=== PATIENT | female | born 1950 | race Caucasian/White ===

== ENCOUNTER → 2021-06-23 10:12 | Outpatient (CLI) | payer MEDICARE, SELFPAY ==
[2020-05-20 15:56] VITALS: BMI 24.4
--- NOTE | 2021-06-23 10:13 | BI_ITS ---
MAMMOGRAPHY - BILATERAL SCREENING 3-D TOMOSYNTHESIS REASON FOR EXAM: Female, 70 years old. screening PERTINENT HISTORY: No significant family history. TECHNIQUE: 2-D mammograms and 3-D Tomosynthesis of the breast (s) were performed. CAD was performed. COMPARISON: 04/25/2020 FINDINGS: The breast composition is composed of scattered fibroglandular density. Scattered benign calcifications are seen. No dense spiculated masses or suspicious microcalcifications are identified. No architectural distortion is identified. There is no skin thickening or retraction. There has been no significant change since the prior study. BI/SCRN MAMM (CAD)W/SYLVIE BILAT IMPRESSION: No mammographic signs of malignancy. Routine yearly mammograms recommended. ASSESSMENT CATEGORY: BIRADS Category 1: Negative. A letter regarding these results will be sent to the patient by the facility within 30 days. FOLLOW UP RECOMMENDATION: Yearly follow up mammogram recommended. (A) Approximately 10% of breast cancers are not detected by mammography. A normal mammogram should not delay biopsy of a clinically suspicious abnormality. Electronically Signed: Joni Moon MD at 11:52 EDT Tel , Service support ,
== END ==
PROVIDERS: PCP Internal Medicine; Referring Provider Obstetrics & Gynecology; Visit Provider Obstetrics & Gynecology
DX: Z12.31 Encounter for screening mammogram for malignant neoplasm of breast (principal)
CPT/HCPCS: 77063; 77067

== ENCOUNTER → 2021-07-23 11:40 | Outpatient (CLI) | payer MEDICARE, SELFPAY ==
[2021-07-25 13:41] LABS: HPV Reflexed? NOT INDICATED
== END ==
PROVIDERS: Visit Provider Obstetrics & Gynecology
DX: Z12.4 Encounter for screening for malignant neoplasm of cervix (principal)
CPT/HCPCS: 88175; G0145

== ENCOUNTER → 2022-07-07 | Outpatient (CLI) | payer MEDICARE, SELFPAY ==
--- NOTE | 2022-07-07 13:50 | BI_ITS ---
MAMMOGRAPHY - BILATERAL SCREENING REASON FOR EXAM: Female, 71 years old. Routine annual screening examination. PERTINENT HISTORY: Grandmother with breast cancer. TECHNIQUE: Digital bilateral breast sylvie (3D mammographic acquisition) in the CC and MLO projections. 2-D mediolateral oblique (MLO) and craniocaudad (CC) views of both breasts were obtained. CAD: Full Field Digital Mammography with Computer Added Detection was performed. COMPARISON: Comparison is made with prior study 06/23/2021. FINDINGS: Breast Composition: There are scattered areas of fibroglandular density. There are no dominant masses or suspicious calcifications. No other significant abnormalities are identified. There has been no significant change since the prior study. BI/SCRN MAMM (CAD)W/SYLVIE BILAT IMPRESSION: Stable bilateral screening mammogram. Yearly follow-up mammogram recommended. (A) ASSESSMENT CATEGORY: BIRADS Category 1: Negative. A letter regarding these results will be sent to the patient by the facility within 30 days. Approximately 10% of breast cancers are not detected by mammography. A normal mammogram should not delay biopsy of a clinically suspicious abnormality. [id number] Electronically Signed: Anthony José MD at 15:17 EDT ,
== END | disposition home or self-care (01) ==
PROVIDERS: PCP Internal Medicine; Referring Provider Obstetrics & Gynecology; Visit Provider Obstetrics & Gynecology
DX: Z12.31 Encounter for screening mammogram for malignant neoplasm of breast (principal)
CPT/HCPCS: 77063; 77067

== ENCOUNTER 2022-08-29 17:48 | Emergency (ER) | payer MEDICARE, SELFPAY ==
[2022-08-29 17:50] VITALS: BP 144/84; PULSE 107; RESP 15; TEMP 36.8; O2SAT 97; BMI 24.9
--- NOTE | 2022-08-29 19:10 | EX.ED.GENINJ ---
HPI History of Present Illness Chief Complaint: Bite Informant: patient Narrative Narrative: Patient is a 71-year-old female presenting with dog bite. She states her neighbors dog ran over to her and bit her right calf. The dog is otherwise been acting normally and is up-to-date with its shots. Patient is not sure when her last tetanus shot was. She is especially worried about infection because she is had prior knee surgery. Denies any significant pain at this point. No active bleeding. No associated numbness or tingling. No other injuries or complaints at this time. Tetanus Immunization: Unknown [facility] Medical History (Updated 08/29/22 @ 19:[address] Samantha Wilkinson DO) Hypertension Home Medications multivitamin,[id number] (Complete Multivitamin tablet) 1 tab PO DAILY 10/31/18 [History Last Taken Unknown] atenolol 25 mg tablet 25 mg PO DAILY 05/20/20 [History Last Taken Unknown] amoxicillin 875 mg-potassium clavulanate 125 mg tablet 1 tab PO BID #14 tabs 08/29/22 [Rx Last Taken Unknown] Allergy/AdvReac Type Severity Reaction Status Date / Time morphine AdvReac Nausea Verified 08/29/22 17:50 Sulfa (Sulfonamide AdvReac Rash Verified 08/29/22 17:50 Antibiotics) Family History Grandmother Breast cancer Father Hypertension Kidney disease kidney failure Surgical History History of tonsillectomy S/P ACL surgery S/P nasal surgery Total knee replacement status Social History Smoking Status: Never smoker alcohol intake: current details: social substance use type: does not use caffeine: Yes what type of physical activity do you participate in: walking and weight training seatbelt use: always do you feel safe at home: Yes additional social history: - Retired ROS ROS ED Constitutional Constitutional ED: Denies chills or fever(s) ENT ENT ED: Denies sore throat Cardiovascular Cardiovascular: Denies chest pain or palpitations Respiratory/Chest Respiratory/Chest: Denies cough Gastrointestinal Gastrointestinal: Denies nausea or vomiting Musculoskeletal Musculoskeletal: Reports other Details: right calf pain ; Denies arthralgias or myalgias Integumentary Reports other Details: right calf wound Neurologic Neurologic: Denies paresthesias or weakness Hematologic/Lymphatic Hematologic/Lymphatic: Denies easy bleeding or easy bruising EXAM Physical Exam Const Vital Signs: 08/29/22 17:50 Temperature 98.2 F Temperature Source Temporal Pulse Rate 107 H Respiratory Rate 15 Blood Pressure 144/84 H Blood Pressure Mean 104 Pulse Ox 97 Oxygen Delivery Method Room Air Positive well nourished and well developed General Appearance ED: well developed and NAD HEENT atraumatic Eyes PERRL and EOMs intact bilaterally Neck full ROM Chest Wall inspection of chest normal Resp normal respiratory effort and clear to auscultation bilaterally Cardio regular rhythm and no murmurs Rate: regular rate GI normal to inspection, nondistended, normoactive bowel sounds and non-tender Back/Spine normal to inspection Extremity full ROM Extremity Narrative: Mild tenderness palpation to the right calf, compartments are soft General Extremety ED: Negative for deformity General Extremity: Negative for deformity Neuro oriented x3, moves all extremities, no focal motor deficits and no sensory deficits noted Psych mental status grossly normal and thought process normal Skin Skin Narrative: Scattered abrasions and puncture wound to the right calf. No active bleeding. No foreign body appreciated. This is consistent with an animal bite. MDM MDM MDM Narrative Medical decision making narrative: Patient evaluated for dog bite to her right calf. She does have puncture wounds and abrasions but no not amenable to laceration repair. Tetanus is updated patient started on empiric Augmentin. Will obtain an x-ray to rule out any foreign body. Patient agreeable with plan of care. X-ray interpreted by myself as well as radiology. No acute fracture or foreign body appreciated. Radiography Diagnostic Testing: Clinical Impression(s) from Imaging Studies Tibia/Fibula X-Ray 08/29/22 19:20 IMPRESSION: Right total knee arthroplasty without acute abnormality. There is no evidence of fracture or dislocation. There is no visualized soft tissue foreign body or marked disruption. Electronically Signed: Prakash Girrad DO at 20:16 EDT Reading Location ID and State: [address] [place] [address] Tel [phone], Service support , Discharge Plan Triage Chief Complaint: Bite ED Provider: Samantha Wilkinson Dx/Rx/DC Orders Clinical Impression: Dog bite of calf, Right calf pain Instructions: ED Dog Bite Prescriptions: New amoxicillin-pot clavulanate 875-125 mg tablet 1 tab PO BID Qty: 14 0RF No Action Complete Multivitamin tablet 1 tab PO DAILY atenolol 25 mg tablet 25 mg PO DAILY Primary Care Provider: Sasha Up Referrals: Sasha Up MD [Primary Care Provider] - Disposition Disposition: Home, Self Care Discharge Date/Time: 08/29/22 20:28
[2022-08-29] MEDS: Diphth,Pertuss(Acell),Tet Vac 0.5 ML Vial IM (19:15)
[2022-08-29] MEDS: Amox/Clavulanate 875 MG Tablet PO (19:15)
--- NOTE | 2022-08-29 19:20 | RAD_ITS ---
STUDY: X-RAY - RIGHT TIBIA AND FIBULA REASON FOR EXAM: Female, 71 years old. Dog bite. TECHNIQUE: AP and lateral view(s) of the tibia and fibula were obtained. COMPARISON: None. FINDINGS: There is a right total knee arthroplasty without acute abnormality. There is no fracture or loosening from the underlying bone. The tibia is otherwise unremarkable. Normal visualized fibula. There is no acute fracture, dislocation or destructive osseous pathology. The ankle is preserved. The soft tissue structures are unremarkable. No foreign body. RAD/Tibia & Fibula 2 Views IMPRESSION: Right total knee arthroplasty without acute abnormality. There is no evidence of fracture or dislocation. There is no visualized soft tissue foreign body or marked disruption. Electronically Signed: Prakash Girard DO at 20:16 EDT ,
== END 2022-08-29 20:28 | disposition home or self-care (01) ==
PROVIDERS: Emergency Provider Emergency Medicine; PCP Internal Medicine; Visit Provider Emergency Medicine
DX: S81.851A Open bite, right lower leg, initial encounter (principal); Z23 Encounter for immunization; W54.0XXA Bitten by dog, initial encounter
CPT/HCPCS: 73590; 90471; 90715; 99282

== ENCOUNTER → 2022-11-26 | Outpatient (CLI) | payer MEDICARE, SELFPAY ==
--- NOTE | 2022-11-26 10:05 | BD_ITS ---
STUDY: DUAL ENERGY X-RAY ABSORPTIOMETRY / DXA REASON FOR EXAM: Female, 72 years old. Estrogen deficiency TECHNIQUE: Bone Mineral Density (BMD) measurements of lumbar spine and bilateral hips were obtained. COMPARISON: None. FINDINGS: Lumbar Spine (L1-L4): g/cm2 (1.058) / T-score (0.1) / Z-score (2.4) Findings are suggestive of normal bone density with a low fracture risk. Left Femur Total: g/cm2 (0.842) / T-score (-0.8) / Z-score (0.9) Left Femoral Neck: g/cm2 (0.616) / T-score (-2.1) / Z-score (-0.1) Right Femur Total: g/cm2 (0.807) / T-score (-1.1) / Z-score (0.6) Right Femoral Neck: g/cm2 (0.573) / T-score (-2.5) / Z-score (-0.5) BD/Dexa Bone Density Study IMPRESSION: The patient is considered osteopenic as outlined below according to World Nik Organization (WHO) criteria with a high fracture risk. Reference Information: The T-score is the number of standard deviations above or below the standard which is normal for young adults at their peak bone mineral density. The World Health Organization (WHO) interprets the T-scores as follows: Above -1 Normal bone density Between -1 and -2.5 Osteopenia Equal to / or below -2.5 Osteoporosis As a practical clinical guideline, osteopenia may be graded as follows: Mild -1 through -1.5 Moderate -1.6 through -2.0 Severe -2.1 through -2.4 The Z-score is the number of standard deviations above or below age-matched controls. A Z-score of less than -1.5 would be considered abnormal. References: 1. NIH Osteoporosis and Related Bone Diseases www osteo.org 2. International Society for Clinical Densitometry www iscd.org 3. National Osteoporosis Foundation www nof.org Electronically Signed: Anthony José MD at 13:46 EST ,
== END | disposition home or self-care (01) ==
PROVIDERS: PCP Internal Medicine; Visit Provider Obstetrics & Gynecology
DX: E28.39 Other primary ovarian failure (principal)
CPT/HCPCS: 77080

== ENCOUNTER 2023-04-11 19:49 | Emergency (ER) | payer MEDICARE, SELFPAY ==
[2023-04-11 19:50] VITALS: BP 201/108; PULSE 70; RESP 18; TEMP 36.6; O2SAT 98; BMI 23.3
--- NOTE | 2023-04-11 20:21 | EDS_ITS ---
HPI HPI - GI History of Present Illness Chief Complaint: Abd Pain Narrative Narrative: 72-year-old female presenting with abdominal pain which is described as diffuse and crampy. She has had this on and off since October 2022. She saw her primary care provider back then and had lab work and imaging which was normal. She states she had a CT scan which showed nonobstructing kidney stone so she followed up with her urologist and her urologist told her the pain is not related to her kidney stones. She describing diffuse crampy abdominal pain. She states that he told her to follow-up with her PCP and get a referral to GI. She has a's appointment tomorrow morning, but felt she was in too much pain to wait. She denies fever or chills. She denies urinary symptoms. She denies diarrhea. She states that she is not constipated, however she states that last time she had this pain she took stool softeners and she had bowel movements that she felt better. This was 2 weeks ago. PFSH [facility] Medical History Hypertension Home Medications multivitamin,[id number] (Complete Multivitamin tablet) 1 tab PO DAILY 10/31/18 [History Last Taken Unknown] atenolol 25 mg tablet 25 mg PO DAILY 05/20/20 [History Last Taken Unknown] dicyclomine 10 mg capsule 10 mg PO BID PRN abdominal pain #20 caps 04/11/23 [Rx Last Taken Unknown] ondansetron 4 mg disintegrating tablet 4 mg PO Q8H PRN PRN Nausea #14 tabs 04/11/23 [Rx Last Taken Unknown] Allergy/AdvReac Type Severity Reaction Status Date / Time morphine AdvReac Nausea Verified 04/11/23 19:52 Sulfa (Sulfonamide AdvReac Rash Verified 04/11/23 19:52 Antibiotics) Family History Grandmother Breast cancer Father Hypertension Kidney disease kidney failure Surgical History History of tonsillectomy S/P ACL surgery S/P nasal surgery Total knee replacement status Social History Smoking Status: Never smoker alcohol intake: current details: social substance use type: does not use caffeine: Yes what type of physical activity do you participate in: walking and weight training seatbelt use: always do you feel safe at home: Yes additional social history: - Retired ROS ROS ED Constitutional Constitutional ED: Denies chills, fever(s) or sweats Eyes Eyes: Denies blurry vision or change in vision ENT ENT ED: Denies ear pain or sore throat Cardiovascular Cardiovascular: Denies chest pain, palpitations or racing heartbeat Respiratory/Chest Respiratory/Chest: Denies cough, dyspnea or sputum Gastrointestinal Gastrointestinal: Reports abdominal pain, constipation, nausea and vomiting; Denies diarrhea Genitourinary Genitourinary ED: Denies dysuria, hematuria or urinary frequency Musculoskeletal Musculoskeletal: Denies arthralgias, myalgias or neck pain Integumentary Denies abscess, Abrasions or rash Neurologic Neurologic: Denies headache(s), paresthesias or weakness Psychiatric Psychiatric: Denies anxiety, depression, suicidal ideation or suicidal thoughts Endocrine Endocrinology: Denies polydipsia or polyuria EXAM Physical Exam Const Vital Signs: 04/11/23 19:50 04/11/23 21:48 04/11/23 22:45 Temperature 97.9 F Temperature Source Temporal Pulse Rate 70 72 70 Respiratory Rate 18 16 16 Blood Pressure 201/108 H 189/103 H 185/77 H Blood Pressure Mean 139 131 113 Pulse Ox 98 99 98 Oxygen Delivery Method Room Air Room Air Room Air Positive well nourished General Appearance ED: NAD HEENT Reports moist mucous membranes and dry mucous membranes Negative for normocephalic Mouth ED: Yes dry mucous membranes Mouth: dry mucous membranes Eyes PERRL and EOMs intact bilaterally Cardio regular rate and regular rhythm GI Palpation: Negative for guarding, rigid, hepatomegaly, mass, pulsatile mass or rebound tenderness present Back/Spine no CVA tenderness Extremity full ROM Neuro CN's II-XII intact bilaterally and moves all extremities Sensorium / Orientation: alert Psych mental status grossly normal and thought process normal MDM MDM MDM Narrative Medical decision making narrative: Patient presenting with diffuse crampy abdominal pain. She has had this on and off since October. She had a CT scan which did not show anything but nonobstructing kidney stones. She has seen urology and was told to go to her primary care doctor to get a referral to GI. She has an appointment with her primary care doctor tomorrow. She had a return of her pain today. She states she vomited this morning but currently feels okay. Patient states that she had this 2 weeks ago and she took stool softeners and had bowel movements and felt better. Differential includes constipation, small bowel obstruction, electrolyte abnormalities, dehydration, anemia, diverticulitis, colitis, pancreatitis, UTI, pyelonephritis, kidney stone. CBC to assess white blood cell count, hemoglobin, platelets, differential. CMP to assess liver function, renal function, glucose, electrolytes, anion gap. Lipase to assess for pancreatitis. Urinalysis to test for UTI. Patient medicated with Bentyl and Zofran. I did not want to give her narcotics because I think she is clinically probably constipated. I will give her IV fluids. If her renal function is okay I will consider giving her Toradol. I will repeat CT of the abdomen pelvis with IV contrast. CT of the abdomen pelvis is negative except for couple of gallstones. Patient's bilirubin is 1.10 and that is unchanged. The rest of her LFTs are normal. Lipase is normal. Her symptoms are relatable to food. Do not think it is acute cholecystitis. I will place her on Bentyl and Zofran for home. She will follow-up with her primary care doctor tomorrow. Referral to GI I think is appropriate. Impression: 1. Abdominal pain 2. Nausea Lab Data Labs: Laboratory Results - last 24 hr 04/11/23 04/11/23 20:51 20:51 WBC 5.1 RBC 4.61 Hgb 13.8 Hct 41.7 MCV 90.5 MCH 29.9 MCHC 33.1 RDW Std Deviation 45.5 H RDW Coeff of Rhoda 13.5 Plt Count 187 MPV 10.6 Immature Gran % (Auto) 0.400 Neut % (Auto) 50.1 Lymph % (Auto) 40.6 [place] % (Auto) 7.5 Eos % (Auto) 1.0 Baso % (Auto) 0.4 Absolute Neuts (auto) 2.5 Absolute Lymphs (auto) 2.06 Nucleated RBC % 0 Sodium 140 Potassium 3.8 Chloride 105 Carbon Dioxide 29.0 Anion Gap 6 BUN 13 Creatinine 1.06 H Estim Creat Clear Calc 38.52 Est GFR (MDRD) Af Amer 65 Est GFR (MDRD) Non-Af 54 L BUN/Creatinine Ratio 12.3 Glucose 97 Calcium 9.3 Total Bilirubin 1.10 H AST 17 ALT 20 Alkaline Phosphatase 55 Total Protein 7.2 Albumin 3.9 Globulin 3.3 Albumin/Globulin Ratio 1.2 Lipase 52 Radiography Diagnostic Testing: Clinical Impression(s) from Imaging Studies Abdomen/Pelvis CT 04/11/23 20:22 IMPRESSION: Cholelithiasis. Bilateral nonobstructing renal stones. Electronically Signed: Joni Moon MD at 22:56 EDT , Discharge Plan Triage Chief Complaint: Abd Pain ED Provider: Tai Forrester Dx/Rx/DC Orders Instructions: ED Abdominal Pain Unkn Cause Fem Prescriptions: New ondansetron 4 mg tablet,disintegrating 4 mg PO Q8H PRN PRN (Reason: Nausea) Qty: 14 0RF dicyclomine 10 mg capsule 10 mg PO BID PRN (Reason: abdominal pain) Qty: 20 0RF No Action Complete Multivitamin tablet 1 tab PO DAILY atenolol 25 mg tablet 25 mg PO DAILY Primary Care Provider: Sasha Up Referrals: Sasha Up MD [Primary Care Provider] - Disposition Disposition: Home, Self Care
--- NOTE | 2023-04-11 20:22 | CT_ITS ---
STUDY: CT ABDOMEN AND PELVIS WITH CONTRAST REASON FOR EXAM: Female, 72 years old. Abdominal pain RADIATION DOSAGE (If Supplied By Facility): CTDIvol = ( 14.81 ) mGy, DLP = ( 595.74 ) mGycm TECHNIQUE: Transaxial images were obtained from the dome of the diaphragm to the symphysis pubis without oral contrast. IV 75mL Isovue-370 was administered. Sagittal and coronal images were reconstructed. Individualized dose optimization techniques were used for this CT. COMPARISON: 04/30/2016 FINDINGS: The visualized lung bases are unremarkable. The visualized portions of the heart are within normal limits. Normal liver. There are multiple gallstones. Normal spleen. Normal pancreas. Normal bilateral adrenal glands. Multiple bilateral nonobstructing renal stones. No hydronephrosis, ureteral stone, ureteral dilatation. Normal visualized stomach. Normal small intestine. Normal colon. The appendix is visualized and appears normal. Normal abdominal aorta. Normal inferior vena cava. Normal retroperitoneum. Normal urinary bladder. Status post bilateral tubal ligation. Normal abdominal wall. There are diffuse degenerative changes of the visualized lumbar spine. CT/Abdomen/Pelvis W IV Cont ONLY IMPRESSION: Cholelithiasis. Bilateral nonobstructing renal stones. Electronically Signed: Joni Moon MD at 22:56 EDT ,
[2023-04-11] MEDS: 0.9% Normal Saline 1,000 ML 999 ML IV (20:42)
[2023-04-11] MEDS: Ondansetron 4 MG/2 ML Vial IV (20:43)
[2023-04-11] MEDS: Dicyclomine 20 MG/2 ML Vial IM (20:43)
[2023-04-11 21:19] LABS: ALB/GLOB Ratio 1.2 RATIO (0.9-2.4); AST(SGOT) 17 U/L (15-37); Alanine Aminotransfer ALT/SGPT 20 U/L (13-56); Albumin, Serum 3.9 g/dL (3.2-5.0); Alkaline Phosphatase 55 U/L (45-117); Anion Gap 6 (5-15); BUN 13 mg/dL (7-18); BUN/Creat Ratio 12.3 RATIO (10-20); Calcium,Total 9.3 mg/dL (8.5-10.1); Chloride 105 mmol/L (98-107); Creatinine, Serum 1.06 mg/dL (0.55-1.02); EST Glomerular Filtration Rate 54 mL/min (>60); Est Glom Filt Rate - Afr Amer 65 mL/min (>60); Estimated Creatinine Clearance 38.52 ml/min; Globulin 3.3 g/dL (2.2-4.2); Glucose 97 mg/dL (74-106); Lipase 52 U/L (13-75); Potassium 3.8 mmol/L (3.5-5.1); Protein, Total 7.2 g/dL (6.4-8.2); Sodium Level 140 mmol/L (136-145)
[2023-04-11 21:41] LABS: Absolute Lymphocyte Count 2.06 X10^3/uL (0.83-4.51); Absolute Neutrophil Count 2.5 X10^3/uL (2.0-7.7); Basophil# 0.02 X10^3/uL; Basophil% 0.4 % (0-1); Eosinophil# 0.05 X10^3/uL; Hematocrit 41.7 % (37-47); Hemoglobin 13.8 g/dL (12.0-15.0); Lymphocyte # 2.06 X10^3/ul (0.83-4.51); Lymphocyte % 40.6 % (19-41); Mean Corp Hgb Conc 33.1 g/dL (32-36); Mean Corpuscular Hgb 29.9 pg (27.0-32.0); Mean Corpuscular Volume 90.5 fL (81-99); Mean Platelet Vol. 10.6 fl (6.2-12.0); Monocyte# 0.38 X10^3/uL; Monocyte% 7.5 % (0-10); NRBC Flagged by Analyzer 0 % (0-5); Neutrophil # 2.54 X10^3/uL (2.7-7.7); Neutrophil % 50.1 % (47-70); Platelet Count 187 K/mm3 (150-450); RBC Distribution Width CV 13.5 % (11.6-14.6); RBC Distribution Width SD 45.5 fl (35.1-43.9); Red Blood Count 4.61 M/mm3 (4.2-5.4); White Blood Count 5.1 K/mm3 (4.4-11.0)
[2023-04-11 21:48] VITALS: BP 189/103; PULSE 72; RESP 16; O2SAT 99
[2023-04-11 22:45] VITALS: BP 185/77; PULSE 70; RESP 16; O2SAT 98
== END 2023-04-11 23:13 | disposition home or self-care (01) ==
PROVIDERS: Emergency Provider Student in an Organized Health Care Education/Training Program; PCP Internal Medicine; Visit Provider Student in an Organized Health Care Education/Training Program
DX: N20.0 Calculus of kidney (principal); R11.0 Nausea; I10 Essential (primary) hypertension; R10.9 Unspecified abdominal pain; Z79.899 Other long term (current) drug therapy
CPT/HCPCS: 74177; 80053; 83690; 85025; 96372; 96374; 99283; Q9967; J2405

== ENCOUNTER → 2023-06-08 | Outpatient (CLI) | payer MEDICARE, SELFPAY ==
--- NOTE | 2023-06-08 09:24 | RAD_ITS ---
PROCEDURE: SMALL BOWEL SERIES DATE OF EXAMINATION: June 08, 2023. INDICATION: Female, 72 years old. 20 pound unintentional weight loss. 2 month history of epigastric bloating. PHYSICIAN: Anthony José M.D. FLUOROSCOPY TIME (if supplied): (0:44) minutes/seconds. 36.6 mGy. 8 images were obtained. 2. TECHNIQUE: Radiographic and fluoroscopic images were taken of the small intestine following the ingestion of barium. COMPARISON: None. FINDINGS: A preliminary supine KUB was obtained. There is an unremarkable bowel gas pattern. Fecal material is present throughout the colon. Phleboliths are present within the pelvis. Prior tubal ligation clips. Degenerative changes of the visualized lumbar spine as well as the sacroiliac joints. The patient orally ingested approximately 12 ounces of thin barium Normal visualized fundus, body, and antrum of the stomach. Normal duodenal bulb, C-loop, and proximal jejunum. Normal visualized mucosal folds of the jejunum and ileum. There are no demonstrated dilatations, strictures, or masses of the small intestine. There is no mass displacement of the loops of small intestine. There is a normal motor pattern with barium reaching the colon within approximately 90 minutes. Spot films under fluoroscopic observation demonstrated a normal terminal ileum and ileocecal valve. RAD/Small Bowel Series Only IMPRESSION: Normal small bowel series. Electronically Signed: Anthony José MD at 9:38 EDT ,
== END | disposition home or self-care (01) ==
LOC: RAD 09:22
PROVIDERS: PCP Internal Medicine; Referring Provider Internal Medicine Gastroenterology; Visit Provider Internal Medicine Gastroenterology
DX: R63.4 Abnormal weight loss (principal); R10.9 Unspecified abdominal pain
CPT/HCPCS: 74250

== ENCOUNTER → 2023-07-28 | Outpatient (CLI) | payer MEDICARE, SELFPAY ==
--- NOTE | 2023-07-28 10:53 | BI_ITS ---
MAMMOGRAPHY - BILATERAL SCREENING REASON FOR EXAM: Female, 72 years old. Routine annual screening examination. PERTINENT HISTORY: Grandmother with breast cancer. TECHNIQUE: Digital bilateral breast sylvie (3D mammographic acquisition) in the CC and MLO projections. 2-D mediolateral oblique (MLO) and craniocaudad (CC) views of both breasts were obtained. CAD: Full Field Digital Mammography with Computer Added Detection was performed. COMPARISON: Comparison is made with prior study dated July 07, 2022 and June 23, 2021. FINDINGS: Breast Composition: There are scattered areas of fibroglandular density. There are no dominant masses or suspicious calcifications. No other significant abnormalities are identified. There has been no significant change since the prior study. BI/SCRN MAMM (CAD)W/SYLVIE BILAT IMPRESSION: Stable bilateral screening mammogram. Yearly follow-up mammogram recommended. (A) ASSESSMENT CATEGORY: BIRADS Category 1: Negative. A letter regarding these results will be sent to the patient by the facility within 30 days. Approximately 10% of breast cancers are not detected by mammography. A normal mammogram should not delay biopsy of a clinically suspicious abnormality. [id number] Electronically Signed: Anthony José MD at 11:34 EDT ,
== END | disposition home or self-care (01) ==
LOC: OPBI 10:52
PROVIDERS: PCP Internal Medicine; Referring Provider Obstetrics & Gynecology; Visit Provider Obstetrics & Gynecology
DX: Z12.31 Encounter for screening mammogram for malignant neoplasm of breast (principal)
CPT/HCPCS: 77063; 77067

== ENCOUNTER → 2023-08-04 | Outpatient (CLI) | payer MEDICARE, SELFPAY ==
--- NOTE | 2023-08-04 08:52 | STE_ITS ---
Reason For Study: DYSPNEA/SOB Stress Results Protocol: Jame Protocol Maximum Predicted HR: 146 bpm Target HR: 124 bpm % Maximum Predicted HR: 91 % DurationHeart Rate Stage (mm:ss) (bpm) BP Comment BASELINE 69 162/82 STAGE 1 3:00 109 162/70 STAGE 2 3:00 120 144/70BIGEMINY STAGE 3 3:00 133 158/68COUPLETS, PVC RECOVERY 82 162/80 Stress Duration: 9:00 mm:ss Maximum Stress HR: 133 bpm Baseline Echocardiogram Findings Stress Echo Wall motion Data Resting WM Intermediate WM Stress WM Resting Wall Motion Wall Motion Stress No resting wall motion Post stress, posterior basal and abnormality. Resting EF normal. basal lateral hypokinesis noted. Rest of the wall motions augment normally. EKG Data Resting EKG normal sinus rhythm with PVCs and PACs. No ischemic changes noted on stress ECG. Frequent PVCs/PACs. First-degree AV block noted. ECHO/Stress Test Echo w/o Contrast Interpretation Summary Post stress, posterior basal and basal lateral hypokinesis noted. Suggestive of ischemia. Rest of the wall motions augment normally. Severely dilated left atrium with marked deviation of the interatrial septum to the right. No ischemic changes noted on stress ECG. Frequent PVCs/PACs. First-degree AV bl ock noted Good exercise tolerance for age. Ordering Physician: Nathalia Ventura Referring Physician: Nathalia Ventura Performed By: Alexandrea Colin, RDCS, RVT
== END | disposition home or self-care (01) ==
LOC: CVS 08:52
PROVIDERS: PCP Internal Medicine; Referring Provider Internal Medicine Cardiovascular Disease; Visit Provider Internal Medicine Cardiovascular Disease
DX: I45.10 Unspecified right bundle-branch block (principal); R06.00 Dyspnea, unspecified
CPT/HCPCS: 93017; 93350

== ENCOUNTER 2023-09-07 07:24 | Day surgery (SDC) | payer MEDICARE, SELFPAY ==
--- NOTE | 2023-08-13 09:38 | PCM.HP.BLA ---
History and Physical Date of Admission: 08/31/23 This is a 72-year-old female who presents today for a cardiac catheterization following an abnormal stress test. She has a history significant for hypertension. For the past some time, she has been having abdominal discomfort. She describes it as a band across her abdomen. It is constant with occasional sharp shooting pains. Per her, it is worse with eating. Patient also describes epigastric discomfort. Once again, she describes it as getting worse with eating. At the same time, she also thinks it is worse with exertion. Some associated shortness of breath with it. Denies orthopnea. No PND. No ankle edema. No palpitations. Intake Vital Signs See EMR Allergies See EMR Medications See EMR Ejection fraction %: 55 to 59 PFSH Medical History Abdominal pain Anemia Calculus of gallbladder without cholecystitis without obstruction Hypertension Osteopenia after menopause Renal calculi Retinal vasculitis, bilateral Right bundle branch block (RBBB) Uveitis of both eyes Surgical History History of tonsillectomy Hx of lithotripsy (~2015) S/P ACL surgery S/P nasal surgery Total knee replacement status (~2009) Family History Grandmother Breast cancerFather Hypertension Kidney disease kidney failure Social History Smoking Status: Never smoker alcohol intake: current alcohol intake frequency: a few times a month details: social substance use type: does not use caffeine: Yes what type of physical activity do you participate in: walking and weight training seatbelt use: always do you feel safe at home: Yes additional social history: - Retired ROS Const Const: Negative for fatigue, weakness, headache(s), daytime sleepiness or difficulty sleeping Eyes Eyes: Negative for change in vision ENT ENT: Positive for dizziness; Negative for headache(s) or Nosebleed/epistaxis Cardio Chest Pain: Yes Frequency: daily Character: dull Onset: with meals Location: epigastric Duration: continuous Exacerbation: eating Palpitations: No Edema: None Resp Respiratory: Positive for SOB with activity; Negative for SOB at rest, SOB orthopnea\SOB lying down or Cough GI GI: Negative nausea, vomiting or heartburn Neuro Neuro: Positive for dizziness; Negative for lightheadedness, near syncope, headache(s) or weakness Endo Endo: Negative for fatigue Cardiology Exam Const Appearance: comfortable and no acute distress Nutritional Appearance: well nourished Neck Neck: no JVD Carotids: Negative bruit Chest Auscultation: Bilateral: Clear to Auscultation Cardio Rate: regular rate Rhythm: regular rhythm Heart sounds: S1 normal and S2 normal Neuro General: patient alert, patient awake and patient oriented x3 Extremities Lower Extremity Edema: None: Bilateral Supplemental Info Supplemental Information ECHOCARDIOGRAM 07/08/23: CONCLUSIONS: - Exam indication: Abnormal ECG - The left ventricle is normal in size. Left ventricular systolic function is normal. EF = 58 ? 5% (2D biplane) Normal left ventricular diastolic function. - The right ventricle is normal in size. Right ventricular systolic function is normal. - The left atrial cavity is severely dilated. - There are no significant valvular abnormalities. - The patient has not had a prior CC echocardiographic exam for comparison. Stress echocardiogram 08/04/2023: Interpretation Summary Post stress, posterior basal and basal lateral hypokinesis noted. Suggestive of ischemia. Rest of the wall motions augment normally. Severely dilated left atrium with marked deviation of the interatrial septum to the right. No ischemic changes noted on stress ECG. Frequent PVCs/PACs. First-degree AV block noted Good exercise tolerance for age. Assessment and Plan Assessment and Plan (1) Epigastric discomfort: Status: Chronic Comment: ECG from April of this year shows normal sinus rhythm. Sinus arrhythmia. Essentially normal ECG. Echocardiogram showed normal LV systolic function. Normal right ventricular size and function. Left atrial cavity was noted to be dilated. Plan: Patient acknowledges epigastric discomfort, and this is exacerbated with exertion. Her most recent stress echocardiogram was abnormal. Would like to proceed with a cardiac catheterization to further assess this. Depending on results, further recommendations will be made. (2) Abnormal Stress Test: Patient's stress echocardiogram from 08/04/2022 demonstrated post stress, posterior basal and basal lateral hypokinesis noted. Suggestive of ischemia. Would like to proceed with a cardiac catheterization to further assess this. Depending on results, further recommendations will be made.
--- NOTE | 2023-08-17 09:10 | RAD_ITS ---
STUDY: X-RAY CHEST REASON FOR EXAM: Female, 72 years old. Cardiac catheterization. Pre-procedural evaluation. TECHNIQUE: Frontal and lateral views of the chest. COMPARISON: None. FINDINGS: Mild hyperinflation. There is no demonstrated pleural abnormality. Normal size heart. Normal mediastinum and sveta. Normal visualized pulmonary arteries. Aortic tortuosity. Normal visualized thoracic spine. Normal visualized ribs, clavicles, and shoulders. No abnormality of the visualized soft tissue structures of the upper abdomen. RAD/Chest PA and Lateral IMPRESSION: Hyperinflation with no acute or active cardiopulmonary disease. Electronically Signed: Angus Law MD at 11:47 EDT ,
[2023-08-17 09:48] LABS: Absolute Lymphocyte Count 1.62 X10^3/uL (0.83-4.51); Absolute Neutrophil Count 1.8 X10^3/uL (2.0-7.7); Basophil# 0.02 X10^3/uL; Basophil% 0.5 % (0-1); Eosinophil# 0.11 X10^3/uL; Eosinophils% 2.9 % (0-5); Hematocrit 42.9 % (37-47); Hemoglobin 13.4 g/dL (12.0-15.0); Lymphocyte # 1.62 X10^3/ul (0.83-4.51); Lymphocyte % 42.4 % (19-41); Mean Corp Hgb Conc 31.2 g/dL (32-36); Mean Corpuscular Hgb 29.5 pg (27.0-32.0); Mean Corpuscular Volume 94.3 fL (81-99); Mean Platelet Vol. 10.1 fl (6.2-12.0); Monocyte% 7.9 % (0-10); NRBC Flagged by Analyzer 0 % (0-5); Neutrophil # 1.76 X10^3/uL (2.7-7.7); Platelet Count 172 K/mm3 (150-450); RBC Distribution Width SD 48.7 fl (35.1-43.9); Red Blood Count 4.55 M/mm3 (4.2-5.4); White Blood Count 3.8 K/mm3 (4.4-11.0)
[2023-08-17 10:22] LABS: Anion Gap 5 (5-15); BUN 22 mg/dL (7-18); BUN/Creat Ratio 25.3 RATIO (10-20); Calcium,Total 9.1 mg/dL (8.5-10.1); Chloride 111 mmol/L (98-107); Creatinine, Serum 0.87 mg/dL (0.55-1.02); EST Glomerular Filtration Rate 68 mL/min (>60); Est Glom Filt Rate - Afr Amer 82 mL/min (>60); Glucose 102 mg/dL (74-106); Sodium Level 144 mmol/L (136-145)
[2023-09-06 07:05] VITALS: BMI 21.6
--- NOTE | 2023-09-07 09:32 | CL.D_ITS ---
Patient Name: BRUCE RIVERO Study Date: 09/07/2023 Performing: Nathalia Ventura MD Ht: 63 inches 160.02 cm : 1950 Wt: 122 lbs 55.34 kg Age: 72 Gender: female BSA: 1.57 PROCEDURE(S) PERFORMED [id number]-([id number])[facility] CLINICAL PROFILE AND INDICATIONS Indications: Suspected CAD Heart Failure: None Stress/Imaging Stress Echocardiogram: Yes Result: Positive Intermediate RiskStress Echocardiogram: Positive Intermediate Risk CONCLUSIONS 20% Prox Ramus RECOMMENDATIONS Risk factor modification DESCRIPTION OF PROCEDURE The patient arrived to the procedure lab. The risks and benefits of the procedure as well as a full description of our services here and current unavailability of surgical backup were fully explained to the patient and/or their significant other prior to the catheterization. The Timeout was completed, verifying the correct patient and procedure. The patient's procedural site was prepped and draped in the usual fashion. Local anesthetic was given subcutaneously to right radial region with Lidocaine 2%. Using a modified Seldinger technique, arterial access was obtained via the right radial artery, a 6Fr sheath was inserted. Left Coronary Artery selective angiography was performed in multiple views using a 5 Fr. 4.0 [place] catheter. Right Coronary Artery selective angiography was then performed in multiple views using a 5 Fr. 4.0 [place] catheter.The arterial sheath was pulled and a TR Band was applied for hemostasis CORONARY ANGIOGRAPHY DOMINANCE: Right Dominant LEFT HEART ASSESSMENT Left Ventricular Ejection Fraction: Not assessed LEFT MAIN: Angiographically normal LEFT ANTERIOR DESCENDING ARTERY: Angiographically normal CIRCUMFLEX ARTERY: Angiographically normal RAMUS: Tubular 20% Proximal lesion in Ramus COMPLICATIONS No Complications PROCEDURE MEDICATIONS Fentanyl 50 mcg IV Versed 2 mg IV Oxygen: 2 L/min via nasal cannula Heparin given IA 09/07/2023 09:07:20 Verapamil 2.5mg, Ntg 200mcgs, 2000 units of Heparin given IA 09/07/2023 09:07:20 SUMMARY OF HEMODYNAMIC DATA Time AIR REST ECG 07:47:55 ECG 07:48:42 AO 149/84 (108) SA 09:09:02 AIR REST 09:31:27 Signed By Nathalia Ventura MD On 09/07/2023 9:31:55 AM Nathalia Ventura MD
[2023-09-07 10:18] LABS: Cholesterol 168 mg/dL (200); High Density Lipoprotein 46 mg/dL; Triglycerides 37 mg/dL; Very Low Density Lipoprotein 7 mg/dL (5-40)
== END 2023-09-07 11:00 | disposition home or self-care (01) ==
PROVIDERS: Nurse Practitioner Gerontology; PCP Internal Medicine; Referring Provider Internal Medicine Cardiovascular Disease; Visit Provider Internal Medicine Cardiovascular Disease
DX: I25.10 Atherosclerotic heart disease of native coronary artery without angina pectoris (principal); R10.13 Epigastric pain; I10 Essential (primary) hypertension; R06.02 Shortness of breath; Z79.82 Long term (current) use of aspirin; Z79.899 Other long term (current) drug therapy
CPT/HCPCS: 36415; 71046; 80048; 80061; 85025; 93454; 99152; 99153; J7040; Q9967; C1769; C1894

== ENCOUNTER → 2024-08-17 | Outpatient (CLI) | payer MEDICARE, SELFPAY ==
--- NOTE | 2024-08-17 08:23 | BI_ITS ---
MAMMOGRAPHY - BILATERAL SCREENING REASON FOR EXAM: Female, 73 years old. Routine annual screening examination. PERTINENT HISTORY: Grandmother with breast cancer. TECHNIQUE: Digital bilateral breast sylvie (3D mammographic acquisition) in the CC and MLO projections. 2-D mediolateral oblique (MLO) and craniocaudad (CC) views of both breasts were obtained. CAD: Full Field Digital Mammography with Computer Added Detection was performed. COMPARISON: Comparison is made with prior study July 28, 2023 and July 07, 2022. FINDINGS: Breast Composition: There are scattered areas of fibroglandular density. There are no dominant masses or suspicious calcifications. No other significant abnormalities are identified. There has been no significant change since the prior study. BI/SCRN MAMM (CAD)W/SYLVIE BILAT IMPRESSION: Stable bilateral screening mammogram. Yearly follow-up mammogram recommended. (A) ASSESSMENT CATEGORY: BIRADS Category 1: Negative. A letter regarding these results will be sent to the patient by the facility within 30 days. Approximately 10% of breast cancers are not detected by mammography. A normal mammogram should not delay biopsy of a clinically suspicious abnormality. [id number] Electronically Signed: Anthony José MD at 9:35 EDT ,
--- OUTSIDE RECORDS SUMMARY | 2024-08-17 08:49 | XMS RPT_ITS | CCD ---
Author Organization [facility] Care Team Providers Care Computer Forensic Specialist Name Role Phone Faye Lacey MD Unavailable [phone] Talmj, Sai D Primary Care Provider Sai Benjamin MD Primary Care Provider Sai Benjamin MD Primary Care Provider Sai Benjamin MD Primary Care Provider ZAINA AVILES Admitting Unavailable ZAINA AVILES Referring Unavailable TALAMPAS, SAI D Primary Care Unavailable ZAINA AVILES Attending Unavailable TALAMPAS, SAI D Primary Care Unavailable ZAINA AVILES Admitting Unavailable ZAINA AVILES Referring Unavailable TALAMPAS, SAI D Primary Care Unavailable TALAMPAS, SAI D Primary Care Unavailable ZAINA AVILES Attending Unavailable TALAMPAS, SAI D Primary Care Unavailable ROMAN TERRY Attending Unavailable Sai Benjamin MD Primary Care Provider TALAMPAS, SAI D Primary Care Unavailable VY MENENDEZ Referring Unavailable Lisa Benjamin MDa Mario Primary Care Provider TALAMPAS, SAI D Primary Care Unavailable RONALD QUIJANO Attending Unavailable TALAMPAS, SAI D Primary Care Unavailable RONALD QUIJANO Referring Unavailable TALAMPAS, SAI D Primary Care Unavailable ENRIQUE LYNCH Attending Unavailable TALAMPAS, SAI D Primary Care Unavailable ENRIQUE LYNCH Referring Unavailable JUDE STODDARD Attending Unavailable RONALD QUIJANO Attending Unavailable TALAMPAS, SAI D Primary Care Unavailable RONALD QUIJANO Attending Unavailable SELF Referring Unavailable TALAMPAS, SAI D Primary Care Unavailable TALAMPAS, SAI D Primary Care Unavailable MAXIMILIANO HOFFMANN Attending Unavailable TALAMPAS, SAI D Primary Care Unavailable SLEIK, KHALED MELOUD Attending Unavailable SLEIK, KHALED MELOUD Referring Unavailable TALAMPAS, SAI D Primary Care Unavailable RICHI, CAREEN Y Referring Unavailable TALAMPAS, SAI D Primary Care Unavailable TALAMPAS, SAI D Primary Care Unavailable SYED, ENRIQUE Referring Unavailable TALAMPAS, SAI D Primary Care Unavailable SYEDENRIQUE Attending Unavailable SELF Referring Unavailable SAMM, RONALD Attending Unavailable TALAMPAS, SAI D Primary Care Unavailable RICHI, CAREEN Y Attending Unavailable TALAMPAS, SAI D Primary Care Unavailable SAMM, RONALD Attending Unavailable TALAMPAS, SAI D Primary Care Unavailable KEYSHAWN FRANCE Attending Unavailable TALAMPAS, SAI D Primary Care Unavailable SAMM, RONALD Attending Unavailable TALAMPAS, SAI D Primary Care Unavailable SLEIK, KHALED MELOUD Attending Unavailable TALAMPAS, SAI D Primary Care Unavailable SAMM, RONALD Attending Unavailable TALAMPAS, SAI D Primary Care Unavailable SAMM, RONALD Referring Unavailable TALAMPAS, SAI D Primary Care Unavailable Allergies Allergy Classification Reported Allergen(s) Allergy Type Date of Onset Reaction(s) Facility (3 sources) Sulfamethoxazole / Trimethoprim; Translations: [SULFAMETHOXAZOLE-T RIMETHOPRIM] Drug Allergy 05-25-20 17 [facility] (20 sources) Sulfonamides (Antibiotic); Translations: [SULFA (SULFONAMIDE ANTIBIOTICS)] Propensity to adverse reactions to drug 07-15-20 05 Hives, Rash [facility] (20 sources) Morphine; Translations: [MORPHINE] Drug Allergy 10-31-19 19 Unknown, GI Intolerance [facility] Work Phone: (1 source) Sulfamethoxazole / Trimethoprim Drug Allergy 05-25-20 17 Unknown [facility] Medications Current Medications Medication Drug Class(es) Dates Sig (Normalized) Sig (Original) adalimumab (20 sources) Tumor Necrosis Factor Quin Start: 12-20-2023 inject 40 mg by subcutaneous injection every other week adalimumab 40 mg/0.4 mL subcutaneous pen kit (HUMIRA (CF)) Indications: Uveitis, posterior, bilateral Inject 40mg (1 pen) subcutaneously every 2 weeks. 1 Kit 11 12/20/2023 Active Start: 12-20-2023 adalimumab (HU PALMER,CF, PEN [id number] HS) 80 mg/0.8 mL-40 mg/0.4 mL pen kit Inject 80mg (1 pen) subcutaneously on day 1, then 40mg (1 pen) on day 8, followed by 40mg (1 pen) on day 22 and every 2 weeks thereafter 1 Kit 12/20/2023 Active Start: 12-20-2023 adalimumab (HU PALMER,CF, PEN [id number] HS) 80 mg/0.8 mL-40 mg/0.4 mL pen kit Inject 80mg (1 pen) subcutaneously on day 1, then 40mg (1 pen) on day 8, followed by 40mg (1 pen) on day 22 and every 2 weeks thereafter 1 Kit 0 12/20/2023 Active Start: 12-20-2023 adalimumab (HU PALMER,CF, PEN [id number] HS) 80 mg/0.8 mL-40 mg/0.4 mL pen kit Inject 80mg (1 pen) subcutaneously on day 1, then 40mg (1 pen) on day 8, followed by 40mg (1 pen) on day 22 1 Kit 0 12/20/2023 Active Comment on above: Inject 80mg (1 pen) subcutaneously on day 1, then 40mg (1 pen) on day 8, followed by 40mg (1 pen) on day 22 Inject 40mg (1 pen) subcutaneously every 2 weeks. Inject 80mg (1 pen) subcutaneously on day 1, then 40mg (1 pen) on day 8, followed by 40mg (1 pen) on day 22 and every 2 weeks thereafter atenolol 25 mg oral tablet (20 sources) beta-Adrenergic Quin Start: 3 End: 4 take 1 tablet by mouth twice daily atenolol (TENORMIN) 25 mg tablet Indications: Primary hypertension , Left atrial dilatation Take 1 tablet by mouth two times a day. 180 tablet 2 05/04/2024 Active Start: 02-14-2021 End: 07-26-2023 take 1 tablet by mouth once daily atenolol (TENORMIN) 25 mg tablet Indications: Primary hypertension Take 1 tablet by mouth once daily. 90 tablet 3 03/29/2023 07/26/2023 Discontinued Start: 05-25-2017 take 1 tablet by lesa th once daily ATENOLOL 50 MG TABS One tablet by mouth daily ATENOLOL [id number] Faye Lacey MD atenolol (TENORM IN) 50 MG tablet Take 25 mg by mouth daily. 0 Active Comment on above: Take 1 tablet by lesa th once daily. Take 1 tablet by lesa th two times a day. cephalexin 500 mg oral capsule (1 source) Cephalosporin Antibacterial Start: End: take 1 capsule by mouth three times daily cephALEXin (KEFLEX) 500 mg capsule Take 1 capsule by mouth three times daily for 7 days. 30 capsule 0 02/22/2023 03/01/2023 Active Comment on above: Take 1 capsule by mo [facility] three times daily for 7 days. cetirizine hydrochloride 10 mg oral tablet (1 source) Histamine-1 Receptor Antagonist Start: End: take 1 tablet by mouth once daily cetirizine (ZYRTEC) 10 mg tablet Take 1 tablet by mouth once daily for 14 days. 14 tablet 0 02/22/2023 03/08/2023 Active Comment on above: Take 1 tablet by lesa th once daily for 14 days. cyclobenzaprine hydrochloride 10 mg oral tablet (6 sources) Muscle Relaxant Start: End: take 1 tablet by mouth every twenty-four hours as needed cyclobenzaprine (FLEXERIL) 10 mg tablet Take 1 tablet by mouth at bedtime as needed for muscle spasm or pain (may make drowsy). 30 tablet 0 04/01/2023 04/12/2023 Discontinued Start: 02-09-2023 End: 04-01-2023 take 1 tablet by mouth at bedtime as needed for pain cyclobenzaprine (FLEXERIL) 10 mg tablet Indications: Acute midline low back pain without sciatica Take 1 tablet by mouth at bedtime as needed for muscle spasm or pain (may make drowsy). 30 tablet 0 02/09/2023 04/01/2023 Discontinued Comment on above: Take 1 tablet by lesa at bedtime as needed for muscle spasm or pain (may make drowsy). hydroCHLOROthiazide 12.5 mg oral capsule (3 sources) Thiazide Diuretic Start: 2023 take 1 capsule by mouth once daily hydroCHLOROthiazide 12.5 mg capsule Indications: Primary hypertension Take 1 capsule by mouth once daily. 30 capsule 2 07/31/2024 Active iv contrast (will be provided with radiology test) (2 sources) Start: 2023 End: 2023 iv contrast (will be provided with radiology test) Indications: Retinal vasculitis, bilateral , Age-related nuclear cataract of both eyes MRI Orbits Inject, intravenously, once for 1 dose. No IV access, insert saline lock prior to the beginning of sedation, infusion, injection of imaging exam. Discontinue saline lock post exam. If Pt. has a central line or IVAD, may access for administration according to line specific nursing protocol. Once exam is complete flush line and de-access according to line specific nursing protocol in the MR contrast administration guidelines link. 1 Each 07/28/2024 07/29/2024 Active Start: 07-28-2024 End: 07-29-2024 inject 1 dose intravenously once iv contrast (will be provided with radiology test) Indications: Retinal vasculitis, bilateral , Age-related nuclear cataract of both eyes MRI Brain Inject, intravenously, once for 1 dose.No IV access, insert saline lock prior to beginning of sedation, infusion, injection of imaging exam.Discontinue saline lock post exam. If Pt. has a central line or IVAD, may access for administration according to line specific nursing protocol.Once exam is complete flush line and de-access according to line specific nursing protocol in the MR contrast administration guidelines link 1 Each 07/28/2024 07/29/2024 Active meloxicam 15 mg oral tablet (7 sources) Nonsteroidal Anti-inflammatory Drug Start: 04-01-2023 End: 05-01-2023 take 1 tablet by mouth once daily for pain meloxicam (MOBIC) 15 mg tablet Take 1 tablet by mouth once daily. for pain. Take with food. 30 tablet 0 04/01/2023 05/01/2023 Active Start: 02-09-2023 End: 03-11-2023 take 1 tablet by mouth once daily for pain meloxicam (MOBIC) 15 mg tablet Indications: Acute midline low back pain without sciatica Take 1 tablet by mouth once daily. for pain. Take with food. 30 tablet 0 02/09/2023 03/11/2023 Active Comment on above: Take 1 tablet by lesa th once daily. for pain. Take with food. Zdbpaafqzoihf-Trngvamh-Ycpfk n (MULTIVITAMIN 50 PLUS) tab (20 sources) Multivitamins-Mi nerals-Lut ein (MULTIVITAMIN 50 PLUS) tab Take 1 tablet by mouth once daily. Active Multivitamins-Mi nerals-Lutein (MULTIVITAMIN 50 PLUS) tab Take 1 tablet by mouth once daily. 0 Active Comment on above: Take 1 tablet by lesa th once daily. perflutren lipid microspheres 1.3 mL in NaCl (PF) 0.9% 10 mL injection (DEFINITY) (9 sources) Start: 09-20-2023 End: 09-27-2023 perflutren lipid microspheres 1.3 mL in NaCl (PF) 0.9% 10 mL injection (DEFINITY) Start: 06-22-2023 End: 08-23-2023 perflutren lipid microsphere s 1.3 mL in NaCl (PF) 0.9% 10 mL injection (DEFINITY) Start: 06-22-2023 End: 09-20-2024 perflutren lipid microsphere s 1.3 mL in NaCl (PF) 0.9% 10 mL injection (DEFINITY) predniSONE 10 mg oral tablet (20 sources) Start: 07-28-2024 take 6 tablets by mouth once daily predniSONE (DELTASONE) 10 mg tablet Take 6 tablets by mouth once daily. 160 tablet 3 07/28/2024 Active Start: 12-17-2023 End: 01-21-2024 take 3.5 tablets by mouth once daily, then take 3 tablets by mouth once daily, then take 2.5 tablets by mouth once daily, then take 2 tablets by mouth once daily predniSONE (DELTASONE) 5 mg tablet Take 3.5 tablets by mouth once daily for 7 days, THEN 3 tablets once daily for 7 days, THEN 2.5 tablets once daily for 7 days, THEN 2 tablets once daily for 14 days. 91 tablet 0 12/17/2023 01/21/2024 Active Start: 11-08-2023 End: 03-24-2024 predniSONE (DELTASONE) 10 mg tablet Take 15 mg by mouth once daily. 0 11/08/2023 03/24/2024 Discontinued Start: 11-08-2023 take 3 tablets by mo ut once daily predniSONE (DELTASONE) 10 mg tablet Take 30 mg by mouth once daily. 0 11/08/2023 Active Start: 11-08-2023 take 6 tablets by mo ut once daily predniSONE (DELTASONE) 10 mg tablet TAKE 6 TABLETS BY MOUTH ONCE DAILY 0 11/08/2023 Active Start: 02-22-2023 End: 02-27-2023 take 2 tablets by mouth once daily predniSONE (DELTASONE) 20 mg tablet Take 2 tablets by mouth once daily for 5 days. 10 tablet 0 02/22/2023 02/27/2023 Active Comment on above: Take 2 tablets by mo ut once daily for 5 days. TAKE 6 TABLETS BY MO UT ONCE DAILY Take 3.5 tablets by mouth once daily for 7 days, THEN 3 tablets once daily for 7 days, THEN 2.5 tablets once daily for 7 days, THEN 2 tablets once daily for 14 days. Take 30 mg by mouth once daily. Take 15 mg by mouth once daily. 125 ml sodium chloride 9 mg/ml prefilled syringe (9 sources) Start: 3 End: 4 sodium chloride 0.9 % (flush) 10 mL (BD POSIFLUSH) tamsulosin hydrochloride 0.4 mg oral capsule (1 source) alpha-Adrenergic Quin Start: 3 End: 3 take 1 capsule by mouth once daily at bedtime tamsulosin (FLOMAX) 0.4 mg Indications: Renal calculus Take 1 capsule by mouth daily at bedtime. To help with kidney stones 28 capsule 0 04/01/2023 04/12/2023 Discontinued Comment on above: Take 1 capsule by mo [facility] daily at bedtime. To help with kidney stones vit A/vit C/vit E/zinc/copper (PRESERVISION AREDS ORAL) (20 sources) take 1 capsule by mouth twice daily vit A/vit C/vit E/zinc/copper (PRESERVISION AREDS ORAL) Take 1 capsule by mouth twice daily at 6AM and 9PM. Active take 1 capsule by mouth twice da jose manuel vit A/vit C/vit E/zinc/copper (PRESERVISION AREDS ORAL) Take 1 capsule by mouth twice daily at 6AM and 9PM. 0 Active Comment on above: Take 1 capsule by mo uth twice daily at 6AM and 9PM. Completed/Discontinued Medications Medication Drug Class(es) Dates Sig (Normalized) Sig (Original) aspirin 81 mg delayed release oral tablet (3 sources) Platelet Aggregation Inhibitor, Nonsteroidal Anti-inflammatory Drug take 1 tablet by mouth once daily aspirin, enteric coated (ASPIRIN, ENTERIC COATED) 81 mg EC tablet Take 81 mg by mouth once daily. 0 Active Comment on above: Take 81 mg by mouth once daily. benoxinate hydrochloride 4 mg/ml / fluorescein sodium 3 mg/ml ophthalmic solution (3 sources) Diagnostic Dye Start: 07-28-2024 End: 07-28-2024 fluorescein-sarthak xinate 0.3-0.4 % 1 Drop (FLURESS) Start: 07-28-2024 End: 07-28-2024 1 Drop, BOTH EYES, DIRECT ED, Starting on Wed07/28/24 at 0930, Until Wed07/28/24 at 2129, Administer for applanation tonometry. In the event of a Fluress shortage, administer Sade-Fluor 1 drop into both eyes as directed for applanation tonometry, [facility] MED ORDERS Start: 01-28-2024 End: 01-28-2024 fluorescein-benoxinate 0.3-0 .4 % 1 Drop (FLURESS) dicyclomine hydrochloride 10 mg oral capsule (16 sources) Anticholinergic Start: 04-12-2023 End: 07-29-2023 take 1 capsule by mouth at bedtime dicyclomine (BENTYL) 10 mg capsule Indications: Lower abdominal pain Take 1 capsule by mouth before meals and at bedtime. 0 04/12/2023 07/29/2023 Discontinued Comment on above: Take 1 capsule by [facility] before meals and at bedtime. diphenhydrAMINE hydrochloride 2.5 mg/ml oral solution (2 sources) Histamine-1 Receptor Antagonist Start: 07-28-2024 End: 07-28-2024 diphenhydrAMINE 12.5-50 mg oral liquid (BENADRYL) Start: 01-28-2024 End: 01-28-2024 diphenhydrAMINE 12.5-50 mg C UP (BENADRYL) docusate sodium 100 mg oral capsule (10 sources) Start: 04-12-2023 End: 06-22-2023 take 1 capsule by mouth twice daily as needed for constipation docusate sodium (COLACE) 100 mg capsule Indications: Lower abdominal pain Take 1 capsule by mouth twice daily as needed for constipation. 0 04/12/2023 06/22/2023 Discontinued Comment on above: Take 1 capsule by [facility] twice daily as needed for constipation. fluorescein 250 mg injection (3 sources) Start: 07-28-2024 End: 07-28-2024 fluorescein 250 mg injection Start: 07-28-2024 End: 07-28-2024 250 mg, INTRAVENOUS, ONCE, 1 dose, On Wed07/28/24 at 0930, [facility] Start: 01-28-2024 End: 01-28-2024 fluorescein 250 mg injection omeprazole 40 mg delayed release oral capsule (3 sources) Proton Pump Inhibitor Start: 08-05-2023 End: 09-04-2023 take 1 capsule by mouth once daily omeprazole (PRILOSEC) 40 mg capsule Take 1 capsule by mouth once daily. 30 capsule 0 08/05/2023 Active Comment on above: Take 1 capsule by [facility] once daily. ondansetron 4 mg disintegrating oral tablet (10 sources) Serotonin-3 Receptor Antagonist Start: 04-12-2023 End: 06-22-2023 take 1 tablet by mouth every six hours as needed for nausea and nausea ondansetron orally disintegrating (ZOFRAN ODT) 4 mg disintegrating tablet Indications: Nausea Take 1 tablet by mouth every 6 hours as needed for nausea/vomiting. 0 04/12/2023 06/22/2023 Discontinued Comment on above: Take 1 tablet by [facility] every 6 hours as needed for nausea/vomiting. phenylephrine hydrochloride 25 mg/ml ophthalmic solution (3 sources) alpha-1 Adrenergic Agonist Start: 07-28-2024 End: 07-28-2024 PHENYLephrine 2.5 % 1 Drop (AK-DILATE, MEHNAZ-SYNEPHRINE) Start: 07-28-2024 End: 07-28-2024 1 Drop, BOTH EYES, DIRECT ED, Starting on Wed07/28/24 at 0930, Until Wed07/28/24 at 2129, Administer for dilation PROTECT FROM LIGHT, [facility] MED ORDERS Start: 01-28-2024 End: 01-28-2024 PHENYLephrine 2.5 % 1 Drop ( AK-DILATE, MEHNAZ-SYNEPHRINE) polyethylene glycol 3350 048757 mg / potassium chloride 2970 mg / sodium bicarbonate 6740 mg / sodium chloride 5860 mg / sodium sulfate 74541 mg powder for oral solution (1 source) Osmotic Laxative Start: 04-16-2023 End: 04-16-2023 peg 3350-Electrolytes (GOLYTELY) 236-22.74-6.74 -5.86 gram suspension Take 4,000 mL by mouth one time only for 1 dose. 1 Each 0 04/16/2023 04/16/2023 Comment on above: Take 4,000 mL by lesa th one time only for 1 dose. proparacaine hydrochloride 5 mg/ml ophthalmic solution (2 sources) Local Anesthetic Start: 07-28-2024 End: 07-28-2024 proparacaine 0.5 % 1 Drop (ALCAINE) Start: 01-28-2024 End: 01-28-2024 proparacaine 0.5 % 1 Drop (A LCAINE) tropicamide 10 mg/ml ophthalmic solution (3 sources) Anticholinergic Start: 07-28-2024 End: 07-28-2024 tropicamide 1 % 1 Drop (MYDRIACYL) Start: 07-28-2024 End: 07-28-2024 1 Drop, BOTH EYES, DIRECT ED, Starting on Wed07/28/24 at 0930, Until Wed07/28/24 at 2129, Administer for dilation, [facility] MED ORD[facility] Start: 01-28-2024 End: 01-28-2024 tropicamide 1 % 1 Drop (MYDR IACYL) Problems Active Problems Problem Classification Problem Date Documented Da te Episodic/Chronic Biliary tract disease (7 sources) Gallstone; Translations: [Calculus of gallbladder without cholecystitis without obstruction] Episodic Cardiac dysrhythmias (16 sources) Supraventricular tachycardia; Translations: [SVT (supraventricular tachycardia)] Onset: 4 11-15-2023 Chronic Cardiac dysrhythmias (1 source) Palpitations; Translations: [Palpitations] 09-20-2023 Episodic Cataract (5 sources) Bilateral age-related nuclear cataracts; Translations: [Age-related nuclear cataract, bilateral] Onset: 4 07-28-2024 Chronic Conduction disorders (3 sources) Right bundle branch block; Translations: [Unspecified right bundle-branch block] Onset: 3 06-22-2023 Chronic Coronary atherosclerosis and other heart disease (15 sources) Coronary arteriosclerosis; Translations: [Atherosclerotic heart disease of [place] coronary artery without angina pectoris] Onset: 4 11-15-2023 Chronic Deficiency and other anemia (20 sources) Anemia; Translations: [Anemia, unspecified] 08-23-2006 Episodic Deficiency and other anemia (1 source) Deficiency anemias; Translations: [Other specified nutritional anemias] 05-04-2023 Episodic Diabetes mellitus without complication (2 sources) Impaired fasting glucose; Translations: [Impaired fasting glycemia] Onset: 4 07-31-2024 Episodic Disorders of lipid metabolism (1 source) Hyperlipidemia; Translations: [Hyperlipidemia, unspecified] Chronic Essential hypertension (20 sources) Hypertensive disorder; Translations: [Essential (primary) hypertension] Onset: 7 05-25-2017 Chronic Fracture of upper limb (1 source) Fracture of distal phalanx of finger ; Translations: [Displaced fracture of distal phalanx of unspecified finger, initial encounter for closed fracture] Episodic Genitourinary symptoms and ill-defined conditions (1 source) Dysuria; Translations: [Dysuria] 03-24-2024 Episodic Immunizations and screening for infectious disease (1 source) Suspected disease caused by 2019-nCoV; Translations: [Suspected COVID-19 virus infection] Episodic Inflammation; infection of eye (except that caused by tuberculosis or sexually transmitteddisease) (4 sources) Posterior uveitis; 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, bilateral] Onset: 4 12-21-2023 Chronic Inflammation; infection of eye (except that caused by tuberculosis or sexually transmitteddisease) (8 sources) Bilateral uveitis of eyes; Translations: [Unspecified iridocyclitis] Onset: 4 06-22-2023 Episodic Nausea and vomiting (1 source) Nausea; Translations: [Nausea] Episodic Osteoarthritis (20 sources) Degenerative joint disease of shoulder region; Translations: [Osteoarthritis of joint of right shoulder region] Onset: 0 Chronic Other aftercare (9 sources) Patient encounter status; Translations: [Other jail (current) drug therapy] Episodic Other aftercare (1 source) Encounter for therapeutic drug level monitoring; Translations: [Encounter for therapeutic drug monitoring] Onset: 4 Episodic Other aftercare (1 source) Immunosuppression; Translations: [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)] 08-16-2024 Episodic Other and ill-defined heart disease (1 source) Left atrial dilatation; Translations: [Cardiomegaly] 05-04-2024 Chronic Other connective tissue disease (1 source) Rupture of tendon of biceps; Translations: [Biceps tendon rupture, proximal, right, initial encounter] Episodic Other eye disorders (4 sources) Vitritis; Translations: [Other disorders of vitreous body] 06-22-2023 Chronic Other eye disorders (1 source) Other disorders of vitreous body; Translations: [Vitritis] Onset: 4 Chronic Other eye disorders (1 source) Chalazion of left upper eyelid; Translations: [Chalazion left upper eyelid] Episodic Other gastrointestinal disorders (2 sources) Constipation; Translations: [Constipation, unspecified] 08-05-2023 Episodic Other screening for suspected conditions (not mental disorders or infectious disease) (2 sources) Blood urea abnormal; Translations: [Abnormal finding of blood chemistry, unspecified] Onset: 4 Episodic Other skin disorders (1 source) Eruption; Translations: [Rash and other nonspecific skin eruption] Episodic Other upper respiratory infections (1 source) Pharyngitis; Translations: [Acute pharyngitis, unspecified] Episodic Residual codes; unclassified (2 sources) Pain Onset: 2 Episodic Residual codes; unclassified (1 source) Past history of procedure; Translations: [Other specified postprocedural states] Episodic Residual codes; unclassified (1 source) Left before being seen; Translations: [Procedure and treatment not carried out due to patient leaving prior to being seen by health care provider] 06-21-2023 Episodic Residual codes; unclassified (1 source) Edema of lower extremity; Translations: [Localized edema] 03-24-2024 Episodic Retinal detachments; defects; vascular occlusion; and retinopathy (13 sources) Bilateral retinal vasculitis; Translations: [Retinal vasculitis, bilateral] Onset: 4 06-22-2023 Chronic Past or Other Problems Problem Classification Problem Date Documented Da te Episodic/Chronic Abdominal pain (20 sources) Flank pain; Translations: [Unspecified abdominal pain] Onset: 04-01-2023 Episodic Calculus of urinary tract (20 sources) Kidney stone; Translations: [Calculus of kidney] Onset: 05-31-2017 05-31-2017 Episodic Other circulatory disease (13 sources) Labile hypertension due to being in a clinical environment; Translations: [Elevated blood-pressure reading, without diagnosis of hypertension] Onset: 02-01-2006 Resolved: 04-01-2023 05-26-2019 Episodic Other gastrointestinal disorders (20 sources) Altered bowel function; Translations: [Change in bowel habit] Onset: 05-04-2023 Episodic Residual codes; unclassified (2 sources) Pain, unspecified; Translations: [Pain, unspecified] Onset: 12-23-2021 Episodic Residual codes; unclassified (1 source) Other specified postprocedural states; Translations: [History of lithotripsy] Onset: 04-01-2023 Episodic Spondylosis; intervertebral disc disorders; other back problems (10 sources) Neck pain; Translations: [Cervicalgia] Onset: 07-10-2014 Resolved: 04-16-2022 07-17-2014 Episodic Results Test Name Value Interpretation Reference Range Facility CBC W Auto Differential pane l (Bld)on 07-31-2024 Basophils (Bld) [#/Vol] 0.04 10*3/uL Normal <0.11 [facility] Comment on above: Order Comment: Speci men Type: BLOOD SPECIMENOrdering Facility: [facility] Address: [address] [place] [address] Performed By: #### [id number] ####[facility] [facility]CL[facility] [id number] [place] [address] [place] Basophils/100 WBC (Bld) 0.6 % Normal [facility] Comment on above: Order Comment: Speci men Type: BLOOD SPECIMENOrdering Facility: [facility] Address: [address] [place] [address] Performed By: #### 5 7021-8 ####[facility] LABIA [id number] [place] [address] [place] Differential cell count method Nom (Bld) Auto Normal [facility] Comment on above: Order Comment: Speci men Type: BLOOD SPECIMENOrdering Facility: [facility] Address: [address] [place] [address] Performed By: #### 5 7021-8 ####[facility] LABCLIA [id number] [place] [address] [place] Eosinophils (Bld) [#/Vol] 0.10 10*3/uL Normal <0.46 [facility] Comment on above: Order Comment: Speci men Type: BLOOD SPECIMENOrdering Facility: [facility] Address: [address] [place] [address] Performed By: #### 5 7021-8 ####[facility] LABIA [id number] [place] [address] [place] Eosinophils/100 WBC (Bld) 1.4 % Normal [facility] Comment on above: Order Comment: Speci men Type: BLOOD SPECIMENOrdering Facility: [facility] Address: [address] [place] [address] Performed By: #### 5 7021-8 ####[facility] LABCLIA [id number] [place] [address] [place] Erythrocyte distribution width (RBC) [Ratio] 15.6 % High 11.5-15.0 [facility] Comment on above: Order Comment: Speci men Type: BLOOD SPECIMENOrdering Facility: [facility] Address: [address] [place] [address] Performed By: #### 5 7021-8 ####[facility] LABCLIA [id number] [place] [address] [place] Hematocrit (Bld) [Volume fraction] 43.1 % Normal 36.0-46.0 [facility] Comment on above: Order Comment: Speci men Type: BLOOD SPECIMENOrdering Facility: [facility] Address: [address] [place] [address] Performed By: #### 5 7021-8 ####[facility] LABCLIA [id number] [place] [address] [place] Hemoglobin (Bld) [Mass/Vol] 13.2 g/dL Normal 11.5-15.5 [facility] Comment on above: Order Comment: Speci men Type: BLOOD SPECIMENOrdering Facility: [facility] Address: [address] [place] [address] Performed By: #### 5 7021-8 ####[facility] LABCLIA [id number] [place] [address] [place] Immature granulocytes (Bld) [#/Vol] 10*3/uL Normal <0.10 [facility] Comment on above: Order Comment: Speci men Type: BLOOD SPECIMENOrdering Facility: [facility] Address: [address] [place] [address] Performed By: #### 5 7021-8 ####[facility] LABIA [id number] [place] [address] [place] Immature granulocytes/100 WBC (Bld) 0.3 % Normal [facility] Comment on above: Order Comment: Speci men Type: BLOOD SPECIMENOrdering Facility: [facility] Address: [address] [place] [address] Performed By: #### 5 7021-8 ####[facility] LABCLIA [id number] [place] [address] [place] Lymphocytes (Bld) [#/Vol] 3.26 10*3/uL Normal 1.00-4.00 [facility] Comment on above: Order Comment: Speci men Type: BLOOD SPECIMENOrdering Facility: [facility] Address: [address] [place] [address] Performed By: #### 5 7021-8 ####[facility] LABCLIA [id number] [place] [address] [place] Lymphocytes/100 WBC (Bld) 45.7 % Normal [facility] Comment on above: Order Comment: Speci men Type: BLOOD SPECIMENOrdering Facility: [facility] Address: [address] [place] [address] Performed By: #### 5 7021-8 ####[facility] LABCLIA [id number] [place] [address] [place] MCH (RBC) [Entitic mass] 28.7 pg Normal 26.0-34.0 [facility] Comment on above: Order Comment: Speci men Type: BLOOD SPECIMENOrdering Facility: [facility] Address: [address] [place] [address] Performed By: #### 5 7021-8 ####[facility] LABCLIA [id number] [place] [address] [place] MCHC (RBC) [Mass/Vol] 30.6 g/dL Normal 30.5-36.0 [facility] Comment on above: Order Comment: Speci men Type: BLOOD SPECIMENOrdering Facility: [facility] Address: [address] [place] [address] Performed By: #### 5 7021-8 ####[facility] LABIA [id number] [place] [address] [place] MCV (RBC) [Entitic vol] 93.7 fL Normal 80.0-100.0 [facility] Comment on above: Order Comment: Speci men Type: BLOOD SPECIMENOrdering Facility: [facility] Address: [address] [place] [address] Performed By: #### 5 7021-8 ####[facility] LABCLIA [id number] [place] [address] [place] Monocytes (Bld) [#/Vol] 0.56 10*3/uL Normal <0.87 [facility] Comment on above: Order Comment: Speci men Type: BLOOD SPECIMENOrdering Facility: [facility] Address: [address] [place] [address] Performed By: #### 5 7021-8 ####[facility] LABCLIA [id number] [place] [address] [place] Monocytes/100 WBC (Bld) 7.8 % Normal [facility] Comment on above: Order Comment: Speci men Type: BLOOD SPECIMENOrdering Facility: [facility] Address: [address] [place] [address] Performed By: #### 5 7021-8 ####[facility] LABCLIA [id number] [place] [address] [place] Neutrophils (Bld) [#/Vol] 3.16 10*3/uL Normal 1.45-7.50 [facility] Comment on above: Order Comment: Speci men Type: BLOOD SPECIMENOrdering Facility: [facility] Address: [address] [place] [address] Performed By: #### 5 7021-8 ####[facility] LABCLIA [id number] [place] [address] [place] Neutrophils/100 WBC (Bld) 44.2 % Normal [facility] Comment on above: Order Comment: Speci men Type: BLOOD SPECIMENOrdering Facility: [facility] Address: [address] [place] [address] Performed By: #### 5 7021-8 ####[facility] LABCLIA [id number] [place] [address] [place] Nucleated RBC (Bld) [#/Vol] 10*3/uL Normal <0.01 [facility] Comment on above: Order Comment: Speci men Type: BLOOD SPECIMENOrdering Facility: [facility] Address: [address] [place] [address] Performed By: #### 5 7021-8 ####[facility] LABCLIA [id number] [place] [address] [place] Nucleated RBC/100 WBC (Bld) [Ratio] 0.0 /100 WBC Normal [facility] Comment on above: Order Comment: Speci men Type: BLOOD SPECIMENOrdering Facility: [facility] Address: [address] [place] [address] Performed By: #### 5 7021-8 ####[facility] LABCLIA [id number] [place] [address] [place] Platelet mean volume (Bld) [Entitic vol] 10.4 fL Normal 9.0-12.7 [facility] Comment on above: Order Comment: Speci men Type: BLOOD SPECIMENOrdering Facility: [facility] Address: [address] [place] [address] Performed By: #### 5 7021-8 ####[facility] LABCLIA [id number] [place] [address] [place] Platelets (Bld) [#/Vol] 201 10*3/uL Normal 150-400 [facility] Comment on above: Order Comment: Speci men Type: BLOOD SPECIMENOrdering Facility: [facility] Address: [address] [place] [address] Performed By: #### 5 7021-8 ####[facility] LABIA [id number] [place] [address] [place] RBC (Bld) [#/Vol] 4.60 10*6/uL Normal 3.90-5.20 [facility] Comment on above: Order Comment: Speci men Type: BLOOD SPECIMENOrdering Facility: [facility] Address: [address] [place] [address] Performed By: #### 5 7021-8 ####[facility] LABCLIA [id number] [place] [address] [place] WBC (Bld) [#/Vol] 7.14 10*3/uL Normal 3.70-11.00 [facility] Comment on above: Order Comment: Saida stafford Type: BLOOD SPECIMENOrdering Facility: [facility] Address: [address] [place] [address] Performed By: #### 5 7021-8 ####[facility] LABCLIA [id number] [id number] [facility] CNOVon 07-31-2024 CNOV Office Visit (INTMWS ) KAILYN RIVERO ([id number]) 1950 F Date Time Provider Department 07/31/24 7:00 AM RONALD QUIJANO INTMWS During your visit today, we recorded the following information about you: Pulse Blood pressure Weight 69/minute 178/74 62.2 kg Ronald Quijano APRN.PRIVACY SPECIALIST 07/31/2024 7:44 AM Signed SUBJECTIVE Kailyn Rivero is a 73 year old female here today for a check up on her medical problems. Chief Complaint Patient presents with: Recheck HPI Kailyn Rivero is a 73 year old female. She is an established patient of Sai Benjamin MD. 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 On Humira for this. Eyes are progressively improving. Dr. France was concerned and so restarted prednisone with the Humira for now. Notices some increased ankle swelling since being on this. She also sees cardiology. Has history of HTN, bp elevated today. Her medications were reviewed today and her list is now up to date. Medications Current Outpatient Medications Medication Sig predniSONE (DELTASONE) 10 mg tablet Take 6 tablets by mouth once daily. atenolol (TENORMIN) 25 mg tablet Take 1 tablet by mouth two times a day. adalimumab (HUMIRA,CF, PEN SEWS-PS-GNEX HS) 80 mg/0.8 mL-40 mg/0.4 mL pen kit Inject 80mg (1 pen) subcutaneously on day 1, then 40mg (1 pen) on day 8, followed by 40mg (1 pen) on day 22 and every 2 weeks thereafter vit A/vit C/vit E/zinc/copper (PRESERVISION AREDS ORAL) Take 1 capsule by mouth twice daily at 6AM and 9PM. Multivitamins-Minerals- Lutein (MULTIVITAMIN 50 PLUS) tab Take 1 tablet by mouth once daily. hydroCHLOROthiazide 12.5 mg capsule Take 1 capsule by mouth once daily. adalimumab 40 mg/0.4 mL subcutaneous pen kit (HUMIRA (CF)) Inject 40mg (1 pen) subcutaneously every 2 weeks. No current facility-administered medications for this visit. 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 SVT (supraventricular tachycardia) [I47.10] - 11/15/2023 Coronary Artery Disease Involving [place] Coronary Artery of [place] Heart Without Angina Pectoris - 11/15/2023 Abdominal Pain - 05/04/2023 Change in Bowel Habits - 05/04/2023 Renal Calculi - 05/31/2017 Comment: S/P lithotripsy [facility] 2016 Hypertensive Disorder - 05/25/2017 Primary Localized Osteoarthrosis, Lower Leg - 12/18/2009 S/P Knee Replacement - 12/18/2009 Anemia, Unspecified Social History Tobacco Use Smoking status: Never Smokeless tobacco: Never Vaping Use Vaping status: Never Used Substance Use Topics Alcohol use: Yes Alcohol/week: 7.0 standard drinks of alcohol Types: 7 Glasses of wine per week Drug use: No Review of Systems Constitutional: Negative. Respiratory: Negative. Cardiovascular: Positive for leg swelling. Negative for chest pain and palpitations. OBJECTIVE BP 178/74[BP conrado[ Pulse 69 Wt 137 lb 2 oz (62.2kg) Physical Exam Vitals and nursing note reviewed. Constitutional: General: She is awake. She is not in acute distress. Appearance: Normal appearance. She is well-developed and well-groomed. She is not ill-appearing, toxic-appearing or diaphoretic. HENT: Head: Normocephalic. Right Ear: External ear normal. Left Ear: External ear normal. Nose: Nose normal. Eyes: General: Vision grossly intact. Conjunctiva/sclera: Conjunctivae normal. Pupils: Pupils are equal, round, and reactive to light. Neck: Vascular: No JVD. Trachea: Trachea normal. Cardiovascular: Rate and Rhythm: Normal rate and regular rhythm. Pulses: Normal pulses. Heart sounds: Normal heart sounds. No murmur heard. Pulmonary: Effort: Pulmonary effort is normal. No accessory muscle usage, prolonged expiration or respiratory distress. Breath sounds: Normal breath sounds. Musculoskeletal: Cervical back: Neck supple. Skin: General: Skin is warm and dry. Capillary Refill: Capillary refill takes less than 2 seconds. Neurological: General: No focal deficit present. Mental Status: She is alert and oriented to person, place, and time. Mental status is at baseline. Psychiatric: Attention and Perception: Attention and perception normal. Mood and Affect: Mood and affect normal. Speech: Speech normal. Behavior: Behavior normal. Behavior is cooperative. Thought Content: Thought content normal. Cognition and Memory: Cognition and memory normal. Judgment: Judgment normal. ASSESSMENT/PLAN: 1. Primary hypertension - ICD9: 401.9, ICD10: I10 (primary diagnosis) - Worsening control, prednisone is a factor, stress too - Start hydrochlorothiazide - Recommend home blood pressure monitoring, to bring results to next visit - Encouraged sodium restriction, DASH or Mediterranean diet - Recomm (more content not included)... Normal [facility] Comprehensive metabolic 2000 panelon 07-31-2024 Albumin [Mass/Vol] 4.0 g/dL Normal 3.9-4.9 [facility] Comment on above: Order Comment: Speci men Type: BLOOD SPECIMENOrdering Facility: [facility] Address: [address] [place] [address] Performed By: #### 2 4323-8, LIPNF ####[facility] LABCLIA [id number] [place] [address] [place] ALP [Catalytic activity/Vol] 98 U/L Normal 34-123 [facility] Comment on above: Order Comment: Speci men Type: BLOOD SPECIMENOrdering Facility: [facility] Address: [address] [place] [address] Performed By: #### 2 4323-8, LIPNF ####[facility] LABCLIA [id number] [place] [id number] [place] ALT [Catalytic activity/Vol] 41 U/L High 7-38 [facility] Comment on above: Order Comment: Speci men Type: BLOOD SPECIMENOrdering Facility: [facility] Address: [address] [place] [address] Performed By: #### 2 4323-8, LIPNF ####[facility] LABCLIA [id number] [place] [address] [place] Anion gap [Moles/Vol] 12 mmol/L Normal 8-15 [facility] Comment on above: Order Comment: Speci men Type: BLOOD SPECIMENOrdering Facility: [facility] Address: [address] [place] [address] Performed By: #### 2 4323-8, LIPNF ####[facility] LABCLIA [id number] [place] [address] [place] AST [Catalytic activity/Vol] 27 U/L Normal 13-35 [facility] Comment on above: Order Comment: Speci men Type: BLOOD SPECIMENOrdering Facility: [facility] Address: [address] [place] [address] Performed By: #### 2 4323-8, LIPNF ####[facility] LABCLIA [id number] [place] [address] [place] Bilirubin [Mass/Vol] 0.6 mg/dL Normal 0.2-1.3 [facility] Comment on above: Order Comment: Speci men Type: BLOOD SPECIMENOrdering Facility: [facility] Address: [address] [place] [address] Performed By: #### 2 4323-8, LIPNF ####[facility] LABCLIA [id number] [place] [address] [place] Calcium [Mass/Vol] 9.4 mg/dL Normal 8.5-10.2 [facility] Comment on above: Order Comment: Speci men Type: BLOOD SPECIMENOrdering Facility: [facility] Address: [address] [place] [address] Performed By: #### 2 4323-8, LIPNF ####[facility] LABCLIA [id number] [place] [address] [place] Chloride [Moles/Vol] 106 mmol/L Normal 98-107 [facility] Comment on above: Order Comment: Speci men Type: BLOOD SPECIMENOrdering Facility: [facility] Address: [address] [place] [address] Performed By: #### 2 4323-8, LIPNF ####[facility] LABCLIA [id number] [place] [address] [place] CO2 [Moles/Vol] 25 mmol/L Normal 22-30 [facility] Comment on above: Order Comment: Speci men Type: BLOOD SPECIMENOrdering Facility: [facility] Address: [address] [place] [address] Performed By: #### 2 4323-8, LIPNF ####[facility] LABCLIA [id number] [place] [address] [place] Creatinine [Mass/Vol] 0.89 mg/dL Normal 0.58-0.96 [facility] Comment on above: Order Comment: Speci men Type: BLOOD SPECIMENOrdering Facility: [facility] Address: [address] [place] [address] Performed By: #### 2 4323-8, LIPNF ####[facility] LABCLIA [id number] [place] [address] [place] Creatinine and Glomerular filtration rate.predicted panel (S/P/Bld) 68 mL/min/1.73m??? Normal >=60 [facility] Comment on above: Order Comment: Speci men Type: BLOOD SPECIMENOrdering Facility: [facility] Address: [address] [place] [address] Result Comment: Ebony mated Glomerular Filtration Rate (eGFR) is calculated using the 2020 CKD-EPI creatinine equation. This equation utilizes serum creatinine, sex, and age as parameters. The creatinine assay has traceable calibration to isotope dilution-mass spectrometry. Refer to KDIGO guidelines for clinical interpretation. In patients with unstable renal function, e.g. those with acute kidney injury, the eGFR may not accurately reflect actual GFR. Performed By: #### 2 4323-8, LIPNF ####[facility] LABCLIA [id number] [place] [address] [place] Glucose [Mass/Vol] 91 mg/dL Normal 74-99 [facility] Comment on above: Order Comment: Saida stafford Type: BLOOD SPECIMENOrdering Facility: [facility] Address: [address] [place] [address] Result Comment: The [place] Diabetes Association (ADA) provides guidance for cutoff values for fasting glucose and random glucose. The ADA defines fasting as no caloric intake for at least 8 hours. Fasting plasma glucose results between 100 to 125 mg/dL indicate increased risk for diabetes (prediabetes). Fasting plasma glucose results greater than or equal to 126 mg/dL meet the criteria for diagnosis of diabetes. In the absence of unequivocal hyperglycemia, results should be confirmed by repeat testing. In a patient with classic symptoms of hyperglycemia or hyperglycemic crisis, random plasma glucose results greater than or equal to 200 mg/dL meet the criteria for diagnosis of diabetes. Reference: Standards of Medical Care in Diabetes 2016, [place] Diabetes Association. Diabetes Care. 2016.39(Suppl 1). Performed By: #### 2 4323-8, LIPNF ####[facility] LABIA [id number] [place] [address] [place] Potassium [Moles/Vol] 3.8 mmol/L Normal 3.7-5.1 [facility] Comment on above: Order Comment: Saida stafford Type: BLOOD SPECIMENOrdering Facility: [facility] Address: [address] [place] [address] Performed By: #### 2 4323-8, LIPNF ####[facility] LABCLIA [id number] [place] [address] [place] Protein [Mass/Vol] 7.3 g/dL Normal 6.3-8.0 [facility] Comment on above: Order Comment: Speci men Type: BLOOD SPECIMENOrdering Facility: [facility] Address: [address] [place] [address] Performed By: #### 2 4323-8, LIPNF ####[facility] LABCLIA [id number] [place] [address] [place] Sodium [Moles/Vol] 143 mmol/L Normal 136-144 [facility] Comment on above: Order Comment: Speci men Type: BLOOD SPECIMENOrdering Facility: [facility] Address: [address] [place] [address] Performed By: #### 2 4323-8, LIPNF ####[facility] LABCLIA [id number] [place] [address] [place] Urea nitrogen [Mass/Vol] 24 mg/dL High 7-21 [facility] Comment on above: Order Comment: Speci men Type: BLOOD SPECIMENOrdering Facility: [facility] Address: [address] [place] [address] Performed By: #### 2 4323-8, LIPNF ####[facility] LABCLIA [id number] [place] [address] [place] HbA1c (Bld)on 07-31-2024 Average glucose Estimated from glycated hemoglobin (Bld) [Mass/Vol] 111 mg/dL Normal [facility] Comment on above: Order Comment: Speci men Type: BLOOD SPECIMENOrdering Facility: [facility] Address: [address] [place] [address] Result Comment: eAG: (Estimated average glucose) is a calculated value from HgbA1c and is artists' booking representative of the average blood glucose level in the last 2-3 month period. Performed By: #### 5 5454-3 ####[facility] LABCLIA [id number] [place] [address] [place] HbA1c (Bld) [Mass fraction] 5.5 % Normal 4.3-5.6 [facility] Comment on above: Order Comment: Saida stafford Type: BLOOD SPECIMENOrdering Facility: [facility] Address: [address] [place] [address] Result Comment: [place] Diabetes Association guidelines indicate that patients with HgbA1c in the range 5.7-6.4% are at increased risk for development of diabetes, and intervention by lifestyle modification may be beneficial. HgbA1c greater or equal to 6.5% is considered diagnostic of diabetes. Performed By: #### 5 5454-3 ####[facility] LABCLIA [id number] [address] [facility] LIPID PANEL, NONFASTINGon Cholesterol [Mass/Vol] 178 mg/dL Normal <200 [facility] Comment on above: Order Comment: Saida stafford Type: BLOOD SPECIMENOrdering Facility: [facility] Address: [address] [place] [address] Result Comment: <200 mg/dL, Desirable 200-239 mg/dL, Borderline high >239 mg/dL, High Performed By: #### 2 4323-8, LIPNF ####[facility] LABCLIA [id number] [address] [place] HDL CHOLESTEROL, NF 52 mg/dL Normal >39 [facility] Comment on above: Order Comment: Saida stafford Type: BLOOD SPECIMENOrdering Facility: [facility] Address: [address] [place] [address] Result Comment: 40-5 9 mg/dL, Acceptable >59 mg/dL, High: Negative risk factor for coronary heart disease <40 mg/dL, Low: Positive risk factor for coronary heart disease Performed By: #### 2 4323-8, LIPNF ####[facility] LABCLIA [id number] [place] [address] [place] LDL CHOLESTEROL, NF 111 mg/dL High <100 [facility] Comment on above: Order Comment: Chancebob stafford Type: BLOOD SPECIMENOrdering Facility: [facility] Address: [address] [place] [address] Result Comment: <100 mg/dL, Optimal 100-129 mg/dL, Near optimal/above optimal 130-159 mg/dL, Borderline high 160-189 mg/dL, High >189 mg/dL, Very high Secondary prevention optimal LDL Cholesterol levels are recommended to be < 70 mg/dL Performed By: #### 2 4323-8, LIPNF ####[facility] LABCLIA [id number] [place] [address] [place] LDL/HDL RATIO, NF 2.13 mg/dL Normal <2.54 [facility] Comment on above: Order Comment: Saida stafford Type: BLOOD SPECIMENOrdering Facility: [facility] Address: [address] [place] [address] Result Comment: Refe rence: 1. National Cholesterol Education Program ATP III Guideline At-A-Glance Quick Desk Reference: National Heart, Lung, and Blood [place]. National Institutes of Health. 2001: NIH Publication No. 01-3305. 2. An International Atherosclerosis Society position paper: global recommendations for the management of dyslipidemia: executive summary, Atherosclerosis. 2014: 232(2):410-413. Performed By: #### 2 4323-8, LIPNF ####[facility] LABCLIA [id number] [place] [address] [place] NON HDL CHOL, NF 126 mg/dL Normal <130 [facility] Comment on above: Order Comment: Saida nydia Type: BLOOD SPECIMENOrdering Facility: [facility] Address: [address] [place] [address] Result Comment: <130 mg/dL, Optimal 130-159 mg/dL, Near optimal/above optimal 160-189 mg/dL, Borderline high 190-219 mg/dL, High >219 mg/dL, Very high Secondary prevention optimal non HDL Cholesterol levels are recommended to be <100 mg/dL Performed By: #### 2 4323-8, LIPNF ####[facility] LABCLIA [id number] [place] [address] [place] T CHOL/HDL RATIO NF 3.42 mg/dL Normal <5.10 [facility] Comment on above: Order Comment: Speci men Type: BLOOD SPECIMENOrdering Facility: [facility] Address: [address] [place] [address] Performed By: #### 2 4323-8, LIPNF ####[facility] LABIA [id number] [place] [address] [place] TRIGLYCERIDES, NF 75 mg/dL Normal <150 [facility] Comment on above: Order Comment: Chancei men Type: BLOOD SPECIMENOrdering Facility: [facility] Address: [address] [place] [address] Result Comment: <150 mg/dL, Normal 150-199 mg/dL, Borderline high 200-499 mg/dL, High >499 mg/dL, Very high Performed By: #### 2 4323-8, LIPNF ####[facility] LABIA [id number] [place] [address] [place] VLDL CHOLESTEROL, NF 15 mg/dL Normal <30 [facility] Comment on above: Order Comment: Chancei nydia Type: BLOOD SPECIMENOrdering Facility: [facility] Address: [address] [place] [address] Performed By: #### 2 4323-8, LIPNF ####[facility] LABIA [id number] [place] [address] [place] FLUORESCEIN ANGIOGRAPHY OU ( BOTH EYES), TRANSIT OD (RIGHT EYE)on 07-28-2024 [facility] Radiology Study observation (narrative) [facility] OCT MACULA CIRRUS OU (BOTH E YES)on 07-28-2024 [facility] Radiology Study observation (narrative) [facility] CNOVon 03-24-2024 CNOV Office Visit (INTMWS ) KAILYN RIVERO ([id number]) 1950 F Date Time Provider Department 03/24/24 7:20 AM RONALD QUIJANO During your visit today, we recorded the following information about you: Pulse Respiration Blood pressure Weight 56/minute 12/minute 162/86 59.4 kg Ronald Quijano APRN.PRIVACY SPECIALIST 03/24/2024 7:45 AM Signed SUBJECTIVE Kailyn Rivero is a 73 year old female here today for a check up on her medical problems. Chief Complaint Patient presents with: F/U 3 Month HPI Kailyn Rivero is a 73 year old female. She is an established patient of Sai Benjamin MD. Here today for a follow up. Has been taking Humira for concerns of inflammation in the eyes that is suspected as autoimmune. Tolerating the medication okay. Following with ophthalmology and rheumatology. Eye exam shows some improvement. She also follows with cardiology. Blood pressure is typically better for her in the afternoon. No mention of chest pain, chest tightness or shortness of breath. Notes with starting Humira some increased edema in the left lower leg. Both legs get some edema but the left is more noticeable. No pain, redness,increased warmth. The swelling is typically not there in the am and then gets worse as the day goes. Some right lower discomfort over the bladder. Some dysuria. Prior kidney stones. Concerned about either infection or a stone. Would like a urine dip done today. Her medications were reviewed today and her list is now up to date. Medications Current Outpatient Medications Medication Sig adalimumab (HUMIRA,CF, PEN [id number]-CW-[id number] HS) 80 mg/0.8 mL-40 mg/0.4 mL pen kit Inject 80mg (1 pen) subcutaneously on day 1, then 40mg (1 pen) on day 8, followed by 40mg (1 pen) on day 22 and every 2 weeks thereafter atenolol (TENORMIN) 25 mg tablet Take 1 tablet by mouth two times a day. vit A/vit C/vit E/zinc/copper (PRESERVISION AREDS ORAL) Take 1 capsule by mouth twice daily at 6AM and 9PM. Multivitamins-Minerals- Lutein (MULTIVITAMIN 50 PLUS) tab Take 1 tablet by mouth once daily. adalimumab 40 mg/0.4 mL subcutaneous pen kit (HUMIRA (CF)) Inject 40mg (1 pen) subcutaneously every 2 weeks. No current facility-administered medications for this visit. ALLERGIES Allergen Reactions Morphine Unknown Sulfa (Sulfonamide * Rash ACTIVE PROBLEM LIST SVT (supraventricular tachycardia) [I47.10] - 11/15/2023 Coronary Artery Disease Involving Ak Chin Coronary Artery of Ak [place] Heart Without Angina Pectoris - 11/15/2023 Abdominal Pain - 05/04/2023 Change in Bowel Habits - 05/04/2023 Renal Calculi - 05/31/2017 Comment: S/P lithotripsy [facility] 2016 Hypertensive Disorder - 05/25/2017 Primary Localized Osteoarthrosis, Lower Leg - 12/18/2009 S/P Knee Replacement - 12/18/2009 Anemia, Unspecified Social History Tobacco Use Smoking status: Never Smokeless tobacco: Never Vaping Use Vaping Use: Never used Substance Use Topics Alcohol use: Yes Alcohol/week: 7.0 standard drinks of alcohol Types: 7 Glasses of wine per week Drug use: No Review of Systems Respiratory: Negative. Cardiovascular: Positive for leg swelling. Negative for chest pain and palpitations. OBJECTIVE BP 162/86 Pulse 56 Resp 12 Wt 131 lb (59.4kg) Physical Exam Vitals and nursing note reviewed. Constitutional: General: She is awake. She is not in acute distress. Appearance: Normal appearance. She is well-developed and well-groomed. She is not ill-appearing, toxic-appearing or diaphoretic. HENT: Head: Normocephalic. Right Ear: External ear normal. Left Ear: External ear normal. Nose: Nose normal. Eyes: General: Vision grossly intact. Conjunctiva/sclera: Conjunctivae normal. Pupils: Pupils are equal, round, and reactive to light. Neck: Vascular: No JVD. Trachea: Trachea normal. Cardiovascular: Rate and Rhythm: Normal rate and regular rhythm. Pulses: Normal pulses. Heart sounds: Normal heart sounds. No murmur heard. Pulmonary: Effort: Pulmonary effort is normal. No accessory muscle usage, prolonged expiration or respiratory distress. Breath sounds: Normal breath sounds. Musculoskeletal: Cervical back: Neck supple. Left lower leg: Edema (non-pitting) present. Skin: General: Skin is warm and dry. Capillary Refill: Capillary refill takes less than 2 seconds. Neurological: General: No focal deficit present. Mental Status: She is alert and oriented to person, place, and time. Mental status is at baseline. Psychiatric: Attention and Perception: Attention and perception normal. Mood and Affect: Mood and affect normal. Speech: Speech normal. Behavior: Behavior normal. Behavior is cooperative. Thought Content: Thought content normal. Cognition and Memory: Cognition and memory normal. Judgment: Judgment normal. ASSESSMENT/PLAN: 1. 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 Normal [facility] UA DIP, URINE (POC)on 2023 BILIRUBIN UA (POCT) Negative Negative [facility] CLARITY UA (POCT) Clear [facility] COLOR UA (POCT) Yellow [facility] GLUCOSE UA (POCT) Negative Negative mg/dL [facility] Hemoglobin Ql (U) Negative Negative [facility] KETONE UA (POCT) Negative Negative mg/dL [facility] LEUKOCYTES UA (POCT) Negative Negative [facility] NITRITE UA (POCT) Negative Negative [facility] PH UA (POCT) 5.5 4.5 - 8.0 [facility] Protein Ql (U) Negative Negative mg/dL [facility] SPECIFIC GRAVITY UA (POCT) >=1.030 1.005 - 1.030 [facility] UROBILINOGEN UA (POCT) 0.2 Normal E.U./dL [facility] Location:[address], [place], [address] [facility] POINT OF CARE [facility] CNOVon 01-03-2024 CNOV Office Visit (INTMWS ) KAILYN RIVERO ([id number]) 1950 F Date Time Provider Department 01/03/24 8:00 AM RONALD QUIJANO During your visit today, we recorded the following information about you: Ronald Quijano APRN.PRIVACY SPECIALIST 01/03/2024 8:42 AM Signed Shy was in today for assistance with initial Humira injection. She brought the injection in that she had [facility]. We discussed the process of the injection, possible side effects, signs and symptoms to monitor for and when to seek medical attention. We reviewed the information included with the medication and verified valid dose with expiration of 10/2024, she prepped the site on the left side of her abdomen with an alcohol wipe and this provider coached her through self-administration of the first injection. She tolerated it well, verbalized confidence in giving her next dose independently and had no questions or concerns. 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 - predniSONE (DELTASONE) 5 mg tablet Take 3.5 tablets by mouth once daily for 7 days, THEN 3 tablets once daily for 7 days, THEN 2.5 tablets once daily for 7 days, THEN 2 tablets once daily for 14 days. - predniSONE (DELTASONE) 10 mg tablet Take 15 mg by mouth once daily. - atenolol (TENORMIN) 25 mg tablet Take 1 tablet by mouth two times a day. - vit A/vit C/vit E/zinc/copper (PRESERVISION AREDS ORAL) Take 1 capsule by mouth twice daily at 6AM and 9PM. - Multivitamins-Minerals- Lutein (MULTIVITAMIN 50 PLUS) tab Take 1 tablet by mouth once daily. Problem List As Of Date 01/03/2024 Noted Resolved White coat syndrome without diagnosis of hypert*02/01/2006 04/01/2023 ANEMIA NOS [D64.9] Primary Localized Osteoarthrosis, Lower Leg [M1*12/18/2009 S/P knee replacement [Z96.659] 12/18/2009 Neck ache [M54.2] 07/10/2014 04/16/2022 Renal calculi [N20.0] 05/31/2017 Hypertensive disorder [I10] 05/25/2017 Abdominal pain [R10.9] 05/04/2023 Change in bowel habits [R19.4] 05/04/2023 SVT (supraventricular tachycardia) [I47.10] [I4*11/15/2023 Coronary artery disease involving nuiqs[place] vera*11/15/2023 Encounter Status:Closed by RONALD QUIJANO on 01/03/24 [facility] 12-29-2023 CNPN Telephone (RHEUMN) KAILYN RIVERO ([id number]) 1950 F Date Time Provider Department 12/29/23 ENRIQUE LYNCH During your visit today, we recorded the following information about you: Clarice Goldberg 12/29/2023 11:00 AM Signed Faxed Xsp[employer] assistance form to [phone]. Received fax confirmation Allergies As of Date: 12/29/2023 Noted Allergy Reaction MORPHINE 10/31/2018 16 - Unknown SULFA (SULFONAMIDE ANTIBIOTICS) 07/15/2005 2 - Rash Date Reviewed: 12/27/2023 Reviewed by: Ronald Quijano APRN.PRIVACY SPECIALIST - Fully Assessed Reason for Visit: Forms [913] Prescriptions as of 01/26/2024 - adalimumab (HUMIRA,CF, PEN [id number] HS) 80 mg/0.8 mL-40 mg/0.4 mL pen kit Inject 80mg (1 pen) subcutaneously on day 1, then 40mg (1 pen) on day 8, followed by 40mg (1 pen) on day 22 and every 2 weeks thereafter - adalimumab 40 mg/0.4 mL subcutaneous pen kit (HUMIRA (CF)) Inject 40mg (1 pen) subcutaneously every 2 weeks. - predniSONE (DELTASONE) 10 mg tablet Take 15 mg by mouth once daily. - atenolol (TENORMIN) 25 mg tablet Take 1 tablet by mouth two times a day. - vit A/vit C/vit E/zinc/copper (PRESERVISION AREDS ORAL) Take 1 capsule by mouth twice daily at 6AM and 9PM. - Multivitamins-Minerals- Lutein (MULTIVITAMIN 50 PLUS) tab Take 1 tablet by mouth once daily. Problem List As Of Date 12/29/2023 Noted Resolved White coat syndrome without diagnosis of hypert*02/01/2006 04/01/2023 ANEMIA NOS [D64.9] Primary Localized Osteoarthrosis, Lower Leg [M1*12/18/2009 S/P knee replacement [Z96.659] 12/18/2009 Neck ache [M54.2] 07/10/2014 04/16/2022 Renal calculi [N20.0] 05/31/2017 Hypertensive disorder [I10] 05/25/2017 Abdominal pain [R10.9] 05/04/2023 Change in bowel habits [R19.4] 05/04/2023 SVT (supraventricular tachycardia) [I47.10] [I4*11/15/2023 Coronary artery disease involving nuiqs[place] vera*11/15/2023 Encounter Status:Closed by CLARICE GOLDBERG on 12/29/23 [facility] CNOVon 12-27-2023 CNOV Office Visit (INTMWS ) KAILYN RIVERO ([id number]) 1950 F Date Time Provider Department 12/27/23 7:20 AM RONALD QUIJANOMALESIA During your visit today, we recorded the following information about you: Pulse Respiration Blood pressure Weight 74/minute 16/minute 132/80 58.2 kg Height 1.6 m Ronald Quijano APRN.PRIVACY SPECIALIST 12/27/2023 8:36 AM Signed SUBJECTIVE Kailyn Rivero is a 73 year old female here today for a check up on her medical problems. Chief Complaint Patient presents with: 6 week follow up HPI Kailyn Rivero is a 73 year old female. She is an established patient of Sai Benjamin MD. Here for follow up. Last seen 11/15. She has been dealing with vitreitis and retinal vasculitis of both eyes. We referred her to rheumatology due to no clear etiology. Seen with [facility] ophthalmology which confirmed the retinal vasculitis. Rheumatology recommended Humira. Has not started this yet. Working on decreasing prednisone dosing. Since last visit she has also seen cardiology with [facility] with Dr. Lambert. Recent ZIO monitoring showed SVT. She was also hypertensive last visit. Monitoring SVT. Routine follow up in May. Depression Screening PHQ-2 Score PHQ-9 Score 12/27/2023 0 - Depression screening tool completed and reviewed. Based on score and interview, patient is not at risk for depression. Screening tool discussed with patient, and I recommended no further intervention at this time. Her medications were reviewed today and her list is now up to date. Medications Current Outpatient Medications Medication Sig adalimumab (HUMIRA,CF, PEN [id number] HS) 80 mg/0.8 mL-40 mg/0.4 mL pen kit Inject 80mg (1 pen) subcutaneously on day 1, then 40mg (1 pen) on day 8, followed by 40mg (1 pen) on day 22 adalimumab 40 mg/0.4 mL subcutaneous pen kit (HUMIRA (CF)) Inject 40mg (1 pen) subcutaneously every 2 weeks. predniSONE (DELTASONE) 10 mg tablet Take 15 mg by mouth once daily. atenolol (TENORMIN) 25 mg tablet Take 1 tablet by mouth two times a day. Multivitamins-Minerals- Lutein (MULTIVITAMIN 50 PLUS) tab Take 1 tablet by mouth once daily. predniSONE (DELTASONE) 5 mg tablet Take 3.5 tablets by mouth once daily for 7 days, THEN 3 tablets once daily for 7 days, THEN 2.5 tablets once daily for 7 days, THEN 2 tablets once daily for 14 days. vit A/vit C/vit E/zinc/copper (PRESERVISION AREDS ORAL) Take 1 capsule by mouth twice daily at 6AM and 9PM. No current facility-administered medications for this visit. ALLERGIES Allergen Reactions Morphine Unknown Sulfa (Sulfonamide * Rash ACTIVE PROBLEM LIST SVT (supraventricular tachycardia) [I47.10] - 11/15/2023 Coronary Artery Disease Involving Ak Chin Coronary Artery of [place] Heart Without Angina Pectoris - 11/15/2023 Abdominal Pain - 05/04/2023 Change in Bowel Habits - 05/04/2023 Renal Calculi - 05/31/2017 Comment: S/P lithotripsy [facility] 2016 Hypertensive Disorder - 05/25/2017 Primary Localized Osteoarthrosis, Lower Leg - 12/18/2009 S/P Knee Replacement - 12/18/2009 Anemia, Unspecified Social History Tobacco Use Smoking status: Never Smokeless tobacco: Never Vaping Use Vaping Use: Never used Substance Use Topics Alcohol use: Yes Alcohol/week: 7.0 standard drinks of alcohol Types: 7 Glasses of wine per week Drug use: No Review of Systems Respiratory: Negative. Cardiovascular: Negative. OBJECTIVE BP 132/80 Pulse 74 Resp 16 Ht 5' 3 (1.60m) Wt 128 lb 6.4 oz (58.2kg) BMI 22.75 kg/(m2). Physical Exam Vitals and nursing note reviewed. Constitutional: General: She is awake. She is not in acute distress. Appearance: Normal appearance. She is well-developed and well-groomed. She is not ill-appearing, toxic-appearing or diaphoretic. HENT: Head: Normocephalic. Right Ear: External ear normal. Left Ear: External ear normal. Nose: Nose normal. Eyes: General: Vision grossly intact. Conjunctiva/sclera: Conjunctivae normal. Pupils: Pupils are equal, round, and reactive to light. Neck: Vascular: No JVD. Trachea: Trachea normal. Cardiovascular: Rate and Rhythm: Normal rate and regular rhythm. Pulses: Normal pulses. Heart sounds: Normal heart sounds. No murmur heard. Pulmonary: Effort: Pulmonary effort is normal. No accessory muscle usage, prolonged expiration or respiratory distress. Breath sounds: Normal breath sounds. Musculoskeletal: Cervical back: Neck supple. Skin: General: Skin is warm and dry. Capillary Refill: Capillary refill takes less than 2 seconds. Neurological: General: No focal deficit present. Mental Status: She is alert and oriented to person, place, and time. Mental status is at baseline. Psychiatric: Attention and Perception: Attention and perception normal. Mood and Affect: Mood and affect normal. Speech: Speech normal. Behavior: Behavior normal. Behavior is coope (more content not included)... Normal [facility] 12-27-2023 [facility] Telephone (4CQ) KAILYN RIVERO ([id number]) 1950 F Date Time Provider Department 12/27/23 RONALD QUIJANO 4CQ During your visit today, we recorded the following information about you: Genia Hicks 12/27/2023 1:49 PM Signed Patient is calling in regards to Humira. She is asking if she gets this Wednesday afternoon could she just come to the office. Please advise patient in regards to if she needs appointment for this. Alexandrea Philip MA 12/27/2023 3:36 PM Signed Spoke with patient regarding below. States that she would like to receive her first injection in the office with a nurse for teaching. She will be receiving sometime this Wednesday [facility] Pt would like to schedule towards end of day. Informed patient that I will inquire if [place] nurse in that day and return call. Spoke with Ronald since [place] nurse out until next week and pt anxious to start. Per Ronald, patient can be put on her schedule this Wednesday for injection. Pt scheduled 12/31/23 at 1500. Pt instructed to call office and r/s if she does not receive injection by 1300. Pt agreeable and verbalized understanding. Alexandrea Philip MA Allergies As of Date: 12/27/2023 Noted Allergy Reaction MORPHINE 10/31/2018 16 - Unknown SULFA (SULFONAMIDE ANTIBIOTICS) 07/15/2005 2 - Rash Date Reviewed: 12/27/2023 Reviewed by: Ronald Quijano APRN.PRIVACY SPECIALIST - Fully Assessed Reason for Visit: Medication Injection Teaching [468] Prescriptions as of 12/27/2023 - adalimumab (HUMIRA,CF, PEN [id number]-[id number] HS) 80 mg/0.8 mL-40 mg/0.4 mL pen kit Inject 80mg (1 pen) subcutaneously on day 1, then 40mg (1 pen) on day 8, followed by 40mg (1 pen) on day 22 and every 2 weeks thereafter - adalimumab 40 mg/0.4 mL subcutaneous pen kit (HUMIRA (CF)) Inject 40mg (1 pen) subcutaneously every 2 weeks. - predniSONE (DELTASONE) 5 mg tablet Take 3.5 tablets by mouth once daily for 7 days, THEN 3 tablets once daily for 7 days, THEN 2.5 tablets once daily for 7 days, THEN 2 tablets once daily for 14 days. - predniSONE (DELTASONE) 10 mg tablet Take 15 mg by mouth once daily. - atenolol (TENORMIN) 25 mg tablet Take 1 tablet by mouth two times a day. - vit A/vit C/vit E/zinc/copper (PRESERVISION AREDS ORAL) Take 1 capsule by mouth twice daily at 6AM and 9PM. - Multivitamins-Minerals- Lutein (MULTIVITAMIN 50 PLUS) tab Take 1 tablet by mouth once daily. Problem List As Of Date 12/27/2023 Noted Resolved White coat syndrome without diagnosis of hypert*02/01/2006 04/01/2023 ANEMIA NOS [D64.9] Primary Localized Osteoarthrosis, Lower Leg [M1*12/18/2009 S/P knee replacement [Z96.659] 12/18/2009 Neck ache [M54.2] 07/10/2014 04/16/2022 Renal calculi [N20.0] 05/31/2017 Hypertensive disorder [I10] 05/25/2017 Abdominal pain [R10.9] 05/04/2023 Change in bowel habits [R19.4] 05/04/2023 SVT (supraventricular tachycardia) [I47.10] [I4*11/15/2023 Coronary artery disease involving nuiqs[place] vera*11/15/2023 Encounter Status:Closed by RONALD QUIJANO on 12/27/23 Normal [facility] BLOOD TB SCREENon 12-21-2023 M. tuberculosis tuberculin stim IFN-g Ql (Bld) Negative Normal [facility] Comment on above: Order Comment: Speci men Type: BLOOD SPECIMENOrdering Facility: [facility] Address: [address] [place] [address] Performed By: #### I NFTBP ####[facility] LABCLIA [id number] [place] [address] [place] MITOGEN MINUS NIL 5.98 IU/mL Normal >=0.50 [facility] Comment on above: Order Comment: Speci men Type: BLOOD SPECIMENOrdering Facility: [facility] Address: [address] [place] [address] Performed By: #### I NFTBP ####[facility] LABCLIA [id number] [place] [address] [place] TB GAMMA INTERPRETATION Infection with M. tuberculosis complex is unlikely. If latent tuberculosis infection is highly suspected, a negative result does not rule out the infection. Specimens from immunocompromised patients and those <5 years of age may show false negative results. In case of a contact investigation, please repeat 8-12 weeks after a known exposure. Normal [facility] Comment on above: Order Comment: Speci men Type: BLOOD SPECIMENOrdering Facility: [facility] Address: [address] [place] [address] Performed By: #### I NFTBP ####[facility] LABCLIA [id number] [place] [address] [place] TB NIL 0.29 IU/mL Normal <=8.00 [facility] Comment on above: Order Comment: Speci men Type: BLOOD SPECIMENOrdering Facility: [facility] Address: [address] [place] [address] Performed By: #### I NFTBP ####[facility] LABIA [id number] [place] [address] [place] TB1 AG MINUS NIL 0.01 IU/mL Normal <0.35 [facility] Comment on above: Order Comment: Speci men Type: BLOOD SPECIMENOrdering Facility: [facility] Address: [address] [place] [address] Performed By: #### I NFTBP ####[facility] [id number] [place] [address] [place] TB2 AG MINUS NIL <0.00 Normal <0.35 [facility] Comment on above: Order Comment: Speci men Type: BLOOD SPECIMENOrdering Facility: [facility] Address: [address] [place] [address] Performed By: #### I NFTBP ####[facility] [id number] [place] [address] [place] CBC W Auto Differential pane l (Bld)on 12-21-2023 Anisocytosis Ql (Bld) Present Normal [facility] Comment on above: Order Comment: Speci men Type: BLOOD SPECIMENOrdering Facility: [facility] Address: [address] [place] [address] Performed By: #### 5 7021-8 ####[facility] [id number] [place] [address] [place] Basophils (Bld) [#/Vol] 0.00 10*3/uL Normal <0.11 [facility] Comment on above: Order Comment: Speci men Type: BLOOD SPECIMENOrdering Facility: [facility] Address: [address] [place] [address] Performed By: #### 5 7021-8 ####[facility] LABCLIA [id number] [place] [address] [place] Basophils/100 WBC (Bld) 0.0 % Normal [facility] Comment on above: Order Comment: Speci men Type: BLOOD SPECIMENOrdering Facility: [facility] Address: [address] [place] [address] Performed By: #### 5 7021-8 ####[facility] LABCLIA [id number] [place] [address] [place] Differential cell count method Nom (Bld) Manual Normal [facility] Comment on above: Order Comment: Speci men Type: BLOOD SPECIMENOrdering Facility: [facility] Address: [address] [place] [address] Performed By: #### 5 7021-8 ####[facility] LABCLIA [id number] [place] [address] [place] Eosinophils (Bld) [#/Vol] 0.00 10*3/uL Normal <0.46 [facility] Comment on above: Order Comment: Speci men Type: BLOOD SPECIMENOrdering Facility: [facility] Address: [address] [place] [address] Performed By: #### 5 7021-8 ####[facility] LABCLIA [id number] [place] [address] [place] Eosinophils/100 WBC (Bld) 0.0 % Normal [facility] Comment on above: Order Comment: Speci men Type: BLOOD SPECIMENOrdering Facility: [facility] Address: [address] [place] [address] Performed By: #### 5 7021-8 ####[facility] LABCLIA [id number] [place] [address] [place] Erythrocyte distribution width (RBC) [Ratio] 16.3 % High 11.5-15.0 [facility] Comment on above: Order Comment: Speci men Type: BLOOD SPECIMENOrdering Facility: [facility] Address: [address] [place] [address] Performed By: #### 5 7021-8 ####[facility] LABCLIA [id number] [place] [address] [place] Hematocrit (Bld) [Volume fraction] 41.2 % Normal 36.0-46.0 [facility] Comment on above: Order Comment: Speci men Type: BLOOD SPECIMENOrdering Facility: [facility] Address: [address] [place] [address] Performed By: #### 5 7021-8 ####[facility] LABCLIA [id number] [place] [address] [place] Hemoglobin (Bld) [Mass/Vol] 12.8 g/dL Normal 11.5-15.5 [facility] Comment on above: Order Comment: Speci men Type: BLOOD SPECIMENOrdering Facility: [facility] Address: [address] [place] [address] Performed By: #### 5 7021-8 ####[facility] LABCLIA [id number] [place] [address] [place] Lymphocytes (Bld) [#/Vol] 2.40 10*3/uL Normal 1.00-4.00 [facility] Comment on above: Order Comment: Speci men Type: BLOOD SPECIMENOrdering Facility: [facility] Address: [address] [place] [address] Performed By: #### 5 7021-8 ####[facility] LABCLIA [id number] [place] [address] [place] Lymphocytes/100 WBC (Bld) 37.9 % Normal [facility] Comment on above: Order Comment: Speci men Type: BLOOD SPECIMENOrdering Facility: [facility] Address: [address] [place] [address] Performed By: #### 5 7021-8 ####[facility] LABCLIA [id number] [place] [address] [place] MCH (RBC) [Entitic mass] 29.2 pg Normal 26.0-34.0 [facility] Comment on above: Order Comment: Speci men Type: BLOOD SPECIMENOrdering Facility: [facility] Address: [address] [place] [address] Performed By: #### 5 7021-8 ####[facility] LABIA [id number] [place] [address] [place] MCHC (RBC) [Mass/Vol] 31.1 g/dL Normal 30.5-36.0 [facility] Comment on above: Order Comment: Speci men Type: BLOOD SPECIMENOrdering Facility: [facility] Address: [address] [place] [address] Performed By: #### 5 7021-8 ####[facility] [id number] [place] [address] [place] MCV (RBC) [Entitic vol] 93.8 fL Normal 80.0-100.0 [facility] Comment on above: Order Comment: Speci men Type: BLOOD SPECIMENOrdering Facility: [facility] Address: [address] [place] [address] Performed By: #### 5 7021-8 ####[facility] [id number] [place] [address] [place] Monocytes (Bld) [#/Vol] 0.22 10*3/uL Normal <0.87 [facility] Comment on above: Order Comment: Speci men Type: BLOOD SPECIMENOrdering Facility: [facility] Address: [address] [place] [address] Performed By: #### 5 7021-8 ####[facility] LABIA [id number] [place] [address] [place] Monocytes/100 WBC (Bld) 3.4 % Normal [facility] Comment on above: Order Comment: Speci men Type: BLOOD SPECIMENOrdering Facility: [facility] Address: [address] [place] [address] Performed By: #### 5 7021-8 ####[facility] LABCLIA [id number] [place] [address] [place] Neutrophils (Bld) [#/Vol] 3.72 10*3/uL Normal 1.45-7.50 [facility] Comment on above: Order Comment: Speci men Type: BLOOD SPECIMENOrdering Facility: [facility] Address: [address] [place] [address] Performed By: #### 5 7021-8 ####[facility] LABCLIA [id number] [place] [address] [place] Neutrophils/100 WBC (Bld) 58.7 % Normal [facility] Comment on above: Order Comment: Speci men Type: BLOOD SPECIMENOrdering Facility: [facility] Address: [address] [place] [address] Performed By: #### 5 7021-8 ####[facility] LABCLIA [id number] [place] [address] [place] Nucleated RBC (Bld) [#/Vol] 10*3/uL Normal <0.01 [facility] Comment on above: Order Comment: Speci men Type: BLOOD SPECIMENOrdering Facility: [facility] Address: [address] [place] [address] Performed By: #### 5 7021-8 ####[facility] LABCLIA [id number] [place] [address] [place] Nucleated RBC/100 WBC (Bld) [Ratio] 0.0 /100 WBC Normal [facility] Comment on above: Order Comment: Speci men Type: BLOOD SPECIMENOrdering Facility: [facility] Address: [address] [place] [address] Performed By: #### 5 7021-8 ####[facility] LABCLIA [id number] [place] [address] [place] Ovalocytes LM Ql (Bld) Few Normal [facility] Comment on above: Order Comment: Speci men Type: BLOOD SPECIMENOrdering Facility: [facility] Address: [address] [place] [address] Performed By: #### 5 7021-8 ####[facility] LABCLIA [id number] [place] [address] [place] Platelet mean volume (Bld) [Entitic vol] 10.0 fL Normal 9.0-12.7 [facility] Comment on above: Order Comment: Speci men Type: BLOOD SPECIMENOrdering Facility: [facility] Address: [address] [place] [address] Performed By: #### 5 7021-8 ####[facility] LABCLIA [id number] [place] [address] [place] Platelets (Bld) [#/Vol] 226 10*3/uL Normal 150-400 [facility] Comment on above: Order Comment: Speci men Type: BLOOD SPECIMENOrdering Facility: [facility] Address: [address] [place] [address] Performed By: #### 5 7021-8 ####[facility] LABCLIA [id number] [place] [address] [place] Platelets Estimate (Bld) [#/Vol] Adequate Normal [facility] Comment on above: Order Comment: Speci men Type: BLOOD SPECIMENOrdering Facility: [facility] Address: [address] [place] [address] Performed By: #### 5 7021-8 ####[facility] LABCLIA [id number] [place] [address] [place] RBC (Bld) [#/Vol] 4.39 10*6/uL Normal 3.90-5.20 [facility] Comment on above: Order Comment: Speci men Type: BLOOD SPECIMENOrdering Facility: [facility] Address: [address] [place] [address] Performed By: #### 5 7021-8 ####[facility] LABCLIA [id number] [place] [address] [place] RED CELL MORPH Reviewed: see result s of individual morphologies Normal [facility] Comment on above: Order Comment: Speci men Type: BLOOD SPECIMENOrdering Facility: [facility] Address: [address] [place] [address] Performed By: #### 5 7021-8 ####[facility] LABCLIA [id number] [place] [address] [place] Target cells LM Ql (Bld) Few Normal [facility] Comment on above: Order Comment: Speci men Type: BLOOD SPECIMENOrdering Facility: [facility] Address: [address] [place] [address] Performed By: #### 5 7021-8 ####[facility] LABCLIA [id number] [place] [address] [place] WBC (Bld) [#/Vol] 6.34 10*3/uL Normal 3.70-11.00 [facility] Comment on above: Order Comment: Speci men Type: BLOOD SPECIMENOrdering Facility: [facility] Address: [address] [place] [address] Performed By: #### 5 7021-8 ####[facility] LABCLIA [id number] [place] [address] [place] CRP SerPl-mCncon 12-21-2023 CRP [Mass/Vol] 0.7 mg/dL Normal <0.9 [facility] Comment on above: Order Comment: Speci men Type: BLOOD SPECIMENOrdering Facility: [facility] Address: [address] [place] [address] Performed By: #### 1 988-5 ####[facility] LABCLIA [id number] [place] [id number] [place] Comprehensive metabolic 2000 panelon 12-17-2023 Albumin [Mass/Vol] 3.6 g/dL Low 3.9-4.9 [facility] Comment on above: Order Comment: Speci men Type: BLOOD SPECIMENOrdering Facility: [facility] Address: [address] [place] [address] Performed By: #### 2 4323-8 ####[facility] LABCLIA [id number] [place] [address] [place] ALP [Catalytic activity/Vol] 40 U/L Normal 34-123 [facility] Comment on above: Order Comment: Speci men Type: BLOOD SPECIMENOrdering Facility: [facility] Address: [address] [place] [address] Performed By: #### 2 4323-8 ####[facility] LABCLIA [id number] [place] [address] [place] ALT [Catalytic activity/Vol] 14 U/L Normal 7-38 [facility] Comment on above: Order Comment: Speci men Type: BLOOD SPECIMENOrdering Facility: [facility] Address: [address] [place] [address] Performed By: #### 2 4323-8 ####[facility] LABCLIA [id number] [place] [address] [place] Anion gap [Moles/Vol] 10 mmol/L Normal 9-18 [facility] Comment on above: Order Comment: Speci men Type: BLOOD SPECIMENOrdering Facility: [facility] Address: [address] [place] [address] Performed By: #### 2 4323-8 ####[facility] LABCLIA [id number] [place] [id number] [place] AST [Catalytic activity/Vol] 17 U/L Normal 13-35 [facility] Comment on above: Order Comment: Speci men Type: BLOOD SPECIMENOrdering Facility: [facility] Address: [address] [place] [address] Performed By: #### 2 4323-8 ####[facility] LABCLIA [id number] [place] [id number] [place] Bilirubin [Mass/Vol] 0.7 mg/dL Normal 0.2-1.3 [facility] Comment on above: Order Comment: Speci men Type: BLOOD SPECIMENOrdering Facility: [facility] Address: [address] [place] [address] Performed By: #### 2 4323-8 ####[facility] LABCLIA [id number] [place] [address] [place] Calcium [Mass/Vol] 9.0 mg/dL Normal 8.5-10.2 [facility] Comment on above: Order Comment: Speci men Type: BLOOD SPECIMENOrdering Facility: [facility] Address: [address] [place] [address] Performed By: #### 2 4323-8 ####[facility] LABCLIA [id number] [place] [address] [place] Chloride [Moles/Vol] 105 mmol/L Normal 97-105 [facility] Comment on above: Order Comment: Speci men Type: BLOOD SPECIMENOrdering Facility: [facility] Address: [address] [place] [address] Performed By: #### 2 4323-8 ####[facility] LABCLIA [id number] [place] [address] [place] CO2 [Moles/Vol] 26 mmol/L Normal 22-30 [facility] Comment on above: Order Comment: Speci men Type: BLOOD SPECIMENOrdering Facility: [facility] Address: [address] [place], [place] [address] Performed By: #### 2 4323-8 ####[facility] LABIA [id number] [place] [id number] [place] Creatinine [Mass/Vol] 0.90 mg/dL Normal 0.58-0.96 [facility] Comment on above: Order Comment: Saida stafford Type: BLOOD SPECIMENOrdering Facility: [facility] Address: [address] [place] [address] Performed By: #### 2 4323-8 ####[facility] LABIA [id number] [place] [address] [place] [facility] [place] Creatinine and Glomerular filtration rate.predicted panel (S/P/Bld) 67 mL/min/1.73m??? Normal >=60 [facility] Comment on above: Order Comment: Saida stafford Type: BLOOD SPECIMENOrdering Facility: [facility] Address: [address] [place] [address] Result Comment: Ebony mated Glomerular Filtration Rate (eGFR) is calculated using the 2020 CKD-EPI creatinine equation. This equation utilizes serum creatinine, sex, and age as parameters. The creatinine assay has traceable calibration to isotope dilution-mass spectrometry. Refer to KDIGO guidelines for clinical interpretation. In patients with unstable renal function, e.g. those with acute kidney injury, the eGFR may not accurately reflect actual GFR. Performed By: #### 2 4323-8 ####[facility] LABIA [id number] [place] [address] [place] Glucose [Mass/Vol] 122 mg/dL High 74-99 [facility] Comment on above: Order Comment: Saida stafford Type: BLOOD SPECIMENOrdering Facility: [facility] Address: [address] [place] [address] Result Comment: The [place] Diabetes Association (ADA) provides guidance for cutoff values for fasting glucose and random glucose. The ADA defines fasting as no caloric intake for at least 8 hours. Fasting plasma glucose results between 100 to 125 mg/dL indicate increased risk for diabetes (prediabetes). Fasting plasma glucose results greater than or equal to 126 mg/dL meet the criteria for diagnosis of diabetes. In the absence of unequivocal hyperglycemia, results should be confirmed by repeat testing. In a patient with classic symptoms of hyperglycemia or hyperglycemic crisis, random plasma glucose results greater than or equal to 200 mg/dL meet the criteria for diagnosis of diabetes. Reference: Standards of Medical Care in Diabetes 2016, [place] Diabetes Association. Diabetes Care. 2016.39(Suppl 1). Performed By: #### 2 4323-8 ####[facility] LABCLIA [id number] [place] [address] [place] Potassium [Moles/Vol] 4.2 mmol/L Normal 3.7-5.1 [facility] Comment on above: Order Comment: Speci men Type: BLOOD SPECIMENOrdering Facility: [facility] Address: [address] [place] [address] Performed By: #### 2 4323-8 ####[facility] LABCLIA [id number] [place] [address] [place] Protein [Mass/Vol] 6.2 g/dL Low 6.3-8.0 [facility] Comment on above: Order Comment: Speci men Type: BLOOD SPECIMENOrdering Facility: [facility] Address: [address] [place] [address] Performed By: #### 2 4323-8 ####[facility] LABCLIA [id number] [place] [address] [place] Sodium [Moles/Vol] 141 mmol/L Normal 136-144 [facility] Comment on above: Order Comment: Speci men Type: BLOOD SPECIMENOrdering Facility: [facility] Address: [address] [place] [address] Performed By: #### 2 4323-8 ####[facility] LABCLIA [id number] [place] [id number] [place] Urea nitrogen [Mass/Vol] 19 mg/dL Normal 7-21 [facility] Comment on above: Order Comment: Speci men Type: BLOOD SPECIMENOrdering Facility: [facility] Address: [address] [place], [place] [address] Performed By: #### 2 4323-8 ####[facility] LABIA [id number] [address] HbA1c (Bld)on 12-17-2023 Average glucose Estimated from glycated hemoglobin (Bld) [Mass/Vol] 123 mg/dL Normal [facility] Comment on above: Order Comment: Saida stafford Type: BLOOD SPECIMENOrdering Facility: [facility] Address: [address] [place] [address] Result Comment: eAG: (Estimated average glucose) is a calculated value from HgbA1c and is artists' booking representative of the average blood glucose level in the last 2-3 month period. Performed By: #### 5 5454-3 ####[facility] [id number] [address] HbA1c (Bld) [Mass fraction] 5.9 % High 4.3-5.6 [facility] Comment on above: Order Comment: Saida stafford Type: BLOOD SPECIMENOrdering Facility: [facility] Address: [address] [place] [address] Result Comment: [place] Diabetes Association guidelines indicate that patients with HgbA1c in the range 5.7-6.4% are at increased risk for development of diabetes, and intervention by lifestyle modification may be beneficial. HgbA1c greater or equal to 6.5% is considered diagnostic of diabetes. Performed By: #### 5 5454-3 ####[facility] [id number] [address] CNOVon 12-09-2023 CNOV Office Visit (RHEUMN ) KAILYN RIVERO ([id number]) 1950 F Date Time Provider Department 12/09/23 2:00 PM ENRIQUE LYNHC During your visit today, we recorded the following information about you: Temperature Pulse Blood pressure Weight 97.7 degrees 89/minute 154/89 59.4 kg Height 1.6 m Enrique Lynch MD, PhD 12/09/2023 3:33 PM Signed here w hx of eye inflammation - 01/2023 started w constipation and severe abd pain - colonoscopy / ct unremarkable (kidney and gallstones); had arrhythmia and cath normal coronaries, echo enlarged left atria. apparently extra beats no tx given. in right eye known early mac degeneration; may 2023 noted dark shady spot and she was sent to retinovitreal doctor in [place] - has seen several and they were concerned re inflammation and suggested followup in a month; the dark shade may have resolved but decr vision (cloudy vision); no remarkable increase in her baseline low level of floaters - in jun steroids suggested by dr heri baker - and in september started 60 pred daily (was very hyper/energy) after a month on that dose vision and exam improved - and dose began to be tapered from october until now - and on 30 mg now (for few days) since tapering she feels that vision is somewhat worse again ( foggy ). unfortunately i can't find any direct information from the eye assessments. had low back pain spring 2022 - now resolved this AM had severe right sided ant chest pressure, stopped doing laundry, no sob, no sweats, resolved after an hr. PSH: TKR 20 yrs ago, ACL repair, PMH: HTN on atenolol Answers submitted by the patient for this visit: Review of Systems Rheumatology (Submitted on 12/06/2023) Fever : No Recent unintentional weight change: No Eye pain: No Eye redness: No Vision Disturbance: Yes Eye Dryness: No Nosebleeds: No Sores in your mouth: No Trouble Swallowing: No Dry Mouth: No Chest pain: No Leg Swelling: No A cough: No Shortness of breath: No Pain with breathing: No Heartburn: No Abdominal pain: No Diarrhea: No Black tarry stools: No Blood in urine: No Pain or burning with urination: No Joint pain or stiffness: No Muscle weakness: No Muscle aches: No Joint swelling: No Morning Stiffness in Joints: No A rash: No Skin Color Changes: No Hair Loss: No Nail Changes: No Headaches: No Numbness: No Memory Loss: No Swollen Glands: No PE Blood pressure 154/89, pulse 89, temperature 36.5 ?C (97.7 ?F), temperature source Temporal, height 160 cm (5' 2.99 ), weight 59.4 kg (130 lb 15.3 oz). 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 i need to get more information as to the exact ocular dx - records were supposedly sent but i can't find them now. by ros, exam and labs (DUSTY,RPR,CMP, CBC,CRP normal other than lowish wbc) i dont recognize an inflammatory systemic disorder she will get eye records faxed directly to me - sounds to me that we will need a second non corticosteroid medication Enrique Lynch MD, PhD Enrique Lynch MD, PhD 12/10/2023 12:17 PM Signed Addended by: ENRIQUE LYNCH on: 12/10/2023 12:17 PM Modules accepted: Orders Referring Provider: RONALD QUIJANO [[id number]] Allergies As of Date: 12/09/2023 Noted Allergy Reaction MORPHINE 10/31/2018 16 - Unknown SULFA (SULFONAMIDE ANTIBIOTICS) 07/15/2005 2 - Rash Date Reviewed: 12/09/2023 Reviewed by: Shannon Ramirez Ma - Fully Assessed Visit Diagnoses:Vitritis [H43.89] 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 - vit A/vit C/vit E/zinc/copper (PRESERVISION AREDS ORAL) Take 1 capsule by mouth twice daily at 6AM and 9PM. - Multivitamins-Minerals- Lutein (MULTIVITAMIN 50 PLUS) tab Take 1 tablet by mouth once daily. Problem List As Of Date 12/09/2023 Noted Resolved White coat syndrome without diagnosis of hypert*02/01/2006 04/01/2023 ANEMIA NOS [D64.9] Primary Localized Osteoarthrosis, Lower Leg [M1*12/18/2009 S/P knee replacement [Z96.659] 12/18/2009 Neck ache [M54.2] 07/10/2014 04/16/2022 Renal calculi [N20.0] 05/31/2017 Hypertensive disorder [I10] 05/25/2017 Abdominal (more content not included)... Normal [facility] CNOVon 11-15-2023 CNOV Office Visit (CAWSTR ) KAILYN RIVERO ([id number]) 1950 F Date Time Provider Department 11/15/23 4:20 PM MIC LAMBERT CAWSTR During your visit today, we recorded the following information about you: Blood pressure Weight 192/97 59.4 kg Mic Lambert MD 11/15/2023 4:38 PM Signed Mic Lambert MD Interventional Cardiology [address] [place] [address] Chief Complaint Patient presents with: Follow Up HISTORY OF PRESENT ILLNESS: Ms. 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 she is on a large dose of prednisone I discussed the nature of the arrhythmia and the benign nature of the SVT and the options for treatment including observation versus medical therapy versus ablation procedure Cardiac Risk Factors age (male over 45, female over 55), hypertension PAST MEDICAL HISTORY Diagnosis Date Atrial fibrillation (HCC) Carpal tunnel syndrome s/p right surgery 02/2011; Left done as well Essential hypertension, benign White coat syndrome now--BP stays <130/90 at home Irregular heart beat Kidney stone Tear of right biceps muscle--partial 2018 Orthopedist evaluated--[facility] (Dr. Toro) 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 05/26/2019 BP <130/90 on recheck; BP fine at home PAST SURGICAL HISTORY Procedure Laterality Date ARTHROSCOPY KNEE DIAGNOSTIC W/WO SYNOVIAL BX SPX 2000 Arthroscopy, knee COLONOSCOPY 05/04/2023 repeat in 5 years COLONOSCOPY FLX DX W/COLLJ SPEC WHEN PFRMD 03/03/2006 Colonoscopy COLONOSCOPY FLX DX W/COLLJ SPEC WHEN PFRMD 05/24/2017 Colonoscopy EGD 05/04/2023 PAST SURGICAL HISTORY OF right knee replacement PAST SURGICAL HISTORY OF Carpal Tunnel release right ([place] with Dr. Tellez) FAMILY HISTORY Problem Relation Age of Onset Hypertension Father other (Renal Failure) Father Aneurysm Sister Brain; had surgery for this Social History Tobacco Use Smoking status: Never Smokeless tobacco: Never Vaping Use Vaping Use: Never used Substance Use Topics Alcohol use: Yes Alcohol/week: 7.0 standard drinks of alcohol Types: 7 Glasses of wine per week Drug use: No ALLERGIES Allergen Reactions Morphine Unknown Sulfa (Sulfonamide * Rash Medications: Current Outpatient Medications Medication Sig Dispense Refill predniSONE (DELTASONE) 10 mg tablet TAKE 6 TABLETS BY MOUTH ONCE DAILY atenolol (TENORMIN) 25 mg tablet Take 1 tablet by mouth two times a day. 180 tablet 2 vit A/vit C/vit E/zinc/copper (PRESERVISION AREDS ORAL) Take 1 capsule by mouth twice daily at 6AM and 9PM. Multivitamins-Minerals- Lutein (MULTIVITAMIN 50 PLUS) tab Take 1 tablet by mouth once daily. No current facility-administered medications for this visit. Review of Systems Constitutional: Negative for chills, diaphoresis, fever, malaise/fatigue and weight loss. HENT: Negative for congestion, ear discharge, ear pain, hearing loss, nosebleeds, sinus pain, sore throat and tinnitus. Eyes: Negative for blurred vision, double vision, photophobia, pain, discharge and redness. Respiratory: Negative for cough, hemoptysis, sputum production, shortness of breath, wheezing and stridor. Cardiovascular: Negative for chest pain, palpitations, orthopnea, claudication, leg swelling and PND. Gastrointestinal: Negative for abdominal pain, blood in stool, constipation, diarrhea, heartburn, melena, nausea and vomiting. Genitourinary: Negative for dysuria, flank pain, frequency, hematuria and urgency. Musculoskeletal: Negative for back pain, falls, joint pain, myalgias and neck pain. Skin: Negative for itching and rash. Neurological: Negative for dizziness, tingling, tremors, sensory change, speech change, focal weakness, seizures, loss of consciousness, weakness and headaches. Endo/Heme/Allergies: Negative for environmental allergies and polydipsia. Does not bruise/bleed easily. Psychiatric/Behavioral: Negative for depression, hallucinations, memory loss, substance abuse and suicidal ideas. The patient is not nervous/anxious and does not have insomnia. Physical Examination: Vitals:BP 192/97 Wt 131 lb (59.4kg) SpO2 100% BP w/Orthostatic Vitals Date and Time Orthostatic BP Orthostatic Pulse BP Pulse BP Position BP Site BP Cuff Size 11/15/23 1603 -- -- 192/97 -- Sitting Right A (more content not included)... [facility] CNOV Office Visit (INTMWS ) KAILYN RIVERO ([id number]) 1950 F Date Time Provider Department 11/15/23 7:40 AM SAMM, RONALD INTMWS During your visit today, we recorded the following information about you: Temperature Pulse Respiration Blood pressure 97.8 degrees 67/minute 16/minute 182/88 Weight 58.7 kg Ronald Quijano APRN.PRIVACY SPECIALIST 11/15/2023 9:28 AM Signed SUBJECTIVE Kailyn Rivero is a 72 year old female here today for a check up on her medical problems. Chief Complaint Patient presents with: 6 week follow up HPI Kailyn Rivero is a 72 year old female. She is an established patient of Sai Benjamin MD. She presents today for a 6 week follow up. She was last seen routinely on 10/04/2023. 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 Concerns of an inflammatory process impacting her eyes. Her eye provider recommend steroids.They suggested oral over topical because topical would likely not treat the condition she has on going. She is scheduled to see rheumatology. Eye provider follow up Wednesday. Not noticing much difference with steroids. 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 Min HR 45, max 150. Sinus rhythm with first degree AV block and numerous episodes SVT. Following with cardiology. Blood pressure high today. Currently taking 60 mg of prednisone daily. Some increased sleep issues with this. Currently positive for COVID-19. Overall feeling okay. Her medications were reviewed today and her list is now up to date. Medications Current Outpatient Medications Medication Sig atenolol (TENORMIN) 25 mg tablet Take 1 tablet by mouth two times a day. vit A/vit C/vit E/zinc/copper (PRESERVISION AREDS ORAL) Take 1 capsule by mouth twice daily at 6AM and 9PM. Multivitamins-Minerals- Lutein (MULTIVITAMIN 50 PLUS) tab Take 1 tablet by mouth once daily. predniSONE (DELTASONE) 10 mg tablet TAKE 6 TABLETS BY MOUTH ONCE DAILY No current facility-administered medications for this visit. ALLERGIES Allergen Reactions Morphine Unknown Sulfa (Sulfonamide * Rash ACTIVE PROBLEM LIST Abdominal Pain - 05/04/2023 Change in Bowel Habits - 05/04/2023 Renal Calculi - 05/31/2017 Comment: S/P lithotripsy [facility] 2016 Hypertensive Disorder - 05/25/2017 Primary Localized Osteoarthrosis, Lower Leg - 12/18/2009 S/P Knee Replacement - 12/18/2009 Anemia, Unspecified Social History Tobacco Use Smoking status: Never Smokeless tobacco: Never Vaping Use Vaping Use: Never used Substance Use Topics Alcohol use: Yes Alcohol/week: 7.0 standard drinks of alcohol Types: 7 Glasses of wine per week Drug use: No Review of Systems Respiratory: Negative. Cardiovascular: Positive for palpitations. Negative for chest pain and leg swelling. OBJECTIVE BP 182/88 Pulse 67 Temp (Src) 97.8 (Left Tympanic) Resp 16 Wt 129 lb 8 oz (58.7kg) SpO2 100% Physical Exam Vitals and nursing note reviewed. Constitutional: General: She is awake. She is not in acute distress. Appearance: Normal appearance. She is well-developed and well-groomed. She is not ill-appearing, toxic-appearing or diaphoretic. HENT: Head: Normocephalic. Right Ear: External ear normal. Left Ear: External ear normal. Nose: Nose normal. Eyes: General: Vision grossly intact. Conjunctiva/sclera: Conjunctivae normal. Pupils: Pupils are equal, round, and reactive to light. Neck: Vascular: No JVD. Trachea: Trachea normal. Cardiovascular: Rate and Rhythm: Normal rate and regular rhythm. Pulses: Normal pulses. Heart sounds: Normal heart sounds. No murmur heard. Pulmonary: Effort: Pulmonary effort is normal. No accessory muscle usage, prolonged expiration or respiratory distress. Breath sounds: Normal breath sounds. Musculoskeletal: Cervical back: Neck supple. Skin: General: Skin is warm and dry. Capillary Refill: Capillary refill takes less than 2 seconds. Neurological: General: No focal deficit present. Mental Status: She is alert and oriented to person, place, and time. Mental status is at baseline. Psychiatric: Attention and Perception: Attention and perception normal. Mood and Affect: Mood and affect normal. Speech: Speech normal. Behavior: Behavior normal. Behavior is cooperative. Thought Content: Thought content normal. Cognition and Memory: Cognition and memory normal. Judgment: Judgment normal. ASSESSMENT/PLAN: 1. Primary hypertension - ICD9: 401.9, ICD10: I10 (primary diagnosis) - Worsening control, suspect this is secondary to daily prednisone. - Recommend home blood pressure monitoring, to bring results to next visit - Encouraged sodium restriction, DASH or Mediterranean diet - Recommend regular aerobic exercise - We discussed possible options to treat HTN, she sees cardiology today. We can use that as a recheck on bp since she just took atenolol prior to her appo (more content not included)... [facility] CNPNon 11-10-2023 CNPN Telephone ([facility]) AVTARBETTYKAILYN A ([id number]) 1950 F Date Time Provider Department 11/10/23 MANSOOR DELCID [facility] During your visit today, we recorded the following information about you: Mansoor Delcid PA 11/10/2023 7:35 AM Signed Called patient and discussed COVID-positive result. Discussed that patient is a candidate for the antiviral. She is on day 5 of symptoms today. Advise she would need to start the antiviral today. Patient declines. Recommend mask for 5 more days. She understands. Allergies As of Date: 11/10/2023 Noted Allergy Reaction MORPHINE 10/31/2018 16 - Unknown SULFA (SULFONAMIDE ANTIBIOTICS) 07/15/2005 2 - Rash Date Reviewed: 11/09/2023 Reviewed by: Wilfrido Jarrett APRN.PRIVACY SPECIALIST - Fully Assessed Reason for Visit: Results [95] Prescriptions as of 11/10/2023 - benzonatate (TESSALON PERLE) 100 mg capsule Take 1 capsule by mouth three times a day as needed for cough for up to 7 days. - aspirin, enteric coated (ASPIRIN, ENTERIC COATED) 81 mg EC tablet Take 81 mg by mouth once daily. - atenolol (TENORMIN) 25 mg tablet Take 1 tablet by mouth two times a day. - vit A/vit C/vit E/zinc/copper (PRESERVISION AREDS ORAL) Take 1 capsule by mouth twice daily at 6AM and 9PM. - Multivitamins-Minerals- Lutein (MULTIVITAMIN 50 PLUS) tab Take 1 tablet by mouth once daily. Problem List As Of Date 11/10/2023 Noted Resolved White coat syndrome without diagnosis of hypert*02/01/2006 04/01/2023 ANEMIA NOS [D64.9] Primary Localized Osteoarthrosis, Lower Leg [M1*12/18/2009 S/P knee replacement [Z96.659] 12/18/2009 Neck ache [M54.2] 07/10/2014 04/16/2022 Renal calculi [N20.0] 05/31/2017 Hypertensive disorder [I10] 05/25/2017 Abdominal pain [R10.9] 05/04/2023 Change in bowel habits [R19.4] 05/04/2023 Encounter Status:Closed by MANSOOR DELCID on 11/10/23 [facility] CNOVon 11-09-2023 CNOV Office Visit (UCWSTR ) KAILYN RIVERO ([id number]) 1950 F Date Time Provider Department 11/09/23 9:15 AM WILFRIDO JARRETT [facility] During your visit today, we recorded the following information about you: Temperature Pulse Respiration Blood pressure 98.3 degrees 78/minute 18/minute 159/99 Weight 59.4 kg Wilfrido Jarrett APRN.PRIVACY SPECIALIST 11/09/2023 9:41 AM Signed Subjective HPI Nontoxic-appearing female presents to urgent care with chief complaint of upper respiratory tract like infection. Duration of symptoms 2 days. Associated symptoms sore throat, nasal congestion, nasal discharge and nonproductive cough. Patient denies the use of any [id number] medications or home remedies for symptom management. Patient states recent sick contacts with similar signs and symptoms. No COVID exposure. Is vaccinated in flu and COVID-19. Patient denies any productive cough, fever, chest pain, shortness of breath, pleuritic pain, rash, abdominal pain, nausea, vomiting or change in bowel or bladder habit. Past medical history prescription medications allergies reviewed. .Patient presents with: Cough: Chest congestion, nasal drainage, productive cough x 2 days PAST MEDICAL HISTORY Diagnosis Date Atrial fibrillation (HCC) Carpal tunnel syndrome s/p right surgery 02/2011; Left done as well Essential hypertension, benign White coat syndrome now--BP stays <130/90 at home Irregular heart beat Kidney stone Tear of right biceps muscle--partial 2017 Orthopedist evaluated--[facility] (Dr. Toro) 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 05/26/2019 BP <130/90 on recheck; BP fine at home PAST SURGICAL HISTORY Procedure Laterality Date ARTHROSCOPY KNEE DIAGNOSTIC W/WO SYNOVIAL BX SPX 2000 Arthroscopy, knee COLONOSCOPY 05/04/2023 repeat in 5 years COLONOSCOPY FLX DX W/COLLJ SPEC WHEN PFRMD 03/03/2006 Colonoscopy COLONOSCOPY FLX DX W/COLLJ SPEC WHEN PFRMD 05/24/2017 Colonoscopy EGD 05/04/2023 PAST SURGICAL HISTORY OF right knee replacement PAST SURGICAL HISTORY OF Carpal Tunnel release right ([place] with Dr. Tellez) ALLERGIES Morphine and Sulfa (Sulfonamide Antibiotics) MEDICATIONS aspirin, enteric coated (ASPIRIN, ENTERIC COATED) 81 mg EC tablet Take 81 mg by mouth once daily. atenolol (TENORMIN) 25 mg tablet Take 1 tablet by mouth two times a day. vit A/vit C/vit E/zinc/copper (PRESERVISION AREDS ORAL) Take 1 capsule by mouth twice daily at 6AM and 9PM. Multivitamins-Minerals- Lutein (MULTIVITAMIN 50 PLUS) tab Take 1 tablet by mouth once daily. FAMILY HISTORY Problem Relation Age of Onset Hypertension Father other (Renal Failure) Father Aneurysm Sister Brain; had surgery for this Social History Tobacco Use Smoking status: Never Smokeless tobacco: Never Vaping Use Vaping Use: Never used Substance Use Topics Alcohol use: Yes Alcohol/week: 7.0 standard drinks of alcohol Types: 7 Glasses of wine per week Drug use: No BP 159/99 Pulse 78 Temp 36.8 ?C (98.3 ?F) Resp 18 Wt 59.4 kg (131 lb) BMI 23.21 kg/m? Review of Systems Constitutional: Negative for chills, fever and malaise/fatigue. HENT: Positive for congestion, sinus pain and sore throat. Negative for ear discharge and ear pain. Eyes: Negative for blurred vision, pain, discharge and redness. Respiratory: Positive for cough. Negative for hemoptysis, sputum production, shortness of breath, wheezing and stridor. Cardiovascular: Negative for chest pain. Gastrointestinal: Negative for abdominal pain, diarrhea, nausea and vomiting. Musculoskeletal: Negative for myalgias. Skin: Negative for itching and rash. Neurological: Positive for headaches. Negative for dizziness. Objective Physical Exam Constitutional: General: She is not in acute distress. Appearance: She is not diaphoretic. HENT: Head: Normocephalic. Jaw: No trismus, tenderness, swelling or pain on movement. Nose: Congestion present. Mouth/Throat: Mouth: Mucous membranes are moist. Pharynx: Oropharynx is clear. Uvula midline. No pharyngeal swelling, oropharyngeal exudate, posterior oropharyngeal erythema or uvula swelling. Eyes: Conjunctiva/sclera: Conjunctivae normal. Pupils: Pupils are equal, round, and reactive to light. Cardiovascular: Rate and Rhythm: Normal rate and regular rhythm. Heart sounds: Normal heart sounds. Pulmonary: Effort: Pulmonary effort is normal. No tachypnea, accessory muscle usage or respiratory distress. Breath sounds: Normal breath sounds. No stridor. No wheezing, rhonchi or rales. Abdominal: General: There is no distension. Palpations: Abdomen is soft. Tenderness: There is no abdominal tenderness. There is no guarding or rebound. Musculoskeletal: Cervical back: Normal range of motion and neck supple. No edema, erythema, rigidity or tenderness. No p (more content not included)... [facility] COVID AND INFLUENZA A/B AND RSV NAAT, ROUTINEon 11-09-2023 SARS-CoV-2 (COVID-19) RNA MANDA+probe Ql (Unsp spec) COVID 19 RESULT: Detected The method used is RT-PCR or an equivalent NAAT method. Reference Range (the expected result in uninfected individuals): Not detected INFLUENZA A PCR: Not detected INFLUENZA B PCR: Not detected RSV PCR: Not detected [facility]normal [facility] Comment on above: Performed By: #### C VFLRS ####[facility] LABCLIA [id number] [place] [address] [place] [facility] ([facility]PO[facility] ) KAILYN RIVERO ([id number]) 1950 F Date Time Provider Department 10/07/23 MIC LAMBERT During your visit today, we recorded the following information about you: Halley Mejias LPN 10/07/2023 9:01 AM Signed Patient called [facility] to clarify when she needs to have Echo completed that was ordered at last office visit 09/20/2023? Also eye doctor wants to start patient on steroid for her eyes- is this ok to do from a cardiac standpoint? Please advise Thank you DANNI Jackson Jennifer, LPN 10/12/2023 3:37 PM Signed Mic Lambert MD You 2 minutes ago (3:28 PM) OK FOR EYE TREATMENT Halley Peterson LPN 10/12/2023 3:37 PM Signed Spoke with patient about recommendation to use eye treatment. Patient verbalizes understanding. Halley Mejias LPN Allergies As of Date: 10/07/2023 Noted Allergy Reaction MORPHINE 10/31/2018 16 - Unknown SULFA (SULFONAMIDE ANTIBIOTICS) 07/15/2005 2 - Rash Date Reviewed: 10/04/2023 Reviewed by: Ronald Quijano APRN.PRIVACY SPECIALIST - Fully Assessed Reason for Visit: Patient Question [2230] Prescriptions as of 10/14/2023 - aspirin, enteric coated (ASPIRIN, ENTERIC COATED) 81 mg EC tablet Take 81 mg by mouth once daily. - atenolol (TENORMIN) 25 mg tablet Take 1 tablet by mouth two times a day. - vit A/vit C/vit E/zinc/copper (PRESERVISION AREDS ORAL) Take 1 capsule by mouth twice daily at 6AM and 9PM. - Multivitamins-Minerals- Lutein (MULTIVITAMIN 50 PLUS) tab Take 1 tablet by mouth once daily. Problem List As Of Date 10/07/2023 Noted Resolved White coat syndrome without diagnosis of hypert*02/01/2006 04/01/2023 ANEMIA NOS [D64.9] Primary Localized Osteoarthrosis, Lower Leg [M1*12/18/2009 S/P knee replacement [Z96.659] 12/18/2009 Neck ache [M54.2] 07/10/2014 04/16/2022 Renal calculi [N20.0] 05/31/2017 Hypertensive disorder [I10] 05/25/2017 Abdominal pain [R10.9] 05/04/2023 Change in bowel habits [R19.4] 05/04/2023 Encounter Status:Closed by HALLEY MEJIAS on 10/14/23 [facility] CNOVon 10-04-2023 CNOV Office Visit (INTMWS ) KAILYN RIVERO ([id number]) 1950 F Date Time Provider Department 10/04/23 7:00 AM RONALD QUIJANO INTKIARA During your visit today, we recorded the following information about you: Pulse Respiration Blood pressure Weight 68/minute 12/minute 152/80 56.7 kg Ronald Quijano APRN.PRIVACY SPECIALIST 10/04/2023 8:59 AM Signed SUBJECTIVE Kailyn Rivero is a 72 year old female here today for a check up on her medical problems. Chief Complaint Patient presents with: Recheck HPI Kailyn Rivero is a 72 year old female. She is an established patient of Sai Benjamin MD. She presents today for follow up. She was last seen 08/23/2023. She hada prior HIDA scan with decreased gallbladder EF and possible chronic gall bladder dyskinesia. On PPI for this. She saw cardiology with [facility] and had a heart cath 08/31 and has since seen [facility] cardiology. Her heart cath had shown nonobstructive and mild CAD. EKG with PVCs. Suspect SVT, compete 2 week monitor with ZIO patch. Today is the last day for this. Eye doctor wants to trial her on steroids. Still seeing inflammation on her eye exams. She has concerns about taking the steroids, not sure she wants to. Still no clear etiology for the eye inflammation. Her medications were reviewed today and her list is now up to date. Medications Current Outpatient Medications Medication Sig aspirin, enteric coated (ASPIRIN, ENTERIC COATED) 81 mg EC tablet Take 81 mg by mouth once daily. atenolol (TENORMIN) 25 mg tablet Take 1 tablet by mouth two times a day. vit A/vit C/vit E/zinc/copper (PRESERVISION AREDS ORAL) Take 1 capsule by mouth twice daily at 6AM and 9PM. Multivitamins-Minerals- Lutein (MULTIVITAMIN 50 PLUS) tab Take 1 tablet by mouth once daily. No current facility-administered medications for this visit. ALLERGIES Allergen Reactions Morphine Unknown Sulfa (Sulfonamide * Rash ACTIVE PROBLEM LIST Abdominal Pain - 05/04/2023 Change in Bowel Habits - 05/04/2023 Renal Calculi - 05/31/2017 Comment: S/P lithotripsy [facility] 2016 Hypertensive Disorder - 05/25/2017 Primary Localized Osteoarthrosis, Lower Leg - 12/18/2009 S/P Knee Replacement - 12/18/2009 Anemia, Unspecified Social History Tobacco Use Smoking status: Never Smokeless tobacco: Never Vaping Use Vaping Use: Never used Substance Use Topics Alcohol use: Yes Alcohol/week: 7.0 standard drinks of alcohol Types: 7 Glasses of wine per week Drug use: No Review of Systems Respiratory: Negative. Cardiovascular: Negative. OBJECTIVE BP 152/80 Pulse 68 Resp 12 Wt 125 lb (56.7kg) Physical Exam Vitals and nursing note reviewed. Constitutional: General: She is awake. She is not in acute distress. Appearance: Normal appearance. She is well-developed and well-groomed. She is not ill-appearing, toxic-appearing or diaphoretic. HENT: Head: Normocephalic. Right Ear: External ear normal. Left Ear: External ear normal. Nose: Nose normal. Eyes: General: Vision grossly intact. Conjunctiva/sclera: Conjunctivae normal. Pupils: Pupils are equal, round, and reactive to light. Neck: Vascular: No JVD. Trachea: Trachea normal. Pulmonary: Effort: Pulmonary effort is normal. No accessory muscle usage, prolonged expiration or respiratory distress. Musculoskeletal: Cervical back: Neck supple. Skin: General: Skin is warm and dry. Capillary Refill: Capillary refill takes less than 2 seconds. Neurological: General: No focal deficit present. Mental Status: She is alert and oriented to person, place, and time. Mental status is at baseline. Psychiatric: Attention and Perception: Attention and perception normal. Mood and Affect: Mood and affect normal. Speech: Speech normal. Behavior: Behavior normal. Behavior is cooperative. Thought Content: Thought content normal. Cognition and Memory: Cognition and memory normal. Judgment: Judgment normal. ASSESSMENT/PLAN: 1. Vitritis - ICD9: 379.29, ICD10: H43.89 (primary diagnosis) We will check with rheumatology to see if they can find a cause for her eye inflammation, would recommend trying the topical steroid and depending on results/tolerance the oral if needed. 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 Calculus of gallbladder without cholecystitis without obstruction - ICD9: 574.20, ICD10: K80.20 PPI improved her pain. 5. PVC (premature ventricular contraction) - ICD9: 427.69, ICD10: I49.3 Following with cardiology, finishing up ZIO monitor today. 6. Left atrial dilatation - ICD9: 429.3, ICD10: I51.7 Portions of this note have been entered by ancillary staff. I have reviewed and when neces (more content not included)... [facility] 10-01-2023 CNPN Telephone (FAMPWS) KAILYN RIVERO ([id number]) 1950 F Date Time Provider Department 10/01/23 SAI BENJAMIN During your visit today, we recorded the following information about you: Niels Pollock LPN 10/01/2023 2:50 PM Signed Vannessa from Dr Heri Schmitt's office at [facility] calling stating they would like to start pt on steroids but need clearance from Dr Benjamin. They do not know if pt's systemic etiology is inflammatory or infections. Vannessa states pt has an upcoming appointment with pcp and they wanted to get ahead of pt's appointment to let provider know. Advised her pt sees Ronald Quijano 10/04/23. Ronald Lira LPN, APRN.PRIVACY SPECIALIST 10/01/2023 3:06 PM Signed We can let them know and patient know it is okay to try the steroids, if planning to use oral steroid pills then Shy should know that it may worsen prior GI symptoms so she may want to take the omeprazole during that time. Melvi Rojas Ma 10/01/2023 3:59 PM Signed Vannessa notified. They are going to try using a topical steroid before oral. Bailey Haley Ma, LPN 10/06/2023 10:31 AM Signed Made several attempts to reach office today with no answer or being placed on hold for 15 minutes. Did get correct fax number as originally fax was not going through. Faxed note and office visit to their office with hopes of a rely. Can we reach out to Dr. Ragland with [facility] in [place] and see if they would start with topical eye steroids for treatment of patient's eye inflammation rather than the oral steroids? Also, do they think there could be an autoimmune issue causing the inflammation? Shy Rivero to Ronald Quijano APRN.PRIVACY SPECIALIST [facility] 10/05/23 11:20 AM Ronald, was your office able to get in contact with Doctor Ragland, [facility] in [place], regarding the prescription for the steriods. As I mentioned, I hesitate to take steroids, but if I have to to save my sight, what choice do I have (or are there other choices)? So, is this an internal or topical dose? Was the prescription sent to [facility]? Also, did I hear you correctly yesterday that there is a possibility of auto immune reaction? Allergies As of Date: 10/01/2023 Noted Allergy Reaction MORPHINE 10/31/2018 16 - Unknown SULFA (SULFONAMIDE ANTIBIOTICS) 07/15/2005 2 - Rash Date Reviewed: 09/20/2023 Reviewed by: Ynes Allen LPN - Fully Assessed Reason for Visit: Medication Request [138] Prescriptions as of 10/06/2023 - aspirin, enteric coated (ASPIRIN, ENTERIC COATED) 81 mg EC tablet Take 81 mg by mouth once daily. - atenolol (TENORMIN) 25 mg tablet Take 1 tablet by mouth two times a day. - vit A/vit C/vit E/zinc/copper (PRESERVISION AREDS ORAL) Take 1 capsule by mouth twice daily at 6AM and 9PM. - Multivitamins-Minerals- Lutein (MULTIVITAMIN 50 PLUS) tab Take 1 tablet by mouth once daily. Problem List As Of Date 10/01/2023 Noted Resolved White coat syndrome without diagnosis of hypert*02/01/2006 04/01/2023 ANEMIA NOS [D64.9] Primary Localized Osteoarthrosis, Lower Leg [M1*12/18/2009 S/P knee replacement [Z96.659] 12/18/2009 Neck ache [M54.2] 07/10/2014 04/16/2022 Renal calculi [N20.0] 05/31/2017 Hypertensive disorder [I10] 05/25/2017 Abdominal pain [R10.9] 05/04/2023 Change in bowel habits [R19.4] 05/04/2023 Encounter Status:Closed by MELVI ROJAS MA on 10/01/23 [facility] CNOVon 09-20-2023 CNOV Office Visit (CAWSTR ) KAILYN RIVERO ([id number]) 1950 F Date Time Provider Department 09/20/23 3:00 PM MIC LAMBERTWSTR During your visit today, we recorded the following information about you: Pulse Respiration Blood pressure Weight 60/minute 14/minute 140/80 57.5 kg Height 1.6 m Uzma Gutierrez RN 09/20/2023 5:17 PM Signed EVENT MONITOR DISPOSABLE PATCH INSTRUCTIONS Patient Name: Kailyn Rivero Clinic Number: [id number] Skin prepped and cleansed with alcohol Patch secured to prepped area Monitor Activated Serial #: [id number] Patient Instructed: Prescribed order timeframe Bathing guidelines Usage of event button and diary documentation Return of monitor at the end of prescribed order Call with problems [phone] or [phone]. [phone] Patient expresses a good understanding of instructions ALEXANDRE Montes Khaled Meloud, MD 09/20/2023 5:17 PM Signed Mic Lambert MD Interventional Cardiology [address] [place] [address] Chief Complaint Patient presents with: Consult HISTORY OF PRESENT ILLNESS: Ms. Rivero is a 72 year old female seen in my office today for assessment management of palpitation patient is having recurrent episode of fast heartbeat particularly when she exerts herself physically Patient patient had extensive evaluation with stress echocardiography was abnormal she underwent cardiac catheterization shows nonobstructive mild coronary artery disease She is not having any angina major complaint EKG was performed that shows evidence of premature ventricular ectopics and premature ventricular Cardiac Risk Factors age (male over 45, female over 55), family history of CAD PAST MEDICAL HISTORY Diagnosis Date Atrial fibrillation (HCC) Carpal tunnel syndrome s/p right surgery 02/2011; Left done as well Essential hypertension, benign White coat syndrome now--BP stays <130/90 at home Irregular heart beat Kidney stone Tear of right biceps muscle--partial 2018 Orthopedist evaluated--[facility] (Dr. Toro) 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 05/26/2019 BP <130/90 on recheck; BP fine at home PAST SURGICAL HISTORY Procedure Laterality Date ARTHROSCOPY KNEE DIAGNOSTIC W/WO SYNOVIAL BX SPX 2000 Arthroscopy, knee COLONOSCOPY 05/04/2023 repeat in 5 years COLONOSCOPY FLX DX W/COLLJ SPEC WHEN PFRMD 03/03/2006 Colonoscopy COLONOSCOPY FLX DX W/COLLJ SPEC WHEN PFRMD 05/24/2017 Colonoscopy EGD 05/04/2023 PAST SURGICAL HISTORY OF right knee replacement PAST SURGICAL HISTORY OF Carpal Tunnel release right ([place] with Dr. Tellez) FAMILY HISTORY Problem Relation Age of Onset Hypertension Father other (Renal Failure) Father Aneurysm Sister Brain; had surgery for this Social History Tobacco Use Smoking status: Never Smokeless tobacco: Never Vaping Use Vaping Use: Never used Substance Use Topics Alcohol use: Yes Alcohol/week: 7.0 standard drinks of alcohol Types: 7 Glasses of wine per week Drug use: No ALLERGIES Allergen Reactions Morphine Unknown Sulfa (Sulfonamide * Rash Medications: Current Outpatient Medications Medication Sig Dispense Refill aspirin, enteric coated (ASPIRIN, ENTERIC COATED) 81 mg EC tablet Take 81 mg by mouth once daily. atenolol (TENORMIN) 25 mg tablet Take 1 tablet by mouth two times a day. 180 tablet 2 vit A/vit C/vit E/zinc/copper (PRESERVISION AREDS ORAL) Take 1 capsule by mouth twice daily at 6AM and 9PM. Multivitamins-Minerals- Lutein (MULTIVITAMIN 50 PLUS) tab Take 1 tablet by mouth once daily. omeprazole (PRILOSEC) 40 mg capsule Take 1 capsule by mouth once daily. (Patient not taking: Reported on 09/20/2023) 30 capsule 0 Current Facility-Administered Medications Medication Dose Route Frequency Provider Last Rate Last Admin perflutren lipid microspheres 1.3 mL in NaCl (PF) 0.9% 10 mL injection (DEFINITY) INTRAVENOUS DIRECTED PRMic Babin MD sodium chloride 0.9 % (flush) 10 mL (BD POSIFLUSH) 10 mL INTRAVENOUS DIRECTED PRMic Babin MD Review of Systems Constitutional: Negative for chills, diaphoresis, fever, malaise/fatigue and weight loss. HENT: Negative for congestion, ear discharge, ear pain, hearing loss, nosebleeds, sinus pain, sore throat and tinnitus. Eyes: Negative for blurred vision, double vision, photophobia, pain, discharge and redness. Respiratory: Negative for cough, hemoptysis, sputum production, shortness of breath, wheezing and stridor. Cardiovascular: Negative for chest pain, palpitations, orthopnea, claudication, leg swelling and PND. Gastrointestinal: Negative for abdominal pain, blood in stool, constipation, diarrhea, heartburn, melena, nausea and vomiting. Genitourinary: Negative for dysuria, flank pain, frequency, hematuria a (more content not included)... Normal [facility] CNOVon 08-23-2023 CNOV Office Visit (INTMWS ) KAILYN RIVERO ([id number]) 1950 F Date Time Provider Department 08/23/23 8:00 AM RONALD QUIJANO INTMWS During your visit today, we recorded the following information about you: Pulse Respiration Blood pressure Weight 60/minute 16/minute 150/82 55.3 kg Ronald Quijano APRN.PRIVACY SPECIALIST 08/23/2023 8:43 AM Signed SUBJECTIVE Kailyn Rivero is a 72 year old female here today for a check up on her medical problems. Chief Complaint Patient presents with: Recheck HPI Kailyn Rivero is a 72 year old female established patient of Dr. Benjamin. She is here today for a 4 week follow up. She was seen last on 07/26 in our office. We discussed her HIDA scan showing decreased gallbladder EF, suggestion of chronic cholecystitis/gallbladd er dyskinesia. She did see general surgery. They recommend she try omeprazole 40 mg daily and if helpful then to not proceed with cholecystectomy. This is helping. Reviewed colonoscopy results, follow up in 5 years for that. She saw cardiology with [facility]. She had a stress test scheduled for 08/04 and it was suggestive of ischemia. Having a heart cath on 08/31. Eye doctor follow up she was told inflammation is down in the eyes. Symptoms at this point are more manageable. Her medications were reviewed today and her list is now up to date. Medications Current Outpatient Medications Medication Sig aspirin, enteric coated (ASPIRIN, ENTERIC COATED) 81 mg EC tablet Take 81 mg by mouth once daily. omeprazole (PRILOSEC) 40 mg capsule Take 1 capsule by mouth once daily. atenolol (TENORMIN) 25 mg tablet Take 1 tablet by mouth two times a day. vit A/vit C/vit E/zinc/copper (PRESERVISION AREDS ORAL) Take 1 capsule by mouth twice daily at 6AM and 9PM. Multivitamins-Minerals- Lutein (MULTIVITAMIN 50 PLUS) tab Take 1 tablet by mouth once daily. No current facility-administered medications for this visit. 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 Gastrointestinal: Positive for abdominal pain. Negative for constipation, diarrhea, nausea and vomiting. OBJECTIVE BP 150/82 Pulse 60 Resp 16 Wt 122 lb (55.3kg) Physical Exam Vitals and nursing note reviewed. Constitutional: General: She is awake. She is not in acute distress. Appearance: Normal appearance. She is well-developed and well-groomed. She is not ill-appearing, toxic-appearing or diaphoretic. HENT: Head: Normocephalic. Right Ear: External ear normal. Left Ear: External ear normal. Nose: Nose normal. Eyes: General: Vision grossly intact. Conjunctiva/sclera: Conjunctivae normal. Pupils: Pupils are equal, round, and reactive to light. Neck: Vascular: No JVD. Trachea: Trachea normal. Cardiovascular: Rate and Rhythm: Normal rate and regular rhythm. Pulses: Normal pulses. Heart sounds: Normal heart sounds. No murmur heard. Pulmonary: Effort: Pulmonary effort is normal. No accessory muscle usage, prolonged expiration or respiratory distress. Breath sounds: Normal breath sounds. Musculoskeletal: Cervical back: Neck supple. Skin: General: Skin is warm and dry. Capillary Refill: Capillary refill takes less than 2 seconds. Neurological: General: No focal deficit present. Mental Status: She is alert and oriented to person, place, and time. Mental status is at baseline. Psychiatric: Attention and Perception: Attention and perception normal. Mood and Affect: Mood and affect normal. Speech: Speech normal. Behavior: Behavior normal. Behavior is cooperative. Thought Content: Thought content normal. Cognition and Memory: Cognition and memory normal. Judgment: Judgment normal. ASSESSMENT/PLAN: 1. Left atrial dilatation - ICD9: 429.3, ICD10: I51.7 (primary diagnosis) Following with [facility] currently, plans for cardiac cath 08/31 due to positive findings for ischemia on recent exercise stress test. Discussed up coming procedure. Reviewed stress and echo results with her today. 2. Positive cardiac stress test - ICD9: 794.39, ICD10: R94.39 See #1 3. Vitritis - ICD9: 379.29, ICD10: H43.89 Improving and overall stable, following with ophthalmology. 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 Uveitis of both eyes - ICD9: 364.3, I (more content not included)... Normal [facility] CNOVon 08-05-2023 CNOV Office Visit (GENSWS ) KAILYN RIVERO ([id number]) 1950 F Date Time Provider Department 08/05/23 7:45 AM MAXIMILIANO HOFFMANN GENSWS During your visit today, we recorded the following information about you: Temperature Pulse Blood pressure Weight 97.6 degrees 65/minute 122/86 55.4 kg Height 1.6 m Diane Ledbetter LPN 08/05/2023 7:42 AM Signed REVIEW OF SYSTEMS: General: The patient denies fatigue, NOTES weight loss, denies weight gain, denies feeling hot, and NOTES feelings of cold. Eyes: The patient denies glaucoma, denies eye injury/surgery, wears glasses or contacts. Ear/Nose/Throat: The patient NOTES allergies, denies hayfever, denies ear infections, and denies bloody noses. Cardiovascular: The patient denies chest pain, NOTES heart disease, NOTES high blood pressure,denies cardiac stent, denies prior heart attack, NOTES irregular heart beat, denies high cholesterol, NOTES poor circulation, denies heart failure, other cardiac issues, denies claudication, NOTES cold feet, denies peripheral arterial stent. Respiratory: The patient denies tuberculosis, NOTES pneumonia, NOTES frequent cough, denies pulmonary embolism, NOTES shortness of breath, and denies coughing up blood. Gastrointestinal: The patient denies difficulty swallowing, denies acid reflux, denies ulcers, denies vomiting, denies jaundice/hepatitis, NOTES gallbladder problems, denies black or tarry stools, denies hemorrhoids, denies bleeding from rectum, denies diverticulitis, NOTES constipation, denies diarrhea, denies loss of stool control, and denies hernias. Kidney/Bladder: The patient NOTES kidney stones, NOTES urine infections, and denies bloody urine. Skin: The patient denies a history of skin cancer, denies bleeding/changing moles, and NOTES a history of skin rash. Neurologic: The patient denies a history of epilepsy/convulsions, denies headaches, NOTES head/spinal injuries, and denies stroke/TIA. Psychiatric: The patient denies psychiatric medications, denies depression, and denies voices, denies substance abuse. Endocrine: The patient denies thyroid disorders, denies diabetes, and denies hormonal problems. Hematologic: The patient denies a history of bruising, denies bleeding, and denies anemia, denies blood clots. Infections: The patient NOTES a history of measles and mumps, denies rheumatic fever, and denies sexually transmitted diseases. Musculoskeletal: The patient NOTES back pain/injury, NOTES back problems, denies sciatica, NOTES knee/foot trouble, NOTES arthritis, or denies gout. When was patient's last Mammogram screening? 07/2023 Last Colonoscopy: 04/2023 DANNI Wei Richard T, MD 08/05/2023 8:47 AM Signed FOLLOW UP VISIT - ENDOSCOPY NAME: [place] Tyrell [facility] [place] NO.: [id number] DATE OF SERVICE: August 05, 2023 : 1950 REFERRING PHYSICIAN: Sai Benjamin MD Kailyn is a patient in our office by Clarice Gutierrez with complaints of gastric and lower abdominal pain and constipation. The patient is a 72 year old female referred for evaluation of abdominal pain. Patient stated she was under impression that our office was Gastroenterology. Clarified that our office is general surgery. Offered to assist patient in scheduling with Gastroenterology or proceeding with appointment today as scheduled. Patient wished to proceed with appointment. Kailyn notes symptoms started with back pain in January 2023, followed by severe lower abdominal cramping. She had initially attributed the symptoms to constipation. Does note that symptoms would improve somewhat after taking stool softeners and passing BM. Symptoms also somewhat improved by warm baths. More recently has noted very loose, watery BMs with occasional formed stool. Denies blood in stools or dark stools. Symptoms wax and wane in severity and worsen after eating, regardless of food type. Notes weight fluctuation and overall decreased energy. +Hx of NSAID use for back pain. Denies nausea or vomiting Kailyn has undergone prior endoscopy. Last colonoscopy 05/24/[address] Morelos under conscious sedation with no concerning findings. Patient had a CT scan of the abdomen done through [facility], report reviewed. Was noted to have multiple gallstones on CT. Denies having further evaluation of gallbladder. Dr. Valadez performed upper and lower endoscopy on May 04, 2023. The patient was found to have: Upper endoscopy Impression: - Z-line regular, 39 cm from the incisors. Biopsied. - Gastritis. Biopsied. - Normal examined duodenum. Biopsied. Lower endoscopy Impression: - One small polyp in the rectum, removed with a hot snare. Resected and retrieved. - The entire examined colon is normal. Biopsied. - The examination was otherwise normal on direct and retroflexion views. Pathology demonstrated FINAL DIAGNOS (more content not included)... Normal [facility] HEPATOBILIARY W EF AND/OR RXon 07-16-2023 [facility] NM GASTRIC EMPTYING SOLIDon 07-09-2023 [facility] XR ABDOMEN 1V SUPINEon 05-11 [facility] ECG COMPLETEon 05-05-2023 Atrial Rate 61 BPM [facility] Calculated P [place] -17 degrees [facility] Calculated R [place] 16 degrees [facility] P-R Interval 196 ms [facility] QRS Duration 92 ms [facility] QT Interval 434 ms [facility] QTC Calculation (Bazett) 436 ms [facility] Ventricular Rate 61 BPM [facility] SURGICAL PATHOLOGYon 023 Case Report Surgical Pathology Report Case: [id number] Authorizing Provider: Donal Valadez MD Collected: 05/04/2023 10:28 AM Ordering Location: Ambulatory Surgery Received: 05/04/2023 12:00 PM Pathologist: Deandre Santana MD Specimens: A) - DUODENUM BIOPSY B) - ANTRUM (STOMACH) BIOPSY, for H/H C) - ESOPHAGUS BIOPSY, distal esophagus D) - ESOPHAGUS MID BIOPSY E) - COLON BIOPSY, random colon bxs F) - RECTAL POLYP [facility] Diagnosis Comment A. Increase intraepithelial lymphocytes, in the absence of villous abnormalities, may be seen in association with celiac disease and other conditions such as peptic disease, infection, and some medications. Clinical correlation with appropriate serologic studies may be considered. [facility] FINAL DIAGNOSIS A. Duodenum, biopsy: - Small intestinal mucosa with normal villous architecture and increased intraepithelial lymphocytes; see comment. B. Stomach, antrum, biopsy: - Gastric oxyntic mucosa with no diagnostic abnormality. C. Esophagus, distal, biopsy: - Squamous mucosa with no diagnostic abnormality. D. Esophagus, mid, biopsy: - Squamous mucosa with no diagnostic abnormality. E. Colon, biopsy: - Colonic mucosa with no diagnostic abnormality. F. Rectum, polyp, biopsy: - Tubular adenoma. [facility] Gross Description A. DUODENUM BIOPSY Received in formalin are two pieces of [place], soft tissue aggregating to 0.4 x 0.3 x 0.2 cm. Totally submitted in one cassette. B. ANTRUM (STOMACH) BIOPSY Received in formalin are two pieces of easley-white, soft tissue aggregating to 0.3 x 0.3 x 0.2 cm. Totally submitted in one cassette. C. ESOPHAGUS BIOPSY Received in formalin are two pieces of easley-white, soft tissue aggregating to 0.8 x 0.7 x 0.1 cm. Totally submitted in one cassette. D. ESOPHAGUS MID BIOPSY Received in formalin is one piece of [place], soft tissue measuring 0.3 x 0.2 x 0.1 cm. Totally submitted in one cassette. E. COLON BIOPSY Received in formalin are multiple pieces of eas[place], soft tissue aggregating to 1.9 x 0.5 x 0.2 cm. Totally submitted in two cassettes. AMS May 04, 2023 8:33 PM Gross examination performed at [facility], [address] [place] [address] F. RECTAL POLYP Received in formalin is a segment of easley-brown polypoid tissue measuring 0.6 x 0.4 x 0.3 cm. No stalk is noted. The line of resection is noted. The specimen is bisected and totally submitted in one cassette. May 04, 2023 9:44 PM Gross examination performed at [facility], [facility] Performing Lab Diagnostic interpretation performed at [facility], [address] [place] [address] CLIA# [id number] Blanket Winder Helper: Shane Macario M.D. [facility] COLONOSCOPY DIAGNOSTICon [facility] EGD DIAGNOSTICon 05-04-2023 [facility] No Panel Informationon 05-03 [facility] CT FLANK WO IVCONon 04-01-20 CT FLANK WO IVCON * * *Final Report* * * DATE OF EXAM: Apr 01 2023 10:18AM [facility] 0529 - CT FLANK WO IVCON / PROCEDURE REASON: multiple diagnoses * * * * Physician Interpretation * * * * EXAMINATION: CT ABDOMEN AND PELVIS WITHOUT IV CONTRAST (Renal stone protocol) CLINICAL HISTORY: Bilateral flank pain and iliac pain renal calculi; nausea; history of lithotripsy TECHNIQUE: Non-contrast imaging of the abdomen and pelvis was performed through the urinary tract. Study performed without intravenous or oral contrast to evaluate for urinary tract calculus. MQ: [id number] Contrast: IV contrast: None Oral contrast: None CT Radiation dose: Integrated dose-length product (DLP) for this visit = 303.21 mGy*cm. CT Dose Reduction Employed: Automated exposure control (AEC) COMPARISON: None. RESULT: Limitations: Unenhanced imaging is limited for the evaluation of some renal and other intra-abdominal and pelvic pathology. Urinary Tract: Right kidney and ureter: There are a few small calcifications of the inferior pole. The largest measures up to 0.8 cm. Punctate calcifications of the upper pole. No hydronephrosis. No finding to suggest cyst or mass in the unenhanced kidney. Left kidney and ureter: There is an 8 mm calculus at the inferior pole. There are a few punctate calcifications at the mid upper pole. No hydronephrosis. No finding to suggest cyst or mass in the unenhanced kidney. Bladder: No calculus. Abdomen and Pelvis: Liver: Unremarkable. Biliary: There are small stones within the gallbladder. Spleen: No splenomegaly. Pancreas: Unremarkable. Adrenals: Normal. GI Tract: Stomach and small bowel are unremarkable. No evidence of obstruction. Moderate stool within the right colon. Appendix appears normal. Lymph Nodes: No lymphadenopathy. Mesentery/peritoneum: No ascites. Vasculature: No aortic aneurysm. Pelvis: No mass or ascites. Tubal ligation clips are present. Bones and Soft Tissues: There are bilateral L3 pars defects. There is grade 2 anterolisthesis L3-L4. There is grade 1 anterolisthesis L4-L5. There is facet arthritis with ligamentum flavum thickening which may create at least a moderate central canal stenosis. Lower thorax: Unremarkable. Hand Paster (topogram) images: IMPRESSION: 1. Bilateral renal calculi. There is no evidence of ureteral calculus or hydronephrosis. 2. Suspected central canal stenosis at L4-L5. There is also bilateral L3 pars defects with grade 2 anterolisthesis. These findings could be better assessed by MRI nonemergently. 3. Cholelithiasis Associate Product Integrity Engineer: WES Transcribe Date/Time: Apr 01 2023 10:24A Dictated by : HONG SEXTON MD This examination was interpreted and the report reviewed and electronically signed by: HONG SEXTON MD on Apr 01 2023 10:36AM EST [id number] Normal [facility] UA DIP, URINE (POC)on 2022 BILIRUBIN UA (POCT) Negative Negative [facility] CLARITY UA (POCT) Clear [facility] COLOR UA (POCT) Yellow [facility] GLUCOSE UA (POCT) Negative Negative mg/dL [facility] HEMOGLOBIN/BLOOD UA (POCT) Negative Negative [facility] KETONE UA (POCT) 15 mg/dL Abnormal Negative mg/dL [facility] LEUKOCYTES UA (POCT) Trace Abnormal Negative [facility] NITRITE UA (POCT) Negative Negative [facility] PH UA (POCT) 6.5 4.5 - 8.0 [facility] Protein Ql (U) 30 mg/dL Abnormal Negative mg/dL [facility] SPECIFIC GRAVITY UA (POCT) 1.020 1.005 - 1.030 [facility] UROBILINOGEN UA (POCT) 0.2 E.U./dL Normal E.U./dL [facility] STREP A MOLECULAR (POC)on Procedural Control Valid [facility] Strep A (POCT) Negative Negative [facility] XR HAND LEFT 3+ VIEWS (STAND MILENA)on 09-09-2022 XR HAND LEFT 3+ VIEWS (STANDARD) EXAMINATION: XR HAND LEFT 3+ VIEWS (STANDARD) 09/09/2022 1:34 pm HISTORY: ORDERING SYSTEM PROVIDED HISTORY: Pain, TECHNOLOGIST PROVIDED HISTORY: Injury/Trauma Reason for exam: left 4th digit pain Cancer History: u Surgery, RadiationHistory: u Encounter Type: Initial Mechanism of injury: over a week ago her finger got caught in a chain and it pulled her finger ORDERING SYSTEM PROVIDED DIAGNOSIS CODES: R52 Pain COMPARISON: None FINDINGS: The carpometacarpal alignment is preserved. There is avulsion fracture of the 4th distal phalangeal base with dorsal distraction of the fracture fragment. There is associated soft tissue swelling at the fracture site. 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 Tiny ossific density along the dorsal aspect of the 3rd DIP joint is likely marginal osteophyte. The visualized portion of the distal radius and ulna appears intact. Suspect chondrocalcinosis at the distal carpal ulnar joint. IMPRESSION: Avulsion fracture of the 4th distal phalangeal base with dorsal distraction of the fracture fragment. / Workstation ID: [id number] Dictated by: GIOVANA VIEYRA on WedSep 09, 2022 2:49:18 PM EST Transcribed by: ÁNGEL ZHANG on WedSep 09, 2022 3:12:21 PM EST Finalized by: GIOVANA VIEYRA on WedSep 11, 2022 8:46:58 AM EST [facility] Comment on above: Order Comment: Attn 3rd digit Injury/Trauma or Illness?:Injury/Trauma How long have you had these symptoms (acute/chronic)?:Acute Reason for exam?:left 4th digit pain History of cancer?:u Surgeries, chemotherapy, or radiation?:u Type of Exam?:Initial Mechanism of injury?:over a week ago her finger got caught in a chain and it pulled her finger XR SHOULDER RIGHT 2+ VIEWS ( STANDARD)on 12-23-2021 XR SHOULDER RIGHT 2+ VIEWS (STANDARD) EXAMINATION: XR SHOULDER RIGHT 2+ VIEWS (STANDARD) 12/23/2021 8:18 am HISTORY: ORDERING SYSTEM PROVIDED HISTORY: Pain, TECHNOLOGIST PROVIDED HISTORY: Illness/Other Reason for exam: right shoulder pain no recent injury. Patient states that it catches when shes moving it. Cancer History: u Surgery, RadiationHistory: u Encounter Type: Initial Additional signs and symptoms: none ORDERING SYSTEM PROVIDED DIAGNOSIS CODES: R52 Pain COMPARISON: None. FINDINGS: Three views of the right shoulder were obtained. There are degenerative changes of the visualized lower cervical spine and upper thoracic spine with a dextroconvex scoliosis of the thoracic spine. No acute displaced fracture or dislocation is seen. There appear to be mild degenerative changes of the acromioclavicular joint and at least mild degenerative changes of the glenohumeral joint with marginal osteophyte formation. There is a mild type 2 acromion. IMPRESSION: 1. No acute bone or joint abnormality is seen. 2. Mild acromioclavicular joint osteoarthritis and at least mild osteoarthritis of the glenohumeral joint. Please note that a Grashey view of the shoulder may be of benefit to evaluate the extent of joint space narrowing of the glenohumeral joint. Workstation ID: [id number] Dictated by: COSTA HARPER on WedDec 24, 2021 7:55:03 AM EST Transcribed by: COSTA HARPER on WedDec 24, 2021 7:55:03 AM EST Finalized by: COSTA HARPER on WedDec 24, 2021 7:55:03 AM EST [facility] Comment on above: Order Comment: Injur y/Trauma or Illness?:Illness/Other How long have you had these symptoms (acute/chronic)?:Chronic Reason for exam?:right shoulder pain no recent injury. Patient states that it catches when shes moving it. History of cancer?:u Surgeries, chemotherapy, or radiation?:u Type of Exam?:Initial Additional signs and symptoms?:none Office Visit: est annualon 0 05-25-2017 Fall risk assessment No [facility] Hemoglobin.gastroin testinal Ql (St) not done [facility] Protein mass conc Done [facility] Tobacco smoking status NHIS Never [facility] Tobacco smoking status IDIS Never smoker [facility] Office Visit: est annualon 0 01-24-2016 General categories Cyto stain Interp (Cervical or vaginal smear or scraping) Normal [facility] Office Visit: est annualon 0 10-25-2015 MG Breast screening Normal Bilateral [facility] No Panel Information [facility] Vital Signs Date Time Vital Sign Value Performing Clinician Facility 08-16-2024 12:49-0400 Body height 160 cm Enrique Lynch MD, PhD Work Phone: [facility] 08-16-2024 12:49-0400 Body mass index (BMI) [Ratio] 24.1 kg/m2 Enrique Lynch MD, PhD Work Phone: [facility] 08-16-2024 12:49-0400 Body temperature 99 [degF] Enrique Lynch MD, PhD Work Phone: [facility] 08-16-2024 12:49-0400 Body weight 61.7 kg Enrique Lynch MD, PhD Work Phone: [facility] 08-16-2024 12:49-0400 Diastolic blood pressure 76 mm[Hg] Enrique Lynch MD, PhD Work Phone: [facility] 08-16-2024 12:49-0400 Heart rate 68 /min Enrique Lynch MD, PhD Work Phone: [facility] 08-16-2024 12:49-0400 Systolic blood pressure 142 mm[Hg] Enrique Lynch MD, PhD Work Phone: [facility] 07-31-2024 07:12-0400 Diastolic blood pressure 74 mm[Hg] Ronald Quijano APRN.PRIVACY SPECIALIST Work Phone: [facility] Comment on above: BP conrado 07-31-2024 07:12-0400 Systolic blood pressure 178 mm[Hg] Ronald Quijano PATTERN ASSEMBLER.PRIVACY SPECIALIST Work Phone: [facility] Comment on above: BP conrado 07-31-2024 07:11-0400 Heart rate 69 /min Ronald Quijano PATTERN ASSEMBLER.PRIVACY SPECIALIST Work Phone: [facility] 07-31-2024 06:59-0400 Body mass index (BMI) [Ratio] 24.29 kg/m2 Ronald Samm PATTERN ASSEMBLER.PRIVACY SPECIALIST Work Phone: [facility] 07-31-2024 06:59-0400 Body weight 62.2 kg Roanld Samm PATTERN ASSEMBLER.PRIVACY SPECIALIST Work Phone: [facility] 03-24-2024 07:18-0400 Diastolic blood pressure 86 mm[Hg] Ronald Samm PATTERN ASSEMBLER.PRIVACY SPECIALIST Work Phone: [facility] 03-24-2024 07:18-0400 Systolic blood pressure 162 mm[Hg] Ronald Samm PATTERN ASSEMBLER.PRIVACY SPECIALIST Work Phone: [facility] 03-24-2024 07:16-0400 Body mass index (BMI) [Ratio] 23.21 kg/m2 Ronald Samm PATTERN ASSEMBLER.PRIVACY SPECIALIST Work Phone: [facility] 03-24-2024 07:16-0400 Body weight 59.42 kg Ronald Samm PATTERN ASSEMBLER.PRIVACY SPECIALIST Work Phone: [facility] 03-24-2024 07:16-0400 Heart rate 56 /min Ronald Samm PATTERN ASSEMBLER.PRIVACY SPECIALIST Work Phone: [facility] 03-24-2024 07:16-0400 Respiratory rate 12 /min Ronald Samm PATTERN ASSEMBLER.PRIVACY SPECIALIST Work Phone: [facility] 12-27-2023 07:09-0500 Body height 160 cm Ronald Samm PATTERN ASSEMBLER.PRIVACY SPECIALIST Work Phone: [facility] 12-27-2023 07:09-0500 Body weight 58.24 kg Ronald Samm PATTERN ASSEMBLER.PRIVACY SPECIALIST Work Phone: [facility] 12-27-2023 07:09-0500 Diastolic blood pressure 80 mm[Hg] Ronald Samm PATTERN ASSEMBLER.PRIVACY SPECIALIST Work Phone: [facility] 12-27-2023 07:09-0500 Heart rate 74 /min Ronald Samm PATTERN ASSEMBLER.PRIVACY SPECIALIST Work Phone: [facility] 12-27-2023 07:09-0500 Respiratory rate 16 /min Ronald Samm PATTERN ASSEMBLER.PRIVACY SPECIALIST Work Phone: [facility] 12-27-2023 07:09-0500 Systolic blood pressure 132 mm[Hg] Ronald Dyerr PATTERN ASSEMBLER.PRIVACY SPECIALIST Work Phone: [facility] 12-09-2023 14:02-0500 Body height 160 cm Enrique Lynch MD, PhD Work Phone: [facility] 12-09-2023 14:02-0500 Body temperature 97.7 [degF] Enrique Lynch MD, PhD Work Phone: [facility] 12-09-2023 14:02-0500 Body weight 59.4 kg Enrique Lynch MD, PhD Work Phone: [facility] 12-09-2023 14:02-0500 Diastolic blood pressure 89 mm[Hg] Enrique Lynch MD, PhD Work Phone: [facility] 12-09-2023 14:02-0500 Heart rate 89 /min Enrique Lynch MD, PhD Work Phone: [facility] 12-09-2023 14:02-0500 Systolic blood pressure 154 mm[Hg] Enrique Lynch MD, PhD Work Phone: [facility] 09-20-2023 14:40-0500 Body height 160 cm Mic Lambert MD Work Phone: [facility] 09-20-2023 14:40-0500 Body weight 57.52 kg Mic Lambert MD Work Phone: [facility] 09-20-2023 14:40-0500 Diastolic blood pressure 80 mm[Hg] Mic Lambert MD Work Phone: [facility] 09-20-2023 14:40-0500 Heart rate 60 /min Mic Lambert MD Work Phone: [facility] 09-20-2023 14:40-0500 Respiratory rate 14 /min Mic Lambert MD Work Phone: [facility] 09-20-2023 14:40-0500 SaO2% (BldA) [Mass fraction] 100 % Mic Lambert MD Work Phone: [facility] 09-20-2023 14:40-0500 Systolic blood pressure 140 mm[Hg] Mic Lambert MD Work Phone: [facility] 08-05-2023 07:41-0400 Body height 160 cm Maximiliano Hoffmann MD Work Phone: [facility] 08-05-2023 07:41-0400 Body temperature 97.59 [degF] Maximiliano Hoffmann MD Work Phone: [facility] 08-05-2023 07:41-0400 Body weight 55.43 kg Maximiliano Hoffmann MD Work Phone: [facility] 08-05-2023 07:41-0400 Diastolic blood pressure 86 mm[Hg] Maximiliano Hoffmann MD Work Phone: [facility] 08-05-2023 07:41-0400 Heart rate 65 /min Maximiliano Hoffmann MD Work Phone: [facility] 08-05-2023 07:41-0400 SaO2% (BldA) [Mass fraction] 98 % Maximiliano Hoffmann MD Work Phone: [facility] 08-05-2023 07:41-0400 Systolic blood pressure 122 mm[Hg] Maximiliano Hoffmann MD Work Phone: [facility] 06-22-2023 07:22-0400 Diastolic blood pressure 78 mm[Hg] Ronald Samm PATTERN ASSEMBLER.PRIVACY SPECIALIST Work Phone: [facility] 06-22-2023 07:22-0400 Systolic blood pressure 140 mm[Hg] Ronald Samm PATTERN ASSEMBLER.PRIVACY SPECIALIST Work Phone: [facility] 06-22-2023 07:20-0400 Body weight 55.34 kg Ronald Samm PATTERN ASSEMBLER.PRIVACY SPECIALIST Work Phone: [facility] 06-22-2023 07:20-0400 Heart rate 64 /min Ronald Samm PATTERN ASSEMBLER.PRIVACY SPECIALIST Work Phone: [facility] 06-22-2023 07:20-0400 Respiratory rate 16 /min Ronald Dyerr PATTERN ASSEMBLER.PRIVACY SPECIALIST Work Phone: [facility] 06-16-2023 15:38-0400 Body temperature 99.19 [degF] Sai Benjamin MD Work Phone: [facility] 06-16-2023 15:38-0400 Body weight 54.88 kg Sai Benjamin MD Work Phone: [facility] 06-16-2023 15:38-0400 Diastolic blood pressure 78 mm[Hg] Sai Benjamin MD Work Phone: [facility] 06-16-2023 15:38-0400 Heart rate 59 /min Sai Benjamin MD Work Phone: [facility] 06-16-2023 15:38-0400 Respiratory rate 18 /min Sai Benjamin MD Work Phone: [facility] 06-16-2023 15:38-0400 SaO2% (BldA) [Mass fraction] 96 % Sai Benjamin MD Work Phone: [facility] 06-16-2023 15:38-0400 Systolic blood pressure 142 mm[Hg] Sai Benjamin MD Work Phone: [facility] 05-04-2023 11:38-0400 Diastolic blood pressure 58 mm[Hg] Donal Valadez MD Work Phone: [facility] 05-04-2023 11:38-0400 Heart rate 61 /min Donal Valadez MD Work Phone: [facility] 05-04-2023 11:38-0400 Respiratory rate 16 /min Donal Valadez MD Work Phone: [facility] 05-04-2023 11:38-0400 SaO2% (BldA) [Mass fraction] 94 % Donal Valadez MD Work Phone: [facility] 07-11-2023 11:38-0400 Systolic blood pressure 114 mm[Hg] Donal Valadez MD Work Phone: [facility] 05-04-2023 09:12-0400 Body temperature 97.11 [degF] Donal Valadez MD Work Phone: [facility] 04-16-2023 08:43-0400 Body height 160 cm Clarice Brenda PA-C Work Phone: [facility] 04-16-2023 08:43-0400 Body temperature 98.01 [degF] Clarice [place] PA-C Work Phone: [facility] 04-16-2023 08:43-0400 Body weight 56.7 kg Clarice Brenda PA-C Work Phone: [facility] 04-16-2023 08:43-0400 Diastolic blood pressure 62 mm[Hg] Clarice [place] PA-C Work Phone: [facility] 04-16-2023 08:43-0400 Heart rate 59 /min Clarice Brenda PA-C Work Phone: [facility] 04-16-2023 08:43-0400 SaO2% (BldA) [Mass fraction] 96 % Clraice Brenda PA-C Work Phone: [facility] 04-16-2023 08:43-0400 Systolic blood pressure 92 mm[Hg] Clarice [place] PA-C Work Phone: [facility] 04-12-2023 08:02-0400 Diastolic blood pressure 90 mm[Hg] Vy Menendez PATTERN ASSEMBLER.LEAK OPERATOR [employer] Work Phone: [facility] 04-12-2023 08:02-0400 Systolic blood pressure 168 mm[Hg] Vy Menendez PATTERN ASSEMBLER.LEAK OPERATOR [employer] Work Phone: [facility] 04-12-2023 07:58-0400 Body weight 58.51 kg Vy Menendez PATTERN ASSEMBLER.LEAK OPERATOR [employer] Work Phone: [facility] 04-12-2023 07:58-0400 Heart rate 76 /min Vy Menendez PATTERN ASSEMBLER.LEAK OPERATOR [employer] Work Phone: [facility] 04-12-2023 07:58-0400 Respiratory rate 16 /min Vy Menendez PATTERN ASSEMBLER.LEAK OPERATOR [employer] Work Phone: [facility] 04-01-2023 07:59-0400 Diastolic blood pressure 101 mm[Hg] Vy Menendez PATTERN ASSEMBLER.LEAK OPERATOR [employer] Work Phone: [facility] 04-01-2023 07:59-0400 Systolic blood pressure 181 mm[Hg] Vy Menendez PATTERN ASSEMBLER.LEAK OPERATOR [employer] Work Phone: [facility] 04-01-2023 07:49-0400 Body weight 60.78 kg Vy Menendez PATTERN ASSEMBLER.LEAK OPERATOR [employer] Work Phone: [facility] 04-01-2023 07:49-0400 Heart rate 66 /min Vy Menendez PATTERN ASSEMBLER.LEAK OPERATOR [employer] Work Phone: [facility] 04-01-2023 07:49-0400 Respiratory rate 16 /min Vy Menendez PATTERN ASSEMBLER.LEAK OPERATOR [employer] Work Phone: [facility] 02-22-2023 16:55-0400 Body temperature 97.39 [degF] Ellie Athy PA-C Work Phone: [facility] 02-22-2023 16:55-0400 Body weight 63.96 kg Ellie Athy PA-C Work Phone: [facility] 02-22-2023 16:55-0400 Diastolic blood pressure 80 mm[Hg] Ellie Athy PA-C Work Phone: [facility] 02-22-2023 16:55-0400 Heart rate 68 /min Ellie Athy PA-C Work Phone: [facility] 02-22-2023 16:55-0400 Respiratory rate 16 /min Ellie Athy PA-C Work Phone: [facility] 02-22-2023 16:55-0400 Systolic blood pressure 122 mm[Hg] Ellie Athy PA-C Work Phone: [facility] 02-16-2023 17:06-0400 Body temperature 97.5 [degF] Shy Praisler-Wood PATTERN ASSEMBLER.PRIVACY SPECIALIST Work Phone: [facility] 02-16-2023 17:06-0400 Body weight 63.96 kg Shy Praisler-Wood PATTERN ASSEMBLER.PRIVACY SPECIALIST Work Phone: [facility] 02-16-2023 17:06-0400 Diastolic blood pressure 94 mm[Hg] Shy Praisler-Wood PATTERN ASSEMBLER.PRIVACY SPECIALIST Work Phone: [facility] 02-16-2023 17:06-0400 Heart rate 90 /min Shy Praisler-Wood PATTERN ASSEMBLER.PRIVACY SPECIALIST Work Phone: [facility] 02-16-2023 17:06-0400 Respiratory rate 16 /min Shy Praisler-Wood PATTERN ASSEMBLER.PRIVACY SPECIALIST Work Phone: [facility] 02-16-2023 17:06-0400 SaO2% (BldA) [Mass fraction] 98 % Shy Praisler-Wood PATTERN ASSEMBLER.PRIVACY SPECIALIST Work Phone: [facility] 02-16-2023 17:06-0400 Systolic blood pressure 152 mm[Hg] Shy Praisler-Wood PATTERN ASSEMBLER.PRIVACY SPECIALIST Work Phone: [facility] 10-01-2022 17:48-0500 Body temperature 99.7 [degF] Wilfrido Pendlebury PATTERN ASSEMBLER.PRIVACY SPECIALIST Work Phone: [facility] 10-01-2022 17:48-0500 Body weight 62.69 kg Wilfrido Pendlebury PATTERN ASSEMBLER.PRIVACY SPECIALIST Work Phone: [facility] 10-01-2022 17:48-0500 Diastolic blood pressure 92 mm[Hg] Wilfrido Pendlebury PATTERN ASSEMBLER.PRIVACY SPECIALIST Work Phone: [facility] 10-01-2022 17:48-0500 Heart rate 91 /min Wilfrido Pendlebury PATTERN ASSEMBLER.PRIVACY SPECIALIST Work Phone: [facility] 10-01-2022 17:48-0500 Respiratory rate 20 /min Wilfrido Pendlebury PATTERN ASSEMBLER.PRIVACY SPECIALIST Work Phone: [facility] 10-01-2022 17:48-0500 SaO2% (BldA) [Mass fraction] 96 % Wilfrido Tavaresfantasma PATTERN ASSEMBLER.PRIVACY SPECIALIST Work Phone: [facility] 10-01-2022 17:48-0500 Systolic blood pressure 160 mm[Hg] Wilfrido Kolby PATTERN ASSEMBLER.PRIVACY SPECIALIST Work Phone: [facility] 09-09-2022 13:23-0500 Body height 160 cm Zaina Aviles PRIVACY SPECIALIST Work Phone: [facility] 09-09-2022 13:23-0500 Body mass index (BMI) [Ratio] 23.91 kg/m2 Zaina Aviles PRIVACY SPECIALIST Work Phone: [facility] 09-09-2022 13:23-0500 Body weight 61.24 kg Zaina Aviles PRIVACY SPECIALIST Work Phone: [facility] 04-16-2022 09:35-0400 Diastolic blood pressure 85 mm[Hg] Vy Menendez PATTERN ASSEMBLER.LEAK OPERATOR [employer] Work Phone: [facility] 04-16-2022 09:35-0400 Heart rate 69 /min Vy Menendez PATTERN ASSEMBLER.LEAK OPERATOR [employer] Work Phone: [facility] 04-16-2022 09:35-0400 Systolic blood pressure 143 mm[Hg] Vy Menendez PATTERN ASSEMBLER.LEAK OPERATOR [employer] Work Phone: [facility] 04-16-2022 09:31-0400 Body weight 59.88 kg Vy Menendez PATTERN ASSEMBLER.LEAK OPERATOR [employer] Work Phone: [facility] 04-16-2022 09:31-0400 Respiratory rate 16 /min Vy Menendez PATTERN ASSEMBLER.LEAK OPERATOR [employer] Work Phone: [facility] 04-16-2022 09:31-0400 SaO2% (BldA) [Mass fraction] 100 % Vy Menendez PATTERN ASSEMBLER.LEAK OPERATOR [employer] Work Phone: [facility] 03-20-2022 07:33-0400 Diastolic blood pressure 79 mm[Hg] Vy Menendez PATTERN ASSEMBLER.LEAK OPERATOR [employer] Work Phone: [facility] 03-20-2022 07:33-0400 Heart rate 62 /min Vy Campbells PATTERN ASSEMBLER.LEAK OPERATOR [employer] Work Phone: [facility] 03-20-2022 07:33-0400 Systolic blood pressure 168 mm[Hg] Vy Campbells PATTERN ASSEMBLER.LEAK OPERATOR [employer] Work Phone: [facility] 03-20-2022 07:20-0400 Body weight 61.24 kg Vy Campbells PATTERN ASSEMBLER.LEAK OPERATOR [employer] Work Phone: [facility] 03-20-2022 07:20-0400 Respiratory rate 16 /min Vy Campbells PATTERN ASSEMBLER.LEAK OPERATOR [employer] Work Phone: [facility] 03-20-2022 07:20-0400 SaO2% (BldA) [Mass fraction] 99 % Vy Menendez PATTERN ASSEMBLER.LEAK OPERATOR [employer] Work Phone: [facility] 12-23-2021 08:05-0500 Body height 160 cm Zaina Almendarezck PRIVACY SPECIALIST Work Phone: [facility] 12-23-2021 08:05-0500 Body mass index (BMI) [Ratio] 23.91 kg/m2 Zaina Aviles PRIVACY SPECIALIST Work Phone: [facility] 12-23-2021 08:05-0500 Body weight 61.24 kg Zaina Aviles PRIVACY SPECIALIST Work Phone: [facility] 05-25-2017 10:41-0400 BMI (Body Mass Index) 23.73 kg/m2 Faye Lacey MD [facility] 05-25-2017 10:41-0400 Body Temperature 989.1 [degF] Faye Lacey MD [facility] 05-25-2017 10:41-0400 BP Diastolic 79 mm[Hg] Faye Lacey MD [facility] 05-25-2017 10:41-0400 BP Systolic 171 mm[Hg] Faye Lacey MD [facility] 05-25-2017 10:41-0400 Height 160.02 cm Faye Lacey MD [facility] 05-25-2017 10:41-0400 Pulse (Heart Rate) 70 /min Faye Lacey MD [facility] 05-25-2017 10:41-0400 Respiratory Rate 17 /min Faye Lacey MD [facility] 05-25-2017 10:41-0400 Weight 60.78 kg Faye Lacey MD [facility] Encounters Encounter Date Encounter Type Care Provider Facility Start: 08-16-2024 End: 08-16-2024 Patient encounter procedure Enrique Lynch MD, PhD Work Phone: Rheumatology Comment on above: Uveitis (Primary Dx) ; 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) Start: 08-07-2024 End: 08-07-2024 ambulatory Ronald Samm PATTERN ASSEMBLER.PRIVACY SPECIALIST Work Phone: [facility] [place] Comment on above: Flu Shoot Start: 07-31-2024 End: 07-31-2024 ambulatory RONALD QUIJANO Facility:[facility] Start: 07-31-2024 End: 07-31-2024 Patient encounter procedure Ronald Samm PATTERN ASSEMBLER.PRIVACY SPECIALIST Work Phone: [facility] [place] Comment on above: Primary hypertension (Primary Dx); Uveitis of both eyes; Retinal vasculitis of both eyes; Encounter for screening examination for other mental health and behavioral disorders; Screening for depression; IFG (impaired fasting glucose); Screening, lipid; Encounter for therapeutic drug monitoring Start: 07-28-2024 End: 07-28-2024 ambulatory KEYSHAWN FRANCE Facility:[facility] Start: 07-28-2024 End: 07-28-2024 Patient encounter procedure Keyshawn France MD Work Phone: Ophthalmology Comment on above: Retinal vasculitis, bilateral (Primary Dx); Age-related nuclear cataract of both eyes Start: 05-04-2024 Refill Ronald Samm PATTERN ASSEMBLER.PRIVACY SPECIALIST Work Phone: [facility] [place] Comment on above: Refill Request Start: 03-24-2024 End: 03-24-2024 ambulatory RONALD SAMM Facility:[facility] Start: 03-24-2024 End: 03-24-2024 Patient encounter procedure Ronald Samm PATTERN ASSEMBLER.PRIVACY SPECIALIST Work Phone: [facility] [place] Comment on above: Uveitis of both eyes (Primary Dx); Retinal vasculitis of both eyes; Vitritis; Primary hypertension; Dysuria; Leg edema Start: 01-28-2024 End: 01-28-2024 ambulatory JUDE STODDARD Facility:[facility] Start: 01-28-2024 End: 01-28-2024 Patient encounter procedure Jude Stoddard MD, PhD Work Phone: Ophthalmology Comment on above: Bilateral posterior uveitis Start: 01-27-2024 End: 01-31-2024 ambulatory SAI D TALAMPAS Facility:[facility] Start: 01-03-2024 End: 01-03-2024 ambulatory RONALD SMAM Facility:[facility] Start: 01-03-2024 End: 01-03-2024 Patient encounter procedure Ronald Samm PATTERN ASSEMBLER.PRIVACY SPECIALIST Work Phone: [facility] [place] Comment on above: Uveitis of both eyes (Primary Dx); Retinal vasculitis of both eyes Start: 12-29-2023 Telephone encounter Enrique owens MD, PhD Work Phone: Rheumatology Comment on above: Forms Start: 12-27-2023 Telephone encounter Ronald Cleav er PATTERN ASSEMBLER.PRIVACY SPECIALIST Work Phone: [address] [place] [address] Comment on above: Medication Injection Teaching Start: 12-27-2023 End: 12-27-2023 ambulatory [facility] [facility] Facility:[facility] Start: 12-27-2023 End: 12-27-2023 Patient encounter procedure Ronald Samm PATTERN ASSEMBLER.PRIVACY SPECIALIST Work Phone: Internal Medicine [place] Comment on above: Retinal vasculitis o f both eyes (Primary Dx); Vitritis; Primary hypertension; SVT (supraventricular tachycardia) ([facility] Start: 12-22-2023 End: 12-22-2023 ambulatory Enrique Lynch MD, PhD Work Phone: Rheumatology Comment on above: Uveitis of both eyes (Primary Dx); Medication management Start: 12-22-2023 End: 12-22-2023 Telemedicine consultation with patient Enrique Lynch MD, PhD Work Phone: [facility] Start: 12-21-2023 End: 12-21-2023 ambulatory Esperanza Hernando [facility] Start: 12-21-2023 Patient encounter procedure Esperanza Trinh [facility] Comment on above: SPP Inflammatory Con ditions - Treatment Referral (Humira); Insurance Authorization ([place] Submission Pending) Start: 12-17-2023 End: 12-17-2023 ambulatory JUDE STODDARD Facility:[facility] Start: 12-13-2023 Telephone encounter Sai barker MD Work Phone: Internal Medicine [place] Comment on above: Opened In Error Start: 12-09-2023 End: 12-09-2023 ambulatory RONALD SAMM Facility:[facility] Start: 12-09-2023 End: 12-09-2023 Patient encounter procedure Enrique Lynch MD, PhD Work Phone: Rheumatology Comment on above: Vitritis; Retinal vasculitis of both eyes; Uveitis of both eyes Start: 11-15-2023 End: 11-15-2023 ambulatory MIC LAMBERT Facility:[facility] Start: 11-15-2023 End: 11-15-2023 ambulatory RONALD SAMM Facility:[facility] Start: 11-09-2023 End: 11-09-2023 ambulatory SAI BENJAMIN Facility:[facility] Start: 10-06-2023 ambulatory Ronald Samm PATTERN ASSEMBLER.PRIVACY SPECIALIST Work Phone: [facility] Start: 10-06-2023 Follow-up encounter Ronald Cleav er PATTERN ASSEMBLER.PRIVACY SPECIALIST Work Phone: Internal Medicine [place] Comment on above: Visit follow up Start: 10-04-2023 End: 10-04-2023 ambulatory RONALD SAMM Facility:[facility] Start: 10-01-2023 Telephone encounter Sai barker MD Work Phone: Family Medicine [place] Comment on above: Medication Request Start: 09-20-2023 End: 09-20-2023 ambulatory MIC LAMBERT Facility:[facility] Start: 09-20-2023 End: 09-20-2023 Patient encounter procedure Mic Lambert MD Work Phone: Cardiology Comment on above: Palpitations (Primar y Dx); Right bundle branch block Start: 08-23-2023 End: 08-23-2023 ambulatory RONALD QUIJANO Facility:[facility] Start: 08-05-2023 End: 08-05-2023 ambulatory MAXIMILIANO HOFFMANN Facility:[facility] Start: 08-05-2023 End: 08-05-2023 Patient encounter procedure Maximiliano Hoffmann MD Work Phone: General Surgery Comment on above: Change in bowel habi ts (Primary Dx); Constipation, unspecified constipation type; Abdominal pain, unspecified abdominal location; Gallstones Start: 08-04-2023 ambulatory Ronald Quijano PATTERN ASSEMBLER.PRIVACY SPECIALIST Work Phone: Internal Medicine [place] Comment on above: Test results Start: 07-27-2023 Telephone encounter Sai barker MD Work Phone: [address] [place] [address] Start: 07-16-2023 End: 07-16-2023 Subsequent hospital visit by physician [facility] Work Phone: Nuclear Medicine Comment on above: Dyspepsia [R10.13] Start: 07-09-2023 ambulatory Ronald Dyerr PATTERN ASSEMBLER.PRIVACY SPECIALIST Work Phone: Internal Medicine [place] Comment on above: Results Start: 07-09-2023 E-mail encounter dante m caregiver Ronald Dyerr PATTERN ASSEMBLER.PRIVACY SPECIALIST Work Phone: [facility] [place] Start: 07-09-2023 End: 07-09-2023 Subsequent hospital visit by physician [facility] Work Phone: Nuclear Medicine Comment on above: Dyspepsia [R10.13] Start: 06-30-2023 Telephone encounter Ronald Mcarthur er PATTERN ASSEMBLER.PRIVACY SPECIALIST Work Phone: Family Medicine [place] Comment on above: Patient Question Start: 06-22-2023 End: 06-22-2023 Patient encounter procedure Ronald Dyerr PATTERN ASSEMBLER.PRIVACY SPECIALIST Work Phone: Internal Medicine [place] Comment on above: Dyspepsia (Primary D x); Abdominal pain, unspecified abdominal location; Calculus of gallbladder without cholecystitis without obstruction; Gall stones; Right bundle branch block; Uveitis of both eyes; Retinal vasculitis of both eyes; Vitritis Start: 06-21-2023 Telephone encounter Sai barker MD Work Phone: [address] [place] [address] Comment on above: Patient Question Start: 06-16-2023 End: 06-16-2023 Patient encounter procedure Sai Benjamin MD Work Phone: Internal Medicine [place] Comment on above: Patient left without being seen (Primary Dx) Start: 05-17-2023 Telephone encounter Maximiliano Hoffmann MD Work Phone: General Surgery Comment on above: Patient Update Start: 05-11-2023 End: 05-11-2023 Subsequent hospital visit by physician [facility] [place] [facility] Work Phone: Radiology Comment on above: Change in bowel habi ts [R19.4] Start: 05-04-2023 End: 05-04-2023 Subsequent hospital visit by physician Donla Valadez MD Work Phone: Ambulatory Surgery Comment on above: Change in bowel habi ts [R19.4] Start: 05-03-2023 End: 05-03-2023 Subsequent hospital visit by physician [facility] Work Phone: Radiology Comment on above: Gallstones [K80.20] Start: 04-22-2023 Telephone encounter Sai barker MD Work Phone: Internal Medicine [place] Comment on above: Patient Request requesting return ca ll Start: 04-16-2023 End: 04-16-2023 Patient encounter procedure Clarice Gutierrez PA-C Work Phone: General Surgery Comment on above: Gallstones (Primary Dx); Lower abdominal pain; Change in bowel habits Start: 04-12-2023 End: 04-12-2023 Office outpatient visit 25 minutes Vy Menendez APRN.CNS Work Phone: Internal Medicine [place] Comment on above: Renal calculus (Prim jhonny Dx); Primary hypertension; Bilateral flank pain; Acute midline low back pain without sciatica; Encounter for screening mammogram for breast cancer; Lower abdominal pain; Nausea Start: 04-01-2023 ambulatory SAI BENJAMIN Facilit y:[facility] Start: 04-01-2023 End: 04-01-2023 Office outpatient visit 25 minutes Vy Menendez APRN.LEAK OPERATOR [employer] Work Phone: Internal Medicine [place] Comment on above: Renal calculi (Prima ry Dx); Bilateral flank pain; History of lithotripsy; Acute midline low back pain without sciatica; Primary hypertension Start: 03-29-2023 Refill Sai beach MD Work Phone: Family Medicine [place] Comment on above: Refill Request Start: 02-22-2023 End: 02-22-2023 Patient encounter procedure Ellie Valle PA-C Work Phone: [facility] [facility] Comment on above: Rash (Primary Dx) Start: 02-16-2023 End: 02-16-2023 Patient encounter procedure Shy Cruz PATTERN ASSEMBLER.PRIVACY SPECIALIST Work Phone: [facility] Comment on above: Chalazion left upper eyelid (Primary Dx) Start: 10-01-2022 End: 10-01-2022 Office outpatient visit 15 minutes Wilfrido Jarrett PATTERN ASSEMBLER.PRIVACY SPECIALIST Work Phone: [place] [facility] Comment on above: Pharyngitis, unspeci fied etiology (Primary Dx); Suspected COVID-19 virus infection Start: 09-09-2022 End: 09-13-2022 ambulatory ZAINA AVILES [facility] Start: 09-09-2022 End: 09-09-2022 Office outpatient visit 15 minutes Zaina Aviles PRIVACY SPECIALIST Work Phone: [facility] Comment on above: Closed avulsion frac ture of distal phalanx of finger, initial encounter (Primary Dx) Start: 04-16-2022 End: 04-16-2022 Patient encounter procedure Vy Menendez APRN.LEAK OPERATOR [employer] Work Phone: Internal Medicine [place] Comment on above: Primary hypertension (Primary Dx); Screening mammogram for breast cancer Start: 03-20-2022 End: 03-20-2022 Patient encounter procedure Vy Menendez LEAK OPERATOR [employer] Work Phone: Internal Medicine [place] Comment on above: Primary hypertension (Primary Dx); Status post knee replacement, unspecified laterality; Renal calculi; Primary localized osteoarthrosis of lower leg, unspecified laterality; Anemia, unspecified type; Encounter for immunization; White coat syndrome with diagnosis of hypertension; Hyperlipidemia, unspecified hyperlipidemia type; Elevated BUN Start: 02-10-2022 ambulatory Sai beach MD Work Phone: [facility] [place] Start: 12-23-2021 End: 12-27-2021 ambulatory ZAINA AVILES [facility] Start: 12-23-2021 End: 12-23-2021 Office outpatient new 30 minutes Zaina Aviles PRIVACY SPECIALIST Work Phone: [facility] Comment on above: Primary osteoarthrit is of right shoulder (Primary Dx) Start: 12-12-2020 End: 12-12-2020 Orders Only Kailyn Harris Work Phone: [facility] Start: 05-09-2019 End: 05-09-2019 Office outpatient visit 15 minutes Lu Thompson Work Phone: [facility] Comment on above: Biceps tendon ruptur e, proximal, right, initial encounter (Primary Dx); Primary osteoarthritis of right shoulder Procedures Date Procedure Procedure Detail Performing Clinician Start: 07-31-2024 Adult depression screening assessment Ronald Quijano APRN.PRIVACY SPECIALIST Work Phone: Start: 07-31-2024 Lipid 1996 panel - Serum or Plasma Ronald Quijano APRN.PRIVACY SPECIALIST Work Phone: Start: 07-28-2024 End: 07-28-2024 Computerized ophthalmic imaging retina Keyshawn France MD Work Phone: Start: 03-24-2024 Urnls dip stick/tablet rgnt auto w/o microscopy Ronald Quijano APRN.PRIVACY SPECIALIST Work Phone: Start: 01-28-2024 End: 01-28-2024 Computerized ophthalmic imaging retina Jude Stoddard MD, PhD Work Phone: Start: 07-16-2023 Hepatobil syst imag inc gb w/pharma intervenj Ronald Quijano PATTERN ASSEMBLER.PRIVACY SPECIALIST Work Phone: Start: 07-09-2023 Gastric emptying imaging study Ronald rosales PATTERN ASSEMBLER.PRIVACY SPECIALIST Work Phone: Start: 06-08-2023 Lipid 1996 panel - Serum or Plasma Ronald Quijano PATTERN ASSEMBLER.PRIVACY SPECIALIST Work Phone: Start: 05-11-2023 Radiologic exam abdomen 1 view Maximiliano Hoffmann MD Work Phone: Start: 05-04-2023 Level iv surg pathology gross&microscopic exam Donal Valadez MD Work Phone: Start: 05-04-2023 Colonoscopy flx dx w/collj spec when pfrmd Clarice Gutierrez PA-C Work Phone: Start: 05-04-2023 Esophagogastroduodenoscopy transoral diagnostic Clarice Gutierrez PA-C Work Phone: Start: 05-04-2023 Ecg routine ecg w/least 12 lds i&r only [facility] Start: 05-04-2023 Colonoscopy Maximiliano Hoffmann MD Work Phone: Start: 05-03-2023 Us abdominal real time w/image limited Clarice Gutierrez PA-C Work Phone: Start: 04-01-2023 Urnls dip stick/tablet rgnt auto w/o microscopy Vy Menendez PATTERN ASSEMBLER.LEAK OPERATOR [employer] Work Phone: Start: 10-01-2022 STREP A MOLECULAR (POC) Wilfrido lee PATTERN ASSEMBLER.PRIVACY SPECIALIST Work Phone: Start: 07-07-2022 Mammography Wilfrido Jarrett PATTERN ASSEMBLER.PRIVACY SPECIALIST Work Phone: Start: 03-20-2022 Adult depression screening assessment Vy Menendez APRN.LEAK OPERATOR [employer] Work Phone: Start: 08-30-2021 Mammography Sai Benjamin MD Work Phone: Start: 02-04-2021 Adult depression screening assessment Sai Benjamin MD Work Phone: Start: 04-25-2020 Mammography Zaina Aviles JACK Work Phone: Start: 05-25-2017 Gynecologic examination Encounter for gynecological examination (general) (routine) with abnormal findings Faye Lacey MD Start: 05-24-2017 Colonoscopy Kailyn Harris Start: 12-18-2009 H/O: artificial joint Knee joint replacement by other means Sai Benjamin MD Work Phone: Start: 12-18-2009 History of operative procedure on knee S/P knee replacement Vy Menendez APRN.LEAK OPERATOR [employer] Work Phone: History of operative procedure on knee Status post knee replacement, unspecified laterality Vy Menendez APRN.LEAK OPERATOR [employer] Work Phone: Plan of Treatment Date Care Activity Detail Author Start: 05-04-2033 Colonoscopy COLONOSCOPY [facility] Start: 05-04-2033 COLORECTAL CANCER SCREENING COLORECTAL CANCER SCREENING [facility] Start: 08-29-2032 Tetanus vaccination Tetanus: Every 10yrs [facility] Start: 08-29-2032 Urine microalbumin profile [facility] Start: 07-31-2029 Lipid panel Lipid Screening [facility] Start: 06-08-2028 Lipid 1996 panel - Serum or Plasma Lipid Screening [facility] Start: 06-08-2028 Lipid panel Lipid Screening [facility] Start: 06-08-2028 LIPID SCREEN LIPID SCREEN [facility] Start: 05-04-2028 Colonoscopy Colonoscopy [facility] Start: 05-04-2028 Colorectal Cancer Screening Colorectal Cancer Screening [facility] Start: 05-04-2028 Screening for malignant neoplasm of colon [facility] Start: 07-31-2027 Diabetes Screening Diabetes Screening [facility] Start: 05-24-2027 Colonoscopy COLONOSCOPY [facility] Start: 05-24-2027 COLORECTAL CANCER SCREENING COLORECTAL CANCER SCREENING [facility] Start: 05-24-2027 Screening for malignant neoplasm of colon [facility] Start: 12-17-2026 Diabetes Screening Diabetes Screening [facility] Start: 06-08-2026 DIABETES SCREEN DIABETES SCREEN [facility] Start: 06-08-2026 Diabetes Screening Diabetes Screening [facility] Start: 05-04-2026 Tetanus vaccination [facility] Start: 05-04-2026 Urine microalbumin profile DTAP,TDAP,TD (3 - Td or Tdap) [facility] Start: 04-01-2026 DIABETES SCREEN DIABETES SCREEN [facility] Start: 12-18-2025 LIPID SCREEN LIPID SCREEN [facility] Start: 08-13-2025 End: 01-20-2026 OCT MACULA CIRRUS OU (BOTH EYES) OCT MACULA CIRRUS OU (BOTH EYES) [facility] Imaging Routine Retinal vasculitis, bilateral Expected: 08/13/2025, Expires: 01/20/2026 [facility] Comment on above: Expected: 08/13/2025, Expires: Start: 07-31-2025 Annual PCP Team Chronic Disease Visit Annual PCP Team Chronic Disease Visit [facility] Start: 07-31-2025 Anxiety Screening Anxiety Screening [facility] Start: 07-31-2025 Depression Screening Depression Screening [facility] Start: 07-31-2025 Hepatitis B surface antibody level LDL Cholesterol [facility] Start: 03-24-2025 Annual PCP Team Chronic Disease Visit Annual PCP Team Chronic Disease Visit [facility] Start: 03-02-2025 DIABETES SCREEN DIABETES SCREEN [facility] Start: 01-02-2025 Annual PCP Team Chronic Disease Visit Annual PCP Team Chronic Disease Visit [facility] Start: 12-26-2024 Annual PCP Team Chronic Disease Visit Annual PCP Team Chronic Disease Visit [facility] Start: 2024 End: 2024 Patient encounter procedure 2024 11:00 AM EST Office Visit Cardiology [address] [address] Miguel Martines DO [address] [place] [address] transfer from [facility] Palpitations Cardiology Comment on above: transfer from [facility] Palpitations Start: 11-15-2024 Annual PCP Team Chronic Disease Visit Annual PCP Team Chronic Disease Visit [facility] Start: 10-04-2024 Annual PCP Team Chronic Disease Visit Annual PCP Team Chronic Disease Visit [facility] Start: 09-15-2024 End: 09-15-2024 Patient encounter procedure 09/15/2024 8:40 AM EST Office Visit Internal Medicine [place] [address] [place] [address] Ronald Quijano APRN.PRIVACY SPECIALIST [address] [place] [address] [phone] 6 week blood pressure check [facility] [place] Comment on above: 6 week blood pressure check Start: 09-11-2024 End: 09-11-2024 Patient encounter procedure 09/11/2024 9:00 AM EST Office Visit Internal Medicine [place] [address] [place] [address] Ronald Quijano APRN.PRIVACY SPECIALIST [address] [place] [address] [phone] 6 week blood pressure check [facility] [place] Comment on above: 6 week blood pressure check Start: 09-01-2024 End: 09-01-2024 Patient encounter procedure 09/01/2024 12:45 PM EST Office Visit [facility] Ophthalmology [address] [address] Keyshawn France MD [address] [place], [place] [id number] Return in about 1 month (around 08/28/2024) for Dialte OU, OCT Ou . Ophthalmology Comment on above: Return in about 1 month (around ) for Dialte OU, OCT Ou . Start: 08-23-2024 Annual PCP Team Chronic Disease Visit Annual PCP Team Chronic Disease Visit [facility] Start: 08-18-2024 End: 08-18-2024 Patient encounter procedure 08/18/2024 9:00 AM EDT Appointment [facility] [address] [place] [address] MRI ORBIT WO/W IVCON [facility] Comment on above: MRI ORBIT WO/W IVCON Start: 08-16-2024 End: 08-16-2024 Patient encounter procedure 08/16/2024 1:00 PM EDT Office Visit Rheumatology [address] [address] Enrique Lynch MD, PhD [address] [place] [address] add on fu per syed Rheumatology Comment on above: add on fu per seyd Start: 07-31-2024 End: 10-30-2024 CBC W Auto Differential panel - Blood [facility] Work Phone: Comment on above: Expected: 07/31/2024, Expires: Start: 07-31-2024 End: 10-30-2024 Comprehensive metabolic 2000 panel - Serum or Plasma [facility] Comment on above: Expected: 07/31/2024, Expires: Start: 07-31-2024 End: 10-30-2024 Hemoglobin A1c in Blood [facility] Comment on above: Expected: 07/31/2024, Expires: Start: 07-31-2024 End: 10-30-2024 LIPID PANEL, NONFASTING [facility] Comment on above: Expected: 07/31/2024, Expires: Start: 07-31-2024 End: 07-31-2024 Patient encounter procedure 07/31/2024 7:00 AM EDT Office Visit Internal Medicine [address] [address] Ronald Quijano APRN.PRIVACY SPECIALIST [address] [place] [address] 4 month follow up [facility] [place] Comment on above: 4 month follow up Start: 07-28-2024 Mammography Mammogram Screening [facility] Start: 07-28-2024 Screening for malignant neoplasm of breast Mammogram Screening [facility] Start: 07-28-2024 End: 10-27-2024 SYPHILIS TOTAL W/REFLEX SYPHILIS TOTAL W/REFLEX Lab Routine Retinal vasculitis, bilateral Age-related nuclear cataract of both eyes Expected: 07/28/2024, Expires: 10/27/2024 [facility] Work Phone: Comment on above: Expected: 07/28/2024, Expires: Start: 07-28-2024 End: 07-28-2024 Patient encounter procedure 07/28/2024 9:45 AM EDT Office Visit [facility] Ophthalmology [address] [address] Keyshawn France MD [address] [place] [address] Return in about 6 months (around 07/29/2024) for Dr. Keyshawn France. Ophthalmology Comment on above: Return in about 6 months (around 07/29/20) for Dr. Keyshawn France. Start: 07-26-2024 Annual PCP Team Chronic Disease Visit Annual PCP Team Chronic Disease Visit [facility] Start: 07-20-2024 End: 07-20-2024 Patient encounter procedure 07/20/2024 2:00 PM EDT Office Visit Cardiology [address] [place], [place] [phone] Miguel Martines DO [address] [place], [place] [phone] transfer from [facility] Palpitations Cardiology Comment on above: transfer from [facility] Palpitations Start: 06-25-2024 Covid-19 Vaccine ( season) Covid-19 Vaccine ( season) [facility] Start: 06-25-2024 Influenza vaccination Influenza Vaccine (#1) [facility] Start: 06-22-2024 ANNUAL PCP TEAM CHRONIC DISEASE VISIT ANNUAL PCP TEAM CHRONIC DISEASE VISIT [facility] Start: 06-16-2024 ANNUAL PCP TEAM CHRONIC DISEASE VISIT ANNUAL PCP TEAM CHRONIC DISEASE VISIT [facility] Start: 06-12-2024 End: 06-12-2024 Patient encounter procedure 06/12/2024 1:40 PM EDT Office Visit Cardiology [address] [place] [id number] Mic Lambert MD [address] [facility], [address] [place] [address] 6 month follow up Cardiology Comment on above: 6 month follow up Start: 06-08-2024 Hepatitis B surface antibody level LDL Cholesterol [facility] Start: 05-11-2024 BP CONTROLLED (<130/80) BP CONTROLLED (<130/80) [facility] Start: 04-16-2024 BP CONTROLLED (<130/80) BP CONTROLLED (<130/80) [facility] Start: 12-18-2023 DIABETES SCREEN DIABETES SCREEN [facility] Start: 2023 RSV Vaccine (1 - 1-dose 75+ series) RSV Vaccine (1 - 1-dose 75+ series) [facility] Start: 11-04-2023 ANNUAL PCP TEAM CHRONIC DISEASE VISIT ANNUAL PCP TEAM CHRONIC DISEASE VISIT [facility] Start: 10-25-2023 Advance Directive Discussion Advance Directive Discussion [facility] Start: 10-25-2023 Behavioral Health Screening Behavioral Health Screening [facility] Start: 10-25-2023 Depression Assessment Depression Assessment [facility] Start: 09-27-2023 End: 09-20-2024 Echocardiography ECHO Cardiology Routine Right bundle branch block Palpitations Expected: 09/27/2023, Expires: 09/20/2024 [facility] Work Phone: Comment on above: Expected: 09/27/2023, Expires: 4 Start: 07-07-2023 Mammography [facility] Start: 06-25-2023 Covid-19 Vaccine ( season) Covid-19 Vaccine () [facility] Start: 06-25-2023 Influenza vaccination [facility] Start: 06-22-2023 End: 08-22-2023 Angiotensin converting enzyme [Enzymatic activity/volume] in Serum or Plasma [facility] Work Phone: Comment on above: Expected: 06/22/2023, Expires: 3 Start: 06-22-2023 End: 08-22-2023 BLOOD TB SCREEN [facility] Work Phone: Comment on above: Expected: 06/22/2023, Expires: 3 Start: 06-22-2023 End: 08-22-2023 Lysozyme [Mass/volume] in Serum or Plasma [facility] Work Phone: Comment on above: Expected: 06/22/2023, Expires: 3 Start: 04-30-2023 End: 05-15-2024 US ABD RIGHT UPPER QUADRANT US ABD RIGHT UPPER QUADRANT Radiology Routine Gallstones Expected: 04/30/2023, Expires: 05/15/2024 [facility] Work Phone: Comment on above: Expected: 04/30/2023, Expires: 4 Start: 04-16-2023 BP CONTROLLED (<130/80) BP CONTROLLED (<130/80) [facility] Start: 04-01-2023 End: 06-01-2023 CBC W Auto Differential panel - Blood [facility] Work Phone: Comment on above: Expected: 04/01/2023, Expires: 3 Start: 04-01-2023 End: 06-01-2023 Comprehensive metabolic 2000 panel - Serum or Plasma [facility] Work Phone: Comment on above: Expected: 04/01/2023, Expires: 3 Start: 03-20-2023 Adult depression screening assessment DEPRESSION SCREENING [facility] Start: 03-20-2023 ANNUAL PCP TEAM CHRONIC DISEASE VISIT ANNUAL PCP TEAM CHRONIC DISEASE VISIT [facility] Start: 12-22-2022 COVID-19 VACCINE (5 - Moderna series) COVID-19 VACCINE (5 - Moderna series) [facility] Start: 10-25-2022 ADVANCE DIRECTIVE DISCUSSION ADVANCE DIRECTIVE DISCUSSION [facility] Start: 10-01-2022 End: 10-15-2022 Influenza virus A and B RNA and SARS-CoV-2 (COVID-19) N gene panel - Respiratory specimen by MANDA with probe detection COVID WITH FLUA+B, ROUTINE Microbiology Routine Pharyngitis, unspecified etiology Suspected COVID-19 virus infection Expected: 10/01/2022, Expires: 10/15/2022 [facility] Work Phone: Comment on above: Expected: 10/01/2022, Expires: 2 Start: 09-20-2022 End: 11-20-2022 Basic metabolic 2000 panel - Serum or Plasma BASIC METABOLIC PNL Lab Routine Primary hypertension Elevated BUN Expected: 09/20/2022 (Approximate), Expires: 11/20/2022 [facility] Work Phone: Comment on above: Expected: 09/20/2022 (Approximate), Expi res: 11/20/2022 Start: 09-20-2022 End: 11-20-2022 LIPID PANEL BASIC LIPID PANEL BASIC Lab Routine Hyperlipidemia, unspecified hyperlipidemia type Expected: 09/20/2022 (Approximate), Expires: 11/20/2022 [facility] Work Phone: Comment on above: Expected: 09/20/2022 (Approximate), Expi res: 11/20/2022 Start: 06-25-2022 Influenza vaccination INFLUENZA (Season Ended) [facility] Start: 06-23-2022 Mammography MAMMOGRAM [facility] Start: 02-10-2022 End: 04-12-2022 Basic metabolic 2000 panel - Serum or Plasma BASIC METABOLIC PNL Lab Routine Hypertensive disorder Expected: 02/10/2022, Expires: 04/12/2022 [facility] Work Phone: Comment on above: Expected: 02/10/2022, Expires: 2 Start: 02-10-2022 End: 04-12-2022 Hemoglobin A1c/Hemoglobin.total in Blood HGB A1C Lab Routine Medication management Expected: 02/10/2022, Expires: 04/12/2022 [facility] Work Phone: Comment on above: Expected: 02/10/2022, Expires: 2 Start: 02-10-2022 End: 04-12-2022 SCHEDULE LAB TESTING SCHEDULE LAB TESTING Lab Routine Expected: 02/10/2022, Expires: 04/12/2022 [facility] Work Phone: Comment on above: Expected: 02/10/2022, Expires: 2 Start: 02-04-2022 Adult depression screening assessment DEPRESSION SCREENING [facility] Start: 02-04-2022 ANNUAL PCP TEAM CHRONIC DISEASE VISIT ANNUAL PCP TEAM CHRONIC DISEASE VISIT [facility] Start: 12-27-2021 COVID-19 VACCINE (4 - Booster for Moderna series) COVID-19 VACCINE (4 - Booster for Moderna series) [facility] Start: 10-25-2021 ADVANCE DIRECTIVE DISCUSSION ADVANCE DIRECTIVE DISCUSSION [facility] Start: 10-25-2021 DEPRESSION ASSESSMENT DEPRESSION ASSESSMENT [facility] Start: 06-04-2021 COVID-19 VACCINE (3 - Booster for Moderna series) COVID-19 VACCINE (3 - Booster for Moderna series) [facility] Start: 04-25-2021 Screening for malignant neoplasm of breast Mammogram [facility] Start: 06-25-2020 Influenza vaccination given Sequential Influenza Vaccine (#1) [facility] Start: 06-25-2019 Influenza vaccination given SEQUENTIAL INFLUENZA VACCINE (#1) [facility] Start: 10-27-2018 Pneumococcal vaccination Pneumococcal Vaccine Age 65+ (2 of 2 - PPSV23) [facility] Start: 05-25-2017 End: 05-25-2017 [facility] Start: 2013 Fall risk assessment Falls Risk Assessment [facility] Start: 2013 Pneumococcal vaccination PNEUMOCOCCAL VACCINE AGE 65+ (1 of 2 - PCV13) [facility] Start: 05-22-2013 Administration of herpes zoster vaccine Zoster Vaccines (2 of 3) [facility] Start: 03-05-2009 Screening for malignant neoplasm of cervix Cervical Cancer Screening [facility] Start: 2008 RSV Vaccine (1 - 1-dose 60+ series) RSV Vaccine (1 - 1-dose 60+ series) [facility] Start: 1998 Administration of herpes zoster vaccine Zoster Vaccines (1 of 2) [facility] Start: 1998 Screening for malignant neoplasm of colon [facility] Start: 1993 COLOGUARD (FIT-DNA) COLOGUARD (FIT-DNA) [facility] Start: [address] COLONOGRAPHY [facility] Start: 1993 FECAL OCCULT BLOOD FECAL OCCULT BLOOD [facility] Start: 1993 Screening for malignant neoplasm of colon [facility] Start: 1993 SIGMOIDOSCOPY SIGMOIDOSCOPY [facility] Start: 1966 Anxiety Screening Anxiety Screening [facility] Start: 1966 BP CONTROLLED (<130/80) BP CONTROLLED (<130/80) [facility] Start: 1966 Depression Screening Depression Screening [facility] Start: 1966 Hepatitis C antibody, confirmatory test Hepatitis C Screening [facility] Start: 1966 Hepatitis C screening Hepatitis C Screening [facility] Start: 1964 COVID-19 Vaccine (1 of 2) COVID-19 Vaccine (1 of 2) [facility] Start: 1960 Adolescent depression screening assessment Depression Screening (PHQ9) [facility] Start: 1960 Depression screening using PHQ-9 (Patient Health Questionnaire 9) score Depression Screening (PHQ-2/9) [facility] Start: 1951 History and physical examination, annual for health maintenance Wellness Visit [facility] Start: 1948 Fall risk assessment Falls Risk Assessment [facility] Start: 1948 Hepatitis C antibody, confirmatory test HEPATITIS C SCREENING [facility] Start: 1948 Screening for malignant neoplasm of colon [facility] Start: 1948 Screening for osteoporosis Dexa Scan [facility] Start: 1948 Screening mammography Mammogram [facility] Bacteria identified in Urine by Culture URINE CULTURE Microbiology Routine Renal calculi Bilateral flank pain History of lithotripsy 04/01/2023 8:32 AM EDT [facility] Work Phone: End: 08-27-2025 CT Chest WO contrast CT CHEST WO IVCON Radiology Routine Retinal vasculitis, bilateral Age-related nuclear cataract of both eyes 1 Occurrences starting 07/28/2024 until 08/27/2025 [facility] Comment on above: 1 Occurrences starting 07/28/2024 until 08/27/2025 End: 06-22-2024 Echocardiography ECHO Cardiology Routine Right bundle branch block 1 Occurrences starting 06/22/2023 until 06/22/2024 [facility] Work Phone: Comment on above: 1 Occurrences starting 06/22/2023 until 06/22/2024 End: 01-20-2026 FLUORESCEIN ANGIOGRAPHY OU (BOTH EYES), TRANSIT OD (RIGHT EYE) FLUORESCEIN ANGIOGRAPHY OU (BOTH EYES), TRANSIT OD (RIGHT EYE) OPHT Imaging Routine Retinal vasculitis, bilateral 1 Occurrences starting 07/29/2024 until 01/20/2026 [facility] Comment on above: 1 Occurrences starting 07/29/2024 until 01/20/2026 End: 07-21-2024 Gastric emptying imaging study NM GASTRIC EMPTYING SOLID Radiology Routine Dyspepsia 1 Occurrences starting 06/22/2023 until 07/21/2024 [facility] Work Phone: Comment on above: 1 Occurrences starting 06/22/2023 until 07/21/2024 End: 07-21-2024 Hepatobil syst imag inc gb w/pharma intervenj NM HEPATOBILIARY W EF AND/OR RX Radiology Routine Dyspepsia Gall stones Calculus of gallbladder without cholecystitis without obstruction 1 Occurrences starting 06/22/2023 until 07/21/2024 [facility] Work Phone: Comment on above: 1 Occurrences starting 06/22/2023 until 07/21/2024 End: 05-16-2023 ROLF SCREENING W SYLVIE ROLF SCREENING W SYLVIE Radiology Routine Screening mammogram for breast cancer 1 Occurrences starting 04/16/2022 until 05/16/2023 [facility] Work Phone: Comment on above: 1 Occurrences starting 04/16/2022 until 05/16/2023 End: 08-27-2025 MR Brain WO and W contrast IV MRI BRAIN WO/W IVCON Radiology Routine Retinal vasculitis, bilateral Age-related nuclear cataract of both eyes 1 Occurrences starting 07/28/2024 until 08/27/2025 [facility] Comment on above: 1 Occurrences starting 07/28/2024 until 08/27/2025 End: 08-27-2025 MR Orbit WO and W contrast IV MRI ORBIT WO/W IVCON Radiology Routine Retinal vasculitis, bilateral Age-related nuclear cataract of both eyes 1 Occurrences starting 07/28/2024 until 08/27/2025 [facility] Comment on above: 1 Occurrences starting 07/28/2024 until 08/27/2025 OUTSIDE VENDOR CARDI AC OUTPATIENT EXTENDED RHYTHM RECORDING (WITHOUT TELEMETRY) OUTSIDE VENDOR CARDIAC OUTPATIENT EXTENDED RHYTHM RECORDING (WITHOUT TELEMETRY) Holter Routine Right bundle branch block Ordered: 09/20/2023 [facility] Work Phone: Comment on above: Ordered: 09/20/2023 PFIZER-BIONTOrderGroove COVI D-19 VACCINE, AGE 12+ YR (IRVING TOP) PFIZER-BIONTECH COVID-19 VACCINE, AGE 12+ YR (IRVING TOP) Immunization/Injection Routine Encounter for immunization 1 Occurrences starting 03/20/2022 [facility] Work Phone: Comment on above: 1 Occurrences starting 03/20/2022 End: 10-03-2022 Radiologic exam chest 2 views XR CHEST 2V FRONTAL/LAT Radiology STAT Suspected COVID-19 virus infection 1 Occurrences starting 10/01/2022 until 10/03/2022 [facility] Work Phone: Comment on above: 1 Occurrences starting 10/01/2022 until 10/03/2022 End: 05-16-2023 Screening mammography bi 2-view breast inc cad ROLF SCREENING Radiology Routine Screening mammogram for breast cancer 1 Occurrences starting 04/16/2022 until 05/16/2023 [facility] Work Phone: Comment on above: 1 Occurrences starting 04/16/2022 until 05/16/2023 [facility] Immunizations Immunization Date Immunization Notes Care Provider Lexi [facility] 08-23-2023 influenza (HD-IIV4) vaccine, age 65+ yr, high dose, quadrivalent, PF (FLUZONE HIGH-DOSE) Mic Lambert MD Work Phone: [facility] Work Phone: 08-23-2023 influenza virus vacc ine, unspecified formulation Ronald Quijano PATTERN ASSEMBLER.PRIVACY SPECIALIST Work Phone: [facility] 08-29-2022 tetanus toxoid, redu erik diphtheria toxoid, and acellular pertussis vaccine, adsorbed Shy Cruz PATTERN ASSEMBLER.JACK Work Phone: [facility] 08-03-2022 influenza, injectabl e, quadrivalent, preservative free Shy Praisler-Wood PATTERN ASSEMBLER.PRIVACY SPECIALIST Work Phone: [facility] 08-03-2022 influenza virus vacc ine, unspecified formulation Ronald Samm PATTERN ASSEMBLER.PRIVACY SPECIALIST Work Phone: [facility] 08-04-2021 influenza, high-dose , quadrivalent vaccine (FLUZONE HIGH DOSE QUADRIVALENT) Vy Menendez PATTERN ASSEMBLER.LEAK OPERATOR [employer] Work Phone: [facility] Work Phone: 04-21-2021 zoster vaccine recombinant Sai Benjamin MD Work Phone: [facility] Work Phone: 01-02-2021 COVID-19 vaccine, fu ll dose (MODERNA) Sai Benjamin MD Work Phone: [facility] 12-05-2020 COVID-19 vaccine, fu ll dose (MODERNA) Sai Benjamin MD Work Phone: [facility] 09-25-2020 zoster vaccine recombinant Sai Benjamin MD Work Phone: [facility] 07-10-2020 influenza, high-dose , quadrivalent vaccine (FLUZONE HIGH DOSE QUADRIVALENT) Sai Benjamin MD Work Phone: [facility] 05-26-2019 pneumococcal polysaccharide vaccine, 23 valent Sai Benjamin MD Work Phone: [facility] 09-26-2018 influenza, high dose seasonal, preservative-free Sai Benjamin MD Work Phone: [facility] 10-27-2017 pneumococcal conjuga te vaccine, 13 valent Sai Benjamin MD Work Phone: [facility] 05-04-2016 tetanus toxoid, redu erik diphtheria toxoid, and acellular pertussis vaccine, adsorbed Sai Benjamin MD Work Phone: [facility] 09-11-2015 influenza, high dose seasonal, preservative-free Sai Benjamin MD Work Phone: [facility] Work Phone: 08-02-2014 influenza, seasonal, injectable Sai Benjamin MD Work Phone: [facility] Work Phone: 11-07-2013 influenza virus vacc ine, unspecified formulation Sai Benjamin MD Work Phone: [facility] 03-27-2013 zoster vaccine, live Sai mojica MD Work Phone: [facility] 07-01-2011 tetanus toxoid, redu erik diphtheria toxoid, and acellular pertussis vaccine, adsorbed Sai Benjamin MD Work Phone: [facility] 08-02-2009 pneumococcal polysaccharide vaccine, 23 valent Sai Benjamin MD Work Phone: [facility] Payers Date Payer Category Payer Medicare [id number] 2021 Medicare AETNA MEDICARE A ETNA MEDICARE PPO [id number] 2021-Present [phone] [address] [place] [address] O [id number] 2021 Medicare [id number] 2015 Medicare AETNA MANAGED [place] DICARE AETNA MEDICARE PLAN (PPO) [id number] 2015-Present [id number] 2015 Medicare [place]NA[place] A[place] MEDIC[place] PLAN (PPO) [id number] 2015-Present [id number] 1948 Unknown [id number] 1948 Unknown [id number] 1948 Unknown [id number] 1948 Unknown [id number] 1948 Unknown [id number] Social History Date Type Detail Facility Start: 05-09-2019 End: 10-01-2022 Tobacco smoking status IDIS Never smoker [facility] Start: 1950 Sex Assigned At Not on file O [facility] Start: 05-09-2019 End: 08-16-2024 Alcohol intake Current drinker of alcohol (finding) [facility] Start: 12-23-2021 End: 10-01-2022 Tobacco use and exposure Smokeless tobacco non-user [facility] Start: 09-29-2020 End: 12-24-2021 Alcohol intake [facility] Start: 12-13-2021 End: 09-09-2022 Exposure to SARS-CoV-2 (event) Not sure [facility] Start: 03-17-2022 End: 11-01-2022 History SDOH Alcohol Frequency 4 [facility] Start: 03-17-2022 End: 11-01-2022 History SDOH Alcohol Std Drinks 1 [facility] Start: 03-17-2022 End: 11-01-2022 History SDOH Social Connections Phone 5 [facility] Start: 03-17-2022 End: 11-01-2022 History SDOH Social Connections Sikh 3 [facility] Start: 03-17-2022 End: 11-01-2022 History SDOH Physical Activity DPW 6 [facility] Start: 03-17-2022 History SDOH Physica l Activity MPS 9 [facility] Start: 03-17-2022 End: 11-01-2022 History SDOH Transport Med 2 [place] [facility] Start: 09-29-2020 End: 11-01-2022 Social connection and isolation panel [facility] Do you belong to any clubs or organizations such as muslim groups, unions, fraternal or athletic groups, or school groups? Yes [facility] Are you now , , , , never or living with a partner? [facility] How often to you hav e a drink containing alcohol? 4 or more times a week [facility] How many standard dr inks containing alcohol do you have on a typical day? 1 or 2 [facility] How often do you hav e 6 or more drinks on 1 occasion? Never [facility] How hard is it for y ou to pay for the very basics like food, housing, medical care, and heating Not very hard [facility] Adult Depression Scr eening Assessment 0 [facility] Do you feel stress - tense, restless, nervous, or anxious, or unable to sleep at night because your mind is troubled all the time - these days [OSQ] Not at all [facility] (I/We) worried wheth er (my/our) food would run out before (I/we) got money to buy more. Never true [facility] In the past 12 month s, was there a time when you were not able to pay the mortgage or rent on time? No [facility] How often to you hav e a drink containing alcohol? 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 likely tapered off by spring 2023 - humira started mid december 2023. over the summer seemed vision was quiet. saw dr france oct 4 restarted steroids at 60 then tapering now on 40 mg - no real change in floaters and no fogginess at that time (pre steroid) to note any change. some repeat testing for underlying disease done mri was not and dr france ordered plan is for reassessment of vasculitis in few weeks from now the uveitis first treated ~ 05/2023 steroids alone separate issue of tachyarrhythmia as of 10/2023:Ms. Rivero is a 72 year old female seen in my office for follow-up patient was initially evaluated for palpitation she had stress echocardiography which was abnormal and underwent cardiac catheterization shows nonobstructive mild coronary artery disease medical therapy was recommended her 14 days monitor shows 1158 episodes of supraventricular tachycardia the longest 1 9 beats lasted for 25 seconds she feels this is mostly during the nighttime known right bundle branch block with SVT Answers submitted by the patient for this visit: Review of Systems Rheumatology (Submitted on 08/10/2024) Fever : No Recent unintentional weight change: Yes Eye pain: No Eye redness: No Vision Disturbance: Yes Eye Dryness: Yes Nosebleeds: No Sores in your mouth: No Trouble Swallowing: No Dry Mouth: No Chest pain: No Leg Swelling: Yes A cough: No Shortness of breath: No Pain with breathing: No Heartburn: No Abdominal pain: No Diarrhea: No Black tarry stools: No Blood in urine: No Pain or burning with urination: No Joint pain or stiffness: Yes Muscle weakness: Yes Muscle aches: Yes Joint swelling: Yes Morning Stiffness in Joints: No A rash: No Skin Color Changes: No Hair Loss: Yes Nail Changes: Yes Headaches: Yes Numbness: No Memory Loss: No Swollen Glands: No now intermittent red blotchy rash truncal intermittent and itchy occ feeling in mouth - feathery no visible whiteness hair thinning described left olec bursal fluid resolved notes thinning skin prior to steroid PE Blood pressure 142/76, pulse 68, temperature 37.2 C (99 F), temperature source Temporal, height 160 cm (5' 3 ), weight 61.7 kg (136 lb 0.4 oz). well appearing many ectopics no thrush no adenopathy clear lungs no murmur intact pulses no pitting fragile skin few nodules no eye erythema plan reduce pred to 30 this week then until see dr france get full eye inflammation assessment at that visit - if active will increase humira to weekly (assuming mri no demyelinating) we discussed approach to dx and need fopr mri f/up cardiol at home Enrique Lynch MD, PhD 45 min documented in this encounter [facility] 07-31-2024 Note HNO ID: [id number] Author: RONALD QUIJANO APRN.PRIVACY SPECIALIST Service: ? Author Type: Nurse Practitioner Type: Progress Notes Filed: 07/31/2024 07:44 Note Text: SUBJECTIVE Kailyn Rivero is a 73 year old female here today for a check up on her medical problems. Chief Complaint Patient presents with: Recheck HPI Kailyn Rivero is a 73 year old female. She is an established patient of Sai Benjamin MD. 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 On Humira for this. Eyes are progressively improving. Dr. France was concerned and so restarted prednisone with the Humira for now. Notices some increased ankle swelling since being on this. She also sees cardiology. Has history of HTN, bp elevated today. Her medications were reviewed today and her list is now up to date. Medications Current Outpatient Medications Medication Sig predniSONE (DELTASONE) 10 mg tablet Take 6 tablets by mouth once daily. atenolol (TENORMIN) 25 mg tablet Take 1 tablet by mouth two times a day. adalimumab (HUMIRA,CF, PEN CQKM-SV-WEVU HS) 80 mg/0.8 mL-40 mg/0.4 mL pen kit Inject 80mg (1 pen) subcutaneously on day 1, then 40mg (1 pen) on day 8, followed by 40mg (1 pen) on day 22 and every 2 weeks thereafter vit A/vit C/vit E/zinc/copper (PRESERVISION AREDS ORAL) Take 1 capsule by mouth twice daily at 6AM and 9PM. Lyvejsvlafnxe-Dutnkvak-Kgmfoh (MULTIVITAMIN 50 PLUS) tab Take 1 tablet by mouth once daily. hydroCHLOROthiazide 12.5 mg capsule Take 1 capsule by mouth once daily. adalimumab 40 mg/0.4 mL subcutaneous pen kit (HUMIRA (CF)) Inject 40mg (1 pen) subcutaneously every 2 weeks. No current facility-administered medications for this visit. 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 SVT (supraventricular tachycardia) [I47.10] - 11/15/2023 Coronary Artery Disease Involving [place] Coronary Artery of [place] Heart Without Angina Pectoris - 11/15/2023 Abdominal Pain - 05/04/2023 Change in Bowel Habits - 05/04/2023 Renal Calculi - 05/31/2017 Comment: S/P lithotripsy [facility] 2016 Hypertensive Disorder - 05/25/2017 Primary Localized Osteoarthrosis, Lower Leg - 12/18/2009 S/P Knee Replacement - 12/18/2009 Anemia, Unspecified Social History Tobacco Use Smoking status: Never Smokeless tobacco: Never Vaping Use Vaping status: Never Used Substance Use Topics Alcohol use: Yes Alcohol/week: 7.0 standard drinks of alcohol Types: 7 Glasses of wine per week Drug use: No Review of Systems Constitutional: Negative. Respiratory: Negative. Cardiovascular: Positive for leg swelling. Negative for chest pain and palpitations. OBJECTIVE BP 178/74[BP conrado[ Pulse 69 Wt 137 lb 2 oz (62.2kg) Physical Exam Vitals and nursing note reviewed. Constitutional: General: She is awake. She is not in acute distress. Appearance: Normal appearance. She is well-developed and well-groomed. She is not ill-appearing, toxic-appearing or diaphoretic. HENT: Head: Normocephalic. Right Ear: External ear normal. Left Ear: External ear normal. Nose: Nose normal. Eyes: General: Vision grossly intact. Conjunctiva/sclera: Conjunctivae normal. Pupils: Pupils are equal, round, and reactive to light. Neck: Vascular: No JVD. Trachea: Trachea normal. Cardiovascular: Rate and Rhythm: Normal rate and regular rhythm. Pulses: Normal pulses. Heart sounds: Normal heart sounds. No murmur heard. Pulmonary: Effort: Pulmonary effort is normal. No accessory muscle usage, prolonged expiration or respiratory distress. Breath sounds: Normal breath sounds. Musculoskeletal: Cervical back: Neck supple. Skin: General: Skin is warm and dry. Capillary Refill: Capillary refill takes less than 2 seconds. Neurological: General: No focal deficit present. Mental Status: She is alert and oriented to person, place, and time. Mental status is at baseline. Psychiatric: Attention and Perception: Attention and perception normal. Mood and Affect: Mood and affect normal. Speech: Speech normal. Behavior: Behavior normal. Behavior is cooperative. Thought Content: Thought content normal. Cognition and Memory: Cognition and memory normal. Judgment: Judgment normal. ASSESSMENT/PLAN: 1. Primary hypertension - ICD9: 401.9, ICD10: I10 (primary diagnosis) - Worsening control, prednisone is a factor, stress too - Start hydrochlorothiazide - Recommend home blood pressure monitoring, to bring results to next visit - Encouraged sodium restriction, DASH or Mediterranean diet - Recommend regular aerobic exercise - HYDROCHLOROTHIAZIDE 12.5 MG CAPSULE 2. Uveitis of both eyes - ICD9: 364.3, ICD10: H20.9 Following with eye provider and rheumatology. Having some possible side effects from Humira. 3. Retinal vasculit (more content not included)... [facility] 07-31-2024 History of Present illness Narrative SUBJECTIVE Kailyn Rivero is a 73 year old female here today for a check up on her medical problems. Chief Complaint Patient presents with: Recheck HPI Kailyn Rivero is a 73 year old female. She is an established patient of Sai Benjamin MD. 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 On Humira for this. Eyes are progressively improving. Dr. France was concerned and so restarted prednisone with the Humira for now. Notices some increased ankle swelling since being on this. She also sees cardiology. Has history of HTN, bp elevated today. Her medications were reviewed today and her list is now up to date. Medications Current Outpatient Medications Medication Sig predniSONE (DELTASONE) 10 mg tablet Take 6 tablets by mouth once daily. atenolol (TENORMIN) 25 mg tablet Take 1 tablet by mouth two times a day. adalimumab (HUMIRA,CF, PEN UCQJ-HG-ENZI HS) 80 mg/0.8 mL-40 mg/0.4 mL pen kit Inject 80mg (1 pen) subcutaneously on day 1, then 40mg (1 pen) on day 8, followed by 40mg (1 pen) on day 22 and every 2 weeks thereafter vit A/vit C/vit E/zinc/copper (PRESERVISION AREDS ORAL) Take 1 capsule by mouth twice daily at 6AM and 9PM. Bmocnyceeouxh-Oylygvfz-Khxqbg (MULTIVITAMIN 50 PLUS) tab Take 1 tablet by mouth once daily. hydroCHLOROthiazide 12.5 mg capsule Take 1 capsule by mouth once daily. adalimumab 40 mg/0.4 mL subcutaneous pen kit (HUMIRA (CF)) Inject 40mg (1 pen) subcutaneously every 2 weeks. No current facility-administered medications for this visit. 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 SVT (supraventricular tachycardia) [I47.10] - 11/15/2023 Coronary Artery Disease Involving Ak Chin Coronary Artery of Ak Chin Heart Without Angina Pectoris - 11/15/2023 Abdominal Pain - 05/04/2023 Change in Bowel Habits - 05/04/2023 Renal Calculi - 05/31/2017 Comment: S/P lithotripsy [facility] 2016 Hypertensive Disorder - 05/25/2017 Primary Localized Osteoarthrosis, Lower Leg - 12/18/2009 S/P Knee Replacement - 12/18/2009 Anemia, Unspecified Social History Tobacco Use Smoking status: Never Smokeless tobacco: Never Vaping Use Vaping status: Never Used Substance Use Topics Alcohol use: Yes Alcohol/week: 7.0 standard drinks of alcohol Types: 7 Glasses of wine per week Drug use: No Review of Systems Constitutional: Negative. Respiratory: Negative. Cardiovascular: Positive for leg swelling. Negative for chest pain and palpitations. OBJECTIVE BP 178/74[BP conrado[ Pulse 69 Wt 137 lb 2 oz (62.2kg) Physical Exam Vitals and nursing note reviewed. Constitutional: General: She is awake. She is not in acute distress. Appearance: Normal appearance. She is well-developed and well-groomed. She is not ill-appearing, toxic-appearing or diaphoretic. HENT: Head: Normocephalic. Right Ear: External ear normal. Left Ear: External ear normal. Nose: Nose normal. Eyes: General: Vision grossly intact. Conjunctiva/sclera: Conjunctivae normal. Pupils: Pupils are equal, round, and reactive to light. Neck: Vascular: No JVD. Trachea: Trachea normal. Cardiovascular: Rate and Rhythm: Normal rate and regular rhythm. Pulses: Normal pulses. Heart sounds: Normal heart sounds. No murmur heard. Pulmonary: Effort: Pulmonary effort is normal. No accessory muscle usage, prolonged expiration or respiratory distress. Breath sounds: Normal breath sounds. Musculoskeletal: Cervical back: Neck supple. Skin: General: Skin is warm and dry. Capillary Refill: Capillary refill takes less than 2 seconds. Neurological: General: No focal deficit present. Mental Status: She is alert and oriented to person, place, and time. Mental status is at baseline. Psychiatric: Attention and Perception: Attention and perception normal. Mood and Affect: Mood and affect normal. Speech: Speech normal. Behavior: Behavior normal. Behavior is cooperative. Thought Content: Thought content normal. Cognition and Memory: Cognition and memory normal. Judgment: Judgment normal. ASSESSMENT/PLAN: 1. Primary hypertension - ICD9: 401.9, ICD10: I10 (primary diagnosis) - Worsening control, prednisone is a factor, stress too - Start hydrochlorothiazide - Recommend home blood pressure monitoring, to bring results to next visit - Encouraged sodium restriction, DASH or Mediterranean diet - Recommend regular aerobic exercise - HYDROCHLOROTHIAZIDE 12.5 MG CAPSULE 2. Uveitis of both eyes - ICD9: 364.3, ICD10: H20.9 Following with eye provider and rheumatology. Having some possible side effects from Humira. 3. Retinal vasculitis of both eyes - ICD9: 362.18, ICD10: H35.063 See #2 4. Encounter for screening examination for other mental health and behavioral disorders - ICD9: V79.8, ICD10: Z13.39 - ANXIETY SCREENING 5. Screening for depression - ICD9: V79.0, ICD10: Z13.31 - DEPRESSION SCREENING 6. IFG (impaired fasting glucose) - ICD9: 790.21, ICD10: R73.01 - HEMOGLOBIN A1C 7. Screening, lipid - ICD9: V77.91, ICD10: Z13.220 - LIPID PANEL, NONFASTING 8. Encounter for therapeutic drug monitoring - ICD9: V58.83, ICD10: Z51.81 - COMPLETE BLOOD COUNT AND DIFFERENTIAL - COMPREHENSIVE METABOLIC PANEL Portions of this note have been entered by ancillary staff. I have reviewed and when necessary edited, so that they are an adequate record of my encounter with this patient Please note that parts of this document were created using voice recognition software and therefore may contain grammatical errors. Patient verbalizes understanding of instructions from today's visit and in agreement with treatment plan. Questions answered. Agrees to call the office if questions, concerns of issues with acute symptoms not improving or if they worsen. See diagnoses and orders for additional plan(s). Allergies and medications were reviewed, list was updated, and refills given if needed. Past medical, surgical, social, and family history reviewed and updated as appropriate. Encouraged proper diet & exercise as well as compliance with taking medications. Age-appropriate health preventative measures were discussed. Return in about 6 weeks (around 09/11/2024) for recheck on blood pressure. Ronald Quijano APRN-JACK documented in this encounter [facility] 07-28-2024 Instructions Cheryle Durbin RN - 07/28/2024 1:49 PM EDT Take oral prednisone pills as directed below. When taking 10 mg tabs, take: Prednisone 60 mg (6 pills)/day (usually all at once in the mornings) x 1 week Prednisone 50 mg (5 pills)/day x 1 week Prednisone 40 mg (4 pills)/day until return visit Remember to take calcium + vitamin D supplements [id number], while on prednisone. If you have a history of acid reflux or heartburn, you should also take an over-the- counter heartburn medication such as pepcid or nexium. Remember that while you are on prednisone you may have common side effects such as irritability, weight gain, increased appetite, and insomnia, but these side effects are usually most prominent at the highest doses and become less intense while tapering down on the dose. Occasionally, particularly if you have a history of the following medical problems, it may also cause increased blood sugar and/or high blood pressure. Please call [phone] to set up your MRI of the brain and orbits Please call [phone] scan documented in this encounter [facility] 07-28-2024 Note Date of Procedure 07/28/2024. [employer] Project Manager: Stop time: 10:00 AM. Martina Hein, ULICES . Interpretation Right Eye Findings include IS/OS junction, RPE Irregularity; Negative for Intraretinal fluid, Subretinal fluid. Left Eye Findings include Atrophy; Negative for Intraretinal fluid, Subretinal fluid. Interval Change Right Eye Stable. Left Eye Stable. [facility] 07-28-2024 Note Date of Procedure 07/28/2024. [employer] Project Manager: Mariola Olson Start time: 10:29 AM. A 24 gauge IV catheter was inserted into right AC vein. 2.5 cc's 10% NaFl was injected. No complications. IV catheter was removed, intact. Patient tolerated. Desirae Araiza RN 07/28/2024 10:33 AM . Interpretation Right Eye Findings include Leakage, Peripheral non-perfusion; Negative for Neovascularization. Left Eye Findings include Leakage, Peripheral non-perfusion; Negative for Neovascularization. Additional Notes Right Eye No abnormal disc fluorescence. Left Eye No abnormal disc fluorescence. Notes Peripheral vascular leakage and nonperfusion OU [facility] 07-28-2024 History of Present illness Narrative HPI: Former [facility] patient here for f/u and to est care. Patient noticing no new worsening vision, no pain, flashes, or floaters. At times feel like vision is foggy for short periods of time. Large elbow nodule on left arm - when she first presented, 2022, during this time, had severe constipation, negative colonoscopy, CT abdomen showed gallstones. 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 Toro) 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 05/26/2019 BP <130/90 on recheck; BP fine at home #. Retinal Vasculitis, both eyes - PMH HTN, presenting as referral from Dr. Lynch for posterior uveitis OU Differential diagnosis: CHAD vs IBD-assoc vs multiple sclerosis-associated, sarcoidosis, TB, syphilis, Behcet's - followed by [facility] - first seen 07/17 as referral for posterior uveitis - started on prednisone 60 mg PO 10/16 - improved visual symptoms - FA 12/17/23: peripheral leakage. Macular leakage with non-perfusion SN OD, peripheral leakage worse inferiorly, non-perfusion peripherally OS, - OCT Mac 12/17/23: EZ loss subfoveally OD, wnl OS - FA 01/28/24: peripheral leakage. Macular leakage with non-perfusion SN OD, peripheral leakage worse inferiorly, non-perfusion peripherally OS, stable from prior - OCT Mac 01/28/24: EZ loss subfoveally OD, temporal macular atrophy OS; stable from prior - FA 07/28/24: Leakage improved inferiorly OD, worsening slightly OS, stable nonperfusion, tr macular leakage - 07/28/24: stable EZ loss and atrophy, fluorescein angiography approx stable from 01/2024, improved fluorescein angiography compared to 11/2023 #. Work up: - CBC, ESR, CRP, DUSTY, RPR negative - LUIS FELIPE and TB negative - Last CXR available in our records from 06/15/2016 #. Prior/current immunosuppression: (Followed by ) - High dose prednisone taper (01/21/3034) - Humira [id number] - LD 07/24/24 - Last CBC/CMP 12/17/23--> says balance #. Cataract, both eyes - Not visually significant - Continue to monitor PLAN: Discussed the above with the patient Recommended the following for work up CT-chest MRI brain/orbits,Syphilis testing Urinary beta2 microglobulin Prednisone course discussed, patient defer for now--> patient agreed to start Prednisone 60 mg orally daily x 1 week then 50 mg orally daily x 1 week then 40 mg orally daily x until recently Return to clinic ~ 1 month NEXT: DILATE, OCT, fluorescein angiography OU I have confirmed and edited as necessary the relevant ophthalmic history, ROS, and the neuro exam findings as obtained by others. I have seen and examined this patient. I have discussed the case and the management of this patient's care with the Resident and/or fellow if applicable. I also have reviewed and agree with the assessment and plan as stated above and agree with all of its relevant components. Keyshawn France MD, PhD Vitreoretinal Surgery & Ocular Inflammatory Diseases [facility] documented in this encounter [facility] 07-28-2024 Note HNO ID: [id number] Author: KEYSHAWN FRANCE MD Service: ? Author Type: Physician Type: Progress Notes Filed: 07/29/2024 12:36 Note Text: HPI: Former [facility] patient here for f/u and to est care. Patient noticing no new worsening vision, no pain, flashes, or floaters. At times feel like vision is foggy for short periods of time. Large elbow nodule on left arm - when she first presented, 2022, during this time, had severe constipation, negative colonoscopy, CT abdomen showed gallstones. 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 Toro) 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 05/26/2019 BP <130/90 on recheck; BP fine at home #. Retinal Vasculitis, both eyes - PMH HTN, presenting as referral from Dr. Lynch for posterior uveitis OU Differential diagnosis: CHAD vs IBD-assoc vs multiple sclerosis-associated, sarcoidosis, TB, syphilis, Behcet's - followed by [facility] - first seen 07/17 as referral for posterior uveitis - started on prednisone 60 mg PO 10/16 - improved visual symptoms - FA 12/17/23: peripheral leakage. Macular leakage with non-perfusion SN OD, peripheral leakage worse inferiorly, non-perfusion peripherally OS, - OCT Mac 12/17/23: EZ loss subfoveally OD, wnl OS - FA 01/28/24: peripheral leakage. Macular leakage with non-perfusion SN OD, peripheral leakage worse inferiorly, non-perfusion peripherally OS, stable from prior - OCT Mac 01/28/24: EZ loss subfoveally OD, temporal macular atrophy OS; stable from prior - FA 07/28/24: Leakage improved inferiorly OD, worsening slightly OS, stable nonperfusion, tr macular leakage - 07/28/24: stable EZ loss and atrophy, fluorescein angiography approx stable from 01/2024, improved fluorescein angiography compared to 11/2023 #. Work up: - CBC, ESR, CRP, DUSTY, RPR negative - LUIS FELIPE and TB negative - Last CXR available in our records from 06/15/2016 #. Prior/current immunosuppression: (Followed by ) - High dose prednisone taper (01/21/3034) - Humira [id number] - LD 07/24/24 - Last CBC/CMP 12/17/23--> says balance #. Cataract, both eyes - Not visually significant - Continue to monitor PLAN: Discussed the above with the patient Recommended the following for work up CT-chest MRI brain/orbits,Syphilis testing Urinary beta2 microglobulin Prednisone course discussed, patient defer for now--> patient agreed to start Prednisone 60 mg orally daily x 1 week then 50 mg orally daily x 1 week then 40 mg orally daily x until recently Return to clinic ~ 1 month NEXT: DILATE, OCT, fluorescein angiography OU I have confirmed and edited as necessary the relevant ophthalmic history, ROS, and the neuro exam findings as obtained by others. I have seen and examined this patient. I have discussed the case and the management of this patient's care with the Resident and/or fellow if applicable. I also have reviewed and agree with the assessment and plan as stated above and agree with all of its relevant components. Keyshawn France MD, PhD Vitreoretinal Surgery AND Ocular Inflammatory Diseases [facility] 05-04-2024 Telephone encounter Note Patient has been identified by name and date of : Yes Patient phones for refill(s): Requested Prescriptions Pending Prescriptions Disp Refills atenolol (TENORMIN) 25 mg tablet 180 tablet 2 Sig: Take 1 tablet by mouth two times a day. Date of last office visit in primary care: 03/24/2024 Date of next office visit in primary care: 07/31/2024 Please advise. Thank you. Giana Crawley LPN. [facility] 05-04-2024 Miscellaneous Notes Patient has been identified by name and date of : Yes Patient phones for refill(s): Requested Prescriptions Pending Prescriptions Disp Refills atenolol (TENORMIN) 25 mg tablet 180 tablet 2 Sig: Take 1 tablet by mouth two times a day. Date of last office visit in primary care: 03/24/2024 Date of next office visit in primary care: 07/31/2024 Please advise. Thank you. Giana Crawley LPN. documented in this encounter [facility] 03-24-2024 Note HNO ID: [id number] Author: RONALD QUIJANO APRN.PRIVACY SPECIALIST Service: ? Author Type: Nurse Practitioner Type: Progress Notes Filed: 03/24/2024 07:45 Note Text: SUBJECTIVE Kailyn Rivero is a 73 year old female here today for a check up on her medical problems. Chief Complaint Patient presents with: F/U 3 Month HPI Kailyn Rivero is a 73 year old female. She is an established patient of Sai Benjamin MD. Here today for a follow up. Has been taking Humira for concerns of inflammation in the eyes that is suspected as autoimmune. Tolerating the medication okay. Following with ophthalmology and rheumatology. Eye exam shows some improvement. She also follows with cardiology. Blood pressure is typically better for her in the afternoon. No mention of chest pain, chest tightness or shortness of breath. Notes with starting Humira some increased edema in the left lower leg. Both legs get some edema but the left is more noticeable. No pain, redness,increased warmth. The swelling is typically not there in the am and then gets worse as the day goes. Some right lower discomfort over the bladder. Some dysuria. Prior kidney stones. Concerned about either infection or a stone. Would like a urine dip done today. Her medications were reviewed today and her list is now up to date. Medications Current Outpatient Medications Medication Sig adalimumab (HUMIRA,CF, PEN QQOE-ID-RJBY HS) 80 mg/0.8 mL-40 mg/0.4 mL pen kit Inject 80mg (1 pen) subcutaneously on day 1, then 40mg (1 pen) on day 8, followed by 40mg (1 pen) on day 22 and every 2 weeks thereafter atenolol (TENORMIN) 25 mg tablet Take 1 tablet by mouth two times a day. vit A/vit C/vit E/zinc/copper (PRESERVISION AREDS ORAL) Take 1 capsule by mouth twice daily at 6AM and 9PM. Ziohgkqgooqwh-Pcnhkich-Eyovzy (MULTIVITAMIN 50 PLUS) tab Take 1 tablet by mouth once daily. adalimumab 40 mg/0.4 mL subcutaneous pen kit (HUMIRA (CF)) Inject 40mg (1 pen) subcutaneously every 2 weeks. No current facility-administered medications for this visit. ALLERGIES Allergen Reactions Morphine Unknown Sulfa (Sulfonamide * Rash ACTIVE PROBLEM LIST SVT (supraventricular tachycardia) [I47.10] - 11/15/2023 Coronary Artery Disease Involving Ak Chin Coronary Artery of Ak Chin Heart Without Angina Pectoris - 11/15/2023 Abdominal Pain - 05/04/2023 Change in Bowel Habits - 05/04/2023 Renal Calculi - 05/31/2017 Comment: S/P lithotripsy [facility] 2016 Hypertensive Disorder - 05/25/2017 Primary Localized Osteoarthrosis, Lower Leg - 12/18/2009 S/P Knee Replacement - 12/18/2009 Anemia, Unspecified Social History Tobacco Use Smoking status: Never Smokeless tobacco: Never Vaping Use Vaping Use: Never used Substance Use Topics Alcohol use: Yes Alcohol/week: 7.0 standard drinks of alcohol Types: 7 Glasses of wine per week Drug use: No Review of Systems Respiratory: Negative. Cardiovascular: Positive for leg swelling. Negative for chest pain and palpitations. OBJECTIVE BP 162/86 Pulse 56 Resp 12 Wt 131 lb (59.4kg) Physical Exam Vitals and nursing note reviewed. Constitutional: General: She is awake. She is not in acute distress. Appearance: Normal appearance. She is well-developed and well-groomed. She is not ill-appearing, toxic-appearing or diaphoretic. HENT: Head: Normocephalic. Right Ear: External ear normal. Left Ear: External ear normal. Nose: Nose normal. Eyes: General: Vision grossly intact. Conjunctiva/sclera: Conjunctivae normal. Pupils: Pupils are equal, round, and reactive to light. Neck: Vascular: No JVD. Trachea: Trachea normal. Cardiovascular: Rate and Rhythm: Normal rate and regular rhythm. Pulses: Normal pulses. Heart sounds: Normal heart sounds. No murmur heard. Pulmonary: Effort: Pulmonary effort is normal. No accessory muscle usage, prolonged expiration or respiratory distress. Breath sounds: Normal breath sounds. Musculoskeletal: Cervical back: Neck supple. Left lower leg: Edema (non-pitting) present. Skin: General: Skin is warm and dry. Capillary Refill: Capillary refill takes less than 2 seconds. Neurological: General: No focal deficit present. Mental Status: She is alert and oriented to person, place, and time. Mental status is at baseline. Psychiatric: Attention and Perception: Attention and perception normal. Mood and Affect: Mood and affect normal. Speech: Speech normal. Behavior: Behavior normal. Behavior is cooperative. Thought Content: Thought content normal. Cognition and Memory: Cognition and memory normal. Judgment: Judgment normal. ASSESSMENT/PLAN: 1. 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 Vitritis - ICD9: 379.29, ICD10: H43.89 See #1 4. Primary hypertension - ICD9: 401.9, (more content not included)... [facility] 03-24-2024 History of Present illness Narrative SUBJECTIVE Kailyn Rivero is a 73 year old female here today for a check up on her medical problems. Chief Complaint Patient presents with: F/U 3 Month HPI Kailyn Rivero is a 73 year old female. She is an established patient of Sai Benjamin MD. Here today for a follow up. Has been taking Humira for concerns of inflammation in the eyes that is suspected as autoimmune. Tolerating the medication okay. Following with ophthalmology and rheumatology. Eye exam shows some improvement. She also follows with cardiology. Blood pressure is typically better for her in the afternoon. No mention of chest pain, chest tightness or shortness of breath. Notes with starting Humira some increased edema in the left lower leg. Both legs get some edema but the left is more noticeable. No pain, redness,increased warmth. The swelling is typically not there in the am and then gets worse as the day goes. Some right lower discomfort over the bladder. Some dysuria. Prior kidney stones. Concerned about either infection or a stone. Would like a urine dip done today. Her medications were reviewed today and her list is now up to date. Medications Current Outpatient Medications Medication Sig adalimumab (HUMIRA,CF, PEN ZTUE-RQ-SXPX HS) 80 mg/0.8 mL-40 mg/0.4 mL pen kit Inject 80mg (1 pen) subcutaneously on day 1, then 40mg (1 pen) on day 8, followed by 40mg (1 pen) on day 22 and every 2 weeks thereafter atenolol (TENORMIN) 25 mg tablet Take 1 tablet by mouth two times a day. vit A/vit C/vit E/zinc/copper (PRESERVISION AREDS ORAL) Take 1 capsule by mouth twice daily at 6AM and 9PM. Cimwfxnvgnltq-Aubrjbim-Bevdrk (MULTIVITAMIN 50 PLUS) tab Take 1 tablet by mouth once daily. adalimumab 40 mg/0.4 mL subcutaneous pen kit (HUMIRA (CF)) Inject 40mg (1 pen) subcutaneously every 2 weeks. No current facility-administered medications for this visit. ALLERGIES Allergen Reactions Morphine Unknown Sulfa (Sulfonamide * Rash ACTIVE PROBLEM LIST SVT (supraventricular tachycardia) [I47.10] - 11/15/2023 Coronary Artery Disease Involving [place] Chin Coronary Artery of Ak [place] Heart Without Angina Pectoris - 11/15/2023 Abdominal Pain - 05/04/2023 Change in Bowel Habits - 05/04/2023 Renal Calculi - 05/31/2017 Comment: S/P lithotripsy [facility] 2016 Hypertensive Disorder - 05/25/2017 Primary Localized Osteoarthrosis, Lower Leg - 12/18/2009 S/P Knee Replacement - 12/18/2009 Anemia, Unspecified Social History Tobacco Use Smoking status: Never Smokeless tobacco: Never Vaping Use Vaping Use: Never used Substance Use Topics Alcohol use: Yes Alcohol/week: 7.0 standard drinks of alcohol Types: 7 Glasses of wine per week Drug use: No Review of Systems Respiratory: Negative. Cardiovascular: Positive for leg swelling. Negative for chest pain and palpitations. OBJECTIVE BP 162/86 Pulse 56 Resp 12 Wt 131 lb (59.4kg) Physical Exam Vitals and nursing note reviewed. Constitutional: General: She is awake. She is not in acute distress. Appearance: Normal appearance. She is well-developed and well-groomed. She is not ill-appearing, toxic-appearing or diaphoretic. HENT: Head: Normocephalic. Right Ear: External ear normal. Left Ear: External ear normal. Nose: Nose normal. Eyes: General: Vision grossly intact. Conjunctiva/sclera: Conjunctivae normal. Pupils: Pupils are equal, round, and reactive to light. Neck: Vascular: No JVD. Trachea: Trachea normal. Cardiovascular: Rate and Rhythm: Normal rate and regular rhythm. Pulses: Normal pulses. Heart sounds: Normal heart sounds. No murmur heard. Pulmonary: Effort: Pulmonary effort is normal. No accessory muscle usage, prolonged expiration or respiratory distress. Breath sounds: Normal breath sounds. Musculoskeletal: Cervical back: Neck supple. Left lower leg: Edema (non-pitting) present. Skin: General: Skin is warm and dry. Capillary Refill: Capillary refill takes less than 2 seconds. Neurological: General: No focal deficit present. Mental Status: She is alert and oriented to person, place, and time. Mental status is at baseline. Psychiatric: Attention and Perception: Attention and perception normal. Mood and Affect: Mood and affect normal. Speech: Speech normal. Behavior: Behavior normal. Behavior is cooperative. Thought Content: Thought content normal. Cognition and Memory: Cognition and memory normal. Judgment: Judgment normal. ASSESSMENT/PLAN: 1. 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 Vitritis - ICD9: 379.29, ICD10: H43.89 See #1 4. Primary hypertension - ICD9: 401.9, ICD10: I10 - Factors affecting control: suspected white coat hypertension - Continue current medications - Recommend home blood pressure monitoring, to bring results to next visit - Encouraged sodium restriction, DASH or Mediterranean diet - Recommend regular aerobic exercise 5. Dysuria - ICD9: 788.1, ICD10: R30.0 acute - Patient education for prevention given Check urine dip and treat accordingly. - UA DIP, URINE (POC) 6. Leg edema - ICD9: 782.3, ICD10: R60.0 Discussed monitoring, no signs to suspect DVT, no signs of infection. Avoid salt, elevate when able, use compression. Monitor and if symptoms worsen or change then consider venous and arterial ultrasounds. Portions of this note have been entered by ancillary staff. I have reviewed and when necessary edited, so that they are an adequate record of my encounter with this patient Please note that parts of this document were created using voice recognition software and therefore may contain grammatical errors. Patient verbalizes understanding of instructions from today's visit and in agreement with treatment plan. Questions answered. Agrees to call the office if questions, concerns of issues with acute symptoms not improving or if they worsen. See diagnoses and orders for additional plan(s). Allergies and medications were reviewed, list was updated, and refills given if needed. Past medical, surgical, social, and family history reviewed and updated as appropriate. Encouraged proper diet & exercise as well as compliance with taking medications. Age-appropriate health preventative measures were discussed. Return in about 4 months (around 07/24/2024) for follow up after July 28. Ronald Quijano APRN-PRIVACY SPECIALIST documented in this encounter [facility] 01-28-2024 Note HNO ID: [id number] Author: JUDE STODDARD MD, PhD Service: ? Author Type: Physician Type: Progress Notes Filed: 01/30/2024 11:27 Note Text: Retinal Vasculitis, both eyes Course: - PMH HTN, presenting as referral from Dr. Lynch for posterior uveitis OU - followed by [facility] - first seen 07/17 as referral for posterior uveitis - started on prednisone 60 mg PO 10/16 - improved visual symptoms - during this time, had severe constipation, negative colonoscopy, CT abdomen showed gallstones Workup: - CBC, ESR, CRP, DUSTY, RPR negative - LUIS FELIPE and TB negative ROS: - POSITIVE (in bold) - recent weight loss (from GI problems)/gain, fevers/chills, night sweats, fatigue, generalized weakness, easy bruising/bleeding, tremor, intolerance to heat or cold, raynaud's, sicca symptoms, nasal ulcers, oral ulcer, cold sores, genital ulcers, sinusitis, nose bleeds, difficulty swallowing, chest pain, shortness of breath, wheezing, cough, blood in sputum, nausea, vomiting, abdominal pain, diarrhea, changes in bowel or bladder patterns, change in urine, weakness/numbness/tingling of limbs/digits, muscle pain, joint aches/pains (hands), rash, hives, sun sensitivity, hair loss, skin discoloration, headache, dizziness, seizure, tinnitus, hearing loss, depression, anxiety, enlarged lymph nodes, tattoos/inflammation of tattoos. 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 Macular leakage with non-perfusion SN OD, peripheral leakage worse inferiorly, non-perfusion peripherally OS, - OCT Mac 12/17/23: EZ loss subfoveally OD, wnl OS - FA 01/28/24: peripheral leakage. Macular leakage with non-perfusion SN OD, peripheral leakage worse inferiorly, non-perfusion peripherally OS, stable from prior - OCT Mac 01/28/24: EZ loss subfoveally OD, temporal macular atrophy OS; stable from prior Meds: - was started on prednisone 60 mg daily x 4 weeks, then tapered by 10 mg weekly, now off steroids x 1 week (since 01/22/24) - Never was on methotrexate - Humira started 01/03/24 (LD 01/24/24), receiving every 2 weeks Impression/PLAN: - 73 year old F presenting for retinal vasculitis OU - GI systemic symptoms at onset of ocular symptoms - still with leakage OU - Continue Humira [id number] I have confirmed and edited as necessary the relevant ophthalmic history, ROS, neuro exam finding as obtained by others. I have seen and examined Kailyn Rivero. I have discussed the case and management of this patients care with the resident or fellow if applicable. I also have reviewed and agree with the assessment and plan as stated above and agree with all of its relevant components. Jude Stoddard MD, PhD [facility] 01-28-2024 History of Present illness Narrative Retinal Vasculitis, both eyes Course: - PMH HTN, presenting as referral from Dr. Lynch for posterior uveitis OU - followed by [facility] - first seen 07/17 as referral for posterior uveitis - started on prednisone 60 mg PO 10/16 - improved visual symptoms - during this time, had severe constipation, negative colonoscopy, CT abdomen showed gallstones Workup: - CBC, ESR, CRP, DUSTY, RPR negative - LUIS FELIPE and TB negative ROS: - POSITIVE (in bold) - recent weight loss (from GI problems)/gain, fevers/chills, night sweats, fatigue, generalized weakness, easy bruising/bleeding, tremor, intolerance to heat or cold, raynaud's, sicca symptoms, nasal ulcers, oral ulcer, cold sores, genital ulcers, sinusitis, nose bleeds, difficulty swallowing, chest pain, shortness of breath, wheezing, cough, blood in sputum, nausea, vomiting, abdominal pain, diarrhea, changes in bowel or bladder patterns, change in urine, weakness/numbness/tingling of limbs/digits, muscle pain, joint aches/pains (hands), rash, hives, sun sensitivity, hair loss, skin discoloration, headache, dizziness, seizure, tinnitus, hearing loss, depression, anxiety, enlarged lymph nodes, tattoos/inflammation of tattoos. 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 Macular leakage with non-perfusion SN OD, peripheral leakage worse inferiorly, non-perfusion peripherally OS, - OCT Mac 12/17/23: EZ loss subfoveally OD, wnl OS - FA 01/28/24: peripheral leakage. Macular leakage with non-perfusion SN OD, peripheral leakage worse inferiorly, non-perfusion peripherally OS, stable from prior - OCT Mac 01/28/24: EZ loss subfoveally OD, temporal macular atrophy OS; stable from prior Meds: - was started on prednisone 60 mg daily x 4 weeks, then tapered by 10 mg weekly, now off steroids x 1 week (since 01/22/24) - Never was on methotrexate - Humira started 01/03/24 (LD 01/24/24), receiving every 2 weeks Impression/PLAN: - 73 year old F presenting for retinal vasculitis OU - GI systemic symptoms at onset of ocular symptoms - still with leakage OU - Continue Humira [id number] I have confirmed and edited as necessary the relevant ophthalmic history, ROS, neuro exam finding as obtained by others. I have seen and examined Kailyn Rivero. I have discussed the case and management of this patients care with the resident or fellow if applicable. I also have reviewed and agree with the assessment and plan as stated above and agree with all of its relevant components. Jude Stoddard MD, PhD documented in this encounter [facility] 01-20-2024 Note HNO ID: [id number] Author: ?, ?, ? Service: ? Author Type: ? Type: Progress Notes Filed: 01/27/2024 09:29 Note Text: [facility] Discontinuation Assessment: Disease group: Inflammatory Medication: HUMIRA(CF) PEN SUBCUTANEOUS Discontinue reason: Patient assistance program enrollment Chi Suh CPhT, Inflammatory/allergy [facility] [phone] [facility] 01-03-2024 Note HNO ID: [id number] Author: RONALD QUIJANO APRN.JACK Service: ? Author Type: Nurse Practitioner Type: Progress Notes Filed: 01/03/2024 08:42 Note Text: Shy was in today for assistance with initial Humira injection. She brought the injection in that she had received from the special[facility] pharmacy. We discussed the process of the injection, possible side effects, signs and symptoms to monitor for and when to seek medical attention. We reviewed the information included with the medication and verified valid dose with expiration of 10/2024, she prepped the site on the left side of her abdomen with an alcohol wipe and this provider coached her through self-administration of the first injection. She tolerated it well, verbalized confidence in giving her next dose independently and had no questions or concerns. [facility] 01-03-2024 History of Present illness Narrative Shy was in today for assistance with initial Humira injection. She brought the injection in that she had received from the speciality pharmacy. We discussed the process of the injection, possible side effects, signs and symptoms to monitor for and when to seek medical attention. We reviewed the information included with the medication and verified valid dose with expiration of 10/2024, she prepped the site on the left side of her abdomen with an alcohol wipe and this provider coached her through self-administration of the first injection. She tolerated it well, verbalized confidence in giving her next dose independently and had no questions or concerns. documented in this encounter [facility] 12-29-2023 Miscellaneous Notes Faxed [employer] assistance form to [phone]. Received fax confirmation documented in this encounter [facility] 12-27-2023 Miscellaneous Notes Spoke with patient regarding below. States that she would like to receive her first injection in the office with a nurse for teaching. She will be receiving sometime this Wednesday from [facility]. Pt would like to schedule towards end of day. Informed patient that I will inquire if [facility] nurse in that day and return call. Spoke with Ronald since [facility] nurse out until next week and pt anxious to start. Per Ronald, patient can be put on her schedule this Wednesday for injection. Pt scheduled 12/31/23 at 1500. Pt instructed to call office and r/s if she does not receive injection by 1300. Pt agreeable and verbalized understanding. Alexandrea Philip MA Patient is calling in regards to Humira. She is asking if she gets this Wednesday afternoon could she just come to the office. Please advise patient in regards to if she needs appointment for this. documented in this encounter [facility] 12-27-2023 Note HNO ID: [id number] Author: RONALD QUIJANO APRN.PRIVACY SPECIALIST Service: ? Author Type: Nurse Practitioner Type: Progress Notes Filed: 12/27/2023 08:36 Note Text: SUBJECTIVE Kailyn Rivero is a 73 year old female here today for a check up on her medical problems. Chief Complaint Patient presents with: 6 week follow up HPI Kailyn Rivero is a 73 year old female. She is an established patient of Sai Benjamin MD. Here for follow up. Last seen 11/15. She has been dealing with vitreitis and retinal vasculitis of both eyes. We referred her to rheumatology due to no clear etiology. Seen with [facility] ophthalmology which confirmed the retinal vasculitis. Rheumatology recommended Humira. Has not started this yet. Working on decreasing prednisone dosing. Since last visit she has also seen cardiology with [facility] with Dr. Lambert. Recent ZIO monitoring showed SVT. She was also hypertensive last visit. Monitoring SVT. Routine follow up in May. Depression Screening PHQ-2 Score PHQ-9 Score 12/27/2023 0 - Depression screening tool completed and reviewed. Based on score and interview, patient is not at risk for depression. Screening tool discussed with patient, and I recommended no further intervention at this time. Her medications were reviewed today and her list is now up to date. Medications Current Outpatient Medications Medication Sig adalimumab (HUMIRA,CF, PEN YEAA-VA-KGEG HS) 80 mg/0.8 mL-40 mg/0.4 mL pen kit Inject 80mg (1 pen) subcutaneously on day 1, then 40mg (1 pen) on day 8, followed by 40mg (1 pen) on day 22 adalimumab 40 mg/0.4 mL subcutaneous pen kit (HUMIRA (CF)) Inject 40mg (1 pen) subcutaneously every 2 weeks. predniSONE (DELTASONE) 10 mg tablet Take 15 mg by mouth once daily. atenolol (TENORMIN) 25 mg tablet Take 1 tablet by mouth two times a day. Nkwlxebqprdcz-Jmvqwwci-Bpvxas (MULTIVITAMIN 50 PLUS) tab Take 1 tablet by mouth once daily. predniSONE (DELTASONE) 5 mg tablet Take 3.5 tablets by mouth once daily for 7 days, THEN 3 tablets once daily for 7 days, THEN 2.5 tablets once daily for 7 days, THEN 2 tablets once daily for 14 days. vit A/vit C/vit E/zinc/copper (PRESERVISION AREDS ORAL) Take 1 capsule by mouth twice daily at 6AM and 9PM. No current facility-administered medications for this visit. ALLERGIES Allergen Reactions Morphine Unknown Sulfa (Sulfonamide * Rash ACTIVE PROBLEM LIST SVT (supraventricular tachycardia) [I47.10] - 11/15/2023 Coronary Artery Disease Involving Ak Chin Coronary Artery of [place] Heart Without Angina Pectoris - 11/15/2023 Abdominal Pain - 05/04/2023 Change in Bowel Habits - 05/04/2023 Renal Calculi - 05/31/2017 Comment: S/P lithotripsy [facility] 2016 Hypertensive Disorder - 05/25/2017 Primary Localized Osteoarthrosis, Lower Leg - 12/18/2009 S/P Knee Replacement - 12/18/2009 Anemia, Unspecified Social History Tobacco Use Smoking status: Never Smokeless tobacco: Never Vaping Use Vaping Use: Never used Substance Use Topics Alcohol use: Yes Alcohol/week: 7.0 standard drinks of alcohol Types: 7 Glasses of wine per week Drug use: No Review of Systems Respiratory: Negative. Cardiovascular: Negative. OBJECTIVE BP 132/80 Pulse 74 Resp 16 Ht 5' 3 (1.60m) Wt 128 lb 6.4 oz (58.2kg) BMI 22.75 kg/(m2). Physical Exam Vitals and nursing note reviewed. Constitutional: General: She is awake. She is not in acute distress. Appearance: Normal appearance. She is well-developed and well-groomed. She is not ill-appearing, toxic-appearing or diaphoretic. HENT: Head: Normocephalic. Right Ear: External ear normal. Left Ear: External ear normal. Nose: Nose normal. Eyes: General: Vision grossly intact. Conjunctiva/sclera: Conjunctivae normal. Pupils: Pupils are equal, round, and reactive to light. Neck: Vascular: No JVD. Trachea: Trachea normal. Cardiovascular: Rate and Rhythm: Normal rate and regular rhythm. Pulses: Normal pulses. Heart sounds: Normal heart sounds. No murmur heard. Pulmonary: Effort: Pulmonary effort is normal. No accessory muscle usage, prolonged expiration or respiratory distress. Breath sounds: Normal breath sounds. Musculoskeletal: Cervical back: Neck supple. Skin: General: Skin is warm and dry. Capillary Refill: Capillary refill takes less than 2 seconds. Neurological: General: No focal deficit present. Mental Status: She is alert and oriented to person, place, and time. Mental status is at baseline. Psychiatric: Attention and Perception: Attention and perception normal. Mood and Affect: Mood and affect normal. Speech: Speech normal. Behavior: Behavior normal. Behavior is cooperative. Thought Content: Thought content normal. Cognition and Memory: Cognition and memory normal. Judgment: Judgment normal. ASSESSMENT/PLAN: 1. 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 [facility] 12-27-2023 History of Present illness Narrative SUBJECTIVE Kailyn Rivero is a 73 year old female here today for a check up on her medical problems. Chief Complaint Patient presents with: 6 week follow up HPI Kailyn Rivero is a 73 year old female. She is an established patient of Sai Benjamin MD. Here for follow up. Last seen 11/15. She has been dealing with vitreitis and retinal vasculitis of both eyes. We referred her to rheumatology due to no clear etiology. Seen with [facility] ophthalmology which confirmed the retinal vasculitis. Rheumatology recommended Humira. Has not started this yet. Working on decreasing prednisone dosing. Since last visit she has also seen cardiology with [facility] with Dr. Lambert. Recent ZIO monitoring showed SVT. She was also hypertensive last visit. Monitoring SVT. Routine follow up in May. Depression Screening PHQ-2 Score PHQ-9 Score 12/27/2023 0 - Depression screening tool completed and reviewed. Based on score and interview, patient is not at risk for depression. Screening tool discussed with patient, and I recommended no further intervention at this time. Her medications were reviewed today and her list is now up to date. Medications Current Outpatient Medications Medication Sig adalimumab (HUMIRA,CF, PEN STSL-EL-HBJN HS) 80 mg/0.8 mL-40 mg/0.4 mL pen kit Inject 80mg (1 pen) subcutaneously on day 1, then 40mg (1 pen) on day 8, followed by 40mg (1 pen) on day 22 adalimumab 40 mg/0.4 mL subcutaneous pen kit (HUMIRA (CF)) Inject 40mg (1 pen) subcutaneously every 2 weeks. predniSONE (DELTASONE) 10 mg tablet Take 15 mg by mouth once daily. atenolol (TENORMIN) 25 mg tablet Take 1 tablet by mouth two times a day. Hbftghatuuzle-Yxpivwxl-Sgxeeq (MULTIVITAMIN 50 PLUS) tab Take 1 tablet by mouth once daily. predniSONE (DELTASONE) 5 mg tablet Take 3.5 tablets by mouth once daily for 7 days, THEN 3 tablets once daily for 7 days, THEN 2.5 tablets once daily for 7 days, THEN 2 tablets once daily for 14 days. vit A/vit C/vit E/zinc/copper (PRESERVISION AREDS ORAL) Take 1 capsule by mouth twice daily at 6AM and 9PM. No current facility-administered medications for this visit. ALLERGIES Allergen Reactions Morphine Unknown Sulfa (Sulfonamide * Rash ACTIVE PROBLEM LIST SVT (supraventricular tachycardia) [I47.10] - 11/15/2023 Coronary Artery Disease Involving Ak Chin Coronary Artery of [place] Heart Without Angina Pectoris - 11/15/2023 Abdominal Pain - 05/04/2023 Change in Bowel Habits - 05/04/2023 Renal Calculi - 05/31/2017 Comment: S/P lithotripsy [facility] 2016 Hypertensive Disorder - 05/25/2017 Primary Localized Osteoarthrosis, Lower Leg - 12/18/2009 S/P Knee Replacement - 12/18/2009 Anemia, Unspecified Social History Tobacco Use Smoking status: Never Smokeless tobacco: Never Vaping Use Vaping Use: Never used Substance Use Topics Alcohol use: Yes Alcohol/week: 7.0 standard drinks of alcohol Types: 7 Glasses of wine per week Drug use: No Review of Systems Respiratory: Negative. Cardiovascular: Negative. OBJECTIVE BP 132/80 Pulse 74 Resp 16 Ht 5' 3 (1.60m) Wt 128 lb 6.4 oz (58.2kg) BMI 22.75 kg/(m^2). Physical Exam Vitals and nursing note reviewed. Constitutional: General: She is awake. She is not in acute distress. Appearance: Normal appearance. She is well-developed and well-groomed. She is not ill-appearing, toxic-appearing or diaphoretic. HENT: Head: Normocephalic. Right Ear: External ear normal. Left Ear: External ear normal. Nose: Nose normal. Eyes: General: Vision grossly intact. Conjunctiva/sclera: Conjunctivae normal. Pupils: Pupils are equal, round, and reactive to light. Neck: Vascular: No JVD. Trachea: Trachea normal. Cardiovascular: Rate and Rhythm: Normal rate and regular rhythm. Pulses: Normal pulses. Heart sounds: Normal heart sounds. No murmur heard. Pulmonary: Effort: Pulmonary effort is normal. No accessory muscle usage, prolonged expiration or respiratory distress. Breath sounds: Normal breath sounds. Musculoskeletal: Cervical back: Neck supple. Skin: General: Skin is warm and dry. Capillary Refill: Capillary refill takes less than 2 seconds. Neurological: General: No focal deficit present. Mental Status: She is alert and oriented to person, place, and time. Mental status is at baseline. Psychiatric: Attention and Perception: Attention and perception normal. Mood and Affect: Mood and affect normal. Speech: Speech normal. Behavior: Behavior normal. Behavior is cooperative. Thought Content: Thought content normal. Cognition and Memory: Cognition and memory normal. Judgment: Judgment normal. ASSESSMENT/PLAN: 1. 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 Can come in to the office for help with administration when she gets the med. Agree with continued prednisone decrease. 2. Vitritis - ICD9: 379.29, ICD10: H43.89 See above. 3. Primary hypertension - ICD9: 401.9, ICD10: I10 - Improving control - Continue current medications - Recommend home blood pressure monitoring, to bring results to next visit - Encouraged sodium restriction, DASH or Mediterranean diet - Recommend regular aerobic exercise 4. SVT (supraventricular tachycardia) (HCC) - ICD9: 427.89, ICD10: I47.10 Monitoring symptoms. Portions of this note have been entered by ancillary staff. I have reviewed and when necessary edited, so that they are an adequate record of my encounter with this patient Please note that parts of this document were created using voice recognition software and therefore may contain grammatical errors. Patient verbalizes understanding of instructions from today's visit and in agreement with treatment plan. Questions answered. Agrees to call the office if questions, concerns of issues with acute symptoms not improving or if they worsen. See diagnoses and orders for additional plan(s). Allergies and medications were reviewed, list was updated, and refills given if needed. Past medical, surgical, social, and family history reviewed and updated as appropriate. Encouraged proper diet & exercise as well as compliance with taking medications. Age-appropriate health preventative measures were discussed. Return in about 3 months (around 03/28/2024) for Follow up on chronic conditions and medications.. Ronald Quijano APRN-JACK documented in this encounter [facility] 12-22-2023 Note HNO ID: [id number] Author: ENRIQUE LYNCH MD, PhD Service: ? 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 thus far no lab or clinical suspicion for an underlying systemic disease - but we keep an open mind re that discussed potential SEs of the humira she will d/w her primary care office getting instructions re using the injector pen - has appt next week has f/up appt with dr richi in about a month. Answers submitted by the patient for this visit: Review of Systems Rheumatology (Submitted on 12/21/2023) Fever : No Recent unintentional weight change: Yes Eye pain: No Eye redness: No Vision Disturbance: Yes Eye Dryness: No Nosebleeds: No Sores in your mouth: No Trouble Swallowing: No Dry Mouth: No Chest pain: Yes Leg Swelling: No A cough: No Shortness of breath: No Pain with breathing: No Heartburn: No Abdominal pain: No Diarrhea: No Black tarry stools: No Blood in urine: No Pain or burning with urination: No Joint pain or stiffness: No Muscle weakness: No Muscle aches: No Joint swelling: No Morning Stiffness in Joints: No A rash: No Skin Color Changes: No Hair Loss: No Nail Changes: No Headaches: Yes Numbness: No Memory Loss: No Swollen Glands: No Enrique Lynch MD, PhD [facility] 12-22-2023 History of Present illness Narrative virtual visit, prearranged, to review treatment plan for the 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 thus far no lab or clinical suspicion for an underlying systemic disease - but we keep an open mind re that discussed potential SEs of the humira she will d/w her primary care office getting instructions re using the injector pen - has appt next week has f/up appt with dr stoddard in about a month. Answers submitted by the patient for this visit: Review of Systems Rheumatology (Submitted on 12/21/2023) Fever : No Recent unintentional weight change: Yes Eye pain: No Eye redness: No Vision Disturbance: Yes Eye Dryness: No Nosebleeds: No Sores in your mouth: No Trouble Swallowing: No Dry Mouth: No Chest pain: Yes Leg Swelling: No A cough: No Shortness of breath: No Pain with breathing: No Heartburn: No Abdominal pain: No Diarrhea: No Black tarry stools: No Blood in urine: No Pain or burning with urination: No Joint pain or stiffness: No Muscle weakness: No Muscle aches: No Joint swelling: No Morning Stiffness in Joints: No A rash: No Skin Color Changes: No Hair Loss: No Nail Changes: No Headaches: Yes Numbness: No Memory Loss: No Swollen Glands: No Enrique Lynch MD, PhD documented in this encounter [facility] 12-21-2023 History of Present illness Narrative [facility] received prescription(s) for Humira from Dr. Lynch's office. Benefits investigation was conducted, indicating that a prior authorization is required by patient's insurance plan with [employer]. Encounter will be updated once prior authorization has been submitted by [facility]. Dolores Barnett CPhT [facility] [phone] documented in this encounter [facility] 12-21-2023 Note HNO ID: [id number] Author: ?, ?, ? Service: ? Author Type: ? Type: Progress Notes Filed: 12/22/2023 13:39 Note Text: Humira PA was initiated and pending review. Plan Name: [employer] CoverMymeds [place]: [id number] Dolores Barnett CPhT [facility] [phone] [facility] 12-21-2023 Note HNO ID: [id number] Author: ESPERANZA TRINH RPh Service: ? Author Type: Pharmacist Type: Progress Notes Filed: 12/27/2023 12:53 Note Text: [facility] received prescription(s) for Humira from Dr. Enrique Lynch's office. Benefits investigation was conducted, indicating that a prior authorization is required. PA was approved with details listed below: Plan Name: [employer] Approval Dates: 10/25/23 - 12/21/26 Pt's copay is $725.00. Shipment has been arranged, and pt will receive medication(s) on 12/31/23. Patient stated that she is planning to complete injection teaching with the PA at her PCP's office. A full drug interaction report was conducted. I reviewed with patient appropriate dose and dosing frequency, administration directions (Inject 80mg (1 pen) subcutaneously on day 1, then 40mg (1 pen) on day 8, followed by 40mg (1 pen) on day 22 and every 2 weeks thereafter), potential side effects, ability to self-administer and proper storage and handling requirements. S/he expressed understanding of the information we provided today, and received our contact information for the pharmacy if s/he had any other questions. PAST MEDICAL HISTORY Diagnosis Date Atrial fibrillation (HCC) Carpal tunnel syndrome s/p right surgery 02/2011; Left done as well Essential hypertension, benign White coat syndrome now--BP stays <130/90 at home Irregular heart beat Kidney stone Tear of right biceps muscle--partial 2017 Orthopedist evaluated--[facility] (Dr. Toro) 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 05/26/2019 BP <130/90 on recheck; BP fine at home ALLERGIES Allergen Reactions Morphine Unknown Sulfa (Sulfonamide * Rash Problem List Noted Noted By Resolved Resolved By SVT (supraventricular tachycardia) [I47.10] 11/15/2023 Mic Lambert MD No Coronary artery disease involving nuiqsut coronary artery of nuiqsut heart without angina pectoris 11/15/2023 Mic Lambert MD No Abdominal pain 05/04/2023 Donal Valadez MD No Change in bowel habits 05/04/2023 Donal Valadez MD No Renal calculi 05/31/2017 Vy Menendez, PATTERN ASSEMBLER.LEAK OPERATOR [employer] No Overview Signed 05/31/2017 10:37 AM by Vy Menendez (Pharmacy Billing Adjudicator), LEAK OPERATOR [employer] S/P lithotripsy [facility] 2016 Hypertensive disorder 05/25/2017 Shy Cruz, PATTERN ASSEMBLER.PRIVACY SPECIALIST No Primary localized osteoarthrosis, lower leg 12/18/2009 Ole Pena, PT No S/P knee replacement 12/18/2009 Ole Pena, PT No Anemia, unspecified Quattrocchi, Cristel, NERVE SPECIALIST No Neck ache 07/10/2014 Rachell Narvaez MD 04/16/2022 Vy Menendez APRN.LEAK OPERATOR [employer] 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 02/01/2006 Castro Lovell 04/01/2023 Vy Menendez APRN.LEAK OPERATOR [employer] [place] Assessment Patient confirmed: Yes Med/dose confirmed: Yes Supplies needed: Alcohol swabs, Sharps container, Welcome packet, Bandages Estimated days supply on hand: 0 Copay amount: 725 Copay form of payment: Credit card on file Payment confirmed: Yes Delivery method: FedEx Signature required: Required (, Medicaid, patient preference) Delivery address: [address] [place] [address] Delivery date: 12/31/23 Questions or concerns for the pharmacist?: Yes Patient questions/concerns: Medication cost, Co-pay/assistance programs, Medication dose, Medication route, Medication storage [facility] Visit Assessment - Inflammatory Conditions: Ivent complete: No Assessment to use: Initial Vaccination Assessment: Annual influenza vaccination reminder: Yes Date of influenza vaccination reminder: 12/27/2023 Vaccination assessment completed: Yes Date of most recent vaccination assessment: 12/27/2023 Treatment Plan Information: Treatment Plan Information: Humira CF pen Inject 80mg (1 pen) subcutaneously on day 1, then 40mg (1 pen) on day 8, followed by 40mg (1 pen) on day 22 and every 2 weeks thereafter H30.93 Uveitis Estimated Treatment Duration: Until loss of efficacy and/or no longer tolerated. Initial Assessment: Current and prior medication therapy assessment completed: Yes Hepatitis B status at initiation of therapy with: B-cell modulators, Interleukin-6 antagonists, Janus kinase inhibitors, T-cell modulators, TNF-alpha inhibitors: Yes TB and opportunistic infection status at initiation of biologic and Janus Kinase inhibitor therapy: Yes Patient device teaching: Yes Teaching completed vs planned: Planned Teaching method: In person Verification of patient acceptance and understanding of injection technique: Yes Co-morbidity screening (i.e. heart failure, malignancy, MS, serious infection) at TNFI initiation: Yes test/ control counseling prior to TNFI/DMARD: N/A Baseline disease severity and inflammatory markers: Yes Counseling on intended outcome of therapy: Yes Sun precaution recommendations (increased BCC risk in RA patients): N/A Mary Trinh, TuanD Clinical Pharmacist, [employer] Cl (more content not included)... [facility] 12-21-2023 Note HNO ID: [id number] Author: ESPERANZA TRINH [facility] Service: ? Author Type: Pharmacist Type: Progress Notes Filed: 12/27/2023 12:18 Note Text: Patient's medication is covered via their Medicare Part D STR[employer] retiree plan. With this plan their first copay is $725. Their copays will go down over a period of 4-6 months until they reach their maximum out of pocket at which point their copays will be $0 for the remainder of the year. Mary Trinh, PharmD Clinical Pharmacist, [employer] [facility] ; Pool: [facility] Pool #: [id number] [facility] 12-21-2023 Note HNO ID: [id number] Author: ?, ?, ? Service: ? Author Type: ? Type: Progress Notes Filed: 12/22/2023 14:12 Note Text: Huma PA was approved with details listed below. Plan Name: [employer] Approval Dates: 10/25/23 - 12/21/26 Prescriptions will now be processed through [facility] for determination of next steps. Dolores Barnett CPhT [facility] [phone] [facility] 12-21-2023 Note HNO ID: [id number] Author: ?, ?, ? Service: ? Author Type: ? Type: Progress Notes Filed: 12/21/2023 15:15 Note Text: [facility] received prescription(s) for Humira from Dr. Lynch's office. Benefits investigation was conducted, indicating that a prior authorization is required by patient's insurance plan with [employer]. Encounter will be updated once prior authorization has been submitted by [facility]. Dolores Barnett CPhT [facility] [phone] [facility] 12-17-2023 Note HNO ID: [id number] Author: JUDE STODDARD MD, PhD Service: ? Author Type: Physician Type: Progress Notes Filed: 12/20/2023 16:40 Note Text: Retinal Vasculitis, both eyes Course: - PMH HTN, presenting as referral from Dr. Lynch for posterior uveitis OU - followed by [facility] - first seen 07/17 as referral for posterior uveitis - started on prednisone 60 mg PO 10/16 - improved visual symptoms - during this time, had severe constipation, negative colonoscopy, CT abdomen showed gallstones Workup: - CBC, ESR, CRP, DUSTY, RPR negative - LUIS FELIPE and TB negative ROS: - POSITIVE (in bold) - recent weight loss (from GI problems)/gain, fevers/chills, night sweats, fatigue, generalized weakness, easy bruising/bleeding, tremor, intolerance to heat or cold, raynaud's, sicca symptoms, nasal ulcers, oral ulcer, cold sores, genital ulcers, sinusitis, nose bleeds, difficulty swallowing, chest pain, shortness of breath, wheezing, cough, blood in sputum, nausea, vomiting, abdominal pain, diarrhea, changes in bowel or bladder patterns, change in urine, weakness/numbness/tingling of limbs/digits, muscle pain, joint aches/pains (hands), rash, hives, sun sensitivity, hair loss, skin discoloration, headache, dizziness, seizure, tinnitus, hearing loss, depression, anxiety, enlarged lymph nodes, tattoos/inflammation of tattoos. 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 Macular leakage with non-perfusion SN OD, peripheral leakage worse inferiorly, non-perfusion peripherally OS, - OCT Mac 12/17/23: EZ loss subfoveally OD, wnl OS Meds: - was started on prednisone 60 mg daily x 4 weeks, then tapered by 10 mg weekly - currently on prednisone 30 mg PO Impression/PLAN: - 73 year old F presenting for retinal vasculitis OU - GI systemic symptoms at onset of ocular symptoms - request previous FA's from [facility] to assess vasculitis prior to prednisone - still with leakage OU - can continue prednisone taper, would recommend starting IMT given c/f vasculitis - will discussed with Dr. Lynch - f/u in 4 weeks I have confirmed and edited as necessary the relevant ophthalmic history, ROS, neuro exam finding as obtained by others. I have seen and examined Kailyn Rivero. I have discussed the case and management of this patients care with the resident or fellow if applicable. I also have reviewed and agree with the assessment and plan as stated above and agree with all of its relevant components. Jude Stoddard MD, PhD [facility] 12-13-2023 Miscellaneous Notes Opened in error. Margoth Jay LPN . documented in this encounter [facility] 12-09-2023 Note HNO ID: [id number] Author: ENRIQUE LYNCH MD, PhD Service: ? Author Type: Physician Type: Progress Notes Filed: 12/09/2023 15:33 Note Text: here w hx of eye inflammation - 01/2023 started w constipation and severe abd pain - colonoscopy / ct unremarkable (kidney and gallstones); had arrhythmia and cath normal coronaries, echo enlarged left atria. apparently extra beats no tx given. in right eye known early mac degeneration; may 2023 noted dark shady spot and she was sent to retinovitreal doctor in [place] - has seen several and they were concerned re inflammation and suggested followup in a month; the dark shade may have resolved but decr vision (cloudy vision); no remarkable increase in her baseline low level of floaters - in jun steroids suggested by dr heri baker - and in september started 60 pred daily (was very hyper/energy) after a month on that dose vision and exam improved - and dose began to be tapered from october until now - and on 30 mg now (for few days) since tapering she feels that vision is somewhat worse again ( foggy ). unfortunately i can't find any direct information from the eye assessments. had low back pain spring 2022 - now resolved this AM had severe right sided ant chest pressure, stopped doing laundry, no sob, no sweats, resolved after an hr. PSH: TKR 20 yrs ago, ACL repair, PMH: HTN on atenolol Answers submitted by the patient for this visit: Review of Systems Rheumatology (Submitted on 12/06/2023) Fever : No Recent unintentional weight change: No Eye pain: No Eye redness: No Vision Disturbance: Yes Eye Dryness: No Nosebleeds: No Sores in your mouth: No Trouble Swallowing: No Dry Mouth: No Chest pain: No Leg Swelling: No A cough: No Shortness of breath: No Pain with breathing: No Heartburn: No Abdominal pain: No Diarrhea: No Black tarry stools: No Blood in urine: No Pain or burning with urination: No Joint pain or stiffness: No Muscle weakness: No Muscle aches: No Joint swelling: No Morning Stiffness in Joints: No A rash: No Skin Color Changes: No Hair Loss: No Nail Changes: No Headaches: No Numbness: No Memory Loss: No Swollen Glands: No PE Blood pressure 154/89, pulse 89, temperature 36.5 ?C (97.7 ?F), temperature source Temporal, height 160 cm (5' 2.99 ), weight 59.4 kg (130 lb 15.3 oz). 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 i need to get more information as to the exact ocular dx - records were supposedly sent but i can't find them now. by ros, exam and labs (DUSTY,RPR,CMP, CBC,CRP normal other than lowish wbc) i dont recognize an inflammatory systemic disorder she will get eye records faxed directly to me - sounds to me that we will need a second non corticosteroid medication Enrique Lynch MD, PhD [facility] 12-09-2023 History of Present illness Narrative here w hx of eye inflammation - 01/2023 started w constipation and severe abd pain - colonoscopy / ct unremarkable (kidney and gallstones); had arrhythmia and cath normal coronaries, echo enlarged left atria. apparently extra beats no tx given. in right eye known early mac degeneration; may 2023 noted dark shady spot and she was sent to retinovitreal doctor in [place] - has seen several and they were concerned re inflammation and suggested followup in a month; the dark shade may have resolved but decr vision (cloudy vision); no remarkable increase in her baseline low level of floaters - in jun steroids suggested by dr heri baker - and in september started 60 pred daily (was very hyper/energy) after a month on that dose vision and exam improved - and dose began to be tapered from october until now - and on 30 mg now (for few days) since tapering she feels that vision is somewhat worse again ( foggy ). unfortunately i can't find any direct information from the eye assessments. had low back pain spring 2022 - now resolved this AM had severe right sided ant chest pressure, stopped doing laundry, no sob, no sweats, resolved after an hr. PSH: TKR 20 yrs ago, ACL repair, PMH: HTN on atenolol Answers submitted by the patient for this visit: Review of Systems Rheumatology (Submitted on 12/06/2023) Fever : No Recent unintentional weight change: No Eye pain: No Eye redness: No Vision Disturbance: Yes Eye Dryness: No Nosebleeds: No Sores in your mouth: No Trouble Swallowing: No Dry Mouth: No Chest pain: No Leg Swelling: No A cough: No Shortness of breath: No Pain with breathing: No Heartburn: No Abdominal pain: No Diarrhea: No Black tarry stools: No Blood in urine: No Pain or burning with urination: No Joint pain or stiffness: No Muscle weakness: No Muscle aches: No Joint swelling: No Morning Stiffness in Joints: No A rash: No Skin Color Changes: No Hair Loss: No Nail Changes: No Headaches: No Numbness: No Memory Loss: No Swollen Glands: No PE Blood pressure 154/89, pulse 89, temperature 36.5 C (97.7 F), temperature source Temporal, height 160 cm (5' 2.99 ), weight 59.4 kg (130 lb 15.3 oz). 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 i need to get more information as to the exact ocular dx - records were supposedly sent but i can't find them now. by ros, exam and labs (DUSTY,RPR,CMP, CBC,CRP normal other than lowish wbc) i dont recognize an inflammatory systemic disorder she will get eye records faxed directly to me - sounds to me that we will need a second non corticosteroid medication Enrique Lynch MD, PhD documented in this encounter [facility] 11-15-2023 Note HNO ID: [id number] Author: MIC LAMBERT MD Service: ? Author Type: Physician Type: Progress Notes Filed: 11/15/2023 16:38 Note Text: Mic Lambert MD Interventional Cardiology [address] [place] [address] Chief Complaint Patient presents with: Follow Up HISTORY OF PRESENT ILLNESS: Ms. 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 she is on a large dose of prednisone I discussed the nature of the arrhythmia and the benign nature of the SVT and the options for treatment including observation versus medical therapy versus ablation procedure Cardiac Risk Factors age (male over 45, female over 55), hypertension PAST MEDICAL HISTORY Diagnosis Date Atrial fibrillation (HCC) Carpal tunnel syndrome s/p right surgery 02/2011; Left done as well Essential hypertension, benign White coat syndrome now--BP stays <130/90 at home Irregular heart beat Kidney stone Tear of right biceps muscle--partial 2018 Orthopedist evaluated--[facility] (Dr. Toro) 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 05/26/2019 BP <130/90 on recheck; BP fine at home PAST SURGICAL HISTORY Procedure Laterality Date ARTHROSCOPY KNEE DIAGNOSTIC W/WO SYNOVIAL BX SPX 2000 Arthroscopy, knee COLONOSCOPY 05/04/2023 repeat in 5 years COLONOSCOPY FLX DX W/COLLJ SPEC WHEN PFRMD 03/03/2006 Colonoscopy COLONOSCOPY FLX DX W/COLLJ SPEC WHEN PFRMD 05/24/2017 Colonoscopy EGD 05/04/2023 PAST SURGICAL HISTORY OF right knee replacement PAST SURGICAL HISTORY OF Carpal Tunnel release right ([place] with Dr. Tellez) FAMILY HISTORY Problem Relation Age of Onset Hypertension Father other (Renal Failure) Father Aneurysm Sister Brain; had surgery for this Social History Tobacco Use Smoking status: Never Smokeless tobacco: Never Vaping Use Vaping Use: Never used Substance Use Topics Alcohol use: Yes Alcohol/week: 7.0 standard drinks of alcohol Types: 7 Glasses of wine per week Drug use: No ALLERGIES Allergen Reactions Morphine Unknown Sulfa (Sulfonamide * Rash Medications: Current Outpatient Medications Medication Sig Dispense Refill predniSONE (DELTASONE) 10 mg tablet TAKE 6 TABLETS BY MOUTH ONCE DAILY atenolol (TENORMIN) 25 mg tablet Take 1 tablet by mouth two times a day. 180 tablet 2 vit A/vit C/vit E/zinc/copper (PRESERVISION AREDS ORAL) Take 1 capsule by mouth twice daily at 6AM and 9PM. Kmvmozzubeebd-Hrhszikh-Zrntrh (MULTIVITAMIN 50 PLUS) tab Take 1 tablet by mouth once daily. No current facility-administered medications for this visit. Review of Systems Constitutional: Negative for chills, diaphoresis, fever, malaise/fatigue and weight loss. HENT: Negative for congestion, ear discharge, ear pain, hearing loss, nosebleeds, sinus pain, sore throat and tinnitus. Eyes: Negative for blurred vision, double vision, photophobia, pain, discharge and redness. Respiratory: Negative for cough, hemoptysis, sputum production, shortness of breath, wheezing and stridor. Cardiovascular: Negative for chest pain, palpitations, orthopnea, claudication, leg swelling and PND. Gastrointestinal: Negative for abdominal pain, blood in stool, constipation, diarrhea, heartburn, melena, nausea and vomiting. Genitourinary: Negative for dysuria, flank pain, frequency, hematuria and urgency. Musculoskeletal: Negative for back pain, falls, joint pain, myalgias and neck pain. Skin: Negative for itching and rash. Neurological: Negative for dizziness, tingling, tremors, sensory change, speech change, focal weakness, seizures, loss of consciousness, weakness and headaches. Endo/Heme/Allergies: Negative for environmental allergies and polydipsia. Does not bruise/bleed easily. Psychiatric/Behavioral: Negative for depression, hallucinations, memory loss, substance abuse and suicidal ideas. The patient is not nervous/anxious and does not have insomnia. Physical Examination: Vitals:BP 192/97 Wt 131 lb (59.4kg) SpO2 100% BP w/Orthostatic Vitals Date and Time Orthostatic BP Orthostatic Pulse BP Pulse BP Position BP Site BP Cuff Size 11/15/23 1603 -- -- 192/97 -- Sitting Right Arm Regular Adult Last 2 Encounter Wt Readings: Date: Wt: 11/15/2023 59.4 kg (131 lb) 11/15/2023 58.7 kg (129 lb 8 oz) Physical Exam Constitutional: General: She is not in acute distress. Appearance: She is not diaphoretic. HENT: H (more content not included)... [facility] 11-15-2023 Note HNO ID: [id number] Author: RONALD QUIJANO APRN.PRIVACY SPECIALIST Service: ? Author Type: Nurse Practitioner Type: Progress Notes Filed: 11/15/2023 09:28 Note Text: SUBJECTIVE Kailyn Rivero is a 72 year old female here today for a check up on her medical problems. Chief Complaint Patient presents with: 6 week follow up HPI Kailyn Rivero is a 72 year old female. She is an established patient of Sai Benjamin MD. She presents today for a 6 week follow up. She was last seen routinely on 10/04/2023. 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 Concerns of an inflammatory process impacting her eyes. Her eye provider recommend steroids.They suggested oral over topical because topical would likely not treat the condition she has on going. She is scheduled to see rheumatology. Eye provider follow up Wednesday. Not noticing much difference with steroids. 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 Min HR 45, max 150. Sinus rhythm with first degree AV block and numerous episodes SVT. Following with cardiology. Blood pressure high today. Currently taking 60 mg of prednisone daily. Some increased sleep issues with this. Currently positive for COVID-19. Overall feeling okay. Her medications were reviewed today and her list is now up to date. Medications Current Outpatient Medications Medication Sig atenolol (TENORMIN) 25 mg tablet Take 1 tablet by mouth two times a day. vit A/vit C/vit E/zinc/copper (PRESERVISION AREDS ORAL) Take 1 capsule by mouth twice daily at 6AM and 9PM. Ygtppwkbbaauk-Psstgkge-Rjxfgq (MULTIVITAMIN 50 PLUS) tab Take 1 tablet by mouth once daily. predniSONE (DELTASONE) 10 mg tablet TAKE 6 TABLETS BY MOUTH ONCE DAILY No current facility-administered medications for this visit. ALLERGIES Allergen Reactions Morphine Unknown Sulfa (Sulfonamide * Rash ACTIVE PROBLEM LIST Abdominal Pain - 05/04/2023 Change in Bowel Habits - 05/04/2023 Renal Calculi - 05/31/2017 Comment: S/P lithotripsy [facility] 2016 Hypertensive Disorder - 05/25/2017 Primary Localized Osteoarthrosis, Lower Leg - 12/18/2009 S/P Knee Replacement - 12/18/2009 Anemia, Unspecified Social History Tobacco Use Smoking status: Never Smokeless tobacco: Never Vaping Use Vaping Use: Never used Substance Use Topics Alcohol use: Yes Alcohol/week: 7.0 standard drinks of alcohol Types: 7 Glasses of wine per week Drug use: No Review of Systems Respiratory: Negative. Cardiovascular: Positive for palpitations. Negative for chest pain and leg swelling. OBJECTIVE BP 182/88 Pulse 67 Temp (Src) 97.8 (Left Tympanic) Resp 16 Wt 129 lb 8 oz (58.7kg) SpO2 100% Physical Exam Vitals and nursing note reviewed. Constitutional: General: She is awake. She is not in acute distress. Appearance: Normal appearance. She is well-developed and well-groomed. She is not ill-appearing, toxic-appearing or diaphoretic. HENT: Head: Normocephalic. Right Ear: External ear normal. Left Ear: External ear normal. Nose: Nose normal. Eyes: General: Vision grossly intact. Conjunctiva/sclera: Conjunctivae normal. Pupils: Pupils are equal, round, and reactive to light. Neck: Vascular: No JVD. Trachea: Trachea normal. Cardiovascular: Rate and Rhythm: Normal rate and regular rhythm. Pulses: Normal pulses. Heart sounds: Normal heart sounds. No murmur heard. Pulmonary: Effort: Pulmonary effort is normal. No accessory muscle usage, prolonged expiration or respiratory distress. Breath sounds: Normal breath sounds. Musculoskeletal: Cervical back: Neck supple. Skin: General: Skin is warm and dry. Capillary Refill: Capillary refill takes less than 2 seconds. Neurological: General: No focal deficit present. Mental Status: She is alert and oriented to person, place, and time. Mental status is at baseline. Psychiatric: Attention and Perception: Attention and perception normal. Mood and Affect: Mood and affect normal. Speech: Speech normal. Behavior: Behavior normal. Behavior is cooperative. Thought Content: Thought content normal. Cognition and Memory: Cognition and memory normal. Judgment: Judgment normal. ASSESSMENT/PLAN: 1. Primary hypertension - ICD9: 401.9, ICD10: I10 (primary diagnosis) - Worsening control, suspect this is secondary to daily prednisone. - Recommend home blood pressure monitoring, to bring results to next visit - Encouraged sodium restriction, DASH or Mediterranean diet - Recommend regular aerobic exercise - We discussed possible options to treat HTN, she sees cardiology today. We can use that as a recheck on bp since she just took atenolol prior to her appointment today but also can see what they prefer to use in this situation for improving bp control. 2. SVT (supraventricular tachycardia) - ICD9: 427.89, ICD10: I47.10 Follow up with cardiology today, palpations intermittently. 3. Vitritis - ICD9: 379.29, ICD10: H43.89 Seeing rheumato (more content not included)... [facility] 11-09-2023 Note HNO ID: [id number] Author: WILFRIDO JARRETT APRN.PRIVACY SPECIALIST Service: ? Author Type: Nurse Practitioner Type: Progress Notes Filed: 11/09/2023 09:41 Note Text: Subjective HPI Nontoxic-appearing female presents to urgent care with chief complaint of upper respiratory tract like infection. Duration of symptoms 2 days. Associated symptoms sore throat, nasal congestion, nasal discharge and nonproductive cough. Patient denies the use of any clst-wdk-pnhddhv medications or home remedies for symptom management. Patient states recent sick contacts with similar signs and symptoms. No COVID exposure. Is vaccinated in flu and COVID-19. Patient denies any productive cough, fever, chest pain, shortness of breath, pleuritic pain, rash, abdominal pain, nausea, vomiting or change in bowel or bladder habit. Past medical history prescription medications allergies reviewed. .Patient presents with: Cough: Chest congestion, nasal drainage, productive cough x 2 days PAST MEDICAL HISTORY Diagnosis Date Atrial fibrillation (HCC) Carpal tunnel syndrome s/p right surgery 02/2011; Left done as well Essential hypertension, benign White coat syndrome now--BP stays <130/90 at home Irregular heart beat Kidney stone Tear of right biceps muscle--partial 2018 Orthopedist evaluated--[facility] (Dr. Toro) 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 05/26/2019 BP <130/90 on recheck; BP fine at home PAST SURGICAL HISTORY Procedure Laterality Date ARTHROSCOPY KNEE DIAGNOSTIC W/WO SYNOVIAL BX SPX 2000 Arthroscopy, knee COLONOSCOPY 05/04/2023 repeat in 5 years COLONOSCOPY FLX DX W/COLLJ SPEC WHEN PFRMD 03/03/2006 Colonoscopy COLONOSCOPY FLX DX W/COLLJ SPEC WHEN PFRMD 05/24/2017 Colonoscopy EGD 05/04/2023 PAST SURGICAL HISTORY OF right knee replacement PAST SURGICAL HISTORY OF Carpal Tunnel release right ([place] with Dr. Tellez) ALLERGIES Morphine and Sulfa (Sulfonamide Antibiotics) MEDICATIONS aspirin, enteric coated (ASPIRIN, ENTERIC COATED) 81 mg EC tablet Take 81 mg by mouth once daily. atenolol (TENORMIN) 25 mg tablet Take 1 tablet by mouth two times a day. vit A/vit C/vit E/zinc/copper (PRESERVISION AREDS ORAL) Take 1 capsule by mouth twice daily at 6AM and 9PM. Vemrdnnddcwea-Mmowpobl-Gtzbqi (MULTIVITAMIN 50 PLUS) tab Take 1 tablet by mouth once daily. FAMILY HISTORY Problem Relation Age of Onset Hypertension Father other (Renal Failure) Father Aneurysm Sister Brain; had surgery for this Social History Tobacco Use Smoking status: Never Smokeless tobacco: Never Vaping Use Vaping Use: Never used Substance Use Topics Alcohol use: Yes Alcohol/week: 7.0 standard drinks of alcohol Types: 7 Glasses of wine per week Drug use: No BP 159/99 Pulse 78 Temp 36.8 ?C (98.3 ?F) Resp 18 Wt 59.4 kg (131 lb) BMI 23.21 kg/m? Review of Systems Constitutional: Negative for chills, fever and malaise/fatigue. HENT: Positive for congestion, sinus pain and sore throat. Negative for ear discharge and ear pain. Eyes: Negative for blurred vision, pain, discharge and redness. Respiratory: Positive for cough. Negative for hemoptysis, sputum production, shortness of breath, wheezing and stridor. Cardiovascular: Negative for chest pain. Gastrointestinal: Negative for abdominal pain, diarrhea, nausea and vomiting. Musculoskeletal: Negative for myalgias. Skin: Negative for itching and rash. Neurological: Positive for headaches. Negative for dizziness. Objective Physical Exam Constitutional: General: She is not in acute distress. Appearance: She is not diaphoretic. HENT: Head: Normocephalic. Jaw: No trismus, tenderness, swelling or pain on movement. Nose: Congestion present. Mouth/Throat: Mouth: Mucous membranes are moist. Pharynx: Oropharynx is clear. Uvula midline. No pharyngeal swelling, oropharyngeal exudate, posterior oropharyngeal erythema or uvula swelling. Eyes: Conjunctiva/sclera: Conjunctivae normal. Pupils: Pupils are equal, round, and reactive to light. Cardiovascular: Rate and Rhythm: Normal rate and regular rhythm. Heart sounds: Normal heart sounds. Pulmonary: Effort: Pulmonary effort is normal. No tachypnea, accessory muscle usage or respiratory distress. Breath sounds: Normal breath sounds. No stridor. No wheezing, rhonchi or rales. Abdominal: General: There is no distension. Palpations: Abdomen is soft. Tenderness: There is no abdominal tenderness. There is no guarding or rebound. Musculoskeletal: Cervical back: Normal range of motion and neck supple. No edema, erythema, rigidity or tenderness. No pain with movement. Normal range of motion. Lymphadenopathy: Cervical: No cervical adenopathy. Skin: General: Skin is warm and dry. Neurological: Mental Status: She is alert and oriented to person, place, and time. ASSESSMENT/PLAN: 1. Viral illness - ICD9: 079.99, ICD10: B34.9 - COV (more content not included)... [facility] 10-12-2023 Miscellaneous Notes PATIENT NOTIFIED OF SAME. Please let her know that I would recommend just start with the oral steroids and see how they help. TC to patient with providers message below. Patient states she started the oral steroids yesterday and pharmacy called that there is also a topical steroid ordered. Patient wanting to know if she should use both. Please advise. Thank you. SAAD Bettencourt Please call Shy and let her know what Dr. Ragland had said: topical steroids will not likely treat patient's condition as patient has been on them in the past with no success but if that is what provider wants to try again he would attempt. He does agree that this could be autoimmune related. I know she had reservations about taking the oral steroids but it sounds like that is what the eye providers feel would be best for her symptoms. Ronald Quijano APRN.JACK Alexandrea calls back to let provider know that Dr. Ragland says topical steroids will not likely treat patient's condition as patient has been on them in the past with no success but if that is what provider wants to try again he would attempt. Dr. Ragland also reports that condition could be autoimmune. Call back number to office is [phone] for provider response. Yuko Pandey RN Spoke to Alexandrea At [facility]. Alexandrea given message from provider concerning steroid eye drops and autoimmune question. Alexandrea reports Dr. Ragland is in the office today so she will ask him these questions and call back with what he says. Monique Meadows LPN Did leave a message at [facility] requesting a call back. Can we reach out to Dr. Ragland with [facility] in [place] and see if they would start with topical eye steroids for treatment of patient's eye inflammation rather than the oral steroids? Also, do they think there could be an autoimmune issue causing the inflammation? documented in this encounter [facility] 10-04-2023 Note HNO ID: [id number] Author: Ronald Quijano APRN.PRIVACY SPECIALIST Service: ? Author Type: Nurse Practitioner Type: Progress Notes Filed: 10/04/2023 8:59 AM Note Text: SUBJECTIVE Kailyn Rivero is a 72 year old female here today for a check up on her medical problems. Chief Complaint Patient presents with: Recheck HPI Kailyn Rivero is a 72 year old female. She is an established patient of Sai Benjamin MD. She presents today for follow up. She was last seen 08/23/2023. She hada prior HIDA scan with decreased gallbladder EF and possible chronic gall bladder dyskinesia. On PPI for this. She saw cardiology with [facility] and had a heart cath 08/31 and has since seen [facility] cardiology. Her heart cath had shown nonobstructive and mild CAD. EKG with PVCs. Suspect SVT, compete 2 week monitor with ZIO patch. Today is the last day for this. Eye doctor wants to trial her on steroids. Still seeing inflammation on her eye exams. She has concerns about taking the steroids, not sure she wants to. Still no clear etiology for the eye inflammation. Her medications were reviewed today and her list is now up to date. Medications Current Outpatient Medications Medication Sig aspirin, enteric coated (ASPIRIN, ENTERIC COATED) 81 mg EC tablet Take 81 mg by mouth once daily. atenolol (TENORMIN) 25 mg tablet Take 1 tablet by mouth two times a day. vit A/vit C/vit E/zinc/copper (PRESERVISION AREDS ORAL) Take 1 capsule by mouth twice daily at 6AM and 9PM. Ukndcaprjmuhq-Tddyhcmz-Uolpca (MULTIVITAMIN 50 PLUS) tab Take 1 tablet by mouth once daily. No current facility-administered medications for this visit. ALLERGIES Allergen Reactions Morphine Unknown Sulfa (Sulfonamide * Rash ACTIVE PROBLEM LIST Abdominal Pain - 05/04/2023 Change in Bowel Habits - 05/04/2023 Renal Calculi - 05/31/2017 Comment: S/P lithotripsy [facility] 2016 Hypertensive Disorder - 05/25/2017 Primary Localized Osteoarthrosis, Lower Leg - 12/18/2009 S/P Knee Replacement - 12/18/2009 Anemia, Unspecified Social History Tobacco Use Smoking status: Never Smokeless tobacco: Never Vaping Use Vaping Use: Never used Substance Use Topics Alcohol use: Yes Alcohol/week: 7.0 standard drinks of alcohol Types: 7 Glasses of wine per week Drug use: No Review of Systems Respiratory: Negative. Cardiovascular: Negative. OBJECTIVE BP 152/80 Pulse 68 Resp 12 Wt 125 lb (56.7kg) Physical Exam Vitals and nursing note reviewed. Constitutional: General: She is awake. She is not in acute distress. Appearance: Normal appearance. She is well-developed and well-groomed. She is not ill-appearing, toxic-appearing or diaphoretic. HENT: Head: Normocephalic. Right Ear: External ear normal. Left Ear: External ear normal. Nose: Nose normal. Eyes: General: Vision grossly intact. Conjunctiva/sclera: Conjunctivae normal. Pupils: Pupils are equal, round, and reactive to light. Neck: Vascular: No JVD. Trachea: Trachea normal. Pulmonary: Effort: Pulmonary effort is normal. No accessory muscle usage, prolonged expiration or respiratory distress. Musculoskeletal: Cervical back: Neck supple. Skin: General: Skin is warm and dry. Capillary Refill: Capillary refill takes less than 2 seconds. Neurological: General: No focal deficit present. Mental Status: She is alert and oriented to person, place, and time. Mental status is at baseline. Psychiatric: Attention and Perception: Attention and perception normal. Mood and Affect: Mood and affect normal. Speech: Speech normal. Behavior: Behavior normal. Behavior is cooperative. Thought Content: Thought content normal. Cognition and Memory: Cognition and memory normal. Judgment: Judgment normal. ASSESSMENT/PLAN: 1. Vitritis - ICD9: 379.29, ICD10: H43.89 (primary diagnosis) We will check with rheumatology to see if they can find a cause for her eye inflammation, would recommend trying the topical steroid and depending on results/tolerance the oral if needed. 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 Calculus of gallbladder without cholecystitis without obstruction - ICD9: 574.20, ICD10: K80.20 PPI improved her pain. 5. PVC (premature ventricular contraction) - ICD9: 427.69, ICD10: I49.3 Following with cardiology, finishing up ZIO monitor today. 6. Left atrial dilatation - ICD9: 429.3, ICD10: I51.7 Portions of this note have been entered by ancillary staff. I have reviewed and when necessary edited, so that they are an adequate record of my encounter with this patient Please note that parts of this document were created using voice recognition software and therefore may contain grammatical errors. Patient verbalizes understanding of inst (more content not included)... [facility] 10-01-2023 Miscellaneous Notes Vannessa notified. They are going to try using a topical steroid before oral. Melvi Rojas Ma We can let them know and patient know it is okay to try the steroids, if planning to use oral steroid pills then Shy should know that it may worsen prior GI symptoms so she may want to take the omeprazole during that time. Vannessa from Dr Heri Schmitt's office at [facility] calling stating they would like to start pt on steroids but need clearance from Dr Benjamin. They do not know if pt's systemic etiology is inflammatory or infections. Vannessa states pt has an upcoming appointment with pcp and they wanted to get ahead of pt's appointment to let provider know. Advised her pt sees Ronald Dyerr 10/04/23. Niels Pollock LPN documented in this encounter [facility] 09-20-2023 Note HNO ID: [id number] Author: Mic Lambert MD Service: ? Author Type: Physician Type: Progress Notes Filed: 09/20/2023 5:17 PM Note Text: Mic Lambert MD Interventional Cardiology [address] [place] [address] Chief Complaint Patient presents with: Consult HISTORY OF PRESENT ILLNESS: Ms. Rivero is a 72 year old female seen in my office today for assessment management of palpitation patient is having recurrent episode of fast heartbeat particularly when she exerts herself physically Patient patient had extensive evaluation with stress echocardiography was abnormal she underwent cardiac catheterization shows nonobstructive mild coronary artery disease She is not having any angina major complaint EKG was performed that shows evidence of premature ventricular ectopics and premature ventricular Cardiac Risk Factors age (male over 45, female over 55), family history of CAD PAST MEDICAL HISTORY Diagnosis Date Atrial fibrillation (HCC) Carpal tunnel syndrome s/p right surgery 02/2011; Left done as well Essential hypertension, benign White coat syndrome now--BP stays <130/90 at home Irregular heart beat Kidney stone Tear of right biceps muscle--partial 2018 Orthopedist evaluated--[facility] (Dr. Toro) 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 05/26/2019 BP <130/90 on recheck; BP fine at home PAST SURGICAL HISTORY Procedure Laterality Date ARTHROSCOPY KNEE DIAGNOSTIC W/WO SYNOVIAL BX SPX 2000 Arthroscopy, knee COLONOSCOPY 05/04/2023 repeat in 5 years COLONOSCOPY FLX DX W/COLLJ SPEC WHEN PFRMD 03/03/2006 Colonoscopy COLONOSCOPY FLX DX W/COLLJ SPEC WHEN PFRMD 05/24/2017 Colonoscopy EGD 05/04/2023 PAST SURGICAL HISTORY OF right knee replacement PAST SURGICAL HISTORY OF Carpal Tunnel release right ([place] with Dr. Tellez) FAMILY HISTORY Problem Relation Age of Onset Hypertension Father other (Renal Failure) Father Aneurysm Sister Brain; had surgery for this Social History Tobacco Use Smoking status: Never Smokeless tobacco: Never Vaping Use Vaping Use: Never used Substance Use Topics Alcohol use: Yes Alcohol/week: 7.0 standard drinks of alcohol Types: 7 Glasses of wine per week Drug use: No ALLERGIES Allergen Reactions Morphine Unknown Sulfa (Sulfonamide * Rash Medications: Current Outpatient Medications Medication Sig Dispense Refill aspirin, enteric coated (ASPIRIN, ENTERIC COATED) 81 mg EC tablet Take 81 mg by mouth once daily. atenolol (TENORMIN) 25 mg tablet Take 1 tablet by mouth two times a day. 180 tablet 2 vit A/vit C/vit E/zinc/copper (PRESERVISION AREDS ORAL) Take 1 capsule by mouth twice daily at 6AM and 9PM. Egjfurudfjibg-Xxelcxyc-Bvgjkk (MULTIVITAMIN 50 PLUS) tab Take 1 tablet by mouth once daily. omeprazole (PRILOSEC) 40 mg capsule Take 1 capsule by mouth once daily. (Patient not taking: Reported on 09/20/2023) 30 capsule 0 Current Facility-Administered Medications Medication Dose Route Frequency Provider Last Rate Last Admin perflutren lipid microspheres 1.3 mL in NaCl (PF) 0.9% 10 mL injection (DEFINITY) INTRAVENOUS DIRECTED PRMic Babin MD sodium chloride 0.9 % (flush) 10 mL (BD POSIFLUSH) 10 mL INTRAVENOUS DIRECTED PRMic Babin MD Review of Systems Constitutional: Negative for chills, diaphoresis, fever, malaise/fatigue and weight loss. HENT: Negative for congestion, ear discharge, ear pain, hearing loss, nosebleeds, sinus pain, sore throat and tinnitus. Eyes: Negative for blurred vision, double vision, photophobia, pain, discharge and redness. Respiratory: Negative for cough, hemoptysis, sputum production, shortness of breath, wheezing and stridor. Cardiovascular: Negative for chest pain, palpitations, orthopnea, claudication, leg swelling and PND. Gastrointestinal: Negative for abdominal pain, blood in stool, constipation, diarrhea, heartburn, melena, nausea and vomiting. Genitourinary: Negative for dysuria, flank pain, frequency, hematuria and urgency. Musculoskeletal: Negative for back pain, falls, joint pain, myalgias and neck pain. Skin: Negative for itching and rash. Neurological: Negative for dizziness, tingling, tremors, sensory change, speech change, focal weakness, seizures, loss of consciousness, weakness and headaches. Endo/Heme/Allergies: Negative for environmental allergies and polydipsia. Does not bruise/bleed easily. Psychiatric/Behavioral: Negative for depression, hallucinations, memory loss, substance abuse and suicidal ideas. The patient is not nervous/anxious and does not have insomnia. Physical Examination: Vitals:BP 140/80 Pulse 60 Resp 14 Ht 5' 3 (1.60m) Wt 126 lb 12.8 oz (57.5kg) SpO2 100% BMI 22.47 kg/(m2). BP w/Orthostatic Vitals Date and Time Orthostatic BP Orthostatic Pulse BP Pulse BP Position BP Site BP Cuff Size 09/20/23 1440 -- - (more content not included)... [facility] 09-20-2023 History of Present illness Narrative Images from the original note were not included. Mic Lambert MD Interventional Cardiology [address] [address] Chief Complaint Patient presents with: Consult HISTORY OF PRESENT ILLNESS: Ms. Rivero is a 72 year old female seen in my office today for assessment management of palpitation patient is having recurrent episode of fast heartbeat particularly when she exerts herself physically Patient patient had extensive evaluation with stress echocardiography was abnormal she underwent cardiac catheterization shows nonobstructive mild coronary artery disease She is not having any angina major complaint EKG was performed that shows evidence of premature ventricular ectopics and premature ventricular Cardiac Risk Factors age (male over 45, female over 55), family history of CAD PAST MEDICAL HISTORY Diagnosis Date Atrial fibrillation (HCC) Carpal tunnel syndrome s/p right surgery 02/2011; Left done as well Essential hypertension, benign White coat syndrome now--BP stays <130/90 at home Irregular heart beat Kidney stone Tear of right biceps muscle--partial 2017 Orthopedist evaluated--[facility] (Dr. Toro) 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 05/26/2019 BP <130/90 on recheck; BP fine at home PAST SURGICAL HISTORY Procedure Laterality Date ARTHROSCOPY KNEE DIAGNOSTIC W/WO SYNOVIAL BX SPX 2000 Arthroscopy, knee COLONOSCOPY 05/04/2023 repeat in 5 years COLONOSCOPY FLX DX W/COLLJ SPEC WHEN PFRMD 03/03/2006 Colonoscopy COLONOSCOPY FLX DX W/COLLJ SPEC WHEN PFRMD 05/24/2017 Colonoscopy EGD 05/04/2023 PAST SURGICAL HISTORY OF right knee replacement PAST SURGICAL HISTORY OF Carpal Tunnel release right ([place] with Dr. Tellez) FAMILY HISTORY Problem Relation Age of Onset Hypertension Father other (Renal Failure) Father Aneurysm Sister Brain; had surgery for this Social History Tobacco Use Smoking status: Never Smokeless tobacco: Never Vaping Use Vaping Use: Never used Substance Use Topics Alcohol use: Yes Alcohol/week: 7.0 standard drinks of alcohol Types: 7 Glasses of wine per week Drug use: No ALLERGIES Allergen Reactions Morphine Unknown Sulfa (Sulfonamide * Rash Medications: Current Outpatient Medications Medication Sig Dispense Refill aspirin, enteric coated (ASPIRIN, ENTERIC COATED) 81 mg EC tablet Take 81 mg by mouth once daily. atenolol (TENORMIN) 25 mg tablet Take 1 tablet by mouth two times a day. 180 tablet 2 vit A/vit C/vit E/zinc/copper (PRESERVISION AREDS ORAL) Take 1 capsule by mouth twice daily at 6AM and 9PM. Ptfyufnukmttv-Fkdrtqyz-Nynlwl (MULTIVITAMIN 50 PLUS) tab Take 1 tablet by mouth once daily. omeprazole (PRILOSEC) 40 mg capsule Take 1 capsule by mouth once daily. (Patient not taking: Reported on 09/20/2023) 30 capsule 0 Current Facility-Administered Medications Medication Dose Route Frequency Provider Last Rate Last Admin perflutren lipid microspheres 1.3 mL in NaCl (PF) 0.9% 10 mL injection (DEFINITY) INTRAVENOUS DIRECTED PRN Mic Lambert MD sodium chloride 0.9 % (flush) 10 mL (BD POSIFLUSH) 10 mL INTRAVENOUS DIRECTED PRMic Babin MD Review of Systems Constitutional: Negative for chills, diaphoresis, fever, malaise/fatigue and weight loss. HENT: Negative for congestion, ear discharge, ear pain, hearing loss, nosebleeds, sinus pain, sore throat and tinnitus. Eyes: Negative for blurred vision, double vision, photophobia, pain, discharge and redness. Respiratory: Negative for cough, hemoptysis, sputum production, shortness of breath, wheezing and stridor. Cardiovascular: Negative for chest pain, palpitations, orthopnea, claudication, leg swelling and PND. Gastrointestinal: Negative for abdominal pain, blood in stool, constipation, diarrhea, heartburn, melena, nausea and vomiting. Genitourinary: Negative for dysuria, flank pain, frequency, hematuria and urgency. Musculoskeletal: Negative for back pain, falls, joint pain, myalgias and neck pain. Skin: Negative for itching and rash. Neurological: Negative for dizziness, tingling, tremors, sensory change, speech change, focal weakness, seizures, loss of consciousness, weakness and headaches. Endo/Heme/Allergies: Negative for environmental allergies and polydipsia. Does not bruise/bleed easily. Psychiatric/Behavioral: Negative for depression, hallucinations, memory loss, substance abuse and suicidal ideas. The patient is not nervous/anxious and does not have insomnia. Physical Examination: Vitals:BP 140/80 Pulse 60 Resp 14 Ht 5' 3 (1.60m) Wt 126 lb 12.8 oz (57.5kg) SpO2 100% BMI 22.47 kg/(m^2). BP w/Orthostatic Vitals Date and Time Orthostatic BP Orthostatic Pulse BP Pulse BP Position BP Site BP Cuff Size 09/20/23 1440 -- -- 140/80 60 Sitting Right Arm Regular Adult Peak Flow Date and Time PF Resp 09/20/23 1440 -- 14 Last 2 Encounter Wt Readings: Date: Wt: 09/20/2023 57.5 kg (126 lb 12.8 oz) 08/23/2023 55.3 kg (122 lb) Physical Exam Constitutional: General: She is not in acute distress. Appearance: She is not diaphoretic. HENT: Head: Normocephalic and atraumatic. Right Ear: External ear normal. Left Ear: External ear normal. Nose: Nose normal. Mouth/Throat: Pharynx: Oropharynx is clear. Eyes: General: Right eye: No discharge. Left eye: No discharge. Conjunctiva/sclera: Conjunctivae normal. Pupils: Pupils are equal, round, and reactive to light. Cardiovascular: Rate and Rhythm: Normal rate and regular rhythm. Heart sounds: Normal heart sounds, S1 normal and S2 normal. No murmur heard. No friction rub. No gallop. No S3 or S4 sounds. Pulmonary: Effort: Pulmonary effort is normal. No respiratory distress. Breath sounds: Normal breath sounds. No wheezing or rales. Chest: Chest wall: No tenderness. Musculoskeletal: General: Normal range of motion. Cervical back: Normal range of motion and neck supple. Skin: General: Skin is warm and dry. Neurological: Mental Status: She is alert and oriented to person, place, and time. Psychiatric: Mood and Affect: Mood normal. Thought Content: Thought content normal. Pertinent Labs: CBC: Hemoglobin (g/dL) Date Value 06/08/2023 12.9 12/18/2020 13.2 Hematocrit (%) Date Value 06/08/2023 41.4 12/18/2020 42.1 WBC (k/uL) Date Value 06/08/2023 3.95 12/18/2020 4.59 Platelet Count (k/uL) Date Value 06/08/2023 181 12/18/2020 173 BMP: Glucose (mg/dL) Date Value 06/08/2023 95 12/18/2020 94 Potassium (mmol/L) Date Value 06/08/2023 3.9 12/18/2020 4.1 Sodium (mmol/L) Date Value 06/08/2023 143 12/18/2020 144 Chloride (mmol/L) Date Value 06/08/2023 107 12/18/2020 108 CO2 (mmol/L) Date Value 06/08/2023 25 12/18/2020 27 Creatinine (mg/dL) Date Value 06/08/2023 0.90 12/18/2020 1.03 BUN (mg/dL) Date Value 06/08/2023 21 12/18/2020 21 Anion Gap (mmol/L) Date Value 06/08/2023 11 12/18/2020 9 Calcium (mg/dL) Date Value 12/18/2020 9.6 Calcium, Total (mg/dL) Date Value 06/08/2023 9.5 INR: Lipid Profile: Cholesterol, Total Date Value Ref Range Status 06/08/2023 168 <200 mg/dL Final Comment: <200 mg/dL, Desirable 200-239 mg/dL, Borderline high >239 mg/dL, High HDL Cholesterol Date Value Ref Range Status 06/08/2023 42 >39 mg/dL Final Comment: 40-59 mg/dL, Acceptable >59 mg/dL, High: Negative risk factor for coronary heart disease <40 mg/dL, Low: Positive risk factor for coronary heart disease LDL Cholesterol Date Value Ref Range Status 06/08/2023 113 (H) <100 mg/dL Final Comment: <100 mg/dL, Optimal 100-129 mg/dL, Near optimal/above optimal 130-159 mg/dL, Borderline high 160-189 mg/dL, High >189 mg/dL, Very high Secondary prevention optimal LDL Cholesterol levels are recommended to be < 70 mg/dL Triglyceride Date Value Ref Range Status 06/08/2023 65 <150 mg/dL Final Comment: <150 mg/dL, Normal 150-199 mg/dL, Borderline high 200-499 mg/dL, High >499 mg/dL, Very high Hemoglobin A1C: No results found for: HGBA1C TSH: No results found for: TSHREFL Prior Cardiac Testing Stress Coronary anigography Assessment and Plan: 72 years old female patient with palpitation ASSESSMENT/PLAN: 1. Palpitations - ICD9: 785.1, ICD10: R00.2 (primary diagnosis) Patient need 2 weeks monitor to assess the nature and type of the Arrhythmia Most likely SVT - ECHO - PERFLUTREN LIPID MICROSPHERES 1.1 MG/ML INJECTION IN NS 10 ML - SODIUM CHLORIDE 0.9 % (FLUSH) INJECTION SYRINGE 2. Right bundle branch block - ICD9: 426.4, ICD10: I45.10 Stable Echo to rule out structural heart disease - OUTSIDE VENDOR CARDIAC OUTPATIENT EXTENDED RHYTHM RECORDING (WITHOUT TELEMETRY) - ECHO - PERFLUTREN LIPID MICROSPHERES 1.1 MG/ML INJECTION IN NS 10 ML - SODIUM CHLORIDE 0.9 % (FLUSH) INJECTION SYRINGE Mic Lambert MD Follow up plannin weeks Electronically signed by Mic Lambert MD on September 20, 2023, 5:09 PM The above note was partially created using a dictation recognition software. A reasonable attempt has been made to correct any errors. EVENT MONITOR DISPOSABLE PATCH INSTRUCTIONS Patient Name: Kailyn Rivero [facility] Number: [id number] Skin prepped and cleansed with alcohol Patch secured to prepped area Monitor Activated Serial #: [id number] Patient Instructed: Prescribed order timeframe Bathing guidelines Usage of event button and diary documentation Return of monitor at the end of prescribed order Call with problems [phone] or [phone]. [phone] Patient expresses a good understanding of instructions Uzma Gutierrez RN documented in this encounter [facility] 09-20-2023 Note HNO ID: [id number] Author: Uzma Gutierrez RN Service: ? Author Type: Registered Nurse Type: Progress Notes Filed: 09/20/2023 5:17 PM Note Text: EVENT MONITOR DISPOSABLE PATCH INSTRUCTIONS Patient Name: Kailyn Rivero [facility] Number: [id number] Skin prepped and cleansed with alcohol Patch secured to prepped area Monitor Activated Serial #: [id number] Patient Instructed: Prescribed order timeframe Bathing guidelines Usage of event button and diary documentation Return of monitor at the end of prescribed order Call with problems [phone] or [phone]. [phone] Patient expresses a good understanding of instructions Uzma Gutierrez RN [facility] 09-20-2023 Note HNO ID: [id number] Author: Mic Lambert MD Service: Cardiovascular Surgery Author Type: Physician Type: Procedures Filed: 10/12/2023 3:34 PM Note Text: Patient Name: Kailyn Rivero : 1950 Ordering Provider: Mic Lambert Indication: I45.10 Unspecified right bundle-branch block Type of Monitor: Extended Monitoring-Zio Patch Enrollment Dates: 09/20/2023-10/04/2023 [facility] 08-23-2023 Note HNO ID: [id number] Author: Ronald Quijano APRN.CNP Service: ? Author Type: Nurse Practitioner Type: Progress Notes Filed: 08/23/2023 8:43 AM Note Text: SUBJECTIVE Kailyn Rivero is a 72 year old female here today for a check up on her medical problems. Chief Complaint Patient presents with: Recheck HPI Kailyn Rivero is a 72 year old female established patient of Dr. Benjamin. She is here today for a 4 week follow up. She was seen last on 07/26 in our office. We discussed her HIDA scan showing decreased gallbladder EF, suggestion of chronic cholecystitis/gallbladder dyskinesia. She did see general surgery. They recommend she try omeprazole 40 mg daily and if helpful then to not proceed with cholecystectomy. This is helping. Reviewed colonoscopy results, follow up in 5 years for that. She saw cardiology with [facility]. She had a stress test scheduled for 08/04 and it was suggestive of ischemia. Having a heart cath on 08/31. Eye doctor follow up she was told inflammation is down in the eyes. Symptoms at this point are more manageable. Her medications were reviewed today and her list is now up to date. Medications Current Outpatient Medications Medication Sig aspirin, enteric coated (ASPIRIN, ENTERIC COATED) 81 mg EC tablet Take 81 mg by mouth once daily. omeprazole (PRILOSEC) 40 mg capsule Take 1 capsule by mouth once daily. atenolol (TENORMIN) 25 mg tablet Take 1 tablet by mouth two times a day. vit A/vit C/vit E/zinc/copper (PRESERVISION AREDS ORAL) Take 1 capsule by mouth twice daily at 6AM and 9PM. Gotfhouahevhl-Mcvdugnb-Odjlsc (MULTIVITAMIN 50 PLUS) tab Take 1 tablet by mouth once daily. No current facility-administered medications for this visit. 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 Gastrointestinal: Positive for abdominal pain. Negative for constipation, diarrhea, nausea and vomiting. OBJECTIVE BP 150/82 Pulse 60 Resp 16 Wt 122 lb (55.3kg) Physical Exam Vitals and nursing note reviewed. Constitutional: General: She is awake. She is not in acute distress. Appearance: Normal appearance. She is well-developed and well-groomed. She is not ill-appearing, toxic-appearing or diaphoretic. HENT: Head: Normocephalic. Right Ear: External ear normal. Left Ear: External ear normal. Nose: Nose normal. Eyes: General: Vision grossly intact. Conjunctiva/sclera: Conjunctivae normal. Pupils: Pupils are equal, round, and reactive to light. Neck: Vascular: No JVD. Trachea: Trachea normal. Cardiovascular: Rate and Rhythm: Normal rate and regular rhythm. Pulses: Normal pulses. Heart sounds: Normal heart sounds. No murmur heard. Pulmonary: Effort: Pulmonary effort is normal. No accessory muscle usage, prolonged expiration or respiratory distress. Breath sounds: Normal breath sounds. Musculoskeletal: Cervical back: Neck supple. Skin: General: Skin is warm and dry. Capillary Refill: Capillary refill takes less than 2 seconds. Neurological: General: No focal deficit present. Mental Status: She is alert and oriented to person, place, and time. Mental status is at baseline. Psychiatric: Attention and Perception: Attention and perception normal. Mood and Affect: Mood and affect normal. Speech: Speech normal. Behavior: Behavior normal. Behavior is cooperative. Thought Content: Thought content normal. Cognition and Memory: Cognition and memory normal. Judgment: Judgment normal. ASSESSMENT/PLAN: 1. Left atrial dilatation - ICD9: 429.3, ICD10: I51.7 (primary diagnosis) Following with [facility] currently, plans for cardiac cath 08/31 due to positive findings for ischemia on recent exercise stress test. Discussed up coming procedure. Reviewed stress and echo results with her today. 2. Positive cardiac stress test - ICD9: 794.39, ICD10: R94.39 See #1 3. Vitritis - ICD9: 379.29, ICD10: H43.89 Improving and overall stable, following with ophthalmology. 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 Dyspepsia - ICD9: 536.8, ICD10: R10.13 Improving with use of the omeprazole 40 mg daily. Continue to monitor. Reviewed general surgery note. 7. Encounter for immunization - ICD9: V03.89, ICD10: Z23 - INFLUENZA VACCINE, PRSV F (more content not included)... [facility] 08-05-2023 Miscellaneous Notes Patient calling to ask if Ronald Quijano CLERK received stress test results done @ [facility] on 08/04/23? She says Dr. Ventura's office told her that she needs a cardiac catheterization based on these results. She has an appointment with Dr. Lambert, Cardiology at [facility] on 09/20/23. She is asking if she can wait for a second opinion? Liz Ryan RN documented in this encounter [facility] 08-05-2023 Note HNO ID: [id number] Author: Maximiliano Hoffmann MD Service: ? Author Type: Physician Type: Progress Notes Filed: 08/05/2023 8:47 AM Note Text: FOLLOW UP VISIT - ENDOSCOPY NAME: Kailyn Santillan [facility] NO.: [id number] DATE OF SERVICE: August 05, 2023 : 1950 REFERRING PHYSICIAN: Sai Benjamin MD Kailyn is a patient in our office by Clarice Gutierrez with complaints of gastric and lower abdominal pain and constipation. The patient is a 72 year old female referred for evaluation of abdominal pain. Patient stated she was under impression that our office was Gastroenterology. Clarified that our office is general surgery. Offered to assist patient in scheduling with Gastroenterology or proceeding with appointment today as scheduled. Patient wished to proceed with appointment. Kailyn notes symptoms started with back pain in January 2023, followed by severe lower abdominal cramping. She had initially attributed the symptoms to constipation. Does note that symptoms would improve somewhat after taking stool softeners and passing BM. Symptoms also somewhat improved by warm baths. More recently has noted very loose, watery BMs with occasional formed stool. Denies blood in stools or dark stools. Symptoms wax and wane in severity and worsen after eating, regardless of food type. Notes weight fluctuation and overall decreased energy. +Hx of NSAID use for back pain. Denies nausea or vomiting Kailyn has undergone prior endoscopy. Last colonoscopy 05/24/[address] Morelos under conscious sedation with no concerning findings. Patient had a CT scan of the abdomen done through [facility], report reviewed. Was noted to have multiple gallstones on CT. Denies having further evaluation of gallbladder. Dr. Valadez performed upper and lower endoscopy on May 04, 2023. The patient was found to have: Upper endoscopy Impression: - Z-line regular, 39 cm from the incisors. Biopsied. - Gastritis. Biopsied. - Normal examined duodenum. Biopsied. Lower endoscopy Impression: - One small polyp in the rectum, removed with a hot snare. Resected and retrieved. - The entire examined colon is normal. Biopsied. - The examination was otherwise normal on direct and retroflexion views. Pathology demonstrated FINAL DIAGNOSIS A. Duodenum, biopsy: - Small intestinal mucosa with normal villous architecture and increased intraepithelial lymphocytes; see comment. B. Stomach, antrum, biopsy: - Gastric oxyntic mucosa with no diagnostic abnormality. C. Esophagus, distal, biopsy: - Squamous mucosa with no diagnostic abnormality. D. Esophagus, mid, biopsy: - Squamous mucosa with no diagnostic abnormality. E. Colon, biopsy: - Colonic mucosa with no diagnostic abnormality. F. Rectum, polyp, biopsy: - Tubular adenoma. The patient was having no significant plaints at the time so we did not do any additional treatment. She now returns noting recurrence of her symptoms this again is more bandlike in the upper abdomen. She notes the symptoms occur very soon after eating. It is not truly in the right upper quadrant. We had known gallstones on a CT scan obtained at [facility]. She had a right upper quadrant ultrasound which demonstrated cholelithiasis. Her work-up since is included a gastric emptying study which was normal. She also had a HIDA scan with ejection fraction. This demonstrated a decreased ejection fraction but did not reproduce her symptoms. VITALS: Blood pressure 122/86, pulse 65, temperature 36.4 ?C (97.6 ?F), height 160 cm (5' 3 ), weight 55.4 kg (122 lb 3.2 oz), SpO2 98 %. On examination, the abdomen is benign. Have some tenderness in the epigastric region she has no tenderness in the right upper quadrant and negative Padilla sign Assessment IMPRESSION: Gastritis, adenomatous polyp of the colon, cholelithiasis, atypical symptoms for biliary colic PLAN: I recommend that she trial Prilosec 40 mg a day. If this causes resolution of her symptoms then I would not consider cholecystectomy. If she notes no improvement or symptoms then I asked to return to the office for discussion of cholecystectomy. She had noted some chest discomfort she is currently undergoing cardiac work-up. I have asked her to call the office in a week to let us know what the effect of Prilosec was on her symptoms. You were found to have an adenomatous colon polyp. I recommend you undergo repeat endoscopy in 5 years. If you note bleeding, change in bowel habits, or other suspicious colon related symptoms before that time, those symptoms should be evaluated as necessary. If you have any difficulties or concerns, you should contact our office immediately. Diagnoses: (R19.4) Change in bowel habits (primary encounter diagnosis) (K59.00) Constipation, unspecified constipation type (R10.9) Abdominal pain, unspecified abdominal location (K80.20) Gallstones Return to Clinic (more content not included)... [facility] 08-05-2023 History of Present illness Narrative FOLLOW UP VISIT - ENDOSCOPY NAME: Kailyn Santillan [facility] NO.: [id number] DATE OF SERVICE: August 05, 2023 : 1950 REFERRING PHYSICIAN: Sai Benjamin MD Kailyn is a patient in our office by Clarice Gutierrez with complaints of gastric and lower abdominal pain and constipation. The patient is a 72 year old female referred for evaluation of abdominal pain. Patient stated she was under impression that our office was Gastroenterology. Clarified that our office is general surgery. Offered to assist patient in scheduling with Gastroenterology or proceeding with appointment today as scheduled. Patient wished to proceed with appointment. Kailyn notes symptoms started with back pain in January 2023, followed by severe lower abdominal cramping. She had initially attributed the symptoms to constipation. Does note that symptoms would improve somewhat after taking stool softeners and passing BM. Symptoms also somewhat improved by warm baths. More recently has noted very loose, watery BMs with occasional formed stool. Denies blood in stools or dark stools. Symptoms wax and wane in severity and worsen after eating, regardless of food type. Notes weight fluctuation and overall decreased energy. +Hx of NSAID use for back pain. Denies nausea or vomiting Kailyn has undergone prior endoscopy. Last colonoscopy 05/24/[address] Morelos under conscious sedation with no concerning findings. Patient had a CT scan of the abdomen done through [facility], report reviewed. Was noted to have multiple gallstones on CT. Denies having further evaluation of gallbladder. Dr. Valadez performed upper and lower endoscopy on May 04, 2023. The patient was found to have: Upper endoscopy Impression: - Z-line regular, 39 cm from the incisors. Biopsied. - Gastritis. Biopsied. - Normal examined duodenum. Biopsied. Lower endoscopy Impression: - One small polyp in the rectum, removed with a hot snare. Resected and retrieved. - The entire examined colon is normal. Biopsied. - The examination was otherwise normal on direct and retroflexion views. Pathology demonstrated FINAL DIAGNOSIS A. Duodenum, biopsy: - Small intestinal mucosa with normal villous architecture and increased intraepithelial lymphocytes; see comment. B. Stomach, antrum, biopsy: - Gastric oxyntic mucosa with no diagnostic abnormality. C. Esophagus, distal, biopsy: - Squamous mucosa with no diagnostic abnormality. D. Esophagus, mid, biopsy: - Squamous mucosa with no diagnostic abnormality. E. Colon, biopsy: - Colonic mucosa with no diagnostic abnormality. F. Rectum, polyp, biopsy: - Tubular adenoma. The patient was having no significant plaints at the time so we did not do any additional treatment. She now returns noting recurrence of her symptoms this again is more bandlike in the upper abdomen. She notes the symptoms occur very soon after eating. It is not truly in the right upper quadrant. We had known gallstones on a CT scan obtained at [facility]. She had a right upper quadrant ultrasound which demonstrated cholelithiasis. Her work-up since is included a gastric emptying study which was normal. She also had a HIDA scan with ejection fraction. This demonstrated a decreased ejection fraction but did not reproduce her symptoms. VITALS: Blood pressure 122/86, pulse 65, temperature 36.4 C (97.6 F), height 160 cm (5' 3 ), weight 55.4 kg (122 lb 3.2 oz), SpO2 98 %. On examination, the abdomen is benign. Have some tenderness in the epigastric region she has no tenderness in the right upper quadrant and negative Padilla sign Assessment IMPRESSION: Gastritis, adenomatous polyp of the colon, cholelithiasis, atypical symptoms for biliary colic PLAN: I recommend that she trial Prilosec 40 mg a day. If this causes resolution of her symptoms then I would not consider cholecystectomy. If she notes no improvement or symptoms then I asked to return to the office for discussion of cholecystectomy. She had noted some chest discomfort she is currently undergoing cardiac work-up. I have asked her to call the office in a week to let us know what the effect of Prilosec was on her symptoms. You were found to have an adenomatous colon polyp. I recommend you undergo repeat endoscopy in 5 years. If you note bleeding, change in bowel habits, or other suspicious colon related symptoms before that time, those symptoms should be evaluated as necessary. If you have any difficulties or concerns, you should contact our office immediately. Diagnoses: (R19.4) Change in bowel habits (primary encounter diagnosis) (K59.00) Constipation, unspecified constipation type (R10.9) Abdominal pain, unspecified abdominal location (K80.20) Gallstones Return to Clinic: The patient is instructed to follow-up with me as needed. Maximiliano Hoffmann MD documented in this encounter [facility] 08-05-2023 Nurse Note REVIEW OF SYSTEMS: General: The patient denies fatigue, NOTES weight loss, denies weight gain, denies feeling hot, and NOTES feelings of cold. Eyes: The patient denies glaucoma, denies eye injury/surgery, wears glasses or contacts. Ear/Nose/Throat: The patient NOTES allergies, denies hayfever, denies ear infections, and denies bloody noses. Cardiovascular: The patient denies chest pain, NOTES heart disease, NOTES high blood pressure,denies cardiac stent, denies prior heart attack, NOTES irregular heart beat, denies high cholesterol, NOTES poor circulation, denies heart failure, other cardiac issues, denies claudication, NOTES cold feet, denies peripheral arterial stent. Respiratory: The patient denies tuberculosis, NOTES pneumonia, NOTES frequent cough, denies pulmonary embolism, NOTES shortness of breath, and denies coughing up blood. Gastrointestinal: The patient denies difficulty swallowing, denies acid reflux, denies ulcers, denies vomiting, denies jaundice/hepatitis, NOTES gallbladder problems, denies black or tarry stools, denies hemorrhoids, denies bleeding from rectum, denies diverticulitis, NOTES constipation, denies diarrhea, denies loss of stool control, and denies hernias. Kidney/Bladder: The patient NOTES kidney stones, NOTES urine infections, and denies bloody urine. Skin: The patient denies a history of skin cancer, denies bleeding/changing moles, and NOTES a history of skin rash. Neurologic: The patient denies a history of epilepsy/convulsions, denies headaches, NOTES head/spinal injuries, and denies stroke/TIA. Psychiatric: The patient denies psychiatric medications, denies depression, and denies voices, denies substance abuse. Endocrine: The patient denies thyroid disorders, denies diabetes, and denies hormonal problems. Hematologic: The patient denies a history of bruising, denies bleeding, and denies anemia, denies blood clots. Infections: The patient NOTES a history of measles and mumps, denies rheumatic fever, and denies sexually transmitted diseases. Musculoskeletal: The patient NOTES back pain/injury, NOTES back problems, denies sciatica, NOTES knee/foot trouble, NOTES arthritis, or denies gout. When was patient's last Mammogram screening? 07/2023 Last Colonoscopy: 04/2023 Diane Ledbetter LPN documented in this encounter [facility] 07-29-2023 Miscellaneous Notes Patient had small bowel series, 06/09/2023, ordered by Dr. Ramsey/GI Labs done. Patient scheduled to see Dr. Hoffmann re: gallbladder, 08/05/2023 4 week follow-up appt with Ronald Quijano CLERK, 08/23/2023 Giana Crawley LPN Was thi received? I can place referrals after review. [facility] is calling in regards to a fax they sent 06/18 recommending patient see a Waist Pleater and caul fat puller advised the refax office notes to PCP. They are going to refax them today. documented in this encounter [facility] 07-16-2023 History of Present illness Narrative RADIOLOGY SERVICE PROGRESS NOTE SERVICE DATE: 07/16/2023 SERVICE TIME: 1:00 PM PATIENT IDENTITY VERIFICATION COMPLETED USING TWO (2) STANDARD IDENTIFIERS: Name and Date of confirmed by patient verbally FALL SCREENING: Has the patient had 2 falls in the last year or 1 fall with injury or currently using an Ambulatory Assistive Device (Walker, Cane, Wheelchair, Crutches, etc.)? No PATIENT GENDER DATA: .female : No ALLERGIES: Reviewed and unchanged MEDICATIONS REVIEWED: No PATIENT RELEVANT IMPLANT DATA REVIEWED: Not Applicable CREATININE: Creatinine Date Value Ref Range Status 06/08/2023 0.90 0.58 - 0.96 mg/dL Final 04/01/2023 0.88 0.58 - 0.96 mg/dL Final 03/02/2022 0.93 0.58 - 0.96 mg/dL Final Estimated Glomerular Filtration Rate Date Value Ref Range Status 06/08/2023 67 >=60 mL/min/1.73m Final Comment: Estimated Glomerular Filtration Rate (eGFR) is calculated using the 2020 CKD-EPI creatinine equation. This equation utilizes serum creatinine, sex, and age as parameters. The creatinine assay has traceable calibration to isotope dilution-mass spectrometry. Refer to KDIGO guidelines for clinical interpretation. In patients with unstable renal function, e.g. those with acute kidney injury, the eGFR may not accurately reflect actual GFR. eGFR- Date Value Ref Range Status 12/18/2020 >60 Final P.O.C.T. RESULTS: N/A July 16, [address] PERFORMED: No IV SITE: Ambulatory: A peripheral IV was started in the Left antecubital site with a Angio cath: 24 gauge. POST EXAM PIV STATUS: Discontinued PROCEDURE TYPE: NM INJECT: Hepatobiliary with Gallbladder EF. 5.7 mCi Tc99m CHOLETEC. CCK 1.11 micrograms intravenous at 14:23. ADMINISTRATION TIME: 13:15 PATIENT DISCHARGED TO: Ambulatory patient, left DC department area. A Diagnostic radioactive procedure has taken place, with no further precautions necessary other than routine body substance precautions. More information regarding radiation safety can be found using this link: [email or web address] [email or web address] SIGNATURE: RT Carlos(Sayda) PATIENT NAME: Kailyn Rivero DATE: July 16, 2023 TIME: 1:32 PM PAGER/CONTACT #: documented in this encounter [facility] 07-12-2023 Miscellaneous Notes Copy of ECHO results faxed to [facility]. Pt called to see if echo results could be faxed to Dr. Ventura at [facility]. She has an appt there tomorrow. documented in this encounter [facility] 07-09-2023 History of Present illness Narrative RADIOLOGY SERVICE PROGRESS NOTE SERVICE DATE: 07/09/2023 SERVICE TIME: 07:20 AM PATIENT IDENTITY VERIFICATION COMPLETED USING TWO (2) STANDARD IDENTIFIERS: Name and Date of confirmed by patient verbally FALL SCREENING: Has the patient had 2 falls in the last year or 1 fall with injury or currently using an Ambulatory Assistive Device (Walker, Cane, Wheelchair, Crutches, etc.)? No PATIENT GENDER DATA: .female : No ALLERGIES: Reviewed and unchanged MEDICATIONS REVIEWED: No PATIENT RELEVANT IMPLANT DATA REVIEWED: Not Applicable CREATININE: Creatinine Date Value Ref Range Status 06/08/2023 0.90 0.58 - 0.96 mg/dL Final 04/01/2023 0.88 0.58 - 0.96 mg/dL Final 03/02/2022 0.93 0.58 - 0.96 mg/dL Final Estimated Glomerular Filtration Rate Date Value Ref Range Status 06/08/2023 67 >=60 mL/min/1.73m Final Comment: Estimated Glomerular Filtration Rate (eGFR) is calculated using the 2020 CKD-EPI creatinine equation. This equation utilizes serum creatinine, sex, and age as parameters. The creatinine assay has traceable calibration to isotope dilution-mass spectrometry. Refer to KDIGO guidelines for clinical interpretation. In patients with unstable renal function, e.g. those with acute kidney injury, the eGFR may not accurately reflect actual GFR. eGFR- Date Value Ref Range Status 12/18/2020 >60 Final P.O.C.T. RESULTS: N/A July 09, [address] PERFORMED: No IV SITE: DC only - not applicable, oral or physician administered agents given to patient POST EXAM PIV STATUS: Not applicable PROCEDURE TYPE: NM GET: 1.18 mCi Tc99m SULFUR COLLOID was administered orally via 4 ounces of egg beater, 1 1/2 pieces of toast, 3/4 ounce of jelly, and 2 ounces of water. ADMINISTRATION TIME: 07:36 PATIENT DISCHARGED TO: Ambulatory patient, left DC department area. A Diagnostic radioactive procedure has taken place, with no further precautions necessary other than routine body substance precautions. More information regarding radiation safety can be found using this link: [email or web address] [email or web address] SIGNATURE: GT Gonzalez) PATIENT NAME: Kailyn Rivero DATE: July 09, 2023 TIME: 10:13 AM PAGER/CONTACT #: documented in this encounter [facility] 06-30-2023 Miscellaneous Notes PATIENT NOTIFIED OF SAME. Please let her know the lab work we had checked all came back as normal, no findings to explain her symptoms. As far as checking for shingles internally I believe the only test that would give us an idea would be labs looking at if she has had an immune response to the herpes zoster virus. This would not be specific to tell us where the issue occurred or if it is the cause of the pain. Pt seen 06/22 by Ronald Quijano for continued abd pain that pt has had for awhile. Pt is currently undergoing further testing. She has researched online and is now wondering if she could have internal shingles. Pt wondered if Ronald could order a test to check for this? Pt states okay to leave a detailed msg on her cell phone if she does not answer. documented in this encounter [facility] 06-22-2023 Miscellaneous Notes Pt has seen CLERK 06/22/23 720 am 6:20 or 1:00 PM tomorrow. (Wednesday)? Patient seen Dr María Elena Vernon at [facility] last Wednesday and they was to be faxing office notes to you in regards to patient needing to be seen sooner than 06/25 and patient will only schedude with PCP. documented in this encounter [facility] 06-22-2023 History of Present illness Narrative SUBJECTIVE Kailyn Rivero is a 72 year old female here today for a check up on her medical problems. Chief Complaint Patient presents with: Abdominal Pain: described it as cramping that started in March 2023. Colonoscopy and EGD were normal. Eye Problem: seen by Dr. 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 Benjamin. She presents today with several concerns. Having persistent issues with abdominal pain with an unclear etiology. Onset was March 2023, about 3 months ago. Described as cramping, initially pain was to low back, then noticed pain to the lower abdomen but now is more upper abdomen. She had an EGD and colonoscopy done with general surgery that was unremarkable. Talked with radio station operator because this felt like menstrual cramping. They advised follow up PCP. She did have a RUQ ultrasound also, cholelithiasis non-obstructing. She also has known kidney stones that have been non-obstructing. No nausea, no heartburn. Appetite is normal but as soon as she eats it feels her stomach is very full. No vomiting. She notes 20 pound weight loss last 2 months. She has constipation, no diarrhea. No blood in stool. No prior hysterectomy. No prior abdominal surgeries. No urinary issues. Trying to increase fluids. No blood in urine. Before this she was able to be very active. Diagrham bothers her, muscles feel tight. Denies increased cough, no chest pain, no shortness of breath. More fatigue. Sleeping okay aside from when her pain really bothers her. No chest tightness. With her colonoscopy/EGD she was noted to have issues on her EKG. 2016 to now she has a new right bundle branch block. She did see Dr. Ramsey. Had small bowel xrays. Advised significant amount of stool seen but no other issues noted. She also developed eye issues. She saw [facility], noted posterior uveitis OU, bilateral retinal vasculitis. Vitritis OU. Branch retinal artery occulusion OS. Question Chron's. They recommend checking labs that include LUIS FELIPE, lysozyme, blood TB screen. Their note from her visit with them is scanned in to the chart. Her medications were reviewed today and her list is now up to date. Medications Current Outpatient Medications Medication Sig atenolol (TENORMIN) 25 mg tablet Take 1 tablet by mouth once daily. vit A/vit C/vit E/zinc/copper (PRESERVISION AREDS ORAL) Take 1 capsule by mouth twice daily at 6AM and 9PM. Dxikcqbfvvvbo-Inwixltj-Gznani (MULTIVITAMIN 50 PLUS) tab Take 1 tablet by mouth once daily. dicyclomine (BENTYL) 10 mg capsule Take 1 capsule by mouth before meals and at bedtime. (Patient not taking: Reported on 04/16/2023) Current Facility-Administered Medications Medication Dose Route Frequency perflutren lipid microspheres 1.3 mL in NaCl (PF) 0.9% 10 mL injection (DEFINITY) INTRAVENOUS DIRECTED PRN sodium chloride 0.9 % (flush) 10 mL (BD POSIFLUSH) 10 mL INTRAVENOUS DIRECTED PRN ALLERGIES Allergen Reactions Morphine Unknown Sulfa (Sulfonamide * Rash ACTIVE PROBLEM LIST Abdominal Pain - 05/04/2023 Change in Bowel Habits - 05/04/2023 Renal Calculi - 05/31/2017 Comment: S/P lithotripsy [facility] 2016 Hypertensive Disorder - 05/25/2017 Primary Localized Osteoarthrosis, 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 Negative for appetite change. Respiratory: Negative. Cardiovascular: Negative. Gastrointestinal: Positive for abdominal pain and constipation. Negative for abdominal distention, anal bleeding, blood in stool, diarrhea, nausea, rectal pain and vomiting. OBJECTIVE BP 140/78 Pulse 64 Resp 16 Wt 122 lb (55.3kg) Physical Exam Vitals and nursing note reviewed. Constitutional: General: She is awake. She is not in acute distress. Appearance: Normal appearance. She is well-developed and well-groomed. She is not ill-appearing, toxic-appearing or diaphoretic. HENT: Head: Normocephalic. Right Ear: External ear normal. Left Ear: External ear normal. Nose: Nose normal. Eyes: General: Vision grossly intact. Conjunctiva/sclera: Conjunctivae normal. Pupils: Pupils are equal, round, and reactive to light. Neck: Vascular: No JVD. Trachea: Trachea normal. Cardiovascular: Rate and Rhythm: Normal rate and regular rhythm. Pulses: Normal pulses. Heart sounds: Normal heart sounds. No murmur heard. Pulmonary: Effort: Pulmonary effort is normal. No accessory muscle usage, prolonged expiration or respiratory distress. Breath sounds: Normal breath sounds. Abdominal: General: Abdomen is flat. Bowel sounds are normal. There is no distension or abdominal bruit. There are no signs of injury. Palpations: Abdomen is soft. There is no shifting dullness, fluid wave, hepatomegaly, splenomegaly, mass or pulsatile mass. Tenderness: There is abdominal tenderness in the right upper quadrant and epigastric area. There is no right CVA tenderness, left CVA tenderness, guarding or rebound. Positive signs include Padilla's sign. Negative signs include Rovsing's sign and McBurney's sign. Hernia: No hernia is present. Musculoskeletal: Cervical back: Neck supple. Skin: General: Skin is warm and dry. Capillary Refill: Capillary refill takes less than 2 seconds. Neurological: General: No focal deficit present. Mental Status: She is alert and oriented to person, place, and time. Mental status is at baseline. Psychiatric: Attention and Perception: Attention and perception normal. Mood and Affect: Mood and affect normal. Speech: Speech normal. Behavior: Behavior normal. Behavior is cooperative. Thought Content: Thought content normal. Cognition and Memory: Cognition and memory normal. Judgment: Judgment normal. ASSESSMENT/PLAN: 1. Dyspepsia - ICD9: 536.8, ICD10: R10.13 (primary diagnosis) Unclear etiology for her symptoms. We can check labs recommended by the eye provider she saw. We will set up for HIDA scanning since she has some tenderness over the gallbladder area. If normal then recommend we follow up with gastric emptying while we wait for her to see GI. She declines a script for a PPI at this time. - NM HEPATOBILIARY W EF AND/OR RX - NM GASTRIC EMPTYING SOLID - LYSOZYME BLD - LUIS FELIPE/ANGIOTENSIN BLD - CONSULT TO GASTROENTEROLOGY 2. Abdominal pain, unspecified abdominal location - ICD9: 789.00, ICD10: R10.9 See #1 3. Calculus of gallbladder without cholecystitis without obstruction - ICD9: 574.20, ICD10: K80.20 - NM HEPATOBILIARY W EF AND/OR RX 4. Gall stones - ICD9: 574.20, ICD10: K80.20 - NM HEPATOBILIARY W EF AND/OR RX - CONSULT TO GASTROENTEROLOGY 5. Right bundle branch block - ICD9: 426.4, ICD10: I45.10 New right bundle branch block. Check ECHO, follow up stress if still waiting to see cardiology. We will make sure she has no cardiac issues contributing to her unusual symptoms. - ECHO - PERFLUTREN LIPID MICROSPHERES 1.1 MG/ML INJECTION IN NS 10 ML - SODIUM CHLORIDE 0.9 % (FLUSH) INJECTION SYRINGE - CONSULT TO CARDIOLOGY 6. 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 Check labs recommended by eye provider. 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 Vitritis - ICD9: 379.29, ICD10: H43.89 See #6 - LYSOZYME BLD - BLOOD TB SCREEN - LUIS FELIPE/ANGIOTENSIN BLD I spent a total of 48 minutes on the date of the service which included preparing to see the patient, [id number] patient care, completing clinical documentation, obtaining and/or reviewing separately obtained history, performing a medically appropriate examination, counseling and educating the patient/family/caregiver, ordering medications, tests, or procedures, communicating with other HCPs (not separately reported), independently interpreting results (not separately reported), communicating results to the patient/family/caregiver, and care coordination (not separately reported). Portions of this note have been entered by ancillary staff. I have reviewed and when necessary edited, so that they are an adequate record of my encounter with this patient Please note that parts of this document were created using voice recognition software and therefore may contain grammatical errors. Patient verbalizes understanding of instructions from today's visit and in agreement with treatment plan. Questions answered. Agrees to call the office if questions, concerns of issues with acute symptoms not improving or if they worsen. See diagnoses and orders for additional plan(s). Allergies and medications were reviewed, list was updated, and refills given if needed. Past medical, surgical, social, and family history reviewed and updated as appropriate. Encouraged proper diet & exercise as well as compliance with taking medications. Age-appropriate health preventative measures were discussed. Return if symptoms worsen or fail to improve. I will call with results as we get them back and go from there. GREGORY Dias documented in this encounter [facility] 05-17-2023 Miscellaneous Notes Contacted Pt and advised her to keep her appt. With GI. She currently has an appointment with Dr. Rasmey the first week of May.Palma Quinn RN Pt called in, verified name & . Pt calling in to update us on condition after reviewing results of XR abdomen on [facility]. She states she interprets the xray as not showing anything . Pt had an upper & lower endoscopy with Dr Valadez on 05/04 which showed Gastritis, adenomatous polyp of the colon with recommended repeat endoscopy in 5 years. She had her follow up appointment with Dr. Hoffmann on 05/11, and at that time he sent her for an xray of her abdomen. She was unable to have a bowel movement from 05/08-05/11. She took some miralax on 05/14 and after still unable to produce a bowel movement, took an enema on 05/15. She was able to pass a little stool on 05/15 after the enema, and then yesterday 05/16 was able to pass a significant amount more. She complains of having abdomen pain still of 5/10 in middle lower abdomen, continuous although it varies in intensity at times. She notes that since the symptoms started in January, she has lost around 15 lbs, is fatigued, and just doesn't feel well. She states her abdomen is distended and she feels . Pt also sent in a [employer] message at 7:23 but decided to call in to the office at 8:20 to update us. Pt is calling in wanting recommendation and next steps for constipation, abdominal pain, and abdominal distention. Please advise.Palma Quinn RN documented in this encounter [facility] 05-11-2023 History of Present illness Narrative Radiology Service Progress Note PATIENT NAME: Kailyn Rivero DATE OF SERVICE: May 11, 2023 TIME: 3:54 PM PATIENT IDENTITY VERIFICATION COMPLETED USING TWO (2) IDENTIFIERS: Name and Date of confirmed by patient verbally. FALL SCREENING: Has the patient had 2 falls in the last year or 1 fall with injury or currently using an Ambulatory Assistive Device (Walker, Cane, Wheelchair, Crutches, etc.)? No PATIENT GENDER DATA: Female. status: : No status: NO. PATIENT RELEVANT IMPLANT DATA REVIEWED: Not Applicable RADIOLOGY DEPARTMENT: General X-ray: Exam(s) Completed: Abdomen X-Ray: Abdomen PERIPHERAL IV DATA: Not applicable SIGNED BY: RT Jovan(R) May 11, 2023 3:54 PM documented in this encounter [facility] 05-04-2023 Nurse Note Patient arrived laying on left side. Patient does not appear to be in any pain at this time and denies pain when asked. Abdomen appears to be nondistended and soft to palpation. Patient encouraged to belch and pass gas as needed. Patient states she has had episodes of AF in the past. States that she has not been on anticoagulation but has been seen by her PCP to follow up. Dr. Valadez notified. Patient was put on the monitor with [address] Valadez ordered a 12 lead EKG. 12 lead EKG obtained and Dr. Valadez recommended follow up with PCP for findings but states that he is OK to move forward with procedure. Patient verbalized understanding and felt comfortable to continue. documented in this encounter [facility] 05-04-2023 History and physical note Images from the original note were not included. HISTORY AND PHYSICAL Kailyn Rivero 1950 REFERRING PHYSICIAN: Vy Menendez APRN.LEAK OPERATOR [employer] CHIEF COMPLAINT: Consult (Lower abdomen pain ) HPI: The patient is a 72 year old female referred for evaluation of abdominal pain. Patient stated she was under impression that our office was Gastroenterology. Clarified that our office is general surgery. Offered to assist patient in scheduling with Gastroenterology or proceeding with appointment today as scheduled. Patient wished to proceed with appointment. Kailyn notes symptoms started with back pain in January 2023, followed by severe lower abdominal cramping. She had initially attributed the symptoms to constipation. Does note that symptoms would improve somewhat after taking stool softeners and passing BM. Symptoms also somewhat improved by warm baths. More recently has noted very loose, watery BMs with occasional formed stool. Denies blood in stools or dark stools. Symptoms wax and wane in severity and worsen after eating, regardless of food type. Notes weight fluctuation and overall decreased energy. +Hx of NSAID use for back pain. Denies nausea or vomiting Kailyn has undergone prior endoscopy. Last colonoscopy 05/24/[address] Morelos under conscious sedation with no concerning findings. Patient had a CT scan of the abdomen done through [facility], report reviewed. Was noted to have multiple gallstones on CT. Denies having further evaluation of gallbladder. PAST MEDICAL HISTORY PAST MEDICAL HISTORY Diagnosis Date Atrial fibrillation (HCC) Carpal tunnel syndrome s/p right surgery 02/2011; Left done as well Essential hypertension, benign White coat syndrome now--BP stays <130/90 at home Irregular heart beat Kidney stone Tear of right biceps muscle--partial 2018 Orthopedist evaluated--[facility] (Dr. Toro) 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 05/26/2019 BP <130/90 on recheck; BP fine at home PAST SURGICAL HISTORY PAST SURGICAL HISTORY Procedure Laterality Date ARTHROSCOPY KNEE DIAGNOSTIC W/WO SYNOVIAL BX SPX 2000 Arthroscopy, knee COLONOSCOPY FLX DX W/COLLJ SPEC WHEN PFRMD 03/03/2006 Colonoscopy COLONOSCOPY FLX DX W/COLLJ SPEC WHEN PFRMD 05/24/2017 Colonoscopy PAST SURGICAL HISTORY OF right knee replacement PAST SURGICAL HISTORY OF Carpal Tunnel release right ([place] with Dr. Tellez) CURRENT MEDICATIONS Current Outpatient Medications Medication Sig ondansetron orally disintegrating (ZOFRAN ODT) 4 mg disintegrating tablet Take 1 tablet by mouth every 6 hours as needed for nausea/vomiting. docusate sodium (COLACE) 100 mg capsule Take 1 capsule by mouth twice daily as needed for constipation. dicyclomine (BENTYL) 10 mg capsule Take 1 capsule by mouth before meals and at bedtime. meloxicam (MOBIC) 15 mg tablet Take 1 tablet by mouth once daily. for pain. Take with food. atenolol (TENORMIN) 25 mg tablet Take 1 tablet by mouth once daily. vit A/vit C/vit E/zinc/copper (PRESERVISION AREDS ORAL) Take 1 capsule by mouth twice daily at 6AM and 9PM. Akcxcwdhctbtp-Kjwmmwxw-Yfezgb (MULTIVITAMIN 50 PLUS) tab Take 1 tablet by mouth once daily. No current facility-administered medications for this visit. ALLERGIES: Morphine and Sulfa (Sulfonamide Antibiotics) PERSONAL HISTORY: SOCIAL HISTORY Social History Tobacco Use Smoking status: Never Smokeless tobacco: Never Vaping Use Vaping Use: Never used Substance Use Topics Alcohol use: Yes Comment: occasionally on weekends Drug use: No FAMILY HISTORY: FAMILY HISTORY FAMILY HISTORY Problem Relation Age of Onset Hypertension Father other (Renal Failure) Father Aneurysm Sister Brain; had surgery for this REVIEW OF SYMPTOMS: The review of systems data was entered by the nurse and reviewed by va Nursing Notes: Sujey Spain LPN 04/16/2023 8:50 AM Signed REVIEW OF SYSTEMS: General: The patient denies fatigue, denies weight loss, denies weight gain, denies feeling hot, and denies feelings of cold. Eyes: The patient denies glaucoma, denies eye injury/surgery, wears glasses or contacts. Ear/Nose/Throat: The patient notes allergies, denies hayfever, denies ear infections, and denies bloody noses. Cardiovascular: The patient denies chest pain, denies heart disease, notes high blood pressure,denies cardiac stent, denies prior heart attack, notes irregular heart beat, denies high cholesterol, denies poor circulation, denies heart failure, other cardiac issues, denies claudication, denies cold feet, denies peripheral arterial stent. Respiratory: The patient denies tuberculosis, notes pneumonia, denies frequent cough, denies pulmonary embolism, denies shortness of breath, and denies coughing up blood. Gastrointestinal: The patient denies difficulty swallowing, denies acid reflux, denies ulcers, denies vomiting, denies jaundice/hepatitis, denies gallbladder problems, denies black or tarry stools, denies hemorrhoids, denies bleeding from rectum, denies diverticulitis, notes constipation, notes diarrhea, denies loss of stool control, and denies hernias. Kidney/Bladder: The patient notes kidney stones, denies urine infections, and denies bloody urine. Skin: The patient denies a history of skin cancer, denies bleeding/changing moles, and denies a history of skin rash. Neurologic: The patient denies a history of epilepsy/convulsions, denies headaches, denies head/spinal injuries, and denies stroke/TIA. Psychiatric: The patient denies psychiatric medications, denies depression, and denies voices, denies substance abuse. Endocrine: The patient denies thyroid disorders, denies diabetes, and denies hormonal problems. Hematologic: The patient denies a history of bruising, denies bleeding, and denies anemia, denies blood clots. Infections: The patient notes a history of measles and mumps, denies rheumatic fever, and denies sexually transmitted diseases. Musculoskeletal: The patient notes back pain/injury, denies back problems, denies sciatica, notes knee/foot trouble, denies arthritis, or denies gout. When was patient's last Mammogram screening? 2021 Last Colonoscopy: 2016 Sujey Spain LPN I have confirmed and edited as necessary, the PFSH and ROS obtained by others. Clarice Gutierrez PA-C PHYSICAL EXAMINATION: General: The patient is 72 year old female, well nourished, well hydrated in no acute distress. The patient is oriented to time, place, and person. VITALS: Blood pressure 92/62, pulse (!) 59, temperature 36.7 C (98 F), height 160 cm (5' 3 ), weight 56.7 kg (125 lb), SpO2 96 %. Body mass index is 22.14 kg/m . HEENT: Normal cephalic, ataumatic, pupils are equally round, sclera are anicteric, mucous membranes are moist, oropharynx is clear. Neck has no masses, asymmetry or lymphadenopathy. Respiratory: Clear to auscultation and percussion. Normal respiratory excursion and pattern. Cardiac: Examination is regular rate and rhythm. Normal S1/S2 Abdominal exam: Soft, nontender, with no palpable masses. No hepatosplenomegaly. No palpable hernias. Extremities: no clubbing, cyanosis or edema. No adenopathy. LABORATORY VALUES: As Noted RADIOLOGIC STUDIES: As Noted Assessment IMPRESSION: abdominal cramping, change in bowel habits, constipation, NSAID use. gallstones PLAN: I have reviewed my findings with the surgeon. We have offered upper and lower endoscopy with biopsies. We discussed the risks and benefits of the planned endoscopy. I have informed the patient that complications can occur including failure to complete the endoscopy and perforation. The patient had the opportunity to ask questions concerning the planned endoscopy. My staff has also explained the procedure to the patient in understandable terms and has given the patient printed material concerning the procedure. The patient freely consents to surgery. I plan to use Golytely bowel preparation I have additionally recommended RUQ ultrasound for further evaluation of the gallbladder, and recommend that patient see surgeon for follow-up visit after endoscopy, at which time they can discuss gallbladder findings as well Patient verbalized understanding of all above and agreed with the plan. Diagnoses: (K80.20) Gallstones (primary encounter diagnosis) (R10.30) Lower abdominal pain (R19.4) Change in bowel habits Consultation requested by Vy Menendez CNP for an opinion regarding abdominal complaints. My final recommendations will be communicated back to the requesting physician by way of shared Medical record or letter to requesting physician via US mail. Clarice Gutierrez PA-C 10:11 AM UPDATED HISTORY AND PHYSICAL EXAMINATION SERVICE DATE: 05/04/2023 SERVICE TIME: 10:11 AM PHYSICAL EXAM MUST BE COMPLETED ON ADMISSION The History and Physical (completed in the past 30 days) has been reviewed and the patient has been examined. The contents accurately reflect the patient's condition with the following additions or revisions since the H&P was completed. Examination indicates no changes. This H&P can be found in the attached. Patient was noted to have some irregularity in her heart rate. An EKG was ordered which showed an incomplete right bundle branch block and really was not too significantly changed from her previous EKG. I believe it was safe for us to proceed with her procedure she will have to follow back up with her primary care physician for further evaluation of this. SIGNATURE: Donal Valadez III, MD PATIENT NAME: Kailyn Rivero DATE: May 04, 2023 TIME: 10:11 AM documented in this encounter [facility] 05-04-2023 Miscellaneous Notes 05/[address] Hoffmann documented in this encounter [facility] 05-03-2023 History of Present illness Narrative Radiology Service Progress Note PATIENT NAME: Kailyn Rivero DATE OF SERVICE: May 03, 2023 TIME: 10:27 AM PATIENT IDENTITY VERIFICATION COMPLETED USING TWO (2) IDENTIFIERS: Name and Date of confirmed by patient verbally. FALL SCREENING: Has the patient had 2 falls in the last year or 1 fall with injury or currently using an Ambulatory Assistive Device (Walker, Cane, Wheelchair, Crutches, etc.)? No PATIENT GENDER DATA: Female. status: : No status: NO. PATIENT RELEVANT IMPLANT DATA REVIEWED: Not Applicable RADIOLOGY DEPARTMENT: Ultrasound PERIPHERAL IV DATA: Not applicable SIGNED BY: Carissa Roach RDMS RVT May 03, 2023 10:27 AM documented in this encounter [facility] 04-22-2023 Miscellaneous Notes Returned patient call and answered all questions. Reviewed case with Dr. Hoffmann. Patient states will leave everything scheduled as is for now Pt has questions for NAN Huang regarding seeing a GI doc vs. Gen surg. She states that there was discussion at her consult and she would like to briefly ask few more questions to be sure that she is doing the right thing. Her phone number is [phone]. Advised that I would route her request to provider and the nurse that works directly with the PA and have them return her call. Margoth Martinez MA documented in this encounter [facility] 04-22-2023 Miscellaneous Notes Patient calling and requesting recent OV note with TALA Glass 04/12/23 as well as recent testing be faxed to Dr. Ramsey's office. Faxed as requested. Genia Green RN documented in this encounter [facility] 04-16-2023 History of Present illness Narrative HISTORY AND PHYSICAL Kailyn Santillan Long 1950 REFERRING PHYSICIAN: Vy Menendez APRN.CNS CHIEF COMPLAINT: Consult (Lower abdomen pain ) HPI: The patient is a 72 year old female referred for evaluation of abdominal pain. Patient stated she was under impression that our office was Gastroenterology. Clarified that our office is general surgery. Offered to assist patient in scheduling with Gastroenterology or proceeding with appointment today as scheduled. Patient wished to proceed with appointment. Kailyn notes symptoms started with back pain in January 2023, followed by severe lower abdominal cramping. She had initially attributed the symptoms to constipation. Does note that symptoms would improve somewhat after taking stool softeners and passing BM. Symptoms also somewhat improved by warm baths. More recently has noted very loose, watery BMs with occasional formed stool. Denies blood in stools or dark stools. Symptoms wax and wane in severity and worsen after eating, regardless of food type. Notes weight fluctuation and overall decreased energy. +Hx of NSAID use for back pain. Denies nausea or vomiting Kailyn has undergone prior endoscopy. Last colonoscopy 05/24/[address] Morelos under conscious sedation with no concerning findings. Patient had a CT scan of the abdomen done through [facility], report reviewed. Was noted to have multiple gallstones on CT. Denies having further evaluation of gallbladder. PAST MEDICAL HISTORY Diagnosis Date Atrial fibrillation (HCC) Carpal tunnel syndrome s/p right surgery 02/2011; Left done as well Essential hypertension, benign White coat syndrome now--BP stays <130/90 at home Irregular heart beat Kidney stone Tear of right biceps muscle--partial 2018 Orthopedist evaluated--[facility] (Dr. Toro) 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 05/26/2019 BP <130/90 on recheck; BP fine at home PAST SURGICAL HISTORY Procedure Laterality Date ARTHROSCOPY KNEE DIAGNOSTIC W/WO SYNOVIAL BX SPX 2000 Arthroscopy, knee COLONOSCOPY FLX DX W/COLLJ SPEC WHEN PFRMD 03/03/2006 Colonoscopy COLONOSCOPY FLX DX W/COLLJ SPEC WHEN PFRMD 05/24/2017 Colonoscopy PAST SURGICAL HISTORY OF right knee replacement PAST SURGICAL HISTORY OF Carpal Tunnel release right ([place] with Dr. Tellez) Current Outpatient Medications Medication Sig ondansetron orally disintegrating (ZOFRAN ODT) 4 mg disintegrating tablet Take 1 tablet by mouth every 6 hours as needed for nausea/vomiting. docusate sodium (COLACE) 100 mg capsule Take 1 capsule by mouth twice daily as needed for constipation. dicyclomine (BENTYL) 10 mg capsule Take 1 capsule by mouth before meals and at bedtime. meloxicam (MOBIC) 15 mg tablet Take 1 tablet by mouth once daily. for pain. Take with food. atenolol (TENORMIN) 25 mg tablet Take 1 tablet by mouth once daily. vit A/vit C/vit E/zinc/copper (PRESERVISION AREDS ORAL) Take 1 capsule by mouth twice daily at 6AM and 9PM. Gazvhszseasbv-Dsoystwa-Esgvjd (MULTIVITAMIN 50 PLUS) tab Take 1 tablet by mouth once daily. No current facility-administered medications for this visit. ALLERGIES: Morphine and Sulfa (Sulfonamide Antibiotics) PERSONAL HISTORY: Social History Tobacco Use Smoking status: Never Smokeless tobacco: Never Vaping Use Vaping Use: Never used Substance Use Topics Alcohol use: Yes Comment: occasionally on weekends Drug use: No FAMILY HISTORY: FAMILY HISTORY Problem Relation Age of Onset Hypertension Father other (Renal Failure) Father Aneurysm Sister Brain; had surgery for this REVIEW OF SYMPTOMS: The review of systems data was entered by the nurse and reviewed by va Nursing Notes: Sujey Spain NERVE SPECIALIST 04/16/2023 8:50 AM Signed REVIEW OF SYSTEMS: General: The patient denies fatigue, denies weight loss, denies weight gain, denies feeling hot, and denies feelings of cold. Eyes: The patient denies glaucoma, denies eye injury/surgery, wears glasses or contacts. Ear/Nose/Throat: The patient notes allergies, denies hayfever, denies ear infections, and denies bloody noses. Cardiovascular: The patient denies chest pain, denies heart disease, notes high blood pressure,denies cardiac stent, denies prior heart attack, notes irregular heart beat, denies high cholesterol, denies poor circulation, denies heart failure, other cardiac issues, denies claudication, denies cold feet, denies peripheral arterial stent. Respiratory: The patient denies tuberculosis, notes pneumonia, denies frequent cough, denies pulmonary embolism, denies shortness of breath, and denies coughing up blood. Gastrointestinal: The patient denies difficulty swallowing, denies acid reflux, denies ulcers, denies vomiting, denies jaundice/hepatitis, denies gallbladder problems, denies black or tarry stools, denies hemorrhoids, denies bleeding from rectum, denies diverticulitis, notes constipation, notes diarrhea, denies loss of stool control, and denies hernias. Kidney/Bladder: The patient notes kidney stones, denies urine infections, and denies bloody urine. Skin: The patient denies a history of skin cancer, denies bleeding/changing moles, and denies a history of skin rash. Neurologic: The patient denies a history of epilepsy/convulsions, denies headaches, denies head/spinal injuries, and denies stroke/TIA. Psychiatric: The patient denies psychiatric medications, denies depression, and denies voices, denies substance abuse. Endocrine: The patient denies thyroid disorders, denies diabetes, and denies hormonal problems. Hematologic: The patient denies a history of bruising, denies bleeding, and denies anemia, denies blood clots. Infections: The patient notes a history of measles and mumps, denies rheumatic fever, and denies sexually transmitted diseases. Musculoskeletal: The patient notes back pain/injury, denies back problems, denies sciatica, notes knee/foot trouble, denies arthritis, or denies gout. When was patient's last Mammogram screening? 2021 Last Colonoscopy: 2016 Sujey Spain LPN I have confirmed and edited as necessary, the PFSH and ROS obtained by others. Clarice Gutierrez PA-C PHYSICAL EXAMINATION: General: The patient is 72 year old female, well nourished, well hydrated in no acute distress. The patient is oriented to time, place, and person. VITALS: Blood pressure 92/62, pulse (!) 59, temperature 36.7 C (98 F), height 160 cm (5' 3 ), weight 56.7 kg (125 lb), SpO2 96 %. Body mass index is 22.14 kg/m . HEENT: Normal cephalic, ataumatic, pupils are equally round, sclera are anicteric, mucous membranes are moist, oropharynx is clear. Neck has no masses, asymmetry or lymphadenopathy. Respiratory: Clear to auscultation and percussion. Normal respiratory excursion and pattern. Cardiac: Examination is regular rate and rhythm. Normal S1/S2 Abdominal exam: Soft, nontender, with no palpable masses. No hepatosplenomegaly. No palpable hernias. Extremities: no clubbing, cyanosis or edema. No adenopathy. LABORATORY VALUES: As Noted RADIOLOGIC STUDIES: As Noted Assessment IMPRESSION: abdominal cramping, change in bowel habits, constipation, NSAID use. gallstones PLAN: I have reviewed my findings with the surgeon. We have offered upper and lower endoscopy with biopsies. We discussed the risks and benefits of the planned endoscopy. I have informed the patient that complications can occur including failure to complete the endoscopy and perforation. The patient had the opportunity to ask questions concerning the planned endoscopy. My staff has also explained the procedure to the patient in understandable terms and has given the patient printed material concerning the procedure. The patient freely consents to surgery. I plan to use Golytely bowel preparation I have additionally recommended RUQ ultrasound for further evaluation of the gallbladder, and recommend that patient see surgeon for follow-up visit after endoscopy, at which time they can discuss gallbladder findings as well Patient verbalized understanding of all above and agreed with the plan. Diagnoses: (K80.20) Gallstones (primary encounter diagnosis) (R10.30) Lower abdominal pain (R19.4) Change in bowel habits Consultation requested by Vy Menendez CNP for an opinion regarding abdominal complaints. My final recommendations will be communicated back to the requesting physician by way of shared Medical record or letter to requesting physician via [place] mail. Clarice Gutierrez PA-C documented in this encounter [facility] 04-16-2023 Nurse Note REVIEW OF SYSTEMS: General: The patient denies fatigue, denies weight loss, denies weight gain, denies feeling hot, and denies feelings of cold. Eyes: The patient denies glaucoma, denies eye injury/surgery, wears glasses or contacts. Ear/Nose/Throat: The patient notes allergies, denies hayfever, denies ear infections, and denies bloody noses. Cardiovascular: The patient denies chest pain, denies heart disease, notes high blood pressure,denies cardiac stent, denies prior heart attack, notes irregular heart beat, denies high cholesterol, denies poor circulation, denies heart failure, other cardiac issues, denies claudication, denies cold feet, denies peripheral arterial stent. Respiratory: The patient denies tuberculosis, notes pneumonia, denies frequent cough, denies pulmonary embolism, denies shortness of breath, and denies coughing up blood. Gastrointestinal: The patient denies difficulty swallowing, denies acid reflux, denies ulcers, denies vomiting, denies jaundice/hepatitis, denies gallbladder problems, denies black or tarry stools, denies hemorrhoids, denies bleeding from rectum, denies diverticulitis, notes constipation, notes diarrhea, denies loss of stool control, and denies hernias. Kidney/Bladder: The patient notes kidney stones, denies urine infections, and denies bloody urine. Skin: The patient denies a history of skin cancer, denies bleeding/changing moles, and denies a history of skin rash. Neurologic: The patient denies a history of epilepsy/convulsions, denies headaches, denies head/spinal injuries, and denies stroke/TIA. Psychiatric: The patient denies psychiatric medications, denies depression, and denies voices, denies substance abuse. Endocrine: The patient denies thyroid disorders, denies diabetes, and denies hormonal problems. Hematologic: The patient denies a history of bruising, denies bleeding, and denies anemia, denies blood clots. Infections: The patient notes a history of measles and mumps, denies rheumatic fever, and denies sexually transmitted diseases. Musculoskeletal: The patient notes back pain/injury, denies back problems, denies sciatica, notes knee/foot trouble, denies arthritis, or denies gout. When was patient's last Mammogram screening? 2021 Last Colonoscopy: 2016 Sujey Spain LPN documented in this encounter [facility] 04-12-2023 Instructions Vy Menendez APRN.LEAK OPERATOR [employer] - 04/12/2023 8:25 AM EDT You were provided with Zofran and Bentyl in the emergency department per outside records. Take Zofran as needed for nausea. Take Bentyl as needed for crampy abdominal pain. If you are constipated, not having a daily bowel movement, follow these recommendations: HOME INSTRUCTIONS FOR MANAGEMENT OF CONSTIPATION NON-MEDICATION MEASURES: 1. Increase your intake of fluids daily. Try to include 8 - 8 ounce glasses per day. Sip on fluids throughout the day. 2. Add more fiber to your diet. The recommended daily amount of fiber is 20 to 35 grams. If you are increasing your fiber intake do so slowly to avoid bloating and discomfort. The best source of fiber comes from foods. Examples of high fiber foods include whole grain breads and cereals, fruits (berries, prunes, oranges, etc) and vegetables (lettuce, broccoli, potato with skins, etc.). There are also fiber supplements available over the counter such as Metamucil or Benefiber 3. Increase your daily activity (walking, moving from bed to chair, or exercise in bed) 4. Set aside a time preferably around the same time each day (example: right after breakfast) to move bowels. MEDICATION MEASURES: 1. Take a stool softener or Miralax or milk of magnesia over the counter. This is a daily medication, you can adjust how much you need over time depending on your stools. For example, decrease dose to half or every other day or so if stools become too loose. Go to ER if you develop severe abdominal pain, vomiting that won't stop, fever above 100.5, rigid/hard abdomen. documented in this encounter [facility] 04-12-2023 History of Present illness Narrative SUBJECTIVE: ADVANCE DIRECTIVE DISCUSSION due on 10/25/2022 MAMMOGRAM due on 07/07/2023 Hypertension Kailyn Rivero is a 72 year old female. PMH signficant for ACTIVE PROBLEM LIST Anemia, Unspecified Primary Localized Osteoarthrosis, Lower Leg S/P Knee Replacement Renal Calculi Hypertensive Disorder HPI excerpted from previous visit: Presents today for follow-up of acute midline back pain in January. Notes this has improved considerably. However now noting bilateral CVA and bilateral flank pain present for the last 3 days which has been mild to severe, waxing and waning, colicky. Similar to previous renal calculus which required lithotripsy. Review of chart shows previously seen by urologist Dr. Mc 2015. No recent visit with urologist. She reports pushing fluids with resulting increased urine output due to this. She reports pain has been severe the last 3 days at night and has been unable to sleep. Pain: Mild to severe, colicky, waxing and waning. From bilateral flank and CVA, radiating from flanks to groin Hematuria: No gross Stone / gravel passage: Urine output: Maintained, no change in urine stream Nausea: No Vomiting: No Dysuria: No Urinary urgency: No She reports also not taking blood pressure medications as she ran out of this the last few days. At her last visit she presented with flank and back pain. CT flank was completed and showed bilateral kidney stones. She was ordered tamsulosin to help pass the stone. [place] as needed for pain. CT did showed lumbar spine degenerative changes. She planned on seeing Dr. Mc urologist [facility]. On arrival today indicates she was seen at [facility] emergency department yesterday for abdominal pain. [facility] completed lab work and CT of abdomen pelvis. This showed nonobstructive gallstones, nonobstructive renal calculi. Lab work was in acceptable range. She was advised to follow-up with gastroenterology, not scheduled and consult not placed. She was provided with prescription for Zofran and Bentyl. Does not appear she has filled these prescriptions. Today reports nausea, constipation. Reports typically BMs daily, currently can be every 1 to 5 days. She notes bloating, nausea, decreased appetite and lower abdominal pain when this occurs. Flank pain: no Hematuria: no Stone or gravel passage: no Urine output: wnl Seen by urologist: yes, reports she was told that her stones were nonobstructive and not causing her pain. She was advised by urologist to see gastroenterology. Notes intermittent use of [place] for back, flank pain since last here. HTN: Without report of headache, chest pain, palpitations, dyspnea, peripheral edema, orthopnea, fatigue, and PND. Taking medication: States did not take today due to nausea. Last 14 Encounter BP Readings: Date: BP: 04/12/2023 168/90[bp average[ 04/01/2023 181/101[bp average[ 02/22/2023 122/80 02/16/2023 152/94 02/09/2023 140/88 11/04/2022 134/68 10/01/2022 160/92 04/16/2022 143/85[average bp[ 03/20/2022 168/79[bp average[ 02/04/2021 130/88 10/09/2020 136/82 07/10/2020 126/76 12/06/2019 148/72 10/06/2019 158/74 Back pain: intermittent now, less bothersome. Defers further intervention at this time. HM: Mammography 06/2022 Dr Lacey [facility] Review of Systems Constitutional: Negative. Gastrointestinal: Positive for abdominal pain. Genitourinary: Negative for difficulty urinating, dysuria, flank pain, frequency, hematuria and urgency. Musculoskeletal: Positive for back pain. Objective BP 168/90 Pulse 76 Resp 16 Wt 58.5 kg (129 lb) BMI 22.85 kg/m Physical Exam Vitals and nursing note reviewed. Constitutional: Appearance: Normal appearance. HENT: Head: Normocephalic and atraumatic. Eyes: Conjunctiva/sclera: Conjunctivae normal. Neck: Thyroid: No thyroid mass or thyromegaly. Cardiovascular: Rate and Rhythm: Normal rate and regular rhythm. Pulses: Carotid pulses are 2+ on the right side and 2+ on the left side. Radial pulses are 2+ on the right side and 2+ on the left side. Heart sounds: Normal heart sounds. Pulmonary: Effort: Pulmonary effort is normal. Breath sounds: Normal breath sounds. Abdominal: General: Bowel sounds are normal. There is no distension. Palpations: Abdomen is soft. There is no mass. Tenderness: There is no abdominal tenderness. There is no right CVA tenderness, left CVA tenderness, guarding or rebound. Musculoskeletal: Lumbar back: No swelling, edema, deformity, signs of trauma, lacerations, spasms or tenderness. Normal range of motion. Negative right straight leg raise test and negative left straight leg raise test. Right lower leg: No edema. Left lower leg: No edema. Skin: General: Skin is warm and dry. Neurological: General: No focal deficit present. Mental Status: She is alert. ALLERGIES Allergen Reactions Morphine Unknown Sulfa (Sulfonamide * Rash Medication meloxicam (MOBIC) 15 mg tablet Take 1 tablet by mouth once daily. for pain. Take with food. atenolol (TENORMIN) 25 mg tablet Take 1 tablet by mouth once daily. vit A/vit C/vit E/zinc/copper (PRESERVISION AREDS ORAL) Take 1 capsule by mouth twice daily at 6AM and 9PM. Ibmjbpdtnpwwx-Daenzdjq-Rspcxc (MULTIVITAMIN 50 PLUS) tab Take 1 tablet by mouth once daily. PAST MEDICAL HISTORY Diagnosis Date Carpal tunnel syndrome s/p right surgery 02/2011; Left done as well Essential hypertension, benign White coat syndrome now--BP stays <130/90 at home Tear of right biceps muscle--partial 2018 Orthopedist evaluated--[facility] (Dr. Toro) 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 05/26/2019 BP <130/90 on recheck; BP fine at home Social History Tobacco Use Smoking status: Never Smokeless tobacco: Never Substance Use Topics Alcohol use: Yes Comment: occasionally on weekends Drug use: No Component Latest Ref Rng & Units 11/28/2019 12/18/2020 03/02/2022 Protein, Total 6.3 - 8.0 g/dL 7.0 7.1 Albumin 3.9 - 4.9 g/dL 4.4 4.5 Calcium 8.5 - 10.2 mg/dL 9.3 9.6 9.7 Bilirubin, Total 0.2 - 1.3 mg/dL 0.6 0.8 Alkaline Phosphatase 34 - 123 U/L 62 57 AST 13 - 35 U/L 27 22 Glucose 74 - 99 mg/dL 95 94 101 (H) BUN 7 - 21 mg/dL 16 21 27 (H) Creatinine 0.58 - 0.96 mg/dL 1.03 (H) 1.03 (H) 0.93 Sodium 136 - 144 mmol/L 141 144 142 Potassium 3.7 - 5.1 mmol/L 4.4 4.1 4.4 Chloride 97 - 105 mmol/L 105 108 (H) 106 (H) CO2 22 - 30 mmol/L 25 27 28 Anion Gap 9 - 18 mmol/L 11 9 8 (L) ALT 7 - 38 U/L 24 20 eGFR- >60 >60 eGFR-All Other Races . 53 53 WBC 3.70 - 11.00 k/uL 4.59 RBC 3.90 - 5.20 m/uL 4.56 Hemoglobin 11.5 - 15.5 g/dL 13.2 Hematocrit 36.0 - 46.0 % 42.1 MCV 80.0 - 100.0 fL 92.3 MCH 26.0 - 34.0 pG 28.9 MCHC 30.5 - 36.0 g/dL 31.4 RDW-CV 11.5 - 15.0 % 14.4 Platelet Count 150 - 400 k/uL 173 MPV 9.0 - 12.7 fL 10.0 Absolute nRBC <0.01 k/uL <0.01 eGFR >=60 mL/min/1.73m 65 Cholesterol, Total <200 mg/dL 196 224 (H) Triglyceride <150 mg/dL 61 69 HDL Cholesterol >39 mg/dL 49 51 LDL Cholesterol <100 mg/dL 135 (H) 159 (H) Non HDL Cholesterol <130 mg/dL 147 (H) 173 (H) Fasting Time hrs 8 12 VLDL Cholesterol <30 mg/dL 12 14 TC:HDL Ratio <5.10 4.00 4.39 LDL:HDL Ratio <2.54 2.76 (H) 3.12 (H) Hemoglobin A1C 4.3 - 5.6 % 5.7 (H) 5.8 (H) 5.5 Estimated Average Glucose mg/dL 117 120 111 Creatinine Date Value Ref Range Status 04/01/2023 0.88 0.58 - 0.96 mg/dL Final 03/02/2022 0.93 0.58 - 0.96 mg/dL Final 12/18/2020 1.03 (H) 0.58 - 0.96 mg/dL Final 11/28/2019 1.03 (H) 0.58 - 0.96 mg/dL Final The 10-year ASCVD risk score (Michelle CAI, et al., 2019) is: 31.1% Values used to calculate the score: Age: 72 years Sex: Female Is Non- : No Diabetic: No Tobacco smoker: No Systolic Blood Pressure: 168 mmHg Is BP treated: Yes HDL Cholesterol: 51 mg/dL Total Cholesterol: 224 mg/dL 04/01/2023 CT ABDOMEN AND PELVIS WITHOUT IV CONTRAST IMPRESSION: 1. Bilateral renal calculi. There is no evidence of ureteral calculus or hydronephrosis. 2. Suspected central canal stenosis at L4-L5. There is also bilateral L3 pars defects with grade 2 anterolisthesis. These findings could be better assessed by MRI nonemergently. 3. Cholelithiasis ASSESSMENT/PLAN: 1. Renal calculi - ICD9: 592.0, ICD10: N20.0 (primary diagnosis) 2. Bilateral flank pain - ICD9: 789.09, ICD10: R10.9 3. History of lithotripsy - ICD9: V15.29, ICD10: Z98.890 She notes flank pain is resolved. Has seen urologist and advised that renal calculus were not cause of her pain. Reports referred to gastroenterology but not yet scheduled - UA DIP, URINE (POC) - URINE CULTURE - CT FLANK WO IVCON - COMP METABOLIC PANEL - CBC + DIFF 4. Acute midline low back pain without sciatica - ICD9: 724.2, ICD10: M54.50 This has improved since last seen Recommend continue with meloxicam and cyclobenzaprine as needed. Continue with HEP. If not improving further imaging and physical therapy. If not progressing refer to spine center. 5. Primary hypertension I10 Has not taken medication today due to nausea 6. Lower abdominal pain - ICD9: 789.09, ICD10: R10.30 Abdominal pain may be attributable to constipation as she has noted trouble with this lately. Endorse [id number] treatment daily with docusate, MOM, MiraLAX, follow lifestyle measures as outlined in patient instructions. Schedule appointment with gastroenterology. May take dicyclomine and Zofran which was provided at [facility] ER as needed. Follow-up in 1 to 2 weeks with me - CONSULT TO GASTROENTEROLOGY - DOCUSATE SODIUM 100 MG CAPSULE - DICYCLOMINE 10 MG CAPSULE 7. Nausea - ICD9: 787.02, ICD10: R11.0 - ONDANSETRON 4 MG DISINTEGRATING TABLET Consider RUQ US if not feeling improved at next viist. Vy Menendez APRN.CNS Medical Decision Making: Problems: Moderate: 2+ stable chronic illnesses Risk: Moderate: Drug management Medical Decision Making Level: 4 - Moderate documented in this encounter [facility] 04-01-2023 Note HNO ID: [id number] Author: RT Dinh(R) Service: Radiology Author Type: [place] Type: Progress Notes Filed: 04/01/2023 10:25 AM Note Text: Radiology Service Progress Note PATIENT NAME: Kailyn Rivero DATE OF SERVICE: April 01, 2023 TIME: 10:25 AM PATIENT IDENTITY VERIFICATION COMPLETED USING TWO (2) IDENTIFIERS: Name and Date of confirmed by patient verbally. FALL SCREENING: Has the patient had 2 falls in the last year or 1 fall with injury or currently using an Ambulatory Assistive Device (Walker, Cane, Wheelchair, Crutches, etc.)? No PATIENT GENDER DATA: Female. status: : No status: N/A PATIENT RELEVANT IMPLANT DATA REVIEWED: Not Applicable RADIOLOGY DEPARTMENT: CT; Exam(s) Completed: Abdomen/Pelvis PERIPHERAL IV DATA: Not applicable SIGNED BY: RT Dinh(R) April 01, 2023 10:25 AM [facility] 04-01-2023 History of Present illness Narrative SUBJECTIVE: ADVANCE DIRECTIVE DISCUSSION due on 10/25/2022 Hypertension Kailyn Rivero is a 72 year old female. [facility] signficant for ACTIVE PROBLEM LIST White Coat Syndrome Without Diagnosis of Hypertension Anemia, Unspecified Primary Localized Osteoarthrosis, Lower Leg S/P Knee Replacement Renal Calculi Hypertensive Disorder Presents today for follow-up of acute midline back pain in January. Notes this has improved considerably. However now noting bilateral CVA and bilateral flank pain present for the last 3 days which has been mild to severe, waxing and waning, colicky. Similar to previous renal calculus which required lithotripsy. Review of chart shows previously seen by urologist Dr. Mc 2015. No recent visit with urologist. She reports pushing fluids with resulting increased urine output due to this. She reports pain has been severe the last 3 days at night and has been unable to sleep. Pain: Mild to severe, colicky, waxing and waning. From bilateral flank and CVA, radiating from flanks to groin Hematuria: No gross Stone / gravel passage: Urine output: Maintained, no change in urine stream Nausea: No Vomiting: No Dysuria: No Urinary urgency: No She reports also not taking blood pressure medications as she ran out of this the last few days. Review of Systems Constitutional: Negative. Genitourinary: Positive for flank pain and frequency. Negative for difficulty urinating, dysuria, hematuria and urgency. Musculoskeletal: Positive for back pain. Objective BP 181/101 Pulse 66 Resp 16 Wt 60.8 kg (134 lb) BMI 23.74 kg/m Physical Exam Vitals and nursing note reviewed. Constitutional: Appearance: Normal appearance. HENT: Head: Normocephalic and atraumatic. Eyes: Conjunctiva/sclera: Conjunctivae normal. Neck: Thyroid: No thyroid mass or thyromegaly. Cardiovascular: Rate and Rhythm: Normal rate and regular rhythm. Pulses: Carotid pulses are 2+ on the right side and 2+ on the left side. Radial pulses are 2+ on the right side and 2+ on the left side. Heart sounds: Normal heart sounds. Pulmonary: Effort: Pulmonary effort is normal. Breath sounds: Normal breath sounds. Abdominal: General: Bowel sounds are normal. Palpations: Abdomen is soft. Tenderness: There is right CVA tenderness and left CVA tenderness. Musculoskeletal: Lumbar back: No swelling, edema, deformity, signs of trauma, lacerations, spasms or tenderness. Normal range of motion. Negative right straight leg raise test and negative left straight leg raise test. Right lower leg: No edema. Left lower leg: No edema. Comments: TTP bilateral CVA, bilateral flank Skin: General: Skin is warm and dry. Neurological: General: No focal deficit present. Mental Status: She is alert. ALLERGIES Allergen Reactions Morphine Unknown Sulfa (Sulfonamide * Rash Medication atenolol (TENORMIN) 25 mg tablet Take 1 tablet by mouth once daily. vit A/vit C/vit E/zinc/copper (PRESERVISION AREDS ORAL) Take 1 capsule by mouth twice daily at 6AM and 9PM. Ucslnsnoanmwv-Ijoxxzks-Nabtow (MULTIVITAMIN 50 PLUS) tab Take 1 tablet by mouth once daily. cyclobenzaprine (FLEXERIL) 10 mg tablet Take 1 tablet by mouth at bedtime as needed for muscle spasm or pain (may make drowsy). meloxicam (MOBIC) 15 mg tablet Take 1 tablet by mouth once daily. for pain. Take with food. PAST MEDICAL HISTORY Diagnosis Date Carpal tunnel syndrome s/p right surgery 02/2011; Left done as well Essential hypertension, benign White coat syndrome now--BP stays <130/90 at home Tear of right biceps muscle--partial 2018 Orthopedist evaluated--[facility] (Dr. Toro) 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 05/26/2019 BP <130/90 on recheck; BP fine at home Social History Tobacco Use Smoking status: Never Smokeless tobacco: Never Substance Use Topics Alcohol use: Yes Comment: occasionally on weekends Drug use: No Component Latest Ref Rng & Units 11/28/2019 12/18/2020 03/02/2022 Protein, Total 6.3 - 8.0 g/dL 7.0 7.1 Albumin 3.9 - 4.9 g/dL 4.4 4.5 Calcium 8.5 - 10.2 mg/dL 9.3 9.6 9.7 Bilirubin, Total 0.2 - 1.3 mg/dL 0.6 0.8 Alkaline Phosphatase 34 - 123 U/L 62 57 AST 13 - 35 U/L 27 22 Glucose 74 - 99 mg/dL 95 94 101 (H) BUN 7 - 21 mg/dL 16 21 27 (H) Creatinine 0.58 - 0.96 mg/dL 1.03 (H) 1.03 (H) 0.93 Sodium 136 - 144 mmol/L 141 144 142 Potassium 3.7 - 5.1 mmol/L 4.4 4.1 4.4 Chloride 97 - 105 mmol/L 105 108 (H) 106 (H) CO2 22 - 30 mmol/L 25 27 28 Anion Gap 9 - 18 mmol/L 11 9 8 (L) ALT 7 - 38 U/L 24 20 eGFR- >60 >60 eGFR-All Other Races . 53 53 WBC 3.70 - 11.00 k/uL 4.59 RBC 3.90 - 5.20 m/uL 4.56 Hemoglobin 11.5 - 15.5 g/dL 13.2 Hematocrit 36.0 - 46.0 % 42.1 MCV 80.0 - 100.0 fL 92.3 MCH 26.0 - 34.0 pG 28.9 MCHC 30.5 - 36.0 g/dL 31.4 RDW-CV 11.5 - 15.0 % 14.4 Platelet Count 150 - 400 k/uL 173 MPV 9.0 - 12.7 fL 10.0 Absolute nRBC <0.01 k/uL <0.01 eGFR >=60 mL/min/1.73m 65 Cholesterol, Total <200 mg/dL 196 224 (H) Triglyceride <150 mg/dL 61 69 HDL Cholesterol >39 mg/dL 49 51 LDL Cholesterol <100 mg/dL 135 (H) 159 (H) Non HDL Cholesterol <130 mg/dL 147 (H) 173 (H) Fasting Time hrs 8 12 VLDL Cholesterol <30 mg/dL 12 14 TC:HDL Ratio <5.10 4.00 4.39 LDL:HDL Ratio <2.54 2.76 (H) 3.12 (H) Hemoglobin A1C 4.3 - 5.6 % 5.7 (H) 5.8 (H) 5.5 Estimated Average Glucose mg/dL 117 120 111 Creatinine Date Value Ref Range Status 03/02/2022 0.93 0.58 - 0.96 mg/dL Final 12/18/2020 1.03 (H) 0.58 - 0.96 mg/dL Final 11/28/2019 1.03 (H) 0.58 - 0.96 mg/dL Final 05/03/2018 1.07 (H) 0.58 - 0.96 mg/dL Final The 10-year ASCVD risk score (Michelle CAI, et al., 2019) is: 35.1% Values used to calculate the score: Age: 72 years Sex: Female Is Non- : No Diabetic: No Tobacco smoker: No Systolic Blood Pressure: 181 mmHg Is BP treated: Yes HDL Cholesterol: 51 mg/dL Total Cholesterol: 224 mg/dL ASSESSMENT/PLAN: 1. Renal calculi - ICD9: 592.0, ICD10: N20.0 (primary diagnosis) 2. Bilateral flank pain - ICD9: 789.09, ICD10: R10.9 3. History of lithotripsy - ICD9: V15.29, ICD10: Z98.890 Presents today with symptoms x3 days consistent with her prior experience with with renal calculus requiring lithotripsy. Currently with colicky bilateral flank and CVA pain which has waxed and waned from mild to severe, currently severe,over the last 3 days but not resolved. - UA DIP, URINE (POC) - URINE CULTURE - CT FLANK WO IVCON - COMP METABOLIC PANEL - CBC + DIFF 4. Acute midline low back pain without sciatica - ICD9: 724.2, ICD10: M54.50 This has improved since last seen Recommend continue with meloxicam and cyclobenzaprine as needed. Continue with HEP. Complete x-ray and PT if not continuing to improve. Provided with spine rehab exercises per Ortho info. If not improving endorse x-rays and physical therapy. If not progressing refer to spine center. 5. Primary hypertension I10 Has not taken medication recently due to running out Recommend resuming and recheck blood pressure in 1 week 6 mo follow up MD Vy Shukla APRN.[employer] Medical Decision Making: Problems: Moderate: New problem with uncertain prognosis Data: Unique test(s) ordered: 3+ Risk: Moderate: Drug management Medical Decision Making Level: 4 - Moderate documented in this encounter [facility] 03-29-2023 Miscellaneous Notes Last OV: 02/09/23 - Next scheduled appt: 04/01/23 Patient has been identified by name and date of : Yes Requested Prescriptions Pending Prescriptions Disp Refills atenolol (TENORMIN) 25 mg tablet 90 tablet 3 Sig: Take 1 tablet by mouth once daily. RX INSTRUCTIONS: Patient aware RX will be sent to pharmacy. No need to notify patient. Monique Meadows LPN documented in this encounter [facility] 02-22-2023 History of Present illness Narrative Images from the original note were not included. This note was created using [employer]. Subjective Kailyn Rivero is a 72 year old female. HPI Presents with a chief complaint of a red itchy area on her left flank over the past 3 days. It is continued to get more red and larger so she came in for evaluation. She denies any blisters. Denies any new exposures. She did start meloxicam on February 09 but only takes that as needed and does not have a rash anywhere but the left flank. She denies any new soaps or detergents. She did spend the night at her family member's house prior to the rash starting and had slept in her [employer] bed. No OTC meds tried for the rash. No fever or chills. Review of Systems Constitutional: Negative. HENT: Negative. Respiratory: Negative. Cardiovascular: Negative. Gastrointestinal: Negative. Musculoskeletal: Negative. Skin: Positive for rash. All other systems reviewed and are negative. PAST MEDICAL HISTORY Diagnosis Date Carpal tunnel syndrome s/p right surgery 02/2011; Left done as well Essential hypertension, benign White coat syndrome now--BP stays <130/90 at home Tear of right biceps muscle--partial 2018 Orthopedist evaluated--[facility] (Dr. Toro) 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 05/26/2019 BP <130/90 on recheck; BP fine at home Current Outpatient Medications Medication Sig Dispense Refill meloxicam (MOBIC) 15 mg tablet Take 1 tablet by mouth once daily. for pain. Take with food. 30 tablet 0 vit A/vit C/vit E/zinc/copper (PRESERVISION AREDS ORAL) Take 1 capsule by mouth twice daily at 6AM and 9PM. atenolol (TENORMIN) 25 mg tablet Take 1 tablet by mouth once daily. 90 tablet 3 Mwlgxomflousv-Zugyuccw-Ngdriq (MULTIVITAMIN 50 PLUS) tab Take 1 tablet by mouth once daily. predniSONE (DELTASONE) 20 mg tablet Take 2 tablets by mouth once daily for 5 days. 10 tablet 0 cephALEXin (KEFLEX) 500 mg capsule Take 1 capsule by mouth three times daily for 7 days. 30 capsule 0 cetirizine (ZYRTEC) 10 mg tablet Take 1 tablet by mouth once daily for 14 days. 14 tablet 0 cyclobenzaprine (FLEXERIL) 10 mg tablet Take 1 tablet by mouth at bedtime as needed for muscle spasm or pain (may make drowsy). (Patient not taking: Reported on 02/16/2023) 30 tablet 0 No current facility-administered medications for this visit. PAST SURGICAL HISTORY Procedure Laterality Date ARTHROSCOPY KNEE DIAGNOSTIC W/WO SYNOVIAL BX SPX 2000 Arthroscopy, knee COLONOSCOPY FLX DX W/COLLJ SPEC WHEN PFRMD 03/03/2006 Colonoscopy COLONOSCOPY FLX DX W/COLLJ SPEC WHEN PFRMD 05/24/2017 Colonoscopy PAST SURGICAL HISTORY OF right knee replacement PAST SURGICAL HISTORY OF Carpal Tunnel release right ([place] with Dr. Tellez) FAMILY HISTORY Problem Relation Age of Onset Hypertension Father other (Renal Failure) Father Aneurysm Sister Brain; had surgery for this Social History Tobacco Use Smoking status: Never Smokeless tobacco: Never Substance Use Topics Alcohol use: Yes Comment: occasionally on weekends Drug use: No Objective BP 122/80 Pulse 68 Temp 36.3 C (97.4 F) Resp 16 Wt 64 kg (141 lb) BMI 24.98 kg/m Physical Exam Vitals reviewed. Constitutional: Appearance: Normal appearance. HENT: Head: Normocephalic and atraumatic. Skin: General: Skin is warm and dry. Comments: Patient has a large flat area of erythema along the left flank. There is no vesicles. No weeping or crusting. No induration. No sign of abscess. No lymphangitic streaking. Neurological: Mental Status: She is alert. Assessment and Plan ASSESSMENT/PLAN: 1. Rash - ICD9: 782.1, ICD10: R21 there is a flat erythematous rash, could be from insect bite however no area where the bite originated is identified. Area is itchy and continuing to grow in size. I will treat with prednisone, Zyrtec, also given Keflex as cellulitis cannot be ruled out. Discussed if not improving with these treatments to follow-up with PCP. Patient agreeable with plan. Ellie R Athy, PA-C documented in this encounter [facility] 02-16-2023 History of Present illness Narrative Images from the original note were not included. Subjective Eye Problem Pertinent negatives include no chills, congestion, coughing, fever, rash or sore throat. Kailyn Rivero is a 72 year old female who presents Review of Systems Constitutional: Negative for chills and fever. HENT: Negative. Negative for congestion, ear pain and sore throat. Eyes: Negative for blurred vision, double vision, photophobia, pain, discharge and redness. Respiratory: Negative for cough. Skin: Negative for itching and rash. BP 152/94 Pulse 90 Temp 36.4 C (97.5 F) Resp 16 Wt 64 kg (141 lb) SpO2 98% BMI 24.98 kg/m PAST MEDICAL HISTORY Diagnosis Date Carpal tunnel syndrome s/p right surgery 02/2011; Left done as well Essential hypertension, benign White coat syndrome now--BP stays <130/90 at home Tear of right biceps muscle--partial 2018 Orthopedist evaluated--[facility] (Dr. Toro) 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 05/26/2019 BP <130/90 on recheck; BP fine at home PAST SURGICAL HISTORY Procedure Laterality Date ARTHROSCOPY KNEE DIAGNOSTIC W/WO SYNOVIAL BX SPX 2000 Arthroscopy, knee COLONOSCOPY FLX DX W/COLLJ SPEC WHEN PFRMD 03/03/2006 Colonoscopy COLONOSCOPY FLX DX W/COLLJ SPEC WHEN PFRMD 05/24/2017 Colonoscopy PAST SURGICAL HISTORY OF right knee replacement PAST SURGICAL HISTORY OF Carpal Tunnel release right ([place] with Dr. Tellez) ALLERGIES Morphine and Sulfa (Sulfonamide Antibiotics) MEDICATIONS meloxicam (MOBIC) 15 mg tablet Take 1 tablet by mouth once daily. for pain. Take with food. vit A/vit C/vit E/zinc/copper (PRESERVISION AREDS ORAL) Take 1 capsule by mouth twice daily at 6AM and 9PM. atenolol (TENORMIN) 25 mg tablet Take 1 tablet by mouth once daily. Igkuxsgrsnxmb-Dngndjcm-Hxoszy (MULTIVITAMIN 50 PLUS) tab Take 1 tablet by mouth once daily. cyclobenzaprine (FLEXERIL) 10 mg tablet Take 1 tablet by mouth at bedtime as needed for muscle spasm or pain (may make drowsy). (Patient not taking: Reported on 02/16/2023) FAMILY HISTORY Problem Relation Age of Onset Hypertension Father other (Renal Failure) Father Aneurysm Sister Brain; had surgery for this Social History Tobacco Use Smoking status: Never Smokeless tobacco: Never Substance Use Topics Alcohol use: Yes Comment: occasionally on weekends Drug use: No Objective Physical Exam Vitals and nursing note reviewed. HENT: Right Ear: Tympanic membrane, ear canal and external ear normal. Left Ear: Tympanic membrane, ear canal and external ear normal. Mouth/Throat: Pharynx: Uvula midline. Eyes: General: Right eye: No discharge. Left eye: No discharge. Extraocular Movements: Extraocular movements intact. Conjunctiva/sclera: Right eye: Right conjunctiva is not injected. Left eye: Left conjunctiva is not injected. Pupils: Pupils are equal, round, and reactive to light. Cardiovascular: Rate and Rhythm: Normal rate. Pulmonary: Effort: Pulmonary effort is normal. Musculoskeletal: Cervical back: Neck supple. Lymphadenopathy: Cervical: No cervical adenopathy. Skin: General: Skin is warm and dry. Findings: No erythema or rash. Neurological: Mental Status: She is alert. ASSESSMENT/PLAN: 1. Chalazion left upper eyelid - ICD9: 373.2, ICD10: H00.14 -warm compresses 3 to 4 times daily. - if not improving, follow up with your eye doctor. - Follow-up with your eye doctor in 3-5 days if symptoms have not improved or sooner if symptoms worsen - Discussed red flags and need for immediate medical evaluation if any occur. - Discussed supportive care treatment with fluids, rest and analgesia. - Discussed expected course of illness Shy Cruz APRN.PRIVACY SPECIALIST documented in this encounter [facility] 02-16-2023 Instructions Shy Cruz APRN.JACK - 02/16/2023 5:19 PM EDT ASSESSMENT/PLAN: 1. Chalazion left upper eyelid - ICD9: 373.2, ICD10: H00.14 -warm compresses 3 to 4 times daily. - if not improving, follow up with your eye doctor. - Follow-up with your eye doctor in 3-5 days if symptoms have not improved or sooner if symptoms worsen - Discussed red flags and need for immediate medical evaluation if any occur. - Discussed supportive care treatment with fluids, rest and analgesia. - Discussed expected course of illness Shy Cruz APRN.CNP Chalazion Instructions A chalazion, or stye, is a blockage of the oil glands that are found on the eyelid margin and course under the skin of the eyelids. Signs of a chalazion are as follows: Swollen upper or lower lid Pain and redness Palpable, tender bump in the lid Eyes mattered shut in the morning with crusting 1. Apply a warm, moist compress (use a clean washcloth) to the eyelids for at least 5 minutes 3 to 4 times a day. 2. Gently wipe away any crusted debris on the lashes. 3. Gently massage, towards the lid margin, the area where the bump is present. The following are symptoms of the infection spreading and should not be ignored: Decreased vision Pain on eye movement Double vision Fever An eye that appears to bulge documented in this encounter [facility] 10-01-2022 Instructions Wilfrido Jarrett APRN.CNP - 10/01/2022 6:06 PM EST How to Manage Common Symptoms Associated with COVID for Adults Fever- Fever is a temperature over 100.4 F and can occur when the body is fighting an infection. To help treat a fever: Drink plenty of fluids and stay well hydrated. Eat small amounts of easy to digest food. Rest. Your body needs rest to recover, but getting up and moving around the house frequently is a good idea. You should try to continue doing your normal daily activities (bathing, toileting, grooming, cooking), though you will probably feel tired, and need to rest often. Avoid any heavy activity or exercise, as this will increase your body temperature. Dress in light clothing and stay covered in a light sheet. Keep the room temperature cool. Take a slightly warm (not cold or cool) bath, or apply damp washcloths to the forehead and wrists. Cough- Cough is a common symptom associated with COVID and can be bothersome. To help treat a cough: Stay well hydrated. Try warm water or tea with lemon and/or honey to help soothe the cough. Use a humidifier to add moisture to the air. Try a product with menthol, like a cough drop or a rub for your chest such as Vicks, which can help reduce cough. Try cough drops. Avoid smoking and other strong odors or perfumes. Try breathing exercises to keep your lungs open and clear. Take a big deep breath through your nose and hold for 5 seconds before slowly releasing. Repeat frequently, while you are awake. Congestion- Runny nose or nasal congestion can occur with COVID. Treatment can help relieve symptoms: Try OTC nasal saline spray, or nasal saline rinse to relieve mucus congestion. Nasal strips can help keep nasal passages open, to increase airflow. Elevating your head with an extra pillow in bed can help reduce congestion. Using a humidifier can increase moisture in the air, and make breathing easier. Sore Throat- Another common symptom with COVID, can be managed at home by: Stay well hydrated. Gargle with salt water - mix teaspoon salt with 1 cup of warm water and gargle. This helps to loosen mucus in the back of the throat and may reduce discomfort. Try ice chips, popsicles or lozenges to soothe the throat. Nausea/Vomiting/Diarrhea- These are common symptoms, and staying hydrated is most important. If you are nauseous or vomiting, start with small sips of water every 10-15 minutes and increase as tolerated. You can try sucking an ice cube too. If tolerating, you can try pedialyte or Gatorade, or flat sprite or ana-dontrell. Start slowly and increase as you are able to. Instead of meals, try smaller, more frequent snacks. Try eating bland foods like crackers, toast, rice, and applesauce. Avoid spicy, greasy or fried foods and dairy containing foods. Even if you aren't feeling hungry due to lack of smell or taste, it is important to try to take in some food when you are able. After drinking and eating, rest in an upright position for up to two hours as needed to help decrease nauseous feelings. Try closing your eyes, avoid moving and watching TV. Avoid strong odors that can make you feel more nauseated. When to seek emergency medical attention Look for emergency warning signs for COVID-19. If having any of these symptoms, seek emergency medical care immediately: Trouble breathing Persistent pain or pressure in the chest New confusion Inability to wake or stay awake Bluish lips or face *This list is not all possible symptoms. Please call your medical provider for any other symptoms that are severe or concerning to you. documented in this encounter [facility] 10-01-2022 History of Present illness Narrative Subjective HPI Nontoxic-appearing female presents to urgent care with chief complaint of upper respiratory tract like infection. Duration of symptoms 2 days. Associated symptoms sore throat, nasal congestion, nasal discharge and nonproductive cough. Low-grade fever noticed today. Patient denies the use of any [id number] medications or home remedies for symptom management. No known sick contacts. Patient denies any productive cough, high fever, chest pain, shortness of breath, pleuritic pain, hemoptysis, rash, abdominal pain, nausea, vomiting or change in bowel or bladder habit. Past medical history prescription medication use allergies reviewed. .Patient presents with: Sore Throat: Coughing x2 days PAST MEDICAL HISTORY Diagnosis Date Carpal tunnel syndrome s/p right surgery 02/2011; Left done as well Essential hypertension, benign White coat syndrome now--BP stays <130/90 at home Tear of right biceps muscle--partial 2018 Orthopedist evaluated--[facility] (Dr. Toro) 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 05/26/2019 BP <130/90 on recheck; BP fine at home PAST SURGICAL HISTORY Procedure Laterality Date ARTHROSCOPY KNEE DIAGNOSTIC W/WO SYNOVIAL BX SPX 2000 Arthroscopy, knee COLONOSCOPY FLX DX W/COLLJ SPEC WHEN PFRMD 03/03/2006 Colonoscopy COLONOSCOPY FLX DX W/COLLJ SPEC WHEN PFRMD 05/24/2017 Colonoscopy PAST SURGICAL HISTORY OF right knee replacement PAST SURGICAL HISTORY OF Carpal Tunnel release right ([place] with Dr. Tellez) ALLERGIES Morphine and Sulfa (Sulfonamide Antibiotics) MEDICATIONS atenolol (TENORMIN) 25 mg tablet Take 1 tablet by mouth once daily. Xqeiaufaqlxfd-Nuucniay-Oepdnx (MULTIVITAMIN 50 PLUS) tab Take 1 tablet by mouth once daily. FAMILY HISTORY Problem Relation Age of Onset Hypertension Father other (Renal Failure) Father Aneurysm Sister Brain; had surgery for this Social History Tobacco Use Smoking status: Never Smokeless tobacco: Never Substance Use Topics Alcohol use: Yes Comment: occasionally on weekends Drug use: No BP 160/92 Pulse 91 Temp 37.6 C (99.7 F) Resp 20 Wt 62.7 kg (138 lb 3.2 oz) SpO2 96% BMI 24.48 kg/m Review of Systems Constitutional: Positive for chills, fever and malaise/fatigue. HENT: Positive for congestion and sore throat. Negative for ear discharge, ear pain and sinus pain. Eyes: Negative for blurred vision, pain, discharge and redness. Respiratory: Positive for cough. Negative for hemoptysis, sputum production, shortness of breath, wheezing and stridor. Cardiovascular: Negative for chest pain. Gastrointestinal: Negative for abdominal pain, diarrhea, nausea and vomiting. Musculoskeletal: Positive for myalgias. Skin: Negative for itching and rash. Neurological: Positive for headaches. Negative for dizziness. Objective Physical Exam Constitutional: General: She is not in acute distress. Appearance: She is not diaphoretic. HENT: Head: Normocephalic. Nose: Congestion present. Mouth/Throat: Mouth: Mucous membranes are moist. Pharynx: Oropharynx is clear. Posterior oropharyngeal erythema present. No oropharyngeal exudate. Eyes: Conjunctiva/sclera: Conjunctivae normal. Pupils: Pupils are equal, round, and reactive to light. Cardiovascular: Rate and Rhythm: Normal rate and regular rhythm. Heart sounds: Normal heart sounds. Pulmonary: Effort: Pulmonary effort is normal. No tachypnea, accessory muscle usage or respiratory distress. Breath sounds: No stridor. Wheezing present. No rhonchi or rales. Abdominal: General: There is no distension. Palpations: Abdomen is soft. Tenderness: There is no abdominal tenderness. There is no guarding or rebound. Musculoskeletal: Cervical back: Normal range of motion and neck supple. No rigidity or tenderness. Lymphadenopathy: Cervical: No cervical adenopathy. Skin: General: Skin is warm and dry. Neurological: Mental Status: She is alert and oriented to person, place, and time. ASSESSMENT/PLAN: 1. Pharyngitis, unspecified etiology - ICD9: 462, ICD10: J02.9 (primary diagnosis) - STREP A MOLECULAR (POC) - COVID WITH FLUA+B, ROUTINE 2. Suspected COVID-19 virus infection - ICD9: V01.79, ICD10: Z20.822 - COVID WITH FLUA+B, ROUTINE - XR CHEST 2V FRONTAL/LAT Strep negative. COVID-19 test ordered. Results pending. Alternative diagnosis discussed. Patient was educated on supportive therapies. Patient will follow up with primary care provider as needed. Patient was instructed to immediately proceed to emergency room for any new, worsening, or symptoms lasting longer than anticipated. The patient's clinical presentation is otherwise unremarkable at this time. Based on exam and clinical finding, the patient is stable for discharge. Plan of care was discussed with patient. Patient verbalizes understanding and agrees to plan of care. This note was generated using [employer] software. It may contain errors in wording, punctuation, or spelling. Wilfrido Jarrett APRN.JACK documented in this encounter [facility] 09-09-2022 History of Present illness Narrative [facility] [address] [facility] [address] [facility] [id number] Chief Complaint Patient presents with Left Hand - Pain Kailyn Rivero returns to the office today for left hand pain. Almost 2 months ago she sustained an injury to the left ring finger. She was working with the [employer] and somehow got the finger caught. She initially thought that it would just heal and improve on its own but as of today she continues to have some pain and swelling in the finger. She does report that it has improved but she still has quite a bit of swelling in that distal portion of the finger as well as a noticeable bump at the DIP joint. She states that it just really super painful if she bumps it on something. She will occasionally have a sharp pain in that area but overall she is able to do what she wants and needs to do with the hand. She is here to have it x-rayed and for further treatment options. After the initial injury she does report using a splint to help stabilize the finger but she has not worn that for quite some time. She does take OTC pain medications if needed. The patient's past medical history, surgical history, social history, family history, medications and allergies were reviewed with the patient today and are available in the chart for further review. Allergies Allergen Reactions Sulfamethoxazole-Trimethoprim Unknown Morphine GI Intolerance Sulfa (Sulfonamide Antibiotics) Hives Current Outpatient Medications: atenolol (TENORMIN) 50 MG tablet, Take 25 mg by mouth daily., Disp: , Rfl: Past Medical History: Diagnosis Date Fractures Hypertension Past Surgical History: Procedure Laterality Date KNEE ARTHROPLASTY Right TKR KNEE SURGERY Left ACL repair NOSE SURGERY Social History Socioeconomic History Marital status: Single Tobacco Use Smoking status: Never Smokeless tobacco: Never Substance and Sexual Activity Alcohol use: Yes Alcohol/week: 0.0 standard drinks Drug use: Not Currently ROS: Review of Systems Musculoskeletal: Positive for arthralgias and joint swelling. PE: Physical Exam Musculoskeletal: General: Swelling and tenderness present. Left hand: Swelling, deformity, tenderness and bony tenderness present. Decreased range of motion. Normal capillary refill. Normal pulse. ORTHO: Left Hand Exam Tenderness Left hand tenderness location: 4th phalanx DIP joint. Range of Motion Hand MP Ring: normal PIP Ring: normal DIP Rin Muscle Strength Wrist extension: 5/5 Wrist flexion: 5/5 Hyperbaric Technician: 4/5 Other Erythema: absent Scars: absent Sensation: normal Pulse: present Imaging: Left hand: Avulsion fracture of the 4th distal phalangeal base with dorsal distraction of the fracture fragment. Assessment/Plan: After evaluation of the patient's x-ray images and examination we discussed treatment options for the finger. I did have Dr. Camarena review these images and he did give a couple different options for continued treatment. He did offer to perform a reduction as well as pending to the fourth phalanx or she is able to live with the deformity. At this point time the patient would like to continue as the finger is and declined any type of surgical intervention. If she changes her mind or has any other problems with the finger she is to contact the office and we will be happy to see her. She does verbalize understanding and is in agreement the treatment plan. documented in this encounter [facility] 04-16-2022 Instructions Vy Menendez APRN.LEAK OPERATOR [employer] - 04/16/2022 10:00 AM EDT Keep sodium intake eat 2000 mg or less per day documented in this encounter [facility] 04-16-2022 History of Present illness Narrative SUBJECTIVE: COVID-19 VACCINE(4 - Booster for Moderna series) due on 12/27/2021 MAMMOGRAM due on 06/23/2022 Hypertension Kailyn Rivero is a 71 year old female. PMH signficant for ACTIVE PROBLEM LIST White Coat Syndrome Without Diagnosis of Hypertension Anemia, Unspecified Primary Localized Osteoarthrosis, Lower Leg S/P Knee Replacement Renal Calculi Hypertensive Disorder HPI excerpted from previous visit: Sees Dr Lacey QUARRY MANAGER. Notes lower abdominal tingling sensation. No pain. No upcoming appt. No burning. Notes urgency. No increased frequency. Does not feel like she has a UTI or kidney stone, thinks gynecological issue is present. No recent BP check at home. Walks 3 miles and feels well with this. HTN: Ms. Rivero indicates that she is feeling well and denies any symptoms referable to elevated blood pressure. Specifically denies headache, chest pain, palpitations, dyspnea, peripheral edema, orthopnea, fatigue and PND. She notes eating healthy diet, avoids excess sodium in her diet. Today reports that she has been getting blood pressure readings similar at home. Without current complaints of headache chest pain palpitations shortness of breath edema orthopnea PND fatigue. Notes tries to adhere to a DASH diet. Weight stable. Notes when she has had increased doses of blood pressure medications in the past she has felt dizzy and lightheaded. Last 14 Encounter BP Readings: Date: BP: 04/16/2022 143/85[average bp[ 03/20/2022 168/79[bp average[ 02/04/2021 130/88 10/09/2020 136/82 07/10/2020 126/76 12/06/2019 148/72 10/06/2019 158/74 06/01/2019 128/84 05/26/2019 128/72 09/26/2018 132/78[checked several times and got arm relaxed to get BP lower[ 10/27/2017 130/88 10/01/2017 132/82 05/31/2017 122/72 03/03/2017 138/82 Review of Systems Constitutional: Negative. Respiratory: Negative. Cardiovascular: Negative. Objective BP 143/85 Pulse 69 Resp 16 Wt 59.9 kg (132 lb) SpO2 100% BMI 23.38 kg/m Physical Exam Vitals and nursing note reviewed. Constitutional: Appearance: Normal appearance. HENT: Head: Normocephalic and atraumatic. Eyes: Conjunctiva/sclera: Conjunctivae normal. Neck: Thyroid: No thyroid mass or thyromegaly. Cardiovascular: Rate and Rhythm: Normal rate and regular rhythm. Pulses: Carotid pulses are 2+ on the right side and 2+ on the left side. Radial pulses are 2+ on the right side and 2+ on the left side. Heart sounds: Normal heart sounds. Pulmonary: Effort: Pulmonary effort is normal. Breath sounds: Normal breath sounds. Abdominal: General: Bowel sounds are normal. Palpations: Abdomen is soft. Musculoskeletal: Right lower leg: No edema. Left lower leg: No edema. Skin: General: Skin is warm and dry. Neurological: General: No focal deficit present. Mental Status: She is alert. ALLERGIES Allergen Reactions Morphine Unknown Sulfa (Sulfonamide * Rash atenolol (TENORMIN) 25 mg tablet Take 1 tablet by mouth once daily. Hsjpsqjamxnel-Espgaibj-Ptjlgh (MULTIVITAMIN 50 PLUS) tab Take 1 tablet by mouth once daily. PAST MEDICAL HISTORY Diagnosis Date Carpal tunnel syndrome s/p right surgery 02/2011; Left done as well Essential hypertension, benign White coat syndrome now--BP stays <130/90 at home Tear of right biceps muscle--partial 2018 Orthopedist evaluated--[facility] (Dr. Toro) 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 05/26/2019 BP <130/90 on recheck; BP fine at home Social History Tobacco Use Smoking status: Never Smoker Smokeless tobacco: Never Used Substance Use Topics Alcohol use: Yes Comment: occasionally on weekends Drug use: No Component Latest Ref Rng & Units 11/28/2019 12/18/2020 03/02/2022 Protein, Total 6.3 - 8.0 g/dL 7.0 7.1 Albumin 3.9 - 4.9 g/dL 4.4 4.5 Calcium 8.5 - 10.2 mg/dL 9.3 9.6 9.7 Bilirubin, Total 0.2 - 1.3 mg/dL 0.6 0.8 Alkaline Phosphatase 34 - 123 U/L 62 57 AST 13 - 35 U/L 27 22 Glucose 74 - 99 mg/dL 95 94 101 (H) BUN 7 - 21 mg/dL 16 21 27 (H) Creatinine 0.58 - 0.96 mg/dL 1.03 (H) 1.03 (H) 0.93 Sodium 136 - 144 mmol/L 141 144 142 Potassium 3.7 - 5.1 mmol/L 4.4 4.1 4.4 Chloride 97 - 105 mmol/L 105 108 (H) 106 (H) CO2 22 - 30 mmol/L 25 27 28 Anion Gap 9 - 18 mmol/L 11 9 8 (L) ALT 7 - 38 U/L 24 20 eGFR- >60 >60 eGFR-All Other Races . 53 53 WBC 3.70 - 11.00 k/uL 4.59 RBC 3.90 - 5.20 m/uL 4.56 Hemoglobin 11.5 - 15.5 g/dL 13.2 Hematocrit 36.0 - 46.0 % 42.1 MCV 80.0 - 100.0 fL 92.3 MCH 26.0 - 34.0 pG 28.9 MCHC 30.5 - 36.0 g/dL 31.4 RDW-CV 11.5 - 15.0 % 14.4 Platelet Count 150 - 400 k/uL 173 MPV 9.0 - 12.7 fL 10.0 Absolute nRBC <0.01 k/uL <0.01 eGFR >=60 mL/min/1.73m 65 Cholesterol, Total <200 mg/dL 196 224 (H) Triglyceride <150 mg/dL 61 69 HDL Cholesterol >39 mg/dL 49 51 LDL Cholesterol <100 mg/dL 135 (H) 159 (H) Non HDL Cholesterol <130 mg/dL 147 (H) 173 (H) Fasting Time hrs 8 12 VLDL Cholesterol <30 mg/dL 12 14 TC:HDL Ratio <5.10 4.00 4.39 LDL:HDL Ratio <2.54 2.76 (H) 3.12 (H) Hemoglobin A1C 4.3 - 5.6 % 5.7 (H) 5.8 (H) 5.5 Estimated Average Glucose mg/dL 117 120 111 The 10-year ASCVD risk score (Mellissalydia NEVILLE Jr., et al., 2013) is: 21.5% Values used to calculate the score: Age: 71 years Sex: Female Is Non- : No Diabetic: No Tobacco smoker: No Systolic Blood Pressure: 143 mmHg Is BP treated: Yes HDL Cholesterol: 51 mg/dL Total Cholesterol: 224 mg/dL ASSESSMENT/PLAN: 1. Primary hypertension - ICD9: 401.9, ICD10: I10 (primary diagnosis) Improved blood pressure readings at home and in office today. Suspect there may have been some missed doses in the past. Continue with current treatment unchanged for now continue to monitor. Hesitant to make any changes at this time due to previously feeling dizzy and lightheaded with up titration of atenolol at 50 mg. Notes follows a low-sodium diet. If blood pressure remains elevated would switch her over to amlodipine as she did not tolerate the atenolol at a greater dose int he past. Recheck BUN/CR at next visit. 6 mo follow up MD Vy Shukla APRN.LEAK OPERATOR [employer] Medical Decision Making: Problems: Moderate: 1+ chronic illnesses with change Data: Unique test(s) ordered: 2 Risk: Moderate: Drug management Medical Decision Making Level: 4 - Moderate documented in this encounter [facility] 03-20-2022 History of Present illness Narrative SUBJECTIVE: BP CONTROLLED (<130/80) Never done ADVANCE DIRECTIVE DISCUSSION Never done COVID-19 VACCINE(4 - Booster for Moderna series) due on 12/27/2021 HPI Kailyn Rivero is a 71 year old female. PMH signficant for ACTIVE PROBLEM LIST White Coat Syndrome Without Diagnosis of Hypertension Anemia, Unspecified Primary Localized Osteoarthrosis, Lower Leg S/P Knee Replacement Neck Ache Renal Calculi Hypertensive Disorder Sees Dr Lacey QUARRY MANAGER. Notes lower abdominal tingling sensation. No pain. No upcoming appt. No burning. Notes urgency. No increased frequency. Does not feel like she has a UTI or kidney stone, thinks gynecological issue is present. No recent BP check at home. Walks 3 miles and feels well with this. HTN: Ms. Rivero indicates that she is feeling well and denies any symptoms referable to elevated blood pressure. Specifically denies headache, chest pain, palpitations, dyspnea, peripheral edema, orthopnea, fatigue and PND. She notes eating healthy diet, avoids excess sodium in her diet. Last 14 Encounter BP Readings: Date: BP: 03/20/2022 168/79[bp average[ 02/04/2021 130/88 10/09/2020 136/82 07/10/2020 126/76 12/06/2019 148/72 10/06/2019 158/74 06/01/2019 128/84 05/26/2019 128/72 09/26/2018 132/78[checked several times and got arm relaxed to get BP lower[ 10/27/2017 130/88 10/01/2017 132/82 05/31/2017 122/72 03/03/2017 138/82 01/16/2017 132/82 Review of Systems Constitutional: Negative. Respiratory: Negative. Cardiovascular: Negative. Objective BP 168/79 Pulse 62 Resp 16 Wt 61.2 kg (135 lb) SpO2 99% BMI 23.91 kg/m Physical Exam Vitals and nursing note reviewed. Constitutional: Appearance: Normal appearance. HENT: Head: Normocephalic and atraumatic. Eyes: Conjunctiva/sclera: Conjunctivae normal. Neck: Thyroid: No thyroid mass or thyromegaly. Cardiovascular: Rate and Rhythm: Normal rate and regular rhythm. Pulses: Carotid pulses are 2+ on the right side and 2+ on the left side. Radial pulses are 2+ on the right side and 2+ on the left side. Heart sounds: Normal heart sounds. Pulmonary: Effort: Pulmonary effort is normal. Breath sounds: Normal breath sounds. Abdominal: General: Bowel sounds are normal. Palpations: Abdomen is soft. Musculoskeletal: Right lower leg: No edema. Left lower leg: No edema. Skin: General: Skin is warm and dry. Neurological: General: No focal deficit present. Mental Status: She is alert. ALLERGIES Allergen Reactions Morphine Unknown Sulfa (Sulfonamide * Rash atenolol (TENORMIN) 25 mg tablet, Take 1 tablet by mouth once daily. Mrtqcwjshmztm-Cehxwedh-Rpxsth (MULTIVITAMIN 50 PLUS) tab, Take 1 tablet by mouth once daily. PAST MEDICAL HISTORY Diagnosis Date Carpal tunnel syndrome s/p right surgery 02/2011; Left done as well Essential hypertension, benign White coat syndrome now--BP stays <130/90 at home Tear of right biceps muscle--partial 2017 Orthopedist evaluated--[facility] (Dr. [place]) 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 05/26/2019 BP <130/90 on recheck; BP fine at home Social History Tobacco Use Smoking status: Never Smoker Smokeless tobacco: Never Used Substance Use Topics Alcohol use: Yes Comment: occasionally on weekends Drug use: No Component Latest Ref Rng & Units 11/28/2019 12/18/2020 03/02/2022 Protein, Total 6.3 - 8.0 g/dL 7.0 7.1 Albumin 3.9 - 4.9 g/dL 4.4 4.5 Calcium 8.5 - 10.2 mg/dL 9.3 9.6 9.7 Bilirubin, Total 0.2 - 1.3 mg/dL 0.6 0.8 Alkaline Phosphatase 34 - 123 U/L 62 57 AST 13 - 35 U/L 27 22 Glucose 74 - 99 mg/dL 95 94 101 (H) BUN 7 - 21 mg/dL 16 21 27 (H) Creatinine 0.58 - 0.96 mg/dL 1.03 (H) 1.03 (H) 0.93 Sodium 136 - 144 mmol/L 141 144 142 Potassium 3.7 - 5.1 mmol/L 4.4 4.1 4.4 Chloride 97 - 105 mmol/L 105 108 (H) 106 (H) CO2 22 - 30 mmol/L 25 27 28 Anion Gap 9 - 18 mmol/L 11 9 8 (L) ALT 7 - 38 U/L 24 20 eGFR- >60 >60 eGFR-All Other Races . 53 53 WBC 3.70 - 11.00 k/uL 4.59 RBC 3.90 - 5.20 m/uL 4.56 Hemoglobin 11.5 - 15.5 g/dL 13.2 Hematocrit 36.0 - 46.0 % 42.1 MCV 80.0 - 100.0 fL 92.3 MCH 26.0 - 34.0 pG 28.9 MCHC 30.5 - 36.0 g/dL 31.4 RDW-CV 11.5 - 15.0 % 14.4 Platelet Count 150 - 400 k/uL 173 MPV 9.0 - 12.7 fL 10.0 Absolute nRBC <0.01 k/uL <0.01 eGFR >=60 mL/min/1.73m 65 Cholesterol, Total <200 mg/dL 196 224 (H) Triglyceride <150 mg/dL 61 69 HDL Cholesterol >39 mg/dL 49 51 LDL Cholesterol <100 mg/dL 135 (H) 159 (H) Non HDL Cholesterol <130 mg/dL 147 (H) 173 (H) Fasting Time hrs 8 12 VLDL Cholesterol <30 mg/dL 12 14 TC:HDL Ratio <5.10 4.00 4.39 LDL:HDL Ratio <2.54 2.76 (H) 3.12 (H) Hemoglobin A1C 4.3 - 5.6 % 5.7 (H) 5.8 (H) 5.5 Estimated Average Glucose mg/dL 117 120 111 The 10-year ASCVD risk score (Wilburlydia NEVILLE Jr., et al., 2013) is: 28.5% Values used to calculate the score: Age: 71 years Sex: Female Is Non- : No Diabetic: No Tobacco smoker: No Systolic Blood Pressure: 168 mmHg Is BP treated: Yes HDL Cholesterol: 51 mg/dL Total Cholesterol: 224 mg/dL ASSESSMENT/PLAN: 1. Primary hypertension - ICD9: 401.9, ICD10: I10 (primary diagnosis) Not currently controlled. Has been taking medications consistently. No recent blood pressure checks at home. Notes follows a low-sodium diet. - ATENOLOL 25 MG TABLET 2. Status post knee replacement, unspecified laterality - ICD9: V43.65, ICD10: Z96.659 Without current complaints 3. Renal calculi - ICD9: 592.0, ICD10: N20.0 Without current complaints 4. Primary localized osteoarthrosis of lower leg, unspecified laterality - ICD9: 715.16, ICD10: M17.10 5. Anemia, unspecified type - ICD9: 285.9, ICD10: D64.9 Resolved 2020 6. Encounter for immunization - ICD9: V03.89, ICD10: Z23 - [employer] COVID-19 VACCINE, AGE 12+ YR (IRVING TOP) 7. White coat syndrome with diagnosis of hypertension - ICD9: 401.9, ICD10: I10 8. Hyperlipidemia, unspecified hyperlipidemia type - ICD9: 272.4, ICD10: E78.5 Recommend a plant based diet such as Mediterranean diet with plenty of vegetables, fruits,whole grains, fish, chicken, turkey or plant proteins and routine exercise such as walking Check lipids with next labs ~ 6 mos - LIPID PANEL BASIC She declines to increase treatment of blood pressure at this time. She will return to clinic in 1 month for recheck. If blood pressure remains elevated would either increase her dose of atenolol or add amlodipine. BUN elevated, encourage increased fluid intake. Endorse 64 fluid ounces per 24 hours. Recheck BMP 6 months She notes abnormal sensation intermittently in her lower abdomen, recommend follow-up with Dr. Lacey DRUG INSPECTOR. 6 mo follow up MD Vy Shukla APRN.[employer] Medical Decision Making: Problems: Moderate: 1+ chronic illnesses with change Data: Unique test(s) ordered: 2 Risk: Moderate: Drug management Medical Decision Making Level: 4 - Moderate documented in this encounter [facility] 12-24-2021 History of Present illness Narrative Kailyn Rivero 1950 CC: 71 y.o. is a she with right shoulder pain. Chief Complaint Patient presents with Right Shoulder - Pain . HPI: Shoulder Pain: Patient complains of right shoulder pain. She denies any injury to the right shoulder. She is very active, enjoys playing tennis but is having increased discomfort in the shoulder. She states that she just thinks its arthritis, nothing structural. She does report a previous torn bicep tendon which she saw Dr. Thompson for. She was able to rehab this by herself, at home. She reports today that her pain is the worst when she is doing any type of overhead movements, such a serving a tennis ball. She also feels a catching sensation with a sharp pain in the lower part of the shoulder joint. She denies any pain past the elbow. She denies any numbness or tingling into the hand or fingers. She doesn't feel as though she has loss any strength in the shoulder. She denies any use of otc pain medications. PMH: Allergies Allergen Reactions Sulfa (Sulfonamide Antibiotics) Hives Current Outpatient Medications: atenolol (TENORMIN) 50 MG tablet, Take 25 mg by mouth daily., Disp: , Rfl: Past Medical History: Diagnosis Date Fractures Hypertension Past Surgical History: Procedure Laterality Date KNEE ARTHROPLASTY Right TKR KNEE SURGERY Left ACL repair NOSE SURGERY Social History Socioeconomic History Marital status: Single Tobacco Use Smoking status: Never Smoker Smokeless tobacco: Never Used Substance and Sexual Activity Alcohol use: Yes Alcohol/week: 0.0 standard drinks Drug use: Not Currently The patient's past medical history, surgical history, social history, family history, medications and allergies were reviewed with the patient today and are available in the chart for further review. ROS: Review of Systems Constitutional: Negative for activity change and fatigue. HENT: Negative for congestion, hearing loss and trouble swallowing. Eyes: Negative for visual disturbance. Respiratory: Negative for chest tightness and shortness of breath. Cardiovascular: Negative for chest pain and palpitations. Gastrointestinal: Negative for abdominal pain, diarrhea, nausea and vomiting. Endocrine: Negative for polydipsia, polyphagia and polyuria. Genitourinary: Negative for decreased urine volume, difficulty urinating and hematuria. Musculoskeletal: Positive for arthralgias. Negative for joint swelling and myalgias. Skin: Negative for color change, rash and wound. Allergic/Immunologic: Negative for immunocompromised state. Neurological: Negative for dizziness, weakness, light-headedness and numbness. Hematological: Does not bruise/bleed easily. Psychiatric/Behavioral: Negative for confusion and sleep disturbance. The patient is not nervous/anxious. PE: Physical Exam Constitutional: Appearance: She is well-developed. HENT: Head: Normocephalic. Eyes: Pupils: Pupils are equal, round, and reactive to light. Cardiovascular: Rate and Rhythm: Normal rate and regular rhythm. Pulmonary: Effort: Pulmonary effort is normal. Breath sounds: Normal breath sounds. Abdominal: General: Bowel sounds are normal. Palpations: Abdomen is soft. Musculoskeletal: General: Tenderness present. Right shoulder: Tenderness and bony tenderness present. Decreased range of motion. Decreased strength. Normal pulse. Cervical back: Normal range of motion and neck supple. Skin: General: Skin is warm and dry. Neurological: Mental Status: She is alert and oriented to person, place, and time. Right Shoulder Exam Tenderness The patient is experiencing tenderness in the biceps tendon, acromioclavicular joint and acromion. Range of Motion Active abduction: 170 ([place] sharp pain and catch at 110 degrees) External rotation: 60 Forward flexion: 170 Internal rotation 90 degrees: 60 Muscle Strength Supraspinatus: 3/5 Subscapularis: 3/5 Biceps: 5/5 Tests Apprehension: negative Cross arm: positive Other Erythema: absent Scars: absent Sensation: normal Pulse: present Comments: +Empty can +Full Can +OBriens +Speeds Imaging: R Shoulder: No acute fracture or dislocation. Radiology read these images as mild changes in the AC and glenohumeral joint spaces and I disagree with that reading. There is mild to moderate degenerative changes in the AC joint spaces. There is moderate arthritis in the glenohumeral joint space, at least. There is flattening of the humeral head with osteophyte formation. Assessment/Plan: After examination and reviewing of the patient x-ray images, we discussed treatment options. We discussed cortisone injections to the right shoulder but she states that she is able to deal with this right now and will take otc pain medications if needed. If she has worsening symptoms, she will return to the office. She verbalizes understanding and is in agreement with the treatment plan. Diagnosis: Problem List Items Addressed This Visit None Follow Up: No follow-ups on file. Zaina Aviles CNP documented in this encounter [facility] 07-10-2014 History of Past i llness Narrative Problem Noted Date Resolved Date Neck ache 07/10/2014 04/16/2022 Last Assessment & Plan: Last week she was here for neck pain, she took the antiinflammatory , she could play tennis without the same problems she had the week before. She is also having some massage therapy, she thinks even that is helping her. She has a few more meds for the next few days and thinks that she will be fine after that. documented as of this encounter (statuses as of 04/16/2022) [facility] History of Past illness Narrative* Problem Noted Date Resolved Date Neck ache 07/10/2014 04/16/2022 Last Assessment & Plan: Last week she was here for neck pain, she took the antiinflammatory , she could play tennis without the same problems she had the week before. She is also having some massage therapy, she thinks even that is helping her. She has a few more meds for the next few days and thinks that she will be fine after that. documented as of this encounter (statuses as of 10/01/2022) [facility] History of Past illness Narrative* Problem Noted Date Resolved Date Neck ache 07/10/2014 04/16/2022 Last Assessment & Plan: Last week she was here for neck pain, she took the antiinflammatory , she could play tennis without the same problems she had the week before. She is also having some massage therapy, she thinks even that is helping her. She has a few more meds for the next few days and thinks that she will be fine after that. documented as of this encounter (statuses as of 02/17/2023) [facility] History of Past illness Narrative* Problem Noted Date Resolved Date Neck ache 07/10/2014 04/16/2022 Last Assessment & Plan: Last week she was here for neck pain, she took the antiinflammatory , she could play tennis without the same problems she had the week before. She is also having some massage therapy, she thinks even that is helping her. She has a few more meds for the next few days and thinks that she will be fine after that. documented as of this encounter (statuses as of 02/23/2023) [facility] History of Past illness Narrative* Problem Noted Date Resolved Date Neck ache 07/10/2014 04/16/2022 Last Assessment & Plan: Last week she was here for neck pain, she took the antiinflammatory , she could play tennis without the same problems she had the week before. She is also having some massage therapy, she thinks even that is helping her. She has a few more meds for the next few days and thinks that she will be fine after that. documented as of this encounter (statuses as of 03/30/2023) [facility] History of Past illness Narrative* Problem Noted Date Resolved Date Neck ache 07/10/2014 04/16/2022 Last Assessment & Plan: Last week she was here for neck pain, she took the antiinflammatory , she could play tennis without the same problems she had the week before. She is also having some massage therapy, she thinks even that is helping her. She has a few more meds for the next few days and thinks that she will be fine after that. White coat syndrome without diagnosis of hyperte nsion 02/01/2006 04/01/2023 documented as of this encounter (statuses as of 04/01/2023) [facility] History of Past illness Narrative* Problem Noted Date Resolved Date Neck ache 07/10/2014 04/16/2022 Last Assessment & Plan: Last week she was here for neck pain, she took the antiinflammatory , she could play tennis without the same problems she had the week before. She is also having some massage therapy, she thinks even that is helping her. She has a few more meds for the next few days and thinks that she will be fine after that. White coat syndrome without diagnosis of hyperte nsion 02/01/2006 04/01/2023 documented as of this encounter (statuses as of 04/12/2023) [facility] History of Past illness Narrative* Problem Noted Date Resolved Date Neck ache 07/10/2014 04/16/2022 Last Assessment & Plan: Last week she was here for neck pain, she took the antiinflammatory , she could play tennis without the same problems she had the week before. She is also having some massage therapy, she thinks even that is helping her. She has a few more meds for the next few days and thinks that she will be fine after that. White coat syndrome without diagnosis of hyperte nsion 02/01/2006 04/01/2023 documented as of this encounter (statuses as of 04/22/2023) [facility] History of Past illness Narrative* Problem Noted Date Resolved Date Neck ache 07/10/2014 04/16/2022 Last Assessment & Plan: Last week she was here for neck pain, she took the antiinflammatory , she could play tennis without the same problems she had the week before. She is also having some massage therapy, she thinks even that is helping her. She has a few more meds for the next few days and thinks that she will be fine after that. White coat syndrome without diagnosis of hyperte nsion 02/01/2006 04/01/2023 documented as of this encounter (statuses as of 04/27/2023) [facility] History of Past illness Narrative* Problem Noted Date Diagnosed Date Resolved Date Neck ache 07/10/2014 04/16/2022 Last Assessment & Plan: Last week she was here for neck pain, she took the antiinflammatory , she could play tennis without the same problems she had the week before. She is also having some massage therapy, she thinks even that is helping her. She has a few more meds for the next few days and thinks that she will be fine after that. 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 02/01/2006 04/01/2023 documented as of this encounter (statuses as of 05/17/2023) [facility] History of Past illness Narrative* Problem Noted Date Diagnosed Date Resolved Date Neck ache 07/10/2014 04/16/2022 Last Assessment & Plan: Last week she was here for neck pain, she took the antiinflammatory , she could play tennis without the same problems she had the week before. She is also having some massage therapy, she thinks even that is helping her. She has a few more meds for the next few days and thinks that she will be fine after that. 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 02/01/2006 04/01/2023 documented as of this encounter (statuses as of 06/22/2023) [facility] History of Past illness Narrative* Problem Noted Date Diagnosed Date Resolved Date Neck ache 07/10/2014 04/16/2022 Last Assessment & Plan: Last week she was here for neck pain, she took the antiinflammatory , she could play tennis without the same problems she had the week before. She is also having some massage therapy, she thinks even that is helping her. She has a few more meds for the next few days and thinks that she will be fine after that. 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 02/01/2006 04/01/2023 documented as of this encounter (statuses as of 06/22/2023) [facility] History of Past illness Narrative* Problem Noted Date Diagnosed Date Resolved Date Neck ache 07/10/2014 04/16/2022 Last Assessment & Plan: Last week she was here for neck pain, she took the antiinflammatory , she could play tennis without the same problems she had the week before. She is also having some massage therapy, she thinks even that is helping her. She has a few more meds for the next few days and thinks that she will be fine after that. 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 02/01/2006 04/01/2023 documented as of this encounter (statuses as of 06/22/2023) [facility] History of Past illness Narrative* Problem Noted Date Diagnosed Date Resolved Date Neck ache 07/10/2014 04/16/2022 Last Assessment & Plan: Last week she was here for neck pain, she took the antiinflammatory , she could play tennis without the same problems she had the week before. She is also having some massage therapy, she thinks even that is helping her. She has a few more meds for the next few days and thinks that she will be fine after that. 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 02/01/2006 04/01/2023 documented as of this encounter (statuses as of 07/01/2023) [facility] History of Past illness Narrative* Problem Noted Date Diagnosed Date Resolved Date Neck ache 07/10/2014 04/16/2022 Last Assessment & Plan: Last week she was here for neck pain, she took the antiinflammatory , she could play tennis without the same problems she had the week before. She is also having some massage therapy, she thinks even that is helping her. She has a few more meds for the next few days and thinks that she will be fine after that. 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 02/01/2006 04/01/2023 documented as of this encounter (statuses as of 07/12/2023) [facility] History of Past illness Narrative* Problem Noted Date Diagnosed Date Resolved Date Neck ache 07/10/2014 04/16/2022 Last Assessment & Plan: Last week she was here for neck pain, she took the antiinflammatory , she could play tennis without the same problems she had the week before. She is also having some massage therapy, she thinks even that is helping her. She has a few more meds for the next few days and thinks that she will be fine after that. 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 02/01/2006 04/01/2023 documented as of this encounter (statuses as of 07/31/2023) [facility] History of Past illness Narrative* Problem Noted Date Diagnosed Date Resolved Date Neck ache 07/10/2014 04/16/2022 Last Assessment & Plan: Last week she was here for neck pain, she took the antiinflammatory , she could play tennis without the same problems she had the week before. She is also having some massage therapy, she thinks even that is helping her. She has a few more meds for the next few days and thinks that she will be fine after that. 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 02/01/2006 04/01/2023 documented as of this encounter (statuses as of 08/05/2023) [facility] History of Past illness Narrative* Problem Noted Date Diagnosed Date Resolved Date Neck ache 07/10/2014 04/16/2022 Last Assessment & Plan: Last week she was here for neck pain, she took the antiinflammatory , she could play tennis without the same problems she had the week before. She is also having some massage therapy, she thinks even that is helping her. She has a few more meds for the next few days and thinks that she will be fine after that. 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 02/01/2006 04/01/2023 documented as of this encounter (statuses as of 08/09/2023) [facility] History of Past illness Narrative* Problem Noted Date Diagnosed Date Resolved Date Neck ache 07/10/2014 04/16/2022 Last Assessment & Plan: Last week she was here for neck pain, she took the antiinflammatory , she could play tennis without the same problems she had the week before. She is also having some massage therapy, she thinks even that is helping her. She has a few more meds for the next few days and thinks that she will be fine after that. 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 02/01/2006 04/01/2023 documented as of this encounter (statuses as of 08/28/2023) [facility] History of Past illness Narrative* Problem Noted Date Diagnosed Date Resolved Date Neck ache 07/10/2014 04/16/2022 Last Assessment & Plan: Last week she was here for neck pain, she took the antiinflammatory , she could play tennis without the same problems she had the week before. She is also having some massage therapy, she thinks even that is helping her. She has a few more meds for the next few days and thinks that she will be fine after that. 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 02/01/2006 04/01/2023 documented as of this encounter (statuses as of 08/28/2023) [facility] History of Past illness Narrative* Problem Noted Date Diagnosed Date Resolved Date Neck ache 07/10/2014 04/16/2022 Last Assessment & Plan: Last week she was here for neck pain, she took the antiinflammatory , she could play tennis without the same problems she had the week before. She is also having some massage therapy, she thinks even that is helping her. She has a few more meds for the next few days and thinks that she will be fine after that. 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 02/01/2006 04/01/2023 documented as of this encounter (statuses as of 08/28/2023) [facility] History of Past illness Narrative* Problem Noted Date Diagnosed Date Resolved Date Neck ache 07/10/2014 04/16/2022 Last Assessment & Plan: Last week she was here for neck pain, she took the antiinflammatory , she could play tennis without the same problems she had the week before. She is also having some massage therapy, she thinks even that is helping her. She has a few more meds for the next few days and thinks that she will be fine after that. 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 02/01/2006 04/01/2023 documented as of this encounter (statuses as of 08/28/2023) [facility] History of Past illness Narrative* Problem Noted Date Diagnosed Date Resolved Date Neck ache 07/10/2014 04/16/2022 Last Assessment & Plan: Last week she was here for neck pain, she took the antiinflammatory , she could play tennis without the same problems she had the week before. She is also having some massage therapy, she thinks even that is helping her. She has a few more meds for the next few days and thinks that she will be fine after that. 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 02/01/2006 04/01/2023 documented as of this encounter (statuses as of 08/28/2023) [facility] History of Past illness Narrative* Problem Noted Date Diagnosed Date Resolved Date Neck ache 07/10/2014 04/16/2022 Last Assessment & Plan: Last week she was here for neck pain, she took the antiinflammatory , she could play tennis without the same problems she had the week before. She is also having some massage therapy, she thinks even that is helping her. She has a few more meds for the next few days and thinks that she will be fine after that. 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 02/01/2006 04/01/2023 documented as of this encounter (statuses as of 09/21/2023) [facility] History of Past illness Narrative* Problem Noted Date Diagnosed Date Resolved Date Neck ache 07/10/2014 04/16/2022 Last Assessment & Plan: Last week she was here for neck pain, she took the antiinflammatory , she could play tennis without the same problems she had the week before. She is also having some massage therapy, she thinks even that is helping her. She has a few more meds for the next few days and thinks that she will be fine after that. 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 02/01/2006 04/01/2023 documented as of this encounter (statuses as of 10/02/2023) [facility] History of Past illness Narrative* Problem Noted Date Diagnosed Date Resolved Date Neck ache 07/10/2014 04/16/2022 Last Assessment & Plan: Last week she was here for neck pain, she took the antiinflammatory , she could play tennis without the same problems she had the week before. She is also having some massage therapy, she thinks even that is helping her. She has a few more meds for the next few days and thinks that she will be fine after that. 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 02/01/2006 04/01/2023 documented as of this encounter (statuses as of 10/13/2023) [facility] History of Past illness Narrative* Problem Noted Date Diagnosed Date Resolved Date Neck ache 07/10/2014 04/16/2022 Last Assessment & Plan: Last week she was here for neck pain, she took the antiinflammatory , she could play tennis without the same problems she had the week before. She is also having some massage therapy, she thinks even that is helping her. She has a few more meds for the next few days and thinks that she will be fine after that. 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 She is also having some massage therapy, she thinks even that is helping her. She has a few more meds for the next few days and thinks that she will be fine after that. 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 She is also having some massage therapy, she thinks even that is helping her. She has a few more meds for the next few days and thinks that she will be fine after that. 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 She is also having some massage therapy, she thinks even that is helping her. She has a few more meds for the next few days and thinks that she will be fine after that. 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 She is also having some massage therapy, she thinks even that is helping her. She has a few more meds for the next few days and thinks that she will be fine after that. 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 She is also having some massage therapy, she thinks even that is helping her. She has a few more meds for the next few days and thinks that she will be fine after that. 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 She is also having some massage therapy, she thinks even that is helping her. She has a few more meds for the next few days and thinks that she will be fine after that. 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 She is also having some massage therapy, she thinks even that is helping her. She has a few more meds for the next few days and thinks that she will be fine after that. 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 02/01/2006 04/01/2023 documented as of this encounter (statuses as of 01/30/2024) [facility] note* Diagnosis Primary osteoarthritis of right shoulder- Primary documented in this encounter [facility] note* Diagnosis Hypertensive disorder Unspecified essential hypertension Medication management Encounter for long-term (current) use of other medications documented in this encounter [facility] note* Diagnosis Primary hypertension- Primary Unspecified essential hypertension Status post knee replacement, unspecified laterality Renal calculi Calculus of kidney Primary localized osteoarthrosis of lower leg, unspecified laterality Anemia, unspecified type Encounter for immunization Need for other specified prophylactic vaccination against single bacterial disease White coat syndrome with diagnosis of hypertension Hyperlipidemia, unspecified hyperlipidemia type Elevated BUN Other abnormal blood chemistry documented in this encounter [facility] note* Diagnosis Primary hypertension- Primary Unspecified essential hypertension Screening mammogram for breast cancer documented in this encounter [facility] note* Diagnosis Closed avulsion fracture of distal phalanx of finger, initial encounter- Primary documented in this encounter [facility] note* Diagnosis Pharyngitis, unspecified etiology- Primary Suspected COVID-19 virus infection [facility] Diagnosis Chalazion left upper eyelid- Primary documented in this encounter [facility] note* Diagnosis Rash- Primary Rash and other nonspecific skin eruption documented in this encounter [facility] note* Diagnosis Primary hypertension Unspecified essential hypertension documented in this encounter [facility] note* Diagnosis Renal calculi- Primary Calculus of kidney Bilateral flank pain Abdominal pain, unspecified site History of lithotripsy Personal history of surgery to other organs Acute midline low back pain without sciatica Primary hypertension Unspecified essential hypertension [facility]* Diagnosis Renal calculus- Primary Calculus of kidney Primary hypertension Unspecified essential hypertension Bilateral flank pain Abdominal pain, unspecified site Acute midline low back pain without sciatica Encounter for screening mammogram for breast cancer Lower abdominal pain Abdominal pain, other specified site Nausea Nausea alone documented in this encounter [facility] note* Diagnosis Gallstones- Primary Calculus of gallbladder without mention of cholecystitis or obstruction Lower abdominal pain Abdominal pain, other specified site Change in bowel habits Other symptoms involving digestive system [facility] Diagnosis Patient left without being seen- Primary Surgical or other procedure not carried out because of patient's decision [facility]* Diagnosis Dyspepsia- Primary Dyspepsia and other specified disorders of function of stomach Abdominal pain, unspecified abdominal location Calculus of gallbladder without cholecystitis without obstruction Calculus of gallbladder without mention of cholecystitis or obstruction Gall stones Calculus of gallbladder without mention of cholecystitis or obstruction 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 Vitritis Crystalline deposits in vitreous [facility] Diagnosis Change in bowel habits- Primary Other symptoms involving digestive system Constipation, unspecified constipation type Abdominal pain, unspecified abdominal location Gallstones Calculus of gallbladder without mention of cholecystitis or obstruction [facility]* Diagnosis Change in bowel habits Other symptoms involving digestive system Constipation, unspecified constipation type [facility]* Diagnosis Dyspepsia Dyspepsia and other specified disorders of function of stomach [facility]* Diagnosis Dyspepsia Dyspepsia and other specified disorders of function of stomach Gall stones Calculus of gallbladder without mention of cholecystitis or obstruction Calculus of gallbladder without cholecystitis without obstruction Calculus of gallbladder without mention of cholecystitis or obstruction [facility]* Diagnosis Gallstones Calculus of gallbladder without mention of cholecystitis or obstruction [facility]* Diagnosis Other specified nutritional anemias- Primary Change in bowel habits Other symptoms involving digestive system Abdominal pain, unspecified abdominal location [facility]* Diagnosis Palpitations- Primary Right bundle branch block [facility]* Diagnosis Vitritis Crystalline deposits in vitreous Retinal vasculitis of both eyes Retinal vasculitis Uveitis of both eyes [facility]* Diagnosis Bilateral posterior uveitis- Primary Chorioretinitis, unspecified [facility]* Diagnosis Uveitis of both eyes- Primary Medication management Encounter for long-term (current) use of other medications [facility]* Diagnosis Retinal vasculitis of both eyes- Primary Retinal vasculitis Vitritis Crystalline deposits in vitreous Primary hypertension Unspecified essential hypertension SVT (supraventricular tachycardia) (HCC) Other specified cardiac dysrhythmias [facility] Diagnosis Uveitis of both eyes- Primary Retinal vasculitis of both eyes Retinal vasculitis [facility] Diagnosis Bilateral posterior uveitis Chorioretinitis, unspecified [facility] Diagnosis Uveitis of both eyes- Primary Retinal vasculitis of both eyes Retinal vasculitis Vitritis Crystalline deposits in vitreous Primary hypertension Unspecified essential hypertension Dysuria Leg edema Edema [facility] Diagnosis Primary hypertension Unspecified essential hypertension Left atrial dilatation Cardiomegaly [facility] Diagnosis Retinal vasculitis, bilateral- Primary Retinal vasculitis Age-related nuclear cataract of both eyes Senile nuclear sclerosis [facility] Diagnosis Primary hypertension- Primary Unspecified essential hypertension 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 Encounter for screening examination for other mental health and behavioral disorders Screening for depression IFG (impaired fasting glucose) Impaired fasting glucose Screening, lipid Screening for lipoid disorders Encounter for therapeutic drug monitoring [facility] Diagnosis Uveitis- Primary 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) documented in this encounter [facility] for referral (narrative)* Diagnostic Procedure Only (Routine) - Pending Review Specialty Diagnoses / Procedures Referred By Aga ross Referred To Contact BR IMAGING Diagnoses Screening mammogram for breast cancer Procedures ROLF SCREENING SCREENING MAMMOGRAPHY BI 2-VIEW BREAST INC Vy Carrington APRN.CNS [address] [place] [address] [facility] [address] [place] [phone] Referral ID Status Reason Start Date Expiration Date Visits Requested Visits Authorized [id number] Pending Review Auto-Generat ed Referral 04/16/2022 05/16/2023 1 1 * Diagnostic Procedure Only (Routine) - Pending Review Specialty Diagnoses / Procedures Referred By Aga ross Referred To Contact BR IMAG[facility] Diagnoses Screening mammogram for breast cancer Procedures ROLF SCREENING W SYLVIE SCREENING DIGITAL BREAST TOMOSYNTHESIS BI SCREENING MAMMOGRAPHY BI 2-VIEW BREAST INC Vy Carrington APRN.LEAK OPERATOR [employer] [address] [place] [address] [facility] [address] [place] [address] Referral ID Status Reason Start Date Expiration Date Visits Requested Visits Authorized [id number] Pending Review Auto-Generat ed Referral 04/16/2022 05/16/2023 1 1 [facility] for referral (narrative)* Diagnostic Procedure Only (Routine) - Authorized Specialty Diagnoses / Procedures Referred By [facility] Referred To Contact US IMAGING Diagnoses Gallstones Procedures US ABD RIGHT UPPER QUADRANT US ABDOMINAL REAL TIME W/IMAGE LIMITED Clarice Gutierrez PA-C [address] [place] [address] Us Imaging Referral ID Status Reason Start Date Expiration Date Visits Requested Visits Authorized [id number] Authorized Auto-Generat ed Referral 04/30/2023 05/15/2024 1 1 [facility] for referral (narrative)* Diagnostic Procedure Only (Routine) - Closed Specialty Diagnoses / Procedures Referred By [facility] Referred To Contact XR IMAGING Diagnoses Change in bowel habits Constipation, unspecified constipation type Procedures XR ABDOMEN 1V SUPINE RADIOLOGIC EXAM ABDOMEN 1 VIEW Maximiliano Hoffmann MD [address] [facility] [place] [address] [place] [address] Referral ID Status Reason Start Date Expiration Date V isits Requested Visits Authorized [id number] Closed Auto-Generate d Referral 05/11/2023 06/09/2024 1 1 [facility] for referral (narrative)* Diagnostic Procedure Only (Routine) - Closed Specialty Diagnoses / Procedures Referred By [facility] Referred To Contact MOLECULAR & FUNCTIONAL IMAGING Diagnoses Dyspepsia Procedures NM GASTRIC EMPTYING SOLID GASTRIC EMPTYING STUDY Ronald Quijano APRN.PRIVACY SPECIALIST [address] [phone] Molecular & Functional Imaging [address] [place] [address] Referral ID Status Reason Start Date Expiration Date V isits Requested Visits Authorized [id number] Closed Auto-Generate d Referral 06/22/2023 07/21/2024 1 1 [facility] for referral (narrative)* Diagnostic Procedure Only (Routine) - Closed Specialty Diagnoses / Procedures Referred By [facility] Referred To Contact MOLECULAR & FUNCTIONAL IMAGING Diagnoses Dyspepsia Gall stones Calculus of gallbladder without cholecystitis without obstruction Procedures NM HEPATOBILIARY W EF AND/OR RX HEPATOBIL SYST IMAG INC GB W/PHARMA INTERVENJ Ronald Quijano APRN.PRIVACY SPECIALIST [facility] [place] [address] Molecular & Functional Imaging [address] [place] [address] Referral ID Status Reason Start Date Expiration Date V isits Requested Visits Authorized [id number] Closed Auto-Generate d Referral 06/22/2023 07/21/2024 1 1 [facility] for referral (narrative)* Diagnostic Procedure Only (Routine) - Closed Specialty Diagnoses / Procedures Referred By Contac t Referred To Contact US IMAGING Diagnoses Gallstones Procedures US ABD RIGHT UPPER QUADRANT US ABDOMINAL REAL TIME W/IMAGE LIMITED Clarice Gutierrez PA-C [address] [place] [address] Us Imaging [place] [address] Referral ID Status Reason Start Date Expiration Date V isits Requested Visits Authorized [id number] Closed Auto-Generate d Referral 04/30/2023 05/15/2024 1 1 [facility] for referral (narrative)* Outpatient Procedure (Routine) - Closed Specialty Diagnoses / Procedures Referred By Ezraac t Referred To Contact [facility] Diagnoses Change in bowel habits Abdominal pain, unspecified abdominal location Procedures COLONOSCOPY DIAGNOSTIC COLONOSCOPY FLX DX W/COLLJ SPEC WHEN PFRMD Clarice Gutierrez PA-C [address] [place] [address] [facility] Disease [address] [address] Referral ID Status Reason Start Date Expiration Date V isits Requested Visits Authorized [id number] Closed Auto-Generate d Referral 04/16/2023 04/16/2024 1 1 * Outpatient Procedure (Routine) - Closed Specialty Diagnoses / Procedures Referred By Ezraenmanuel t Referred To Contact [facility] Diagnoses Change in bowel habits Abdominal pain, unspecified abdominal location Procedures EGD DIAGNOSTIC ESOPHAGOGASTRODUODENOSC OPY TRANSORAL DIAGNOSTIC Clarice Gutierrez PA-C [address] [place] [address] [facility] Disease [address] [address] Referral ID Status Reason Start Date Expiration Date V isits Requested Visits Authorized [id number] Closed Auto-Generate d Referral 04/16/2023 04/16/2024 1 1 [facility] for referral (narrative)* Outpatient Procedure (Routine) - Authorized Specialty Diagnoses / Procedures Referred By Ezraac t Referred To Contact [facility] Diagnoses Right bundle branch block Palpitations Procedures ECHO ECHO TTHRC R-T 2D W/WOM-MODE COMPL SPEC&COLR D Mic Lambert MD [address] [place] [address] [facility] [address] [place] [id number] Referral ID Status Reason Start Date Expiration Date Visits Requested Visits Authorized [id number] Authorized Auto-Generat ed Referral 09/27/2023 09/19/2024 1 1 [facility] for visit Narrative* Diagnostic Procedure Only (Routine) - Closed Specialty Diagnoses / Procedures Referred By Aga ross Referred To Contact XR IMAGING Diagnoses Change in bowel habits Constipation, unspecified constipation type Procedures XR ABDOMEN 1V SUPINE RADIOLOGIC EXAM ABDOMEN 1 VIEW Maximiliano Hoffmann MD [address] [place] [address] [place] [address] Referral ID Status Reason Start Date Expiration Date V isits Requested Visits Authorized [id number] Closed Auto-Generate d Referral 05/11/2023 06/09/2024 1 1 [facility] for visit Narrative* Outpatient Procedure (Routine) - Closed Specialty Diagnoses / Procedures Referred By Aga ross Referred To Contact [facility] Diagnoses Change in bowel habits Abdominal pain, unspecified abdominal location Procedures COLONOSCOPY DIAGNOSTIC COLONOSCOPY FLX DX W/COLLJ SPEC WHEN PFRMD Clarice Gutierrez PA-C [address] [place] [address] [facility] [address] [place] [address] Referral ID Status Reason Start Date Expiration Date V isits Requested Visits Authorized [id number] Closed Auto-Generate d Referral 04/16/2023 04/16/2024 1 1 [facility] History of Present Illness * Lu Thompson MD - 05/09/2019 11:17 AM EDT Dictation on: 05/09/2019 11:18 AM by: LU THOMPSON [[id number]] documented in this encounter Assessments Diagnosis Biceps tendon rupture, proximal, right, initial encounter- Primary Primary osteoarthritis of right shoulder Advance Directives Documents on File Type Date Recorded 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 Advance Directives and Living Will Documents on File Type Date Recorded 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 Advance Directive(s) 05/24/2017 8:18 AM Documents on File Type Date Recorded 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 Advance Directive(s) 05/24/2017 8:18 AM Summary Purpose Family History No Family History Records FoundNo Family History Records FoundNo Family History Records Found Health Concerns Infection Onset Date Last Indicated Resolved Time COVID-19 Rule-Out 10/01/2022 10/01/2022 Reason for Referral Specialty Diagnoses / Procedures Referred By Contac t Referred To Contact CT IMAGING Diagnoses Renal calculi Bilateral flank pain History of lithotripsy Procedures CT FLANK WO IVCON CT ABD & PELVIS W/O CONTRAST Vy Menendez, PATTERN ASSEMBLER.LEAK OPERATOR [employer] [address] [place] [address] Ct Imaging Referral ID Status Reason Start Date Expiration Date V isits Requested Visits Authorized [id number] Closed Auto-Generate d Referral 04/01/2023 04/30/2024 1 1 Specialty Diagnoses / Procedures Referred By Contac t Referred To Contact Gastroenterology Diagnoses Lower abdominal pain Procedures CONSULT TO GASTROENTEROLOGY OFFICE/OUTPATIENT [facility] 60-74 MINUTES Vy Menendez, PATTERN ASSEMBLER.LEAK OPERATOR [employer] [address] [place] [address] Referral ID Status Reason Start Date Expiration Date Visits Requested Visits Authorized [id number] Pending Review PCP Requested Referral 04/12/2023 04/11/2024 1 1 Specialty Diagnoses / Procedures Referred By Contac t Referred To Contact Gastroenterology Diagnoses Dyspepsia Gall stones Procedures CONSULT TO GASTROENTEROLOGY OFFICE/OUTPATIENT [facility] 60-74 MINUTES Ronald Quijano PATTERN ASSEMBLER.PRIVACY SPECIALIST [address] [place] [address] Referral ID Status Reason Start Date Expiration Date Visits Requested Visits Authorized [id number] Pending Review PCP Requested Referral 06/22/2023 06/21/2024 1 1 Specialty Diagnoses / Procedures Referred By Contac t Referred To Contact Cardiology Diagnoses Right bundle branch block Procedures CONSULT TO CARDIOLOGY OFFICE/OUTPATIENT [facility] 60-74 MINUTES Ronald Quijano APRN.PRIVACY SPECIALIST [address] [place] [address] Referral ID Status Reason Start Date Expiration Date Visits Requested Visits Authorized [id number] Pending Review PCP Requested Referral 06/22/2023 06/21/2024 1 1 Specialty Diagnoses / Procedures Referred By Contac t Referred To Contact [facility] Diagnoses Right bundle branch block Procedures ECHO ECHO TTHRC R-T 2D W/WOM-MODE COMPL SPEC&COLR D Ronald Quijano, PATTERN ASSEMBLER.PRIVACY SPECIALIST [address] [place] [address] [facility] [address] [place] [address] Referral ID Status Reason Start Date Expiration Date Visits Requested Visits Authorized [id number] Authorized Auto-Generat ed Referral 06/22/2023 06/21/2024 1 1 Specialty Diagnoses / Procedures Referred By Contac t Referred To Contact MOLECULAR & FUNCTIONAL IMAGING Diagnoses Dyspepsia Procedures NM GASTRIC EMPTYING SOLID GASTRIC EMPTYING STUDY Ronald Quijano, PATTERN ASSEMBLER.PRIVACY SPECIALIST [address] [place] [id number] Molecular & Functional Imaging [address] [place], [place] [id number] Referral ID Status Reason Start Date Expiration Date Visits Requested Visits Authorized [id number] Authorized Auto-Generat ed Referral 06/22/2023 07/21/2024 1 1 Specialty Diagnoses / Procedures Referred By Contac t Referred To Contact MOLECULAR & FUNCTIONAL IMAGING Diagnoses Dyspepsia Gall stones Calculus of gallbladder without cholecystitis without obstruction Procedures NM HEPATOBILIARY W EF AND/OR RX HEPATOBIL SYST IMAG INC GB W/PHARMA INTERVENJ Ronald Quijano, PATTERN ASSEMBLER.PRIVACY SPECIALIST [address] [place] [address] Molecular & Functional Imaging [address] [place], [place] [id number] Referral ID Status Reason Start Date Expiration Date Visits Requested Visits Authorized [id number] Authorized Auto-Generat ed Referral 06/22/2023 07/21/2024 1 1 Specialty Diagnoses / Procedures Referred By Contac t Referred To Contact CT IMAGING Diagnoses Retinal vasculitis, bilateral Age-related cataract of both eyes, unspecified age-related cataract type Procedures CT CHEST WO IVCON DIAGNOSTIC COMPUTED TOMOGRAPHY THORAX W/O Keyshawn Bustamante MD [address] [place] [address] Ct [facility] [place] [address] Referral ID Status Reason Start Date Expiration Date Visits Requested Visits Authorized [id number] New Request Auto-Generat ed Referral 07/28/2024 08/27/2025 1 1 Specialty Diagnoses / Procedures Referred By Aga ross Referred To Contact MR IMAGING Diagnoses Retinal vasculitis, bilateral Age-related cataract of both eyes, unspecified age-related cataract type Procedures MRI BRAIN WO/W IVCON MRI BRAIN BRAIN STEM W/O W/CONTRAST MATERIAL Keyshawn France MD [address] [place] [id number] Mr Imaging [facility]95 Referral ID Status Reason Start Date Expiration Date Visits Requested Visits Authorized [id number] New Request Auto-Generat ed Referral 07/28/2024 08/27/2025 1 1 Specialty Diagnoses / Procedures Referred By Aga ross Referred To Contact MR IMAGING Diagnoses Retinal vasculitis, bilateral Age-related cataract of both eyes, unspecified age-related cataract type Procedures MRI ORBIT WO/W IVCON MRI ORBIT FACE & NECK W/O & W/CONTRAST MATRL Keyshawn France MD [address] [place] [id number] Mr Imaging [facility] Referral ID Status Reason Start Date Expiration Date Visits Requested Visits Authorized [id number] New Request Auto-Generat ed Referral 07/28/2024 08/27/2025 1 1 Medications Administered Section Inactive Administered Medications - up to 3 most recent administrations Medication Order MAR Action Action Date Dose Rate Site diphenhydrAMINE 12.5-50 mg injection (BENADRYL) 12.5-50 mg, INTRAVENOUS, DIRECTED, Starting on Wed05/04/23 at 1100, Until Wed05/04/23 at 1459, DOSING DIRECTED BY PHYSICIAN FOR PROCEDURAL SEDATION ONLY, Intraprocedure Given 05/04/2023 10:30 AM EDT 50 mg fentaNYL 50 mcg/mL 25-100 mcg injection (SUBLIMAZE) 25-100 mcg, INTRAVENOUS, DIRECTED, Starting on Wed05/04/23 at 1100, Until Wed05/04/23 at 1459, DOSING DIRECTED BY PHYSICIAN FOR PROCEDURAL SEDATION ONLY, Intraprocedure Given 05/04/2023 10:44 AM EDT 50 mcg Given 05/04/2023 10:24 AM EDT 50 mcg lactated ringers iv infusion 30 mL/hr, INTRAVENOUS, CONTINUOUS, Starting on Wed05/04/23 at 0930, Until Wed05/04/23 at 1110, Preprocedure New Bag/Syringe/Bottle 05/04/2023 10:15 AM EDT 30 mL/hr 30 mL/hr midazolam 1-5 mg injection (VERSED) 1-5 mg, INTRAVENOUS, DIRECTED, Starting on Wed05/04/23 at 1100, Until Wed05/04/23 at 1459, DOSING DIRECTED BY PHYSICIAN FOR PROCEDURAL SEDATION ONLY, Intraprocedure Given 05/04/2023 10:35 AM EDT 2 mg Given 05/04/2023 10:24 AM EDT 3 mg Additional Source Comments Reason for Visit (unrecogniz ed section and content) Reason Comments Pain Reason Comments F/U 6 Month Reason Comments Blood Pressure Reason Comments Sore Throat Coughing x2 days Reason Comments Eye Problem left top eye lid swo llen x 1 day Reason Comments Derm Problem red, circular, itchi ng area on left side x 3 days Reason Onset Date Comments Refill Request 03/29/2023 Reason Comments Back Pain Reason Comments Follow Up Reason Comments Patient Request Reason Comments requesting return call Reason Comments Consult Lower abdomen pain Specialty Diagnoses / Procedures Referred By Aga ross Referred To Contact Gastroenterology Diagnoses Lower abdominal pain Procedures CONSULT TO GASTROENTEROLOGY OFFICE/OUTPATIENT [facility] 60-74 MINUTES Vy Menendez, PATTERN ASSEMBLER.LEAK OPERATOR [employer] [address] [place] [address] Referral ID Status Reason Start Date Expiration Date Visits Requested Visits Authorized [id number] Pending Review PCP Requested Referral 04/12/2023 04/11/2024 1 1 Reason Comments Patient Update Reason Comments F/U 6 months Labs prior Reason Comments Patient Question Reason Comments Abdominal Pain described it as cram ping that started in March 2023. Colonoscopy and EGD were normal. Eye Problem seen by Dr. 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, bilateral retinal vasculitis and viritis Reason Comments Consult Gall stones, dyspeps ia Reason Comments Radiology NM Specialty Diagnoses / Procedures Referred By Aga ross Referred To Contact MOLECULAR & FUNCTIONAL IMAGING Diagnoses Dyspepsia Procedures NM GASTRIC EMPTYING SOLID GASTRIC EMPTYING STUDY Ronald Quijano, PATTERN ASSEMBLER.PRIVACY SPECIALIST [address] [place] [address] Molecular & Functional Imaging [address] [place] [address] Referral ID Status Reason Start Date Expiration Date V isits Requested Visits Authorized [id number] Closed Auto-Generate d Referral 06/22/2023 07/21/2024 1 1 Specialty Diagnoses / Procedures Referred By Contac t Referred To Contact MOLECULAR & FUNCTIONAL IMAGING Diagnoses Dyspepsia Gall stones Calculus of gallbladder without cholecystitis without obstruction Procedures NM HEPATOBILIARY W EF AND/OR RX HEPATOBIL SYST IMAG INC GB W/PHARMA INTERVENJ Ronald Quijano APRN.PRIVACY SPECIALIST [address] [place] [address] Molecular & Functional Imaging [address] [place] [address] Referral ID Status Reason Start Date Expiration Date V isits Requested Visits Authorized [id number] Closed Auto-Generate d Referral 06/22/2023 07/21/2024 1 1 Reason Comments Radiology US Specialty Diagnoses / Procedures Referred By Contac t Referred To Contact US IMAGING Diagnoses Gallstones Procedures US ABD RIGHT UPPER QUADRANT US ABDOMINAL REAL TIME W/IMAGE LIMITED Clarice Gutierrez PA-C [address] [place] [address] Us Imaging [place] [address] Referral ID Status Reason Start Date Expiration Date V isits Requested Visits Authorized [id number] Closed Auto-Generate d Referral 04/30/2023 05/15/2024 1 1 Reason Comments Consult Specialty Diagnoses / Procedures Referred By Contac t Referred To Contact Cardiology Diagnoses Primary hypertension Left atrial dilatation Procedures CONSULT TO CARDIOLOGY OFFICE/OUTPATIENT [facility] HIGH MDM 60-74 MINUTES Ronald Quijano APRN.PRIVACY SPECIALIST [address] [place] [address] Referral ID Status Reason Start Date Expiration Date Visits Requested Visits Authorized [id number] Pending Review PCP Requested Referral 07/26/2023 07/25/2024 1 1 Reason Comments Medication Request Specialty Diagnoses / Procedures Referred By Contac t Referred To Contact Rheumatology Diagnoses Vitritis 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 Procedures CONSULT TO RHEUM/IMMUN DISEASE OFFICE/OUTPATIENT [facility] 60-74 MINUTES Ronald Quijano APRN.PRIVACY SPECIALIST [address] [place] [address] Referral ID Status Reason Start Date Expiration Date V isits Requested Visits Authorized [id number] Closed PCP Requested Referral 10/04/2023 10/03/2024 1 1 Reason Comments Opened In Error Reason Onset Date Comments SPP Inflammatory Conditions - Treatment Referral 12/21/2023 [employer] Insurance Authorization 12/21/2023 PA Submi ssion Pending Reason Comments Uveitis, Posterior Reason Comments 6 week follow up Reason Comments Medication Injection Teaching Reason Comments Forms Reason Comments Imm/Inj [employer] Reason Comments Retinal Vasculitis Follow Up Reason Comments F/U 3 Month Reason Onset Date Comments Refill Request 05/04/2024 Reason Comments Retinal Vasculitis Evaluation Reason Comments Recheck Care Teams (unrecognized sec tion and content) Computer Forensic Specialist Relationship Specialty Start Date End Date Sai Benjamin MD [address] [place], [place] [phone] PCP - General Internal Medicine 02/17/16 Computer Forensic Specialist Relationship Specialty Start Date End Date Sai Benjamin MD [address] [place] [id number] PCP - General Internal Medicine 07/01/11 Computer Forensic Specialist Relationship Specialty Start Date End Date Sai Benjamin MD [address] [place] [id number] PCP - General Internal Medicine 07/01/11 Computer Forensic Specialist Relationship Specialty Start Date End Date Sai Benjamin MD [address] [place] [address] [id number] PCP - General Internal Medicine 07/01/11 Computer Forensic Specialist Relationship Specialty Start Date End Date Sai Benjamin MD [address] [place] [id number] PCP - General Internal Medicine 4/25/16 Computer Forensic Specialist Relationship Specialty Start Date End Date Sai Benjamin MD [facility] [place] [address] PCP - General Internal Medicine 07/01/11 Computer Forensic Specialist Relationship Specialty Start Date End Date Sai Benjamin MD [address] [place] [address], [place] [address] PCP - General Internal Medicine 07/01/11 Computer Forensic Specialist Relationship Specialty Start Date End Date Sai Benjaimn MD [address] [place] [address], [place] [address] PCP - General Internal Medicine 07/01/11 Computer Forensic Specialist Relationship Specialty Start Date End Date Sai Benjamin MD [address] [place] [address], [place] [address] PCP - General Internal Medicine 07/01/11 Computer Forensic Specialist Relationship Specialty Start Date End Date Sai Benjamin MD [address] [place] [address], [place] [address] PCP - General Internal Medicine 07/01/11 Computer Forensic Specialist Relationship Specialty Start Date End Date Sai Benjamin MD [address] [place] [address], [place] [address] PCP - General Internal Medicine 07/01/11 Computer Forensic Specialist Relationship Specialty Start Date End Date Sai Benjamin MD [address] [place] [address], [place] [address] PCP - General Internal Medicine 07/01/11 Computer Forensic Specialist Relationship Specialty Start Date End Date Sai Benjamin MD [address] [place] [address], [place] [address] PCP - General Internal Medicine 07/01/11 Computer Forensic Specialist Relationship Specialty Start Date End Date Sai Benjamin MD [address] [place] [address], [place] [address] PCP - General Internal Medicine 07/01/11 Computer Forensic Specialist Relationship Specialty Start Date End Date Sai Benjamin MD [address] [facility] [place] [address] PCP - General Internal Medicine 07/01/11 Computer Forensic Specialist Relationship Specialty Start Date End Date Sai Benjamin MD [address] [facility] [place] [address] PCP - General Internal Medicine 07/01/11 Computer Forensic Specialist Relationship Specialty Start Date End Date Sai Benjamin MD [address] [facility] [place] [address] PCP - General Internal Medicine 07/01/11 Computer Forensic Specialist Relationship Specialty Start Date End Date Sai Benjamin MD [address] [place] [address] PCP - General Internal Medicine 07/01/11 Computer Forensic Specialist Relationship Specialty Start Date End Date Sai Benjamin MD [address] [facility] [place] [address] PCP - General Internal Medicine 07/01/11 Computer Forensic Specialist Relationship Specialty Start Date End Date Sai Benjamin MD [address] [facility] [place] [address] PCP - General Internal Medicine 07/01/11 Computer Forensic Specialist Relationship Specialty Start Date End Date Sai Benjamin MD [address] [facility] [place] [address] PCP - General Internal Medicine 07/01/11 Computer Forensic Specialist Relationship Specialty Start Date End Date Sai Benjamin MD [address] [facility] [place] [address] PCP - General Internal Medicine 07/01/11 Computer Forensic Specialist Relationship Specialty Start Date End Date Sai Benjamin MD [address] [facility] [place] [address] PCP - General Internal Medicine 07/01/11 Computer Forensic Specialist Relationship Specialty Start Date End Date Sai Benjamin MD [address] [facility] [place] [address] PCP - General Internal Medicine 07/01/11 Computer Forensic Specialist Relationship Specialty Start Date End Date Sai Benjamin MD [address] [facility] [place] [address] PCP - General Internal Medicine 07/01/11 Computer Forensic Specialist Relationship Specialty Start Date End Date Sai Benjamin MD [address] [facility] [place] [address] PCP - General Internal Medicine 07/01/11 Computer Forensic Specialist Relationship Specialty Start Date End Date Sai Benjamin MD [address] [facility] [place] [address] PCP - General Internal Medicine 07/01/11 Computer Forensic Specialist Relationship Specialty Start Date End Date Sai Benjamin MD [address] [facility] [place] [address] PCP - General Internal Medicine 07/01/11 Computer Forensic Specialist Relationship Specialty Start Date End Date Sai Benjamin MD [address] [facility] [place] [address] PCP - General Internal Medicine 07/01/11 Computer Forensic Specialist Relationship Specialty Start Date End Date Sai Benjamin MD [address] [place] [address] PCP - General Internal Medicine 07/01/11 Computer Forensic Specialist Relationship Specialty Start Date End Date Sai Benjamin MD [address] [place] [address] PCP - General Internal Medicine 07/01/11 Computer Forensic Specialist Relationship Specialty Start Date End Date Sai Benjamin MD [address] [place] [address] PCP - General Internal Medicine 07/01/11 Computer Forensic Specialist Relationship Specialty Start Date End Date Sai Benjamin MD [address] [place] [address] PCP - General Internal Medicine 07/01/11 Computer Forensic Specialist Relationship Specialty Start Date End Date Sai Benjamin MD [address] [place] [address] PCP - General Internal Medicine 07/01/11 Computer Forensic Specialist Relationship Specialty Start Date End Date Sai Benjamin MD [address] [place] [address] PCP - General Internal Medicine 07/01/11 Computer Forensic Specialist Relationship Specialty Start Date End Date Sai Benjamin MD [address] [facility] [place] [address] PCP - General Internal Medicine 07/01/11 Computer Forensic Specialist Relationship Specialty Start Date End Date Sai Benjamin MD [address] [place] [address] PCP - General Internal Medicine 07/01/11 Computer Forensic Specialist Relationship Specialty Start Date End Date Sai Benjamin MD [address] [place] [address] PCP - General Internal Medicine 07/01/11 Source Comments (unrecognize d section and content) In the event this informatio n is protected by the Federal Confidentiality of Alcohol and Drug Abuse Patient Records regulations: The Federal rules restrict any use of the information to criminally investigate or prosecute any alcohol or drug abuse patient.[facility] CenterIn the event this information is protected by the Federal Confidentiality of Alcohol and Drug Abuse Patient Records regulations: The Federal rules restrict any use of the information to criminally investigate or prosecute any alcohol or drug abuse patient.[facility] CenterIn the event this information is protected by the Federal Confidentiality of Alcohol and Drug Abuse Patient Records regulations: The Federal rules restrict any use of the information to criminally investigate or prosecute any alcohol or drug abuse patient.[facility] CenterIn the event this information is protected by the Federal Confidentiality of Alcohol and Drug Abuse Patient Records regulations: The Federal rules restrict any use of the information to criminally investigate or prosecute any alcohol or drug abuse patient.[facility] CenterIn the event this information is protected by the Federal Confidentiality of Alcohol and Drug Abuse Patient Records regulations: The Federal rules restrict any use of the information to criminally investigate or prosecute any alcohol or drug abuse patient.[facility] CenterIn the event this information is protected by the Federal Confidentiality of Alcohol and Drug Abuse Patient Records regulations: The Federal rules restrict any use of the information to criminally investigate or prosecute any alcohol or drug abuse patient.[facility] CenterIn the event this information is protected by the Federal Confidentiality of Alcohol and Drug Abuse Patient Records regulations: The Federal rules restrict any use of the information to criminally investigate or prosecute any alcohol or drug abuse patient.[facility] CenterIn the event this information is protected by the Federal Confidentiality of Alcohol and Drug Abuse Patient Records regulations: The Federal rules restrict any use of the information to criminally investigate or prosecute any alcohol or drug abuse patient.[facility] CenterIn the event this information is protected by the Federal Confidentiality of Alcohol and Drug Abuse Patient Records regulations: The Federal rules restrict any use of the information to criminally investigate or prosecute any alcohol or drug abuse patient.[facility] CenterIn the event this information is protected by the Federal Confidentiality of Alcohol and Drug Abuse Patient Records regulations: The Federal rules restrict any use of the information to criminally investigate or prosecute any alcohol or drug abuse patient.[facility] CenterIn the event this information is protected by the Federal Confidentiality of Alcohol and Drug Abuse Patient Records regulations: The Federal rules restrict any use of the information to criminally investigate or prosecute any alcohol or drug abuse patient.[facility] CenterIn the event this information is protected by the Federal Confidentiality of Alcohol and Drug Abuse Patient Records regulations: The Federal rules restrict any use of the information to criminally investigate or prosecute any alcohol or drug abuse patient.[facility] CenterIn the event this information is protected by the Federal Confidentiality of Alcohol and Drug Abuse Patient Records regulations: The Federal rules restrict any use of the information to criminally investigate or prosecute any alcohol or drug abuse patient.[facility] CenterIn the event this information is protected by the Federal Confidentiality of Alcohol and Drug Abuse Patient Records regulations: The Federal rules restrict any use of the information to criminally investigate or prosecute any alcohol or drug abuse patient.[facility] CenterIn the event this information is protected by the Federal Confidentiality of Alcohol and Drug Abuse Patient Records regulations: The Federal rules restrict any use of the information to criminally investigate or prosecute any alcohol or drug abuse patient.[facility] CenterIn the event this information is protected by the Federal Confidentiality of Alcohol and Drug Abuse Patient Records regulations: The Federal rules restrict any use of the information to criminally investigate or prosecute any alcohol or drug abuse patient.[facility] CenterIn the event this information is protected by the Federal Confidentiality of Alcohol and Drug Abuse Patient Records regulations: The Federal rules restrict any use of the information to criminally investigate or prosecute any alcohol or drug abuse patient.[facility] CenterIn the event this information is protected by the Federal Confidentiality of Alcohol and Drug Abuse Patient Records regulations: The Federal rules restrict any use of the information to criminally investigate or prosecute any alcohol or drug abuse patient.[facility] CenterIn the event this information is protected by the Federal Confidentiality of Alcohol and Drug Abuse Patient Records regulations: The Federal rules restrict any use of the information to criminally investigate or prosecute any alcohol or drug abuse patient.[facility] CenterIn the event this information is protected by the Federal Confidentiality of Alcohol and Drug Abuse Patient Records regulations: The Federal rules restrict any use of the information to criminally investigate or prosecute any alcohol or drug abuse patient.[facility] CenterIn the event this information is protected by the Federal Confidentiality of Alcohol and Drug Abuse Patient Records regulations: The Federal rules restrict any use of the information to criminally investigate or prosecute any alcohol or drug abuse patient.[facility] CenterIn the event this information is protected by the Federal Confidentiality of Alcohol and Drug Abuse Patient Records regulations: The Federal rules restrict any use of the information to criminally investigate or prosecute any alcohol or drug abuse patient.[facility] CenterIn the event this information is protected by the Federal Confidentiality of Alcohol and Drug Abuse Patient Records regulations: The Federal rules restrict any use of the information to criminally investigate or prosecute any alcohol or drug abuse patient.[facility] CenterIn the event this information is protected by the Federal Confidentiality of Alcohol and Drug Abuse Patient Records regulations: The Federal rules restrict any use of the information to criminally investigate or prosecute any alcohol or drug abuse patient.[facility] CenterIn the event this information is protected by the Federal Confidentiality of Alcohol and Drug Abuse Patient Records regulations: The Federal rules restrict any use of the information to criminally investigate or prosecute any alcohol or drug abuse patient.[facility] CenterIn the event this information is protected by the Federal Confidentiality of Alcohol and Drug Abuse Patient Records regulations: The Federal rules restrict any use of the information to criminally investigate or prosecute any alcohol or drug abuse patient.[facility] CenterIn the event this information is protected by the Federal Confidentiality of Alcohol and Drug Abuse Patient Records regulations: The Federal rules restrict any use of the information to criminally investigate or prosecute any alcohol or drug abuse patient.[facility] CenterIn the event this information is protected by the Federal Confidentiality of Alcohol and Drug Abuse Patient Records regulations: The Federal rules restrict any use of the information to criminally investigate or prosecute any alcohol or drug abuse patient.[facility] CenterIn the event this information is protected by the Federal Confidentiality of Alcohol and Drug Abuse Patient Records regulations: The Federal rules restrict any use of the information to criminally investigate or prosecute any alcohol or drug abuse patient.[facility] CenterIn the event this information is protected by the Federal Confidentiality of Alcohol and Drug Abuse Patient Records regulations: The Federal rules restrict any use of the information to criminally investigate or prosecute any alcohol or drug abuse patient.[facility] CenterIn the event this information is protected by the Federal Confidentiality of Alcohol and Drug Abuse Patient Records regulations: The Federal rules restrict any use of the information to criminally investigate or prosecute any alcohol or drug abuse patient.[facility] CenterIn the event this information is protected by the Federal Confidentiality of Alcohol and Drug Abuse Patient Records regulations: The Federal rules restrict any use of the information to criminally investigate or prosecute any alcohol or drug abuse patient.[facility] CenterIn the event this information is protected by the Federal Confidentiality of Alcohol and Drug Abuse Patient Records regulations: The Federal rules restrict any use of the information to criminally investigate or prosecute any alcohol or drug abuse patient.[facility] CenterIn the event this information is protected by the Federal Confidentiality of Alcohol and Drug Abuse Patient Records regulations: The Federal rules restrict any use of the information to criminally investigate or prosecute any alcohol or drug abuse patient.[facility] CenterIn the event this information is protected by the Federal Confidentiality of Alcohol and Drug Abuse Patient Records regulations: The Federal rules restrict any use of the information to criminally investigate or prosecute any alcohol or drug abuse patient.[facility] CenterIn the event this information is protected by the Federal Confidentiality of Alcohol and Drug Abuse Patient Records regulations: The Federal rules restrict any use of the information to criminally investigate or prosecute any alcohol or drug abuse patient.[facility] CenterIn the event this information is protected by the Federal Confidentiality of Alcohol and Drug Abuse Patient Records regulations: The Federal rules restrict any use of the information to criminally investigate or prosecute any alcohol or drug abuse patient.[facility] CenterIn the event this information is protected by the Federal Confidentiality of Alcohol and Drug Abuse Patient Records regulations: The Federal rules restrict any use of the information to criminally investigate or prosecute any alcohol or drug abuse patient.[facility] CenterIn the event this information is protected by the Federal Confidentiality of Alcohol and Drug Abuse Patient Records regulations: The Federal rules restrict any use of the information to criminally investigate or prosecute any alcohol or drug abuse patient.[facility] CenterIn the event this information is protected by the Federal Confidentiality of Alcohol and Drug Abuse Patient Records regulations: The Federal rules restrict any use of the information to criminally investigate or prosecute any alcohol or drug abuse patient.[facility] CenterIn the event this information is protected by the Federal Confidentiality of Alcohol and Drug Abuse Patient Records regulations: The Federal rules restrict any use of the information to criminally investigate or prosecute any alcohol or drug abuse patient.[facility] CenterIn the event this information is protected by the Federal Confidentiality of Alcohol and Drug Abuse Patient Records regulations: The Federal rules restrict any use of the information to criminally investigate or prosecute any alcohol or drug abuse patient.[facility] CenterIn the event this information is protected by the [facility] Confidentiality of Alcohol and Drug Abuse Patient Records regulations: The Federal rules restrict any use of the information to criminally investigate or prosecute any alcohol or drug abuse patient.[facility] CenterIn the event this information is protected by the Federal Confidentiality of Alcohol and Drug Abuse Patient Records regulations: The Federal rules restrict any use of the information to criminally investigate or prosecute any alcohol or drug abuse patient.[facility] INFORMATION SOURCE (unrecogn ized section and content) DATE CREATED AUTHOR 09/13/2022 [facility] DATE CREATED AUTHOR AUTHOR'S ORGANIZ ATION 10/15/2023 [facility] DATE CREATED AUTHOR AUTHOR'S ORGANIZ ATION 08/02/2024 [facility] Inactive Administered Medications - up to 3 most recent administrations Administered Medications (un recognized section and content) Medication Order MAR Action Action Date Dose Rate Site PHENYLephrine 2.5 % 1 Drop (AK-DILATE, MEHNAZ-SYNEPHRINE) 1 Drop, BOTH EYES, DIRECTED, Starting on Wed01/28/24 at 1030, Until Wed01/28/24 at 2229, Administer for dilation PROTECT FROM LIGHT, [facility]HT CLINIC MED ORDERS Given 01/28/2024 10:30 AM EDT 1 Drop proparacaine 0.5 % 1 Drop (ALCAINE) 1 Drop, BOTH EYES, DIRECTED, Starting on Wed01/28/24 at 1030, Until Wed01/28/24 at 2229, Administer for pneumo tonometry, tonopen tonometry, or pachymetry. In the event of a proparacaine shortage, administer 1 drop of tetracaine 0.5% ophthalmic drops into both eyes as directed for pneumo tonometry, tonopen tonometry, or pachymetry, [facility]HT CLINIC MED ORDERS Given 01/28/2024 10:30 AM EDT 1 Drop tropicamide 1 % 1 Drop (MYDRIACYL) 1 Drop, BOTH EYES, DIRECTED, Starting on Wed01/28/24 at 1030, Until Wed01/28/24 at 2229, Administer for dilation, [facility]HT CLINIC MED ORDERS Given 01/28/2024 10:30 AM EDT 1 Drop FOR RECORDS PERTAINING TO PATIENTS WHO ARE OR HAVE BEEN ENROLLED IN A CHEMICAL DEPENDENCY/SUBSTANCEABUSE PROGRAM, SOME INFORMATION MAY BE OMITTED. This clinical summary was aggregated from multiple sources. Caution should be exercised in using it in the provision of clinical care. This summary normalizes information from multiple sources, and as a consequence, information in this document may materially change the coding, format and clinical context of patient data. In addition, data may be omitted in some cases. CLINICAL DECISIONS SHOULD BE BASED ON THE PRIMARY CLINICAL RECORDS. [employer] [facility]. provides no warranty or guarantee of the accuracy or completeness of information in this document.
== END | disposition home or self-care (01) ==
LOC: OPBI 08:23
PROVIDERS: PCP Internal Medicine; Referring Provider Obstetrics & Gynecology; Visit Provider Obstetrics & Gynecology
DX: Z12.31 Encounter for screening mammogram for malignant neoplasm of breast (principal)
CPT/HCPCS: 77063; 77067

== ENCOUNTER 2024-11-06 00:36 | Emergency (ER) | payer MEDICARE, SELFPAY ==
[2024-11-06 00:37] VITALS: PULSE 97; RESP 16; TEMP 37; O2SAT 96
--- NOTE | 2024-11-06 00:52 | EDS_ITS ---
HPI History of Present Illness Chief Complaint: Nosebleed [facility] Medical History Abdominal pain Anemia Calculus of gallbladder without cholecystitis without obstruction Hypertension Osteopenia after menopause Renal calculi Retinal vasculitis, bilateral Right bundle branch block (RBBB) Uveitis of both eyes Home Medications ?Medication ?Instructions ?Recorded ?Last Taken ?Type multivitamin,kz-kkvn-coqlitbd 1 tab PO DAILY 10/31/18 Unknown History (Complete Multivitamin tablet) vitamins A,C,B-lvjt-nkuqzk 4,296 1 cap PO BID 07/09/23 Unknown History mcg-226 mg-90 mg capsule (PreserVision AREDS) atenolol 25 mg tablet 25 mg PO BID 07/13/23 09/07/23 History prednisone 10 mg tablet 5 mg PO DAILY 11/05/23 Unknown History adalimumab 80 mg/0.8 mL (x 1) and ea subcut 11/06/24 Unknown History 40 mg/0.4 mL (x 2) subcutan pen kit (Humira(CF) Pen Ps-Uv-Adol HS) hydrochlorothiazide 12.5 mg capsule 12.5 mg PO DAILY 11/06/24 Unknown History Allergy/AdvReac Type Severity Reaction Status Date / Time morphine AdvReac Nausea Verified 11/06/24 00:37 Sulfa (Sulfonamide AdvReac Rash Verified 11/06/24 00:37 Antibiotics) Family History Grandmother Breast cancer Father Hypertension Kidney disease kidney failure Surgical History History of tonsillectomy Hx of lithotripsy (~2015) S/P ACL surgery S/P nasal surgery Total knee replacement status (~2009) Social History Smoking Status: Never smoker alcohol intake: current alcohol intake frequency: a few times a month details: social substance use type: does not use caffeine: Yes what type of physical activity do you participate in: walking and weight training seatbelt use: always do you feel safe at home: Yes additional social history: - Retired EXAM Physical Exam Const Vital Signs: 11/06/24 00:37 11/06/24 00:59 11/06/24 01:04 Temperature 98.6 F Temperature Source Oral Pulse Rate 97 Respiratory Rate 16 Blood Pressure 159/83 H 142/76 H Blood Pressure Mean 108 98 Pulse Ox 96 Oxygen Delivery Method Room Air [facility] Narrative Medical decision making narrative: HISTORY OF PRESENT ILLNESS: 73-year-old female presents with nosebleed. Notes she had a nosebleed this morning. She notes it stopped and started again approximately 1 hour ago. REVIEW OF SYSTEMS: Pertinent positives: Epistaxis Pertinent negatives: Syncope, chest pain PHYSICAL EXAM: Nursing triage notes reviewed, Vital signs reviewed Constitutional: please see [facility] HENT: MMM Lungs: Clear to auscultation, No wheezing or rales. No increased work of breathing, no conversational dyspnea, no accessory muscle use, no nasal flaring. No respiratory distress noted Heart: Regular rate and rhythm, No murmurs, No rubs and No gallops, 2+ distal pulses (radial, femoral, posterior tibial) in all extremities Skin: No rash or lesions noted, no pallor noted MEDICAL DECISION MAKING: Chief Complaint: Epistaxis External records reviewed: None Factors affecting care: none Social determinants of health: none History obtained from others: none Consults: none [facility] Narrative: The patient was initially hemodynamically stable, afebrile and nontoxic- appearing. No active bleeding noted. Had the patient hold pressure for approximate 10 to 15 minutes. Patient was reassessed no bleeding noted. Patient observed for additional 15 minutes with no signs of bleeding. The patient is appropriate for discharge home. The patient and/or family, caregivers express understanding. The patient and/or family, caregivers agrees with the plan. Shared decision making: I will have a discussion with the patient and or visitors regarding risk/ benefits of further testing or admission. They will be made aware of of the risk/benefits inherent in this decision they will be given the opportunity to voice understanding. Total critical care time today provided was at least 0 minutes. This excludes separately billable procedures. Critical care time (if documented) is secondary to the patient having high probability of clinically significant/life threatening deterioration in the patient's condition which required my urgent intervention. Impression: 1. Epistaxis Dispo: Discharge home This note was generated with [email or web address] dictation software. It may contain incorrect words, spelling, and punctuation that were not noted in review of the chart prior to signing. Discharge Plan Triage Chief Complaint: Nosebleed ED Provider: Jose Luis Lewis Dx/Rx/DC Orders Clinical Impression: Acute anterior epistaxis Instructions: ED Epistaxis (Adult) Prescriptions: No Action Complete Multivitamin tablet 1 tab PO DAILY prednisone 10 mg tablet 5 mg PO DAILY Patient Comments: TAKE 6 TABLETS BY MOUTH ONCE DAILY PreserVision AREDS 4,296 mcg-226 mg-90 mg capsule 1 cap PO BID atenolol 25 mg tablet 25 mg PO BID hydrochlorothiazide 12.5 mg capsule 12.5 mg PO DAILY Humira(CF) Pen Dvpe-Pe-Dvgb HS 80 mg/0.8 mL-40 mg/0.4 mL pen injector kit subcut Primary Care Provider: Sasha Up Referrals: Sasha Up MD [Primary Care Provider] - Activity Restrictions/Additional Instructions: Thank you for trusting us with your care today! Please use your nasal clamp to provide additional pressure if you have a nosebleed. Please hold for 10 to 15 minutes. After which time if you are still bleeding please blow your nose vigorously at least 2-3 times and then apply a generous amount of Afrin to your nose to constrict blood vessels. If these interventions do not stop your nosebleed please come to the emergency department immediately. Please take Tylenol (2 pills, 650 mg), ibuprofen (2 pills, 400 mg) every 6 hours as needed for pain and fever control. Please return to the emergency department if your symptoms change or worsen. Please follow with your primary care physician for further outpatient evaluation and management. Print Language: Wolof Disposition Disposition: Home, Self Care
[2024-11-06 00:59] VITALS: BP 159/83
[2024-11-06 01:04] VITALS: BP 142/76
[2024-11-06] MEDS: Oxymetazoline 0.05% 1 SPRAY SPRAY.BTL NASAL (01:17)
[2024-11-06] MEDS: Lidocaine/Epi/Tetracaine 50 ML 1 APPLIC TOPICAL (01:18)
[2024-11-06 02:07] VITALS: BP 142/104; PULSE 68; RESP 16; TEMP 37; O2SAT 97
== END 2024-11-06 02:13 | disposition home or self-care (01) ==
LOC: ED 01:55
PROVIDERS: Emergency Provider Emergency Medicine; PCP Internal Medicine; Visit Provider Emergency Medicine
DX: R04.0 Epistaxis (principal); I10 Essential (primary) hypertension; Z79.899 Other long term (current) drug therapy

== ENCOUNTER → 2025-01-22 | Outpatient (CLI) | payer MEDICARE, SELFPAY | END | disposition home or self-care (01) | LOC: LABSPEC 10:53 | PROVIDERS: PCP Internal Medicine; Referring Provider Obstetrics & Gynecology; Visit Provider Obstetrics & Gynecology | DX: D84.9 Immunodeficiency, unspecified (principal); Z12.4 Encounter for screening for malignant neoplasm of cervix | CPT/HCPCS: 88175; G0145 ==